=== PATIENT | male | born 1960 | race Caucasian/White ===

== ENCOUNTER 2023-05-25 14:14 | Inpatient (IN) | payer OTHER, SELFPAY ==
[2023-05-25] VITALS (50 sets, daily range): BP systolic 74–165; BP diastolic 45–105; BMI 23.0; BMI 25.6
--- NOTE | 2023-05-25 10:44 | ED.GENMED ---
History of Present Illness
General
Chief Complaint: Male Genito-Urinary Symptoms
Time Seen by Provider: 05/25/23 10:44
Travel History
Have you had any contact with someone who has COVID-19?: No
Do you have any symptoms of coronavirus? Fever > 100 degrees, chills, cough, shortness of breath, sore throat, loss of taste or smell, muscle aches, or headache?: No
History of Present Illness
History of Present Illness:
HPI: The patient presents with scrotal swelling. However the patient is found to be in rapid A-fib, and markedly hypoxic. He states that he has no chest pain or shortness of breath. He states that he had had lower extremity swelling which is
improved. The scrotal swelling has been ongoing for the past week. He does not have a history of COPD but does smoke stating that he currently smokes 1 to 2 cigarettes/day
EXAM:
GENERAL: The patient is chronically ill in appearance
HEENT: Moist oral mucosa, poor dentition
CARDIOVASCULAR: No murmurs, tachycardic heart rate, irregular rhythm, No chest wall tenderness
PULMONARY: He does not appear to be in any significant respiratory distress and has no conversational dyspnea but is hypoxic with room air sats of 75% with good waveform, he does have slightly decreased breath sounds equal
ABDOMEN: Soft with no peritoneal signs, no tenderness
: The patient has scrotal edema which is approximately softball sized
NEUROLOGIC: Excellent strength all extremities, no coordination deficits
PSYCHIATRIC: Appropriate mental status, normal insight and judgement
EXTREMITIES: Nontender, 1+ bilateral lower extremity edema, moves all extremities equally
SKIN: The patient appears cyanotic
TIME OF INITIAL ENCOUNTER: 10:50 AM
NUMBER AND COMPLEXITY OF PROBLEMS ADDRESSED AT THE ENCOUNTER
� Chronic conditions affecting care: A-fib, the patient denies history of CHF, Graves' disease/hypothyroidism, alcohol use
� Acute Exacerbation and/or Progression of Chronic Illness: This is an acute problem
� Differential Diagnosis includes: PE, pleural effusion, COPD, epididymitis, CHF, thyroid disease, alcohol disease
AMOUNT AND/OR COMPLEXITY OF DATA TO BE REVIEWED AND ANALYZED
� I performed an independent evaluation of and my interpretation is:
EKG: A-fib 128, poor R wave progression nonspecific ST abnormality
CT: I personally viewed CTA of the chest which shows no PE and does show a rather large left-sided pleural effusion
X-rays: I personally viewed chest x-ray and he appears to have a left-sided pleural effusion
Laboratory Studies: CBC unremarkable, ABG on 6 L/min of oxygen: pH 7.47, pCO2 34, PaO2 53, troponin 0.063 which is new, BNP 410
Other: Reviewed radiologist interpretation of scrotal ultrasounds in which they felt suggestive cellulitis however there is no erythema, no white count elevation, no fever and no significant pain therefore doubt
cellulitis/infectious etiology
� Review of other/old records: Records indicate the patient was admitted to the hospital in October 2021 with acute CHF with preserved EF exacerbation and records at that time also indicate 'suspected permanent A-fib'. Echo at
that time showed an EF of 50 to 55% with indeterminate diastolic function.
� Clinical information was obtained by an independent historian: None needed
� Prescriptions/Medications Considered but not given: Considered further anticoagulation however the patient should be going to interventional radiology later today for thoracentesis
� Further testing considered but not performed:
RISK OF COMPLICATIONS AND/OR MORBIDITY OR MORTALITY OF PATIENT MANAGEMENT
� Social determinants of health affecting care: Lives at home
� Discussion with other providers: Notify Dr. Thompson of the patient's presentation; hospitalist for admission at about 1 PM; discussed with Dr. See for possible IR thoracentesis
� Escalation of care including admission/observation vs risk of discharge considered: I did review the old records. Although patient denies history of CHF, he was treated for CHF last admission. He does have a history of
smoking history with significant hypoxia�a dose of IV steroids was given. I held off on albuterol as he arrived very tachycardic. He is improved with his heart rate after Cardizem drip and bolus. Patient was emergently placed on high flow oxygen
shortly after arrival.
Past History
Past History
ED Past Medical History: Arrthythmia (Atrial fibrillation), HTN, Hypothyroidism and Other ('Hole in the heart' as a child)
ED Past Surgical History: Cardiac ('Hole in the heart' repair as a child)
Social History
Tobacco: Smoker
Alcohol: Daily
Drug: None
Phy Exam
Physical Exam
Physical Exam:
See HPI
Course
Orders/Labs/Results
Orders:
Orders
05/25/23 10:32
Electrocardiogram (*1) Urgent
Reason for Study: Fatigue / Weakness
EKG- Treatment ONCE
05/25/23 10:46
CR Chest Portable - 1 View Urgent
Comment:
Reason For Exam: hypoxia
Reason Study Needs to be Portable: Patient Unstable
05/25/23 10:56
Alcohol Urgent
Complete Blood Count/With Diff Urgent
Comprehensive Metabolic Panel Urgent
Free T4 Urgent
Magnesium Urgent
NT-proBNP Urgent
TSH Reflex To Free T4 Urgent
Troponin I Urgent
Diltiazem HCl [Cardizem] 10 mg IV NOW STA
US Scrotum Urgent
Comment:
Reason For Exam: swelling
05/25/23 10:57
CT Chest Pe Study Urgent
Comment:
Reason For Exam: hypoxia
05/25/23 11:00
Diltiazem 125 mg/125 ml Nss [Cardizem] 125 mg in 125 ml IV PER PROTOCOL
Initial dose in mg/hr, then titrate:: 10
Titrate to keep:: Heart rate 80-100 bpm
Titrate by mg/hr:: 5 mg/hr
Frequency of titrations (minutes):: 15
Maximum dose in mg/hr:: 15
05/25/23 11:11
ABG [Arterial Blood Gas] Urgent
%Oxygen/Room Air: 6lpm
05/25/23 11:24
O2 Therapy [RESP] Urgent
Titrate/Wean O2 to maintain O2 sat greater than (%): 90
05/25/23 12:45
Furosemide [Lasix] 40 mg IV NOW STA
Abnormal Lab Results
05/25/23 05/25/23
10:56 11:11
MCH 31.5 H pg
(27.0-31.0)
RDW 14.9 H %
(11.5-14.5)
MPV 11.1 H fL
(7.4-10.4)
Absolute Lymphs (auto) 1.1 L 10^3/uL
(1.2-3.4)
Absolute Monos (auto) 0.8 H 10^3/uL
(0.1-0.6)
Lymphocytes % 19.2 L %
(20.5-51.1)
Monocytes % 13.2 H %
(1.7-9.3)
pH 7.47 H
(7.35-7.45)
pCO2 34 L mmHg
(35-48)
pO2 53 L* mmHg
(83-108)
ABG O2 Sat (Measured) 85.0 L %
(94-98)
Creatinine 0.6 L mg/dL
(0.7-1.3)
Glucose 100 H mg/dl
(70-99)
Total Bilirubin 2.1 H mg/dl
(0.2-1.3)
Alkaline Phosphatase 218 H U/L
(38-126)
Troponin I 0.063 H* ng/ml
Total Protein 9.1 H g/dl
(6.3-8.2)
TSH (Reflex) 4.72 H uIU/ml
(0.47-4.68)
05/25/23 10:56
05/25/23 10:56
Vital Signs
Initial and Last Documented VS:
Initial Vital Signs
Temp Pulse Resp BP Pulse Ox
98.3 F 128 16 135/95 90
05/25/23 10:26 05/25/23 10:26 05/25/23 10:26 05/25/23 10:26 05/25/23 10:26
Last Documented Vital Signs
Temp Pulse Resp BP Pulse Ox
98.3 F 92 17 134/90 89
05/25/23 10:26 05/25/23 13:00 05/25/23 13:00 05/25/23 13:00 05/25/23 12:45
*Pulse Oximetry
Patient hypoxic: yes
Comment: Patient's room air sat 75% with good waveform
*Critical Care Note
Total Time (30-74mins, 75-104mins- exclusive of procedures): Not Applicable
comment:
The patient is markedly hypoxic. Emergently tried Cardizem bolus and drip as well as emergent diuresis as I suspect a degree of volume overload despite relatively unremarkable BNP. He does have rather large pleural effusion and I coordinated care
with cardiology, internal medicine, and interventional radiology.
ED Attending Note
-
Portions of this chart may have been created with voice recognition software.� Occasional wrong word or��sound alike� substitutions may have occurred due to the inherent limitations of voice recognition software.
Discharge Plan
Departure
Patient Disposition: Admit
Date of Disposition: 05/25/23
Time of Disposition: 12:47
Presentation/result/management discussed w/ accepting MD/DO: Hospitalist
Discharge Problem:
Pleural effusion
Prescriptions:
No Action
levothyroxine 175 mcg Tablet
175 mcg PO DAILY@0700 Qty: 30 0RF
folic acid 1 mg Tablet
1 mg PO DAILY Qty: 30 0RF
thiamine mononitrate (vit B1) 100 mg tablet
100 mg PO DAILY Qty: 30 0RF
metoprolol succinate 25 mg Tablet Extended Release 24 Hr
25 mg PO BID Qty: 60 0RF
furosemide [Lasix] 40 mg tablet
40 mg PO DAILY Qty: 30 0RF
spironolactone [Aldactone] 25 mg tablet
12.5 mg PO DAILY Qty: 30 0RF
Eliquis 5 mg Tablet
5 mg PO BID Qty: 60 0RF
Referrals:
Liborio Chino MD [Family Provider] -
Interventions
Interventions:
*Risk Screen - Suicide Last Done: 05/25/23 11:09
*General Assessment Last Done: 05/25/23 11:08
*Neglect/Abuse Screening Last Done: 05/25/23 11:09
ED- Fall Risk Assessment Last Done: 05/25/23 11:09
*ED COVID-19 Vaccine History Last Done: 05/25/23 10:30
ED-Male Genitourinary Assessment Last Done: 05/25/23 12:06
[2023-05-25 11:05] LABS: % Basophils 1.9 % (0-2); % Eosinophils 1.9 % (0-6); % Immature Granulocytes 0.2 % (0-0.5); % Lymphocytes 19.2 % (20.5-51.1); % Monocytes 13.2 % (1.7-9.3); % Neutrophils 63.6 % (42.2-75.2); Absolute Basophils 0.1 10^3/uL (0-0.2); Absolute Eosinophils 0.1 10^3/uL (0-0.7); Absolute Lymphocytes 1.1 10^3/uL (1.2-3.4); Absolute Monocytes 0.8 10^3/uL (0.1-0.6); Absolute Neutrophils 3.7 10^3/uL (1.4-6.5); Hematocrit 42.3 % (39.0-52.0); Hemoglobin 14.8 g/dL (13.0-18.0); Mean Corpuscular Hgb 31.5 pg (27.0-31.0); Mean Platelet Volume 11.1 fL (7.4-10.4); Nucleated Red Blood Cells % 0 % (-); Platelet Count 209 10^3/uL (130-400); Red Cell Dist. Width 14.9 % (11.5-14.5); White Blood Cell Count 5.8 10^3/uL (4.8-10.8)
[2023-05-25] MEDS: CARDIZEM 10 MG IV (11:06)
[2023-05-25] MEDS: CARDIZEM 125 IV ×2 (11:07→20:22)
[2023-05-25 11:19] LABS: B.E. 1.5 mmol/L; HCO3 24.7 mmol/L (21-28); PCO2 34 mmHg (35-48); pH 7.47 (7.35-7.45)
[2023-05-25 11:20] LABS: PO2 53 mmHg (83-108)
[2023-05-25 11:26] LABS: ALT (SGPT) 17 U/L (0-50); AST (SGOT) 51 U/L (17-59); Albumin 4.1 g/dl (3.5-5.0); Alkaline Phosphatase 218 U/L (38-126); Blood Urea Nitrogen 14 mg/dl (9-20); Calcium 9.2 mg/dl (8.4-10.2); Carbon Dioxide 22 mmol/L (22-30); Chloride 104 mmol/L (98-107); Glucose 100 mg/dl (70-99); Magnesium 1.8 mg/dl (1.6-2.3); Potassium 4.2 mmol/L (3.5-5.1); Sodium 135 mmol/L (135-145); Total Bilirubin 2.1 mg/dl (0.2-1.3); Total Protein 9.1 g/dl (6.3-8.2); eGFR > 60.00
[2023-05-25 11:29] LABS: Alcohol None Detected
[2023-05-25 11:39] LABS: NT-proBNP 410 pg/ml; Troponin I 0.063 ng/ml
[2023-05-25 11:56] LABS: TSH Reflex To Free T4 4.72 uIU/ml (0.47-4.68)
[2023-05-25 12:32] LABS: Free T4 1.98 ng/dl (0.78-2.19)
[2023-05-25] MEDS: LASIX 40 MG IV ×3 (12:54→23:32)
--- NOTE | 2023-05-25 13:33 | HPS.HSE ---
Family Physician
-
Family Physician: Liborio Chino
Chief Complaint
-
Bilateral scrotal swelling
History of Present Illness
This is a 60-year-old male with past medical history significant for atrial fibrillation on Eliquis, hypertension and hypothyroidism presenting to the emergency department with several days of scrotal swelling. However on arriving to the emergency
department the patient was found to be in rapid atrial fibrillation, hypoxic and cyanotic.
Patient reported to me that he has been taking his medications which are listed as Eliquis and levothyroxine 200 mcg. He was previously on metoprolol twice daily but stopped taking that about 1 month ago. Even on arrival in the emergency
department the patient denied feeling short of breath despite appearing cyanotic. He denied any chest pain. He denied feeling any palpitations. He did say that he had bilateral lower extremity swelling about 2 weeks ago which appeared to improve
on its own and then developed into scrotal swelling. He denied abdominal swelling. Patient does have orthopnea stating that he prefers to sleep upright and has been doing so for an indeterminate period of time. He does not measure his weight. He
denies any nausea or vomiting. He has no recent fevers or chills. He states that he has an occasional morning cough that clears within a few minutes of waking up. He has no known sick contacts and denies any recent travels.
Patient denies history of any liver disease. He does drink 3 servings of beer daily. Denies any episodes of alcohol withdrawal.
On arrival in the emergency department the patient was hypoxic and tachycardic to the 130s. He is currently satting at 89% on 60 L high flow. Blood pressure stable ECG shows atrial fibrillation with rapid ventricular rate at 128 without any acute
ST or T wave changes. Troponin was 0.06. BNP 410. CBC is unremarkable. Chemistries stable with K of 4.2. TSH is slightly elevated at 4.7.
CT of the chest with IV contrast is negative for blood clot but did showed a large left pleural effusion and moderate left with consolidation or atelectasis.
Medical History
Past Medical History
Past Medical History: Reports HTN and Hypothyroidism
Additional Past Medical History:
Atrial Fibrillation
Past Surgical History: Reports None
Social History
Tobacco: Smoker (3 cigarrettes daily)
Alcohol: Daily
Drug: None
Personal: Single
Living: With Family
Employment: Retired
Family History
Family History: Not pertinent
Allergies / Home Medications
Allergies reflects when Allergies were last updated in [facility].
Home Medications with original date entered in [facility]
Allergy/Medication List:
Allergies
Allergy/AdvReac Type Severity Reaction Status Date / Time
No Known Allergies Allergy Verified 05/25/23 10:31
Home Medications
levothyroxine 200 mcg tablet 200 mcg PO DAILY
apixaban 5 mg tablet (Eliquis) 5 mg PO BID
Review of Systems
-
History Source: Patient
Constitutional: Reports No Symptoms
EENT: Reports No Symptoms
Respiratory: Reports Trouble Breathing
Cardiac: Reports No Symptoms
Abdomen/GI: Reports No Symptoms
: Reports Other (scrotal edema)
Musculoskeletal: Reports Edema
Skin: Reports No Symptoms
Neurological: Reports No Symptoms
Endocrine: Reports No Symptoms
Hematologic/Lymphatic: Reports No Symptoms
Psych: Reports No Symptoms
Physical Exam
Vital Signs
Vital Signs
Temp Pulse Resp BP Pulse Ox
98.3 F 98 20 120/79 89
05/25/23 10:26 05/25/23 13:15 05/25/23 13:15 05/25/23 13:15 05/25/23 13:15
Physical Exam
General: Respiratory Distress
HEENT: NormoCephalic, Anicteric, Moist mucous membranes, PERRLA, Oxygen and Other (cyanotic lips)
Respiratory: Non Labored Respirations and Decreased Breath Sounds (decreased left lung breath sounds)
Cardiac: Irregular Rhythm and Tachycardia
Breast: Deferred by me
GI: Soft, Non Tender, Non Distended and Normal Bowel Sounds
Rectal: Deferred by Provider
Genito-urinary: Deferred by me
Musculoskeletal: Clubbing, Cyanosis, Edema, Left Lower Extremity and Edema, Right Lower Extremity
Skin: Warm
Neuro: AO x 3
Hematologic/Lymphatic: No Lymphadenopathy
Psych: Calm
Laboratory Results
-
05/25/23 10:56
05/25/23 10:56
Laboratory Results
pH 7.47 (7.35-7.45) H 05/25/23 11:11
pCO2 34 mmHg (35-48) L 05/25/23 11:11
pO2 53 mmHg (83-108) L* 05/25/23 11:11
HCO3 24.7 mmol/L (21-28) 05/25/23 11:11
Total Bilirubin 2.1 mg/dl (0.2-1.3) H 05/25/23 10:56
AST 51 U/L (17-59) 05/25/23 10:56
ALT 17 U/L (0-50) 05/25/23 10:56
Alkaline Phosphatase 218 U/L (38-126) H 05/25/23 10:56
Troponin I 0.063 ng/ml H* 05/25/23 10:56
Data Reviewed
-
CT Scan: Report Reviewed by me
Medical Tests (Nuc Med, Echo, EKG etc): Image Personally Visualized and interpreted
Lab Data: Labs Reviewed by me
Old Records: Reviewed
Impression/Plan
-
IMPRESSION:
Suspect patient has CHF secondary to uncontrolled afib given history of bilateral leg edema, scrotal edema, elevated BNP. He is volume overloaded.
PLAN:
1. AFIB RVR - Patient with h/o AFIB and hypothyroidism. Presents with afib RVR although he himself denies chest pain, palpitaitons, shortrness of breath or dizziness. Came in for scrotal swelling. He stopped taking his metoprolol about 1 month
ago. Given unawareness of afib, patient likely has been tachycardic for weeks and may have developed tachycardia induced heart failure. He did have bilateral lower extremity edema on history which improved as he spent more time sitting but then
developed scrotal edema. TSH is slightly elevated so unlikely thyrotoxic.
- admit to imu
- continue cardizem gtt titrated for rate < 110. Discontinue if bradycardic.
- echo in am
- restart oral agents per cardiology
- cardiology consulted and notified.
2. Pleural Effusion - Large left pleural effusion likely contributing to his hypoxia. There is likely atelectasis superimposed on the effusion. No cough, fevers, chills or leukocytosis consistent with an acute infection. Despite h/o smoking no
wheezing. Possibly atypical CHF induced transudative effusion.
- IR diagnostic and therapeutic thoracentesis plan prior to floor transfer
- checking ldh/TP, albumin, pH, cell count
- IV diuresis w/ lasix 40mg iv bid to tid
3. Hypoxia - Currently on high flow. Out of proportion to degree of pulmonary findings. CT chest is negative for acute PE. No wheezing/ barrel chest suggestive of a COPD.
- High flow for now
- no indication for abx, steroids
- no indication for nebs
- continue diuresis and follow pleural fluid analysis
- monitor post thoracentesis
- pulmonary consultation
4. Troponin elevation - Trop 0.06. No acute ischemia on ECg. No chest pain. Came in cyanotic and hypoxic with tachycardia. Demand ischemia suspected
- cycle enzymes
- aspirin 324 x 1
- continue ac with apixaban after thoracentesis
5. Scrotal edema - No signs of acute infection
- elevate sac
- iv lasix
6. Hypothyroidism- TSH is 4.7. No evidence of thyrotoxicosis.
- continue levothyroxin 200 mcg
DVT PPX - On therapeutic apixaban
Full Code
--- NOTE | 2023-05-25 14:22 | PHANOTE ---
05/25/2023, med rec tech, spoke to pt. to obtain their med. history; pt. states to be taking Eliquis 5 mg BID and that he gets this med. sent to him for free but does not know through what service; pt. brought bottle with him with the label ripped
off of it so I could not confirm it; saw this med. on [facility] records from 12/13/2021.
[2023-05-25 14:54] LABS: LDH 259 U/L (120-246)
--- NOTE | 2023-05-25 15:03 | W.PN.UPDATE ---
Update Note
Progress Note Update
L thora: 1500 mL straw colored fluid
[2023-05-25 15:33] LABS: Body Fluid pH 7.49
[2023-05-25 15:45] LABS: Body Fluid LDH 120 U/L; Body Fluid Protein 3.5 g/dl
--- NOTE | 2023-05-25 16:25 | CON.CAR ---
Consultation
Consultation Request
Date/Time Consultation Requested: 05/25/23
Date/Time Consultation Performed: 05/25/23
Requesting Provider: Enrique
Performing Provider: Kathy
Reason for Consultation: AFib
Medical History
-
Chief Complaint: scrotal swelling
History of Present Illness:
62-year-old man past medical history of atrial fibrillation and heart failure with preserved ejection fraction as well as Graves' disease presenting with chief complaint of scrotal swelling. Initially found to be hypoxic requiring mid flow
supplemental O2. Heart rate was elevated in A-fib and he was started on diltiazem drip for rate control. Chest x-ray and subsequent chest CT concerning for pulmonary edema and pleural effusion consistent with decompensated heart failure. Of note
proBNP was not severely elevated at 410.
Patient underwent left sided thoracentesis with IR removing 1.5 L of straw-colored fluid. Still requiring mid flow oxygen support. Planned for admission to IMU.
Initial troponin was mildly elevated 0.063. Patient is not reporting any chest pain or pressure to me. ECG is nonischemic appearing.
PMHx:
HFpEF
Atrial fibrillation with RVR - permanent
Graves' disease
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
H/O Hypothyroidism following radiation treatment for Graves' disease
Daily EtOH
Current smoker
Past Medical History
Past Medical History: Other (as above)
Past Surgical History: Other (as above)
Social History
Tobacco: Smoker
Alcohol: Daily
Living: With Family (brother)
Employment: Retired
Family History
Family History: Reviewed & Not Pertinent
Allergies / Home Medications
Allergy/AdvReac Type Severity Reaction Status Date / Time
No Known Allergies Allergy Verified 05/25/23 10:31
Medication Instructions Recorded Confirmed Type
apixaban 5 mg tablet (Eliquis) 5 mg PO BID 05/25/23 History
levothyroxine 200 mcg tablet 200 mcg PO DAILY 05/25/23 05/25/23 History
tkzlvhrfxrjs-enyfvzzm-jjoyrm tablet 1 tab PO DAILY 05/25/23 05/25/23 History
thiamine HCl (vitamin B1) 100 mg 100 mg PO DAILY 05/25/23 05/25/23 History
tablet
Review of Systems
-
History Source: Patient
All other systems: Negative unless noted
Physical Exam
Vital Signs
Temp Pulse Resp BP Pulse Ox
97.7 F 73 20 113/62 90
05/25/23 14:25 05/25/23 16:15 05/25/23 16:15 05/25/23 16:15 05/25/23 16:15
Lab Results
05/25/23 10:56
05/25/23 10:56
Troponin I 0.063 ng/ml H* 05/25/23 10:56
Bly-Z-Wyxfphccdrj Pept 410 pg/ml 05/25/23 10:56
Physical Exam
General: Well Developed
HEENT: Normocephalic and Other (scleral injection)
Respiratory: Crackles (LL lung field) and Other (mid flow O2)
Cardiac: S1/S2 and Irregular Rhythm
GI: Soft
Genito-urinary: Other (scrotal swelling)
Musculoskeletal: Clubbing, Cyanosis and Edema (trace LE with overlying brawny skin changes)
Skin: Warm and Dry
Neuro: AO x 3
Psych: Calm
Impression / Plan
-
Distribution Estimator: None
Assessment:
Hypoxic respiratory failure
Scrotal edema
Acute heart failure
Atrial fibrillation with RVR
Elevated troponin
L pleural effusion s/p IR drainage 05/25/23
Ascending aortic saccular aneurysm
Graves' disease
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
H/O Hypothyroidism following radiation treatment for Graves' disease
Daily EtOH
Current smoker
10/29/2021: EF 50-55%, mild MR, mildly dilated LA, mild TR, pulmonary artery systolic pressure 51 mmHg based on elevated right atrial pressure of 20 mmHg, dilated RA, normal RV, and some views anteroseptal hypokinesis could be present, normal aortic
valve
Plan:
CHF
-Presenting with hypoxic respiratory failure secondary to presumed heart failure, currently requiring supplemental O2 via mid flow nasal cannula
-Plan for IV diuresis twice daily in an attempt to improve his respiratory status
-Follow daily weights, renal function, electrolytes
-Explained that elevation will be helpful to improve scrotal swelling
-Check transthoracic echocardiogram
AFib RVR
-History of atrial fibrillation, presenting in A-fib RVR
-Rates are currently controlled on diltiazem drip, ideally would start on oral meds and transition off IV, will add low dose BB
-On Eliquis as an outpatient for cardioembolic prophylaxis, would continue here unless further procedures are planned
-Afib was previously called permanent, may engage EP regarding the feasibility rhythm control
Troponin elevation
-Not reporting chest discomfort to me
-ECG is not obviously ischemic
-Trend troponin to peak
-Start statin and beta-vipul, on full dose AC with Eliqius
Ascending aortic aneurysm
-Incidentally found on CT scan 05/25/2023
-Recommend statin, smoking cessation and tight blood pressure control
-Explained the need for serial imaging in the future
Data Reviewed
-
EKG: Tracing Personally Visualized and interpreted
Radiology: Image Personally Visualized and interpreted
CT Scan: Image Personally Visualized and interpreted
Medical Tests (Nuc Med, Echo etc): Image Personally Visualized and interpreted
Labs: Labs Reviewed by me
Old Records: Reviewed
[2023-05-25] MEDS: ROBITUSSIN 200 MG PO (17:32)
[2023-05-25] MEDS: MORPHINE SULFATE 2 MG IV ×2 (17:37→22:17)
[2023-05-25 19:44] LABS: INR 1.35; PT 16.5 Sec (11.4-14.6)
[2023-05-25 20:00] LABS: Troponin I 0.045 ng/ml
--- NOTE | 2023-05-25 20:00 | PTCARENOTE ---
Received pt from IMU to ICU [id number]. Pt. AAOx3, RUIZ. On Hi flow 55L/100% fio2, RR 20s, spo2 87-90%. RT at bedside. L lung dim with rhonchi and scattered rales. R side dim with rhonchi. Does not appear to be in distress. Afib on tele, on cardizem gtt -
see worklist. HR 80s-90s, BP 120s/70s. Weak DP pulses. Nail beds cyanotic. Abdomen round, hypoactive bowel sounds. Tolerated sips of fluid. Bliss cath placed per orders. Yellow urine output 400ml initially. Repositioning to maximize o2 status,
especially onto R side. Monitoring closely
--- NOTE | 2023-05-25 20:09 | PTCARENOTE ---
Pt arrived to IMU from ED via stretcher. Transferred over to bed by staff. High Flow NC 55L/100% with NRB; SaO2 83%. Pt with frequent nonproductive harsh cough. Unable to catch breath. Dr. Maravilla notified. New order for PRN Morphine 2mg IV X1
acknowledged and administered. PRN Robitussin administered. SaO2 slowly improved to 88% before patient stated he had to urinate. Pt began moving legs to side of bed; SaO2 dropped to 70% and slowly improved to > 80%. Tachypneic with RR 20s. Atrial
fibrillation on monitoring coordinator. HR 80s - 100s. Cardizem gtt infusing @ 15 mg/hr. +4 scrotal edema. Generalized anasarca. +2 pitting LE edema. LE's warm and red. Wound on (R) shoulder that pt cannot identify how it happened. Abdomen is round,
distended, full. Voided yellow into urinal. SaO2 remained in 80s. Discussed with Dr. Alcantara. New orders for transfer to ICU and noninvasive ventilation. Report given to Marlene LESLIE in ICU.
[2023-05-25 20:37] LABS: APTT 32.2 Sec (23.4-35.0)
[2023-05-25] MEDS: LOPRESSOR 25 MG PO (21:11)
[2023-05-25] MEDS: TYLENOL 650 MG PO (21:11)
[2023-05-25] MEDS: ELIQUIS 5 MG PO (21:11)
[2023-05-25] MEDS: LIPITOR 40 MG PO (21:11)
[2023-05-25 21:31] LABS: COVID-19 Antigen Negative (Negative)
[2023-05-25] MEDS: ROBITUSSIN AC 10 ML PO (22:17)
--- NOTE | 2023-05-25 22:38 | PTCARENOTE ---
Pt O2 sats 76-80% on HF + NRB. RT and FITNESS AND WELLNESS MANAGER at bedside. Placed on NIV mask.
HR also 60s suddenly, previously 80s. Hypotensive 80s/50s. Cardizem gtt titrated to off. Will monitor
[2023-05-25] MEDS: LEVOPHED 250 IV (23:05)
--- NOTE | 2023-05-25 23:27 | W.PN.UPDATE ---
Update Note
Progress Note Update
0- Patient worsening hypoxemia, oxygen saturations sustaining 70s%, transitioned from non rebreather and high flow oxygen to non invasive. Patient has pale/dusky generalized color, not tachypneic, continues with hypoxemia. Dr. Dutton,
solo musician updated, recommendations received, would not intubate patient unless respiratory distress, repeat chest xray, and echo with bubble study for tomorrow. At this time patient is comfortable and speaking, although becomes hypoxic with any
exertion. It is unclear as to complete picture as to why patient is hypoxic and cause for pleural effusion on the left side, needs further investigation/work up. Chest xray repeated. Arterial line placed for ABG monitoring and hemodynamic
monitoring. Levophed gtt initiated for hypotension, Cardizem gtt now off because of rhythm change to junctional/slow rate rhythm and hypotension. Additional dose of lasix 40mg IV given for decreased urinary output, now only put out 30cc, to help
with diuresis. Temp 100.1, will obtain blood cultures and UA. COVID and influenza swabs negative. Patient and RN updated at bedside. Patient understands and if respiratory distress occurs would like to be intubated, remains FULL CODE.
--- NOTE | 2023-05-26 00:32 | W.PN.UPDATE ---
Update Note
Progress Note Update
ARTERIAL LINE (A-Line) PLACEMENT
Indication: Hemodynamic monitoring
Consent: emergent, implied, but patient verbalized consent as well
A time-out was completed verifying correct patient, procedure, site, positioning, and special equipment if applicable. Steve�s test was performed to ensure adequate perfusion. The patient�s left wrist was prepped and draped in sterile fashion.�A�20G
Arrow arterial line was introduced into the left radial artery. The catheter was threaded over the guide wire and the needle was removed with appropriate pulsatile�blood return. A sterile dressing applied. Perfusion to the extremity distal to the
point of catheter insertion was checked and found to be adequate.
Estimated Blood Loss: minimal
The patient tolerated the procedure well and there were no complications.
[2023-05-26 00:33] LABS: B.E. 0.2 mmol/L; HCO3 24.7 mmol/L (21-28); PCO2 39 mmHg (35-48); pH 7.41 (7.35-7.45)
[2023-05-26 00:36] LABS: PO2 52 mmHg (83-108)
--- NOTE | 2023-05-26 00:39 | PTCARENOTE ---
Pt continues with spo2 78-80%. DENTAL HYGIENE INSTRUCTOR and RT aware. Do not wish to proceed with intubation at this time due to pt not appearing in acute distress, RR under control, pt mentating. L radial A line was placed by FOREIGN Murillo. Blood cultures x2, lactic
and ABG ordered and drawn. PO2 = 52. On NIV 24/02, 100% fio2. HR 50s-60s, appears junctional. Levophed was started ~2300 due to MAPs of 55. See worklist for titrations. 40mg IV lasix was given with no urine response. DENTAL HYGIENE INSTRUCTOR aware of all the above. Pt.
resting at this time.
[2023-05-26 00:46] LABS: Lactic Acid 2.3 mmol/L (0.7-2.0)
[2023-05-26 01:06] LABS: Troponin I 0.082 ng/ml
[2023-05-26 02:01] LABS: Urine Albumin 1+ (Neg - Trace); Urine Bilirubin Negative (Negative); Urine Character Slightly Cloudy (Clear); Urine Color Yellow; Urine Glucose Negative (Negative); Urine Ketone Negative (Negative); Urine Leukocyte 1+ (Negative); Urine Nitrite Negative (Negative); Urine Occult Blood 4+ (Negative); Urine Urobilinogen Negative (Neg - 1+)
[2023-05-26 02:48] LABS: Urine Amorphous Seen; Urine Mucus Moderate; Urine Squamous Cell >30 /LPF (Few); Urine Urothelial Cell >30 /LPF (FEW)
[2023-05-26 02:49] LABS: Urine Bacteria Many (Negative); Urine Red Blood Cell >100 /HPF (0-2); Urine White Cell >100 /HPF (0-5)
[2023-05-26] MEDS: LEVOPHED 250 IV ×3 (02:52→14:46)
--- NOTE | 2023-05-26 04:06 | PTCARENOTE ---
Pt reassessed. O2 sats slightly improved- now 86-87%. Remains on NIV. HR 50s, occasionally dipping to high 40s momentarily. CARDIOVASCULAR OR NURSE aware. Levophed gtt continues. Urine output remains poor. AM Labs sent. Pt. without complaint
[2023-05-26 04:14] LABS: Blood Urea Nitrogen 19 mg/dl (9-20); Calcium 8.6 mg/dl (8.4-10.2); Carbon Dioxide 21 mmol/L (22-30); Chloride 101 mmol/L (98-107); Estimated Creatinine Clearance 79 ml/min; Glucose 158 mg/dl (70-99); HDL Cholesterol 39 mg/dl; LDH 243 U/L (120-246); LDL Cholesterol, Calculated 60 mg/dl; Magnesium 1.7 mg/dl (1.6-2.3); Potassium 4.9 mmol/L (3.5-5.1); Sodium 132 mmol/L (135-145); Total Cholesterol 112 mg/dl (50-199); Triglyceride 67 mg/dl (10-149); Very Low Density Lipoprotein 13 mg/dl (0-30); eGFR > 60.00
[2023-05-26 04:42] VITALS: BP 121/84
[2023-05-26 05:17] LABS: B.E. -0.2 mmol/L; O2 Saturation % 90.4 % (94-98); PCO2 37 mmHg (35-48); PO2 61 mmHg (83-108); pH 7.42 (7.35-7.45)
[2023-05-26 05:21] LABS: Hematocrit 44.5 % (39.0-52.0); Hemoglobin 15.4 g/dL (13.0-18.0); Mean Corp Hgb Conc. 34.6 g/dL (33.0-37.0); Mean Corpuscular Hgb 31.6 pg (27.0-31.0); Mean Corpuscular Volume 91.2 fL (80.0-94.0); Mean Platelet Volume 10.9 fL (7.4-10.4); Platelet Count 205 10^3/uL (130-400); Red Blood Cell Count 4.88 10^6/uL (4.70-6.10); Red Cell Dist. Width 14.9 % (11.5-14.5); White Blood Cell Count 12.6 10^3/uL (4.8-10.8)
[2023-05-26 05:32] LABS: Lactic Acid 1.9 mmol/L (0.7-2.0)
[2023-05-26 05:52] VITALS: BMI 26.0
--- NOTE | 2023-05-26 06:29 | PTCARENOTE ---
O2 sats continue to slowly improve- now 89-90%. Pt. resting calmly, no distress, no pain. Was bathed with CHG, did desat with movement to 79%. EKG obtained- revealed afib and prolonged qtc- MERGERS AND ACQUISITIONS ASSOCIATE notified. HR 60s. Levophed weaned down to 10mcg.
--- NOTE | 2023-05-26 06:38 | W.PN.HOSP.TC ---
Today's Communication/Plan
-
.
Assessment / Plan
Assessment / Plan
Physical Exam
General: in Respiratory Distress with Non invasive ventilation mask on
HEENT: Normocephalic, Anicteric, Moist mucous membranes, PERRLA, Oxygen and Other (cyanotic lips)
Respiratory: rhonchi bilaterally.
Cardiac: Irregular Rhythm and Tachycardia
GI: Soft, Non Tender, Non Distended and Normal Bowel Sounds
Rectal: no rectal breathing
Musculoskeletal: Clubbing, Cyanosis, Edema, Left Lower Extremity and Edema, Right Lower Extremity
Skin: Warm
Neuro: AO x 3
Psych: Calm
A/P
# AFIB RVR - Patient with h/o AFIB and hypothyroidism.� Presented with afib RVR although he himself denies chest pain, palpitations, shortness of breath or dizziness.�� He stopped taking his metoprolol about 1 month ago.� Given unawareness of afib,
patient likely had tachycardic for weeks and may have developed tachycardia induced heart failure.� He did have bilateral lower extremity edema on history which improved as he spent more time sitting but then developed scrotal edema.� TSH is
slightly elevated so unlikely thyrotoxic.
continue care in ICU
- continue BB
- echo
- c/w Eliquis.
- cardiology help appreciated.
# Suspect Sepsis POA/ septic shock
with tachycardia, low grade temp and leukocytosis
f/w blood cultures
On Pressure support , will d/w ICU doctor if we need to hold Lasix.
IV ABx for now
# Scrotal swelling.
'Empiric ABx for now. Treat edema with elevation and Lasix.
Monitor for retention.
# Pleural Effusion - Large left pleural effusion likely contributing to his hypoxia.� There is likely atelectasis superimposed on the effusion.� No cough, fevers, chills or leukocytosis consistent with an acute infection.� Despite h/o smoking no
wheezing.� Possibly atypical CHF induced transudative effusion.�
- IR diagnostic and therapeutic thoracentesis plan prior to floor transfer
- checking ldh/TP, albumin, pH, cell count
- IV diuresis w/ lasix 40mg iv bid to tid
#Acute hypoxic respiratory failure requiring Non-invasive ventilation machine. CT chest is negative for acute PE.� No wheezing/ barrel chest suggestive of a COPD.�
Check procalcitonin
Empiric ABx
Hx of smoking, possible underlying COPD?
c/w Neb
Negative flu and cOVID.
Appreciate pulmonary/ICU doctor help
# Acute HF pEF
f/w echo, daily weight
c/w Lasix
# Non-ischemic -Troponin elevation - Trop 0.06- 0.08
- cycle enzymes
- c/w ELiquis, f/w echo. Pt denied chest pain
- continue ac with apixaban after thoracentesis
# Hypothyroidism- TSH is 4.7.� No evidence of thyrotoxicosis.
- continue levothyroxine 200 mcg
DVT PPX - On therapeutic apixaban
Full Code
�Total time spent to see the patient, examine the patient on the floor, review data and lab results, discuss treatment plan with the patient, nursing staff around 55 minutes
Anticipated Discharge: > 48 hours
Subjective/Interval History
-
Date of Service: May 26, 2023
In respiratory distress
Low grade temp
Objective Data
-
Labs:
Laboratory Results
05/25/23 05/26/23 05/26/23
19:25 00:23 03:40
WBC
Hgb
Hct
Plt Count
PT 16.5 H
INR 1.35
APTT 32.2
HCO3 24.7
Sodium 132 L
Potassium 4.9
Chloride 101
Carbon Dioxide 21 L
BUN 19
Creatinine 1.0
Glucose 158 H
Calcium 8.6
05/26/23
05:07
WBC 12.6 H
Hgb 15.4
Hct 44.5
Plt Count 205
PT
INR
APTT
HCO3 24.0
Sodium
Potassium
Chloride
Carbon Dioxide
BUN
Creatinine
Glucose
Calcium
Vital Signs:
Vital Signs
Temp Pulse Resp BP Pulse Ox
99 F 65 10 121/84 89
05/26/23 04:00 05/26/23 06:30 05/26/23 06:30 05/26/23 04:42 05/26/23 06:30
I&O
05/24/23 05/25/23 05/26/23
06:59 06:59 06:59
Intake Total 740.5 / 740.5
Output Total 1542 / 1542
Balance -801.5 / -801.5
--- NOTE | 2023-05-26 07:41 | CON.INTV ---
Consultation
Consultation Request
Date/Time Consultation Requested: 05/26/2023-7 AM
Date/Time Consultation Performed: 05/26/2023-7 AM
Requesting Provider: Hospitalist
Performing Provider: Dr. Pena
Reason for Consultation: Critical care management
Medical History
-
Chief Complaint: Shortness of breath and hypotension
History of Present Illness:
62-year-old male with a history of hypertension, atrial fibrillation on Eliquis, hypothyroidism found to be hypoxemic tachycardic with scrotal swelling noted to have large left pleural effusion status post thoracentesis with persistent hypotension
and hypoxemia requiring pressors and noninvasive ventilation-farm specialist consulted for respiratory failure/noninvasive ventilation/hypotension/shock/critical care management 05/26/2023. Patient has a noninvasive ventilator on his face and difficult
to communicate with. He appears to be alert and oriented. He states that the mask 'sucks'. He denies any chest congestion, chest pain, productive cough, abdominal pain, nausea, weakness, or increased leg swelling. He smokes daily but down to 3
cigarettes daily. He also reportedly drinks alcohol daily but the quantity is unclear.
Past Medical History
Past Medical History: None (Hypertension. Atrial fibrillation. Hypothyroid)
Social History
Tobacco: Smoker (Down to 3 cigarettes daily)
Alcohol: Daily
Drug: None
Personal: Single
Living: With Family
Employment: Retired
Occupational Exposures: No known asbestos exposure
Environmental Exposures: no known tuberculosis exposure
Family History
Family History: Reviewed & Not Pertinent
Allergies / Home Medications
Allergies
Allergy/AdvReac Type Severity Reaction Status Date / Time
No Known Allergies Allergy Verified 05/25/23 10:31
Home Medications
Medication Instructions Recorded Confirmed Last Taken Type
apixaban 5 mg tablet (Eliquis) 5 mg PO BID 05/25/23 05/24/23 History
levothyroxine 200 mcg tablet 200 mcg PO DAILY 05/25/23 05/25/23 05/25/23 History
rdqabprowywe-nvltzdzd-todusc tablet 1 tab PO DAILY 05/25/23 05/25/23 05/24/23 History
thiamine HCl (vitamin B1) 100 mg 100 mg PO DAILY 05/25/23 05/25/23 1 Week Ago History
tablet ~05/18/23
Review of Systems
-
Unable to Obtain full review of systems at this time due to: Other (Per HPI)
Vitals / Labs / Diagnostic Testing
Vital Signs
Temp Pulse Resp BP Pulse Ox
97.8 F 65 10 121/84 89
05/26/23 07:23 05/26/23 06:30 05/26/23 06:30 05/26/23 04:42 05/26/23 06:30
Lab Data
05/26/23 05:07
05/26/23 03:40
Laboratory Results
05/25/23 05/25/23 05/26/23
11:11 19:25 00:23
PT 16.5 H
INR 1.35
APTT 32.2
pH 7.47 H 7.41
pCO2 34 L 39
pO2 53 L* 52 L*
HCO3 24.7 24.7
O2 Delivery Level
05/26/23
05:07
PT
INR
APTT
pH 7.42
pCO2 37
pO2 61 L
HCO3 24.0
O2 Delivery Level
Microbiology
05/25/23 20:45 Nasal Swab Influenza Types A & B (ERROL) - Final
Negative for Influenza A & B, NAAT
Negative results must be combined with clinical observations
and patient history.
Nucleic Acid Amplification test (NAAT)performed on the
Animated Speech platform.
Diagnostic Testing:
Physical Exam
-
Exam:
Well-nourished and well-developed in no apparent distress
HEENT-atraumatic, normocephalic, noninvasive ventilation with full facemask
Neck-supple, no JVD, no bruit
Heart-regular rate and rhythm-no murmurs, rubs or gallops
Chest with diminished breath sounds, rare crackles and no wheezes
Abdomen-soft, nontender, nondistended, no hepatosplenomegaly
Extremities-no cyanosis, clubbing, edema and good peripheral pulses
Integument-intact, no rashes, lesions or ecchymosis
Neurology-alert and oriented, nonfocal motor and sensory exam
Assessment
-
62-year-old male with a history of hypertension, atrial fibrillation on Eliquis, hypothyroidism found to be hypoxemic tachycardic with scrotal swelling noted to have large left pleural effusion status post thoracentesis with persistent hypotension
and hypoxemia requiring pressors and noninvasive ventilation-farm specialist consulted for respiratory failure/noninvasive ventilation/hypotension/shock/critical care management 05/26/2023.
Assessment
Respiratory failure-hypoxemic due to large left pleural effusion
Left pleural effusion status post thoracentesis 05/25/23--1.5 L
CHF with preserved EF
Mitral regurgitation
Biatrial enlargement on CT chest 05/25/2023
Saccular aneurysm of ascending aorta 2.6 cm extending length of 3 cm-noted on CT chest 05/25/2023
Bilateral basilar consolidation-atelectasis versus pneumonia
Leukocytosis
Mild hyponatremia
Hyperglycemia-blood sugar 158
Scrotal edema with possible cellulitis
Conditions present prior to admission:
Hypertension
Hypothyroid
Atrial fibrillation on Eliquis
Daily smoker
Daily alcohol intake
Plan
Patient admitted to medical intensive care unit on the verge of intubation-critically ill on pressors and noninvasive ventilation
Supplemental oxygen as needed
Noninvasive ventilation-ventilator adjusted
Follow ABG if needed
Follow chest x-ray-last 4 chest x-rays reviewed and summarized below
Nebulizers if needed-currently not bronchospastic
Aspiration precautions
Mucolytic's
Incentive spirometry if able
Thoracentesis 05/25/23--1.5 L-pH 7.49, borderline exudate with total protein 3.5 and LDH 120,-cultures pending, cytology not sent
Cardiology evaluation
Echocardiogram recommended
Diuresis as tolerated
Monitor renal function, electrolytes, intake/output, lower extremity edema and weight
Replace electrolytes as needed
Check cultures
Norepinephrine initiated-goal MAP greater than 65
Observe off antibiotics-suspect basilar atelectasis and not pneumonia
Consider urology evaluation with scrotal edema and possible cellulitis
Consider antibiotics for scrotal cellulitis if present
Monitor electrolytes
Replace as needed
Monitor blood sugar
Insulin supplementation as needed
DVT prophylaxis-on Eliquis
Nutrition
Early mobilization
Critical care statement: A total of 55 minutes of critical care time was provided for this patient today. This includes management of unstable vital signs, evaluation of the patient at bedside, reviewing the patient's pertinent medical records
including radiographs, noninvasive ventilation management, pressor-norepinephrine management, microbiology, laboratory evaluations, and discussion with primary team, consultants, pharmacy, nutrition, physical therapy, case management, charge nurse,
critical care nursing, and respiratory therapy.
Diagnostic data:
Chest x-ray 10/27/2021-small bilateral pleural effusions right greater than left, mild airspace disease mid and lower right lungs concerning for pneumonia, CHF cannot be excluded
Chest x-ray 05/25/2023-mild to moderate CHF with small right and small to moderate left pleural effusion with atelectasis
Chest x-ray 05/25/2023-status post thoracentesis, no pneumothorax, atelectasis right lung base
Chest x-ray 05/25/2023-small left pleural effusion progressed stable mild CHF
CT chest 05/25/2023-large left pleural effusion which is new, moderate to left lower lobe consolidation may represent atelectasis or pneumonia, no evidence for pulmonary embolism stable left lower lobe consolidation, saccular aneurysm of ascending
aorta measuring 2.6 cm extending a length of 3 cm, bilateral atrial enlargement
Thoracentesis 05/25/2023-left side--1.5 L serosanguineous fluid
Scrotal ultrasound 05/25/2023-bilateral scrotal wall edema suggesting cellulitis, no abscess
Echocardiogram 10/29/2021-EF 50-55%, mild mitral regurgitation, a systolic 51
Data Reviewed
-
EKG: Report reviewed by me
Radiology: Image personally visualized and interpreted and Report reviewed by me
CT Scan: Image personally visualized and interpreted and Report reviewed by me
Ultrasound: Report reviewed by me
Medical Tests (Nuc Med, Echo etc): Report reviewed by me
Labs: Labs reviewed by me
Old Records: Reviewed
Critical Care Time (in minutes): 55
[2023-05-26] MEDS: ELIQUIS 5 MG PO ×2 (07:51→20:08)
[2023-05-26] MEDS: SYNTHROID 200 MCG PO (07:51)
[2023-05-26] MEDS: LASIX 40 MG IV ×2 (07:52→17:01)
[2023-05-26] MEDS: LOPRESSOR PO ×2 (07:52→20:25)
[2023-05-26] MEDS: THIAMINE INJECTION 200 MG IV (07:52)
--- NOTE | 2023-05-26 08:00 | PTCARENOTE ---
PT received in bed on NIV, AAOx3, able to make needs known, AFib on monitor, weak pedal pulses +2 edema to LE, +3 edema to scrotum, B/L LE PVD discoloration noted, NIV 18/12 FiO2 100%, Left 1/2 up fine crackles, B/L diminished no cough noted,
abdomen distended and slightly firm, PT denies any complaints, hypoactive BS, Bliss care provided as per protocol, draining annie urine, there is an abscess on right shoulder, BANQUET DIRECTOR, R AC INT#20, R upper FA #20 and right hand # 20 INT, all flushed and
all patent, left radial [place], zeroed and flushed as per protocol, safe environment provided
[2023-05-26 08:06] LABS: Procalcitonin 1.74 ng/ml (0.0-0.25)
--- NOTE | 2023-05-26 11:15 | PHA.VAN.IN ---
Assessment
- Assessment
Renal Function: Appears elevated from baseline (SCR increased from admission 0.6 --> 1)
Patient currently on Norepinephrine and receiving IV furosemide
Plan
- Plan
Initial / Loading Dose: Divided load with 1250mg x2 doses - and 1999
Maintenance Regimen: dosing by level to follow trend with increased SCR
Monitorin/19 06
MRSA Screen: Ordered per protocol
Pharmacokinetics Vancomycin I
- -
Patient Age: 62
Patient Sex: Male
Vancomycin Day #: 1
Indication: Skin And Soft Tissue
Requesting Provider: Dr. Coronel
Pertinent Antimicrobial Allergies:
NKDA
Height / Weight:
Height 5 ft 10 in
Actual Weight 82.1 kg
- Vital Signs / Lab Results
Temp Pulse Resp BP Pulse Ox
97.8 F 73 19 110/60 97
05/26/23 07:23 05/26/23 11:00 05/26/23 11:00 05/26/23 07:52 05/26/23 11:00
Lab Results - Hematology
05/25/23 05/26/23
10:56 05:07
WBC 5.8 12.6 H
Lab Results - Chemistry
05/25/23 05/26/23
10:56 03:40
BUN 14 19
Creatinine 0.6 L 1.0
Estimated Creat Clear 79
Albumin 4.1
05/26/23 05/26/23
00:23 05:07
Lactic Acid 2.3 H 1.9
Lab Results - Urine
05/26/23
01:47
Urine Nitrite (Reflex) Negative
Leukocyte Esterase Rfl 1+ A
Urine WBC (Reflex) >100 A
Ur Squamous Epith Cells >30
Urine Bacteria (Reflex) Many A
Microbiology Results
05/25/23 14:48 Body Fluid Culture - Preliminary
Thoracentesis Fluid No Growth After 18-24 Hours
Gram Stain - Preliminary
05/25/23 20:45 Influenza Types A & B (ERROL) - Final
Nasal Swab Negative for Influenza A & B, NAAT
Negative results must be combined with clinical observations
and patient history.
Nucleic Acid Amplification test (NAAT)performed on the
MD2U platform.
--- NOTE | 2023-05-26 12:15 | CARDSERVDEF ---
Echocardiogram with Definity completed after protocol screening completed. Allergies verified.
Patent IV site: __Rt hand___
IV site flushed with 0.9% NaCl pre and post administration.
Diluted bolus method utilized to enhance visualization of ventricular alexandre.
Total volume given: _3.5___ mL
Patient tolerated all procedures well without complications.
--- NOTE | 2023-05-26 12:31 | W.PN.CARDCBS ---
Today's Communication / Plan
-
Remains on IV Lasix for acute diastolic CHF
Rate relatively controlled in atrial fibrillation
Continue Lopressor and Eliquis
Continue vancomycin for sepsis
Impression / Plan
-
Tissue Technician: None
Assessment:
Hypoxic respiratory failure
Scrotal edema
Acute diastolic heart failure
Atrial fibrillation with RVR
Nonischemic myocardial injury
L pleural effusion s/p IR drainage of 1.5 L on 05/25/23
Ascending aortic saccular aneurysm, 2.6 x 2.1 cm
Graves' disease
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
H/O Hypothyroidism following radiation treatment for Graves' disease
Daily EtOH
Current smoker
10/29/2021: EF 50-55%, mild MR, mildly dilated LA, mild TR, pulmonary artery systolic pressure 51 mmHg based on elevated right atrial pressure of 20 mmHg, dilated RA, normal RV, and some views anteroseptal hypokinesis could be present, normal aortic
valve
Plan:
He remains on BiPAP.
Will continue IV Lasix
Check echo
Remains in A-fib with relatively good rate control
Continue Lopressor, continue Eliquis
Continue Lopressor with aneurysm that may not be clinically significant as it is only 2.6 x 2.1 cm
Needs to stop smoking. Continue Lopressor. LDL cholesterol 60 but may consider eventual statin
Continue IV vancomycin for presumed sepsis
Progress Note - Tissue Technician
Subjective
Date of Service: May 26, 2023
No complaints.
Objective
Labs:
05/26/23 05:07
05/26/23 03:40
Labs
Hgb 15.4 g/dL (13.0-18.0) 05/26/23 05:07
Hct 44.5 % (39.0-52.0) 05/26/23 05:07
Plt Count 205 10^3/uL (130-400) 05/26/23 05:07
PT 16.5 Sec (11.4-14.6) H 05/25/23 19:25
INR 1.35 05/25/23 19:25
APTT 32.2 Sec (23.4-35.0) 05/25/23 19:25
Sodium 132 mmol/L (135-145) L 05/26/23 03:40
Potassium 4.9 mmol/L (3.5-5.1) 05/26/23 03:40
BUN 19 mg/dl (9-20) 05/26/23 03:40
Creatinine 1.0 mg/dL (0.7-1.3) 05/26/23 03:40
Glucose 158 mg/dl (70-99) H 05/26/23 03:40
Troponins
05/25/23 05/25/23 05/26/23
10:56 19:25 00:23
Troponin I 0.063 H* 0.045 H* 0.082 H* D
Vital Signs and I&O:
Vital Signs
Temp Pulse Resp BP Pulse Ox
97.5 F 79 17 110/60 93
05/26/23 11:10 05/26/23 11:30 05/26/23 11:30 05/26/23 07:52 05/26/23 11:30
Vital Signs
Temp Pulse Resp BP Pulse Ox
97.5 F 79 17 110/60 93
05/26/23 11:10 05/26/23 11:30 05/26/23 11:30 05/26/23 07:52 05/26/23 11:30
Intake & Output
05/24/23 05/25/23 05/26/23 05/27/23
06:59 06:59 06:59 06:59
Intake Total 740.5 / 778.0 180.0 / 180.0
Output Total 1542 / 1617 525 / 525
Balance -801.5 / -839.0 -345.0 / -345.0
Physical Exam
Physical Exam
General: Wearing BiPAP in mild respiratory distress
Neck: Supple, no JVD, HJR, carotids +2 B/L, no bruits bilaterally.
Heart: Non displaced PMI, irregular, no murmurs, No S3, S4, no rubs.
Lungs: Scattered rhonchi
Extremities: No clubbing, cyanosis or edema bilaterally.
Neuro: Awake
[2023-05-26] MEDS: VANCOCIN 275 MG IV ×2 (12:39→20:08)
--- NOTE | 2023-05-26 12:40 | PTCARENOTE ---
PT's assessment unchanged from previous shift, PT remains on NIV, weaning FiO2 as appropriate, FiO2 60%, O2 saturation 90-92%, possible Hiflow attempt later, urine remains annie, PT updated, answered all questions and concerns, safe environment
provided, call conklin in reach
--- NOTE | 2023-05-26 13:58 | PTCARENOTE ---
PT's Merary was ringing -7, Merary was disconnected and PT was bleeding from Merary, reconnected, flushed line and rezeroed, PT received CHG bath and linen change, PT was placed on Hiflow 110%/60L, O2 saturation 90-91%
--- NOTE | 2023-05-26 14:58 | PTCARENOTE ---
Right Dual PICC placement verified, as per protocol, removed all INT's in arm with PICC, Pressure dressing applied to all sites, Levophed titrated, see MARCOS, PT sitting up and eating, denies any complaints at this time
[2023-05-26 15:19] VITALS: BMI 26.0
--- NOTE | 2023-05-26 15:38 | CM ---
CM following re: discharge planning.
Discussed in rounds, reviewed pt's chart, met with pt.
Pt is a 62 year old male, admitted with primary dx of Respiratory failure-hypoxemic due to large left pleural effusion. Per Rounds meeting pt requires 55L HFNC with FIO2 100%.
Pt reports he lives with brother in a 2SH, 2 steps to enter, has supportive son. 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 Pt has no insurance. Pt stated he receives Eliquis medication from [facility] after he completed an
application.
PCP: Liborio Chino
Pharmacy: [facility].
D/C plan: home with anticipated no needs.monitoring O2 requirements.
CM will follow with discharge plan updates as hospitalization progresses
[2023-05-26] MEDS: LIPITOR 40 MG PO (16:58)
[2023-05-26 19:38] LABS: Hepatitis C Antibody Reactive (Negative)
--- NOTE | 2023-05-26 20:30 | PTCARENOTE ---
Pt Ox3, pleasant. Afib, HR 90s. Pulses weak but palpable. HFNC 55L/100%. Breath sounds coarse/diminished t/o, shallow respirations. + bowel sounds, no BM. Bliss in place, annie urine. R PICC in place, L radial a-line zeroed and transduced. Remains
on levophed, titrated to maintain MAP >65.
--- NOTE | 2023-05-27 04:45 | PTCARENOTE ---
Refusing repositioning overnight, pt educated on importance of repositions and risk of pressure injury.
[2023-05-27 06:00] VITALS: BMI 26.3
[2023-05-27 06:05] LABS: Blood Urea Nitrogen 21 mg/dl (9-20); Calcium 8.4 mg/dl (8.4-10.2); Carbon Dioxide 28 mmol/L (22-30); Chloride 95 mmol/L (98-107); Estimated Creatinine Clearance > 125 ml/min; Glucose 122 mg/dl (70-99); Potassium 3.5 mmol/L (3.5-5.1); Sodium 130 mmol/L (135-145); eGFR > 60.00
[2023-05-27 06:10] LABS: Hematocrit 39.9 % (39.0-52.0); Hemoglobin 14.8 g/dL (13.0-18.0); Mean Corp Hgb Conc. 37.1 g/dL (33.0-37.0); Mean Corpuscular Hgb 33.1 pg (27.0-31.0); Mean Corpuscular Volume 89.3 fL (80.0-94.0); Mean Platelet Volume 11.1 fL (7.4-10.4); Platelet Count 180 10^3/uL (130-400); Red Blood Cell Count 4.47 10^6/uL (4.70-6.10); Red Cell Dist. Width 14.3 % (11.5-14.5); White Blood Cell Count 8.7 10^3/uL (4.8-10.8)
[2023-05-27 06:21] LABS: Vancomycin Random 14.9 ug/ml
--- NOTE | 2023-05-27 06:36 | W.PN.HOSP.TC ---
Today's Communication/Plan
-
.
Assessment / Plan
Assessment / Plan
Physical Exam
General: in Respiratory Distress with Non invasive ventilation mask on
HEENT: Normocephalic, Anicteric, Moist mucous membranes, PERRLA, high flow oxygen
Respiratory: rhonchi bilaterally.
Cardiac: S1S2
GI: Soft, Non Tender, Non Distended and Normal Bowel Sounds
Rectal: no rectal breathing
Musculoskeletal: Clubbing, Cyanosis, Edema, Left Lower Extremity and Edema, Right Lower Extremity
Skin: Warm
Neuro: AO x 3
Psych: Calm
A/P
# AFIB RVR -
Rate is controlled
c/w Metoprolol BID , Eliquis
Echocardiogram showed LVEF 35-40%. Mild MR, mild TR.pulmonary artery pressure of 43mmHg
- cardiology help appreciated.
# Acute on chronic heart failure with reduced ejection fraction
Left ventricular ejection fraction went down to 35-40% from 50-55% in 2021
Continue with Lasix treatment
# Suspect Sepsis POA/ septic shock
with tachycardia, low grade temp and leukocytosis
Negative blood cultures so far
Off Pressure support .
IV ABx for now. Will stop antibiotics if culture including urine culture is negative
# Scrotal swelling.
Unlikely cellulitic. More consistent with heart failure. No erythema or tenderness on examination of the scrotum
# Pleural Effusion - Large left pleural effusion likely contributing to his hypoxia.� There is likely atelectasis superimposed on the effusion.� No cough, fevers, chills or leukocytosis consistent with an acute infection.� Despite h/o smoking no
wheezing.� Possibly atypical CHF induced transudative effusion.�
-Status post 1500 mill central colored fluid aspirated from left pleural
- IV diuresis w/ Lasix 40mg
-Appreciate IR help
#Acute hypoxic respiratory failure requiring Non-invasive ventilation machine.
Now on high flow oxygen
CT chest is negative for acute PE.� No wheezing/ barrel chest suggestive of a COPD.�
Mildly elevated procalcitonin
Empiric ABx
Hx of smoking, possible underlying COPD?
c/w Neb
Negative flu and COVID.
Appreciate pulmonary-ICU doctor help
# Non-ischemic -Troponin elevation - Trop 0.06- 0.08
- cycle enzymes
- c/w Eliquis, f/w echo. Pt denied chest pain
- continue ac with apixaban after thoracentesis
# Hypothyroidism- TSH is 4.7.� No evidence of thyrotoxicosis.
- continue levothyroxine 200 mcg
DVT PPX - On therapeutic apixaban
Full Code
�Total time spent to see the patient, examine the patient on the floor, review data and lab results, discuss treatment plan with the patient, nursing staff around 55 minutes
Anticipated Discharge: > 48 hours
Subjective/Interval History
-
Date of Service: May 27, 2023
On High flow over night
NO pain issues in chest or abdomen
Scrotal swelling is less
Objective Data
-
Labs:
Laboratory Results
05/27/23
05:30
WBC 8.7
Hgb 14.8
Hct 39.9
Plt Count 180
Sodium 130 L
Potassium 3.5 D
Chloride 95 L
Carbon Dioxide 28
BUN 21 H
Creatinine 0.6 L
Glucose 122 H
Calcium 8.4
Vital Signs:
Vital Signs
Temp Pulse Resp BP Pulse Ox
99.0 F 93 13 119/62 99
05/27/23 03:41 05/27/23 04:30 05/27/23 04:30 05/26/23 17:01 05/27/23 04:42
I&O
05/25/23 05/26/23 05/27/23
06:59 06:59 06:59
Intake Total 740.5 / 778.0 765.1 / 765.1
Output Total 1542 / 1617 2380 / 2380
Balance -801.5 / -839.0 -1614.9 / -1614.9
--- NOTE | 2023-05-27 07:00 | PTCARENOTE ---
0700 patient received at 0700 in bed. Levophed at 2mcg; Emilio Flow 100%/80L. Left A/line.
AAO x3. BP via A/line 123/65 MAP 84. Via left upper arm : 126/83 MAP 87. A/line +blood return zero per hospital's protocol. bed to A/line at proper positioning. Levophed turned off. High Flow 80/50 POX 98% . Frequent most non-productive cough.
Robitussin adm per prn order . IS encouraged. Lungs diminished. Abdomen soft non-tender. Bliss draining cloudy bloody urine. Bliss care administered. Scrotum red, swollen, pt denies pain.
AT 09:30 Emilio flow titrated by RT to 80/50 POX 95%.
--- NOTE | 2023-05-27 07:38 | W.PN.INTV ---
Today's Communication / Plan
Recommendations
Maintained on high flow oxygen-attempt to wean
Continue diuresis
Empiric antibiotics
Norepinephrine-attempt to wean
Assessment
-
62-year-old male with a history of hypertension, atrial fibrillation on Eliquis, hypothyroidism found to be hypoxemic tachycardic with scrotal swelling noted to have large left pleural effusion status post thoracentesis with persistent hypotension
and hypoxemia requiring pressors and noninvasive ventilation-chief nursing executive consulted for respiratory failure/noninvasive ventilation/hypotension/shock/critical care management 05/26/2023.
Assessment
Respiratory failure-hypoxemic due to large left pleural effusion
Left pleural effusion status post thoracentesis 05/25/23--1.5 L
CHF with preserved EF
Mitral regurgitation
Biatrial enlargement on CT chest 05/25/2023
Saccular aneurysm of ascending aorta 2.6 cm extending length of 3 cm-noted on CT chest 05/25/2023
Bilateral basilar consolidation-atelectasis versus pneumonia
Leukocytosis
Mild hyponatremia
Hyperglycemia-blood sugar 158
Scrotal edema with possible cellulitis
Conditions present prior to admission:
Hypertension
Hypothyroid
Atrial fibrillation on Eliquis
Daily smoker
Daily alcohol intake
Plan
Remains critically ill weaned from noninvasive ventilation to high flow oxygen as well as requiring pressors
Continue supplemental oxygen-make attempts to wean
Nebulizers if needed-currently not bronchospastic
Aspiration precautions
Mucolytic's
Incentive spirometry encouraged
Thoracentesis 05/25/23--1.5 L-pH 7.49, borderline exudate with total protein 3.5 and LDH 120,-cultures pending, cytology not sent
Cardiology evaluation ongoing-correspondence reviewed
Echocardiogram 05/26/2023-EF 35%, intermediate diastolic dysfunction due to atrial fibrillation PA systolic 43
Continue diuresis as tolerated--1.6 L / 24-hour
Monitor renal function, electrolytes, intake/output, lower extremity edema and weight
Replace electrolytes as needed
Check cultures-unrevealing thus far
Norepinephrine initiated-goal MAP greater than 65
Observe off antibiotics-suspect basilar atelectasis and not pneumonia
Consider urology evaluation with scrotal edema and possible cellulitis
Vancomycin initiated by primary service
Leukocytosis improved
Monitor electrolytes
Replace as needed
Monitor blood sugar
Insulin supplementation as needed
DVT prophylaxis-on Eliquis
Nutrition
Early mobilization
Critical care statement: A total of 40 minutes of critical care time was provided for this patient today. This includes management of unstable vital signs, evaluation of the patient at bedside, reviewing the patient's pertinent medical records
including radiographs, noninvasive ventilation management, pressor-norepinephrine management, microbiology, laboratory evaluations, and discussion with primary team, consultants, pharmacy, nutrition, physical therapy, case management, charge nurse,
critical care nursing, and respiratory therapy.
Diagnostic data:
Chest x-ray 10/27/2021-small bilateral pleural effusions right greater than left, mild airspace disease mid and lower right lungs concerning for pneumonia, CHF cannot be excluded
Chest x-ray 05/25/2023-mild to moderate CHF with small right and small to moderate left pleural effusion with atelectasis
Chest x-ray 05/25/2023-status post thoracentesis, no pneumothorax, atelectasis right lung base
Chest x-ray 05/25/2023-small left pleural effusion progressed stable mild CHF
CT chest 05/25/2023-large left pleural effusion which is new, moderate to left lower lobe consolidation may represent atelectasis or pneumonia, no evidence for pulmonary embolism stable left lower lobe consolidation, saccular aneurysm of ascending
aorta measuring 2.6 cm extending a length of 3 cm, bilateral atrial enlargement
Thoracentesis 05/25/2023-left side--1.5 L serosanguineous fluid
Scrotal ultrasound 05/25/2023-bilateral scrotal wall edema suggesting cellulitis, no abscess
Echocardiogram 10/29/2021-EF 50-55%, mild mitral regurgitation, a systolic 51
Subjective Dataa
Subjective Data
Date of Service:
Date of Service: May 27, 2023
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
Subjective:
Still on high flow oxygen, has some shortness of breath, no chest pain or abdominal pain
Review of Systems
General: Other (Per HPI)
Objective Data
Data Reviewed
Vital Signs / I&O / Oxygen:
Vital Signs
Temp Pulse Resp BP Pulse Ox
98.6 F 93 13 119/62 99
05/27/23 07:18 05/27/23 04:30 05/27/23 04:30 05/26/23 17:01 05/27/23 04:42
Intake and Output
05/26/23 05/27/23 05/28/23
06:59 06:59 06:59
Intake Total 740.5 / 778.0 765.1 / 765.1
Output Total 1542 / 1617 2380 / 2380
Balance -801.5 / -839.0 -1614.9 / -1614.9
SaO2 [NIV (Non Invasive 90
Ventilation)]
SaO2 99
Nasal Cannula flow liters per 55
minute
Physical Exam
General: Respiratory Distress (Mild)
HEENT: Normocephalic, Anicteric and Moist Mucous Membranes
Cardiovascular: Regular Rhythm (Tacky)
Respiratory: Wheeze (n), Crackles (Basilar), Rhonchi (n), Accessory Resp Muscle Use (Mild) and Stridor (n)
GI: Soft, Non Distended and Non Tender
Neurology: Awake, Alert and No Motor Deficits
Skin: Warm, Good Color, Cyanosis (n), Jaundice and Rash
Labs/Micro/Reports
Lab Data
05/27/23 05:30
05/27/23 05:30
Microbiology
05/26/23 00:30 Blood/Venous Blood Culture - Preliminary
No Growth in 24 hours- Final report to follow
05/26/23 00:23 Blood/Venous Blood Culture - Preliminary
No Growth in 24 hours- Final report to follow
05/25/23 14:48 Thoracentesis Fluid Body Fluid Culture - Preliminary
No Growth After 18-24 Hours
05/25/23 14:48 Thoracentesis Fluid Gram Stain - Preliminary
05/25/23 20:45 Nasal Swab Influenza Types A & B (ERROL) - Final
Negative for Influenza A & B, NAAT
Negative results must be combined with clinical observations
and patient history.
Nucleic Acid Amplification test (NAAT)performed on the
[employer] platform.
[2023-05-27 08:07] VITALS: BP 126/83
[2023-05-27 08:09] VITALS: BP 126/93
[2023-05-27] MEDS: SYNTHROID 200 MCG PO (08:12)
[2023-05-27] MEDS: ELIQUIS 5 MG PO ×2 (08:12→19:52)
[2023-05-27] MEDS: THIAMINE INJECTION 200 MG IV (08:13)
[2023-05-27] MEDS: LASIX 40 MG IV ×2 (08:13→17:09)
[2023-05-27] MEDS: ROBITUSSIN AC 10 ML PO ×2 (08:19→17:09)
[2023-05-27] MEDS: LOPRESSOR 25 MG PO (08:24)
--- NOTE | 2023-05-27 08:49 | W.PN.CARDCBS ---
Today's Communication / Plan
-
Continue IV Lasix.
Switch Lopressor to Toprol XL. Continue rate control for A-fib.
Continue Eliquis.
If blood pressure tolerates and lisinopril.
Will need eventual ischemic evaluation.
Continue antibiotics and pulmonary care
Impression / Plan
-
Grout Machine Operator: None
Assessment:
Hypoxic respiratory failure
Scrotal edema
Acute diastolic heart failure
Atrial fibrillation with RVR
Nonischemic myocardial injury
L pleural effusion s/p IR drainage of 1.5 L on 05/25/23
Ascending aortic saccular aneurysm, 2.6 x 2.1 cm
Graves' disease
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
H/O Hypothyroidism following radiation treatment for Graves' disease
Daily EtOH
Current smoker
10/29/2021: EF 50-55%, mild MR, mildly dilated LA, mild TR, pulmonary artery systolic pressure 51 mmHg based on elevated right atrial pressure of 20 mmHg, dilated RA, normal RV, and some views anteroseptal hypokinesis could be present, normal aortic
valve
05/25/22: EF 35 to 40% with global hypokinesis, mild MR, PA pressure 43
Plan:
He is now off BiPAP but remains on high flow oxygen. Would continue IV Lasix for another 24 to 48 hours. Creatinine remained stable.
Remains in A-fib with relatively good rate control. With new cardiomyopathy with EF 35 to 40% will switch Lopressor to Toprol XL. If blood pressure remains stable will consider adding lisinopril in a.m.
Continue Toprol with aneurysm that may not be clinically significant as it is only 2.6 x 2.1 cm
Needs to stop smoking.
He will need an ischemic evaluation when he recovers from sepsis. Continue Eliquis, Toprol, and atorvastatin.
Would consider eventual cardiac catheterization with history of tobacco use and abnormal troponin. I suspect though this is a nonischemic troponin elevation
Continue IV vancomycin for presumed sepsis
Progress Note - Grout Machine Operator
Subjective
Date of Service: May 27, 2023
Feeling a little better. Off bipap. Afib rates okay.
Objective
Labs:
05/27/23 05:30
05/27/23 05:30
Labs
Hgb 14.8 g/dL (13.0-18.0) 05/27/23 05:30
Hct 39.9 % (39.0-52.0) 05/27/23 05:30
Plt Count 180 10^3/uL (130-400) 05/27/23 05:30
PT 16.5 Sec (11.4-14.6) H 05/25/23 19:25
INR 1.35 05/25/23 19:25
APTT 32.2 Sec (23.4-35.0) 05/25/23 19:25
Sodium 130 mmol/L (135-145) L 05/27/23 05:30
Potassium 3.5 mmol/L (3.5-5.1) D 05/27/23 05:30
BUN 21 mg/dl (9-20) H 05/27/23 05:30
Creatinine 0.6 mg/dL (0.7-1.3) L 05/27/23 05:30
Glucose 122 mg/dl (70-99) H 05/27/23 05:30
Troponins
05/25/23 05/25/23 05/26/23
10:56 19:25 00:23
Troponin I 0.063 H* 0.045 H* 0.082 H* D
Vital Signs and I&O:
Vital Signs
Temp Pulse Resp BP Pulse Ox
98.4 F 99 15 111/66 99
05/27/23 08:09 05/27/23 08:24 05/27/23 08:09 05/27/23 08:24 05/27/23 07:30
Vital Signs
Temp Pulse Resp BP Pulse Ox
98.4 F 99 15 111/66 99
05/27/23 08:09 05/27/23 08:24 05/27/23 08:09 05/27/23 08:24 05/27/23 07:30
Intake & Output
05/25/23 05/26/23 05/27/23 05/28/23
06:59 06:59 06:59 06:59
Intake Total 740.5 / 778.0 765.1 / 772.6 15.0 / 15.0
Output Total 1542 / 1617 2380 / 2410 60 / 60
Balance -801.5 / -839.0 -1614.9 / -1637.4 -45.0 / -45.0
Physical Exam
Physical Exam
GEN: No distress, awake, Ox3
HEENT: supple, anicteric, mmm
LUNGS: scatt rhonchi
CV: Irreg, S1/S2, 1/6 syst LSB, S3+
ABD: soft, BS+, NT/ND
EXT: No edema
NEURO: Gross non-focal
SKIN: No rash
--- NOTE | 2023-05-27 11:37 | PTCARENOTE ---
K-cl 40 meq po administered for potassium level of 3.5. vancomycin D/c. pt currently on Kefflex po
[2023-05-27] MEDS: KCL 40 MEQ PO (11:43)
[2023-05-27] MEDS: KEFLEX 500 MG PO ×3 (14:20→21:52)
--- NOTE | 2023-05-27 17:03 | SUR.OPER ---
patient in bed . 99.0(core) Left A/line BP 116/66 MAP 82 Afib 91. POX 92%/ High flow 72/50. Patient AAO x3. Denies pain. RR even no SOB. IS encouraged. Frequent moist non-productive cough. Indwelling Bliss draining dark annie cloudy urine. from 7am
to 1700 pt put out 1000cc. +3 b/l LE edema PVD changed to b/L LE. pedal pulses weak. appetite good
[2023-05-27] MEDS: LIPITOR 40 MG PO (17:32)
[2023-05-27 19:46] VITALS: BP 127/69
[2023-05-27] MEDS: TOPROL XL 25 MG PO (19:52)
[2023-05-27 20:00] VITALS: BP 127/69
--- NOTE | 2023-05-27 20:00 | PTCARENOTE ---
Rec'd pt resting in bed, follows commands, cooperative, denies pain, afib,Left rad nadia w/ good wave form, flushes well, accurate to cuff, zeroed; bp stable, + edema, scrotum red, swollen, weak distal pulses, skin warm/dry, o2 via hi flow- 45
liters/ 60%, sat 93, lungs coarse, decr,enc to use IS- reaches 750ml; Nonprod moist cough, + bowel sounds, no bm, abd dist, no n/v, syed fluids, gomez draining annie urine
[2023-05-27 23:59] VITALS: BP 133/87
[2023-05-28] VITALS (15 sets, daily range): BP systolic 96–139; BP diastolic 49–88; PULSE 88; O2SAT 92; BMI 25.1; BMI 26.0
--- NOTE | 2023-05-28 | PTCARENOTE ---
sys reviewed, pt does not want complete care given, 'let me sleep and don't disturb me', explained to pt that he's in the ICU and care has to be given when needed
[2023-05-28 03:47] LABS: Blood Urea Nitrogen 21 mg/dl (9-20); Calcium 8.4 mg/dl (8.4-10.2); Carbon Dioxide 27 mmol/L (22-30); Chloride 96 mmol/L (98-107); Estimated Creatinine Clearance > 125 ml/min; Glucose 99 mg/dl (70-99); Potassium 3.6 mmol/L (3.5-5.1); Sodium 131 mmol/L (135-145); eGFR > 60.00
--- NOTE | 2023-05-28 04:04 | PTCARENOTE ---
No Changes in assessment
[2023-05-28] MEDS: SYNTHROID 200 MCG PO (06:28)
--- NOTE | 2023-05-28 06:36 | W.PN.HOSP.TC ---
Today's Communication/Plan
-
.
Assessment / Plan
Assessment / Plan
Physical Exam
General: in Respiratory Distress with Non invasive ventilation mask on
HEENT: Normocephalic, Anicteric, Moist mucous membranes, PERRLA, high flow oxygen
Respiratory: less rhonchi bilaterally.
Cardiac: S1S2
GI: Soft, Non Tender, Non Distended and Normal Bowel Sounds
Rectal: no rectal breathing
Musculoskeletal: Clubbing, Cyanosis, Edema, Left Lower Extremity and Edema, Right Lower Extremity
Skin: Warm
Neuro: AO x 3
Psych: Calm
A/P
# AFIB RVR -
Rate is controlled
c/w Metoprolol BID , Eliquis
Echocardiogram showed LVEF 35-40%. Mild MR, mild TR.pulmonary artery pressure of 43mmHg
- cardiology help appreciated.
# Acute on chronic heart failure with reduced ejection fraction
Left ventricular ejection fraction went down to 35-40% from 50-55% in 2021
Continue with Lasix treatment
# Suspect Sepsis POA/ septic shock
with tachycardia, low grade temp and leukocytosis
Negative blood & urine cultures
Off Pressure support .
s/p IV ABx. on Oral Keflex now
# Scrotal swelling.
Unlikely cellulitic. More consistent with heart failure. No erythema or tenderness on examination of the scrotum
# Pleural Effusion - Large left pleural effusion likely contributing to his hypoxia.� There is likely atelectasis superimposed on the effusion.� No cough, fevers, chills or leukocytosis consistent with an acute infection.� Despite h/o smoking no
wheezing.� Possibly atypical CHF induced transudative effusion.�
-Status post 1500 mill central colored fluid aspirated from left pleural
- IV diuresis w/ Lasix 40mg
-Appreciate IR help
#Acute hypoxic respiratory failure requiring Non-invasive ventilation machine.
Suspect acute COPD exacerbation
chronic heavy smoking in last, cut back in recent years.
Now on high flow oxygen
CT chest is negative for acute PE.� No wheezing/ barrel chest suggestive of a COPD.�
Mildly elevated procalcitonin
Empiric ABx given.
c/w Neb
Negative flu and COVID.
will d/w pulmonary if steroid can help
Appreciate pulmonary-ICU doctor help
# Non-ischemic -Troponin elevation - Trop 0.06- 0.08
- cycle enzymes
- c/w Eliquis, f/w echo. Pt denied chest pain
- continue ac with apixaban after thoracentesis
# Hypothyroidism- TSH is 4.7.� No evidence of thyrotoxicosis.
- continue levothyroxine 200 mcg
DVT PPX - On therapeutic apixaban
Full Code
�Total time spent to see the patient, examine the patient on the floor, review data and lab results, discuss treatment plan with the patient, nursing staff around 55 minutes
Anticipated Discharge: > 48 hours
Subjective/Interval History
-
Date of Service: May 28, 2023
Off Levophed
Still on 45L
He feels weak
Objective Data
-
Labs:
Laboratory Results
05/28/23
03:21
Sodium 131 L
Potassium 3.6
Chloride 96 L
Carbon Dioxide 27
BUN 21 H
Creatinine 0.5 L
Glucose 99
Calcium 8.4
Vital Signs:
Vital Signs
Temp Pulse Resp BP Pulse Ox
98.7 F 93 13 108/67 95
05/28/23 04:00 05/28/23 06:00 05/28/23 06:00 05/28/23 05:51 05/28/23 06:00
I&O
05/26/23 05/27/23 05/28/23
06:59 06:59 06:59
Intake Total 740.5 / 778.0 765.1 / 772.6 1705.0 / 1705.0
Output Total 1542 / 1617 2380 / 2410 2445 / 2445
Balance -801.5 / -839.0 -1614.9 / -1637.4 -740.0 / -740.0
--- NOTE | 2023-05-28 07:12 | W.PN.INTV ---
Today's Communication / Plan
Recommendations
Continue diuresis
Wean FiO2
Monitor cellulitis
Keflex continues
Follow-up chest x-ray
If able to be weaned off norepinephrine then transfer out of ICU-pulmonary will continue to follow
Assessment
-
62-year-old male with a history of hypertension, atrial fibrillation on Eliquis, hypothyroidism found to be hypoxemic tachycardic with scrotal swelling noted to have large left pleural effusion status post thoracentesis with persistent hypotension
and hypoxemia requiring pressors and noninvasive ventilation-practice specialist consulted for respiratory failure/noninvasive ventilation/hypotension/shock/critical care management 05/26/2023.
Assessment
Respiratory failure-hypoxemic due to large left pleural effusion
Left pleural effusion status post thoracentesis 05/25/23--1.5 L
CHF with preserved EF
Mitral regurgitation
Biatrial enlargement on CT chest 05/25/2023
Saccular aneurysm of ascending aorta 2.6 cm extending length of 3 cm-noted on CT chest 05/25/2023
Bilateral basilar consolidation-atelectasis versus pneumonia
Leukocytosis
Mild hyponatremia
Hyperglycemia-blood sugar 158
Scrotal edema with possible cellulitis
Conditions present prior to admission:
Hypertension
Hypothyroid
Atrial fibrillation on Eliquis
Daily smoker
Daily alcohol intake
Plan
Continues to be critically ill weaned from noninvasive ventilation to high flow oxygen as well as requiring pressors
Continue supplemental oxygen-make attempts to wean
Nebulizers if needed-currently not bronchospastic
Aspiration precautions
Mucolytic's
Incentive spirometry encouraged
Follow chest x-ray
Note: Thoracentesis 05/25/23--1.5 L-pH 7.49, borderline exudate with total protein 3.5 and LDH 120,-cultures pending, cytology not sent
Cardiology evaluation ongoing-correspondence reviewed
Echocardiogram 05/26/2023-EF 35%, intermediate diastolic dysfunction due to atrial fibrillation PA systolic 43
Continue diuresis as tolerated--2.3 L /48-hour
Follow renal function, electrolytes, intake/output, lower extremity edema and weight
Replace electrolytes as needed
Will need ischemia evaluation eventually
Check cultures-unrevealing thus far
MRSA screen negative
Urine and blood cultures negative
Norepinephrine initiated-goal MAP greater than 65-attempt to wean
Currently do not suspect pneumonia-however basilar atelectasis
Vancomycin changed to cephalexin-finish finite course for scrotal cellulitis
Leukocytosis improved
Monitor electrolytes
Continue to replace as needed
Follow blood sugar
Insulin supplementation as needed
DVT prophylaxis-on Eliquis
Nutrition
Early mobilization
If able to be weaned off norepinephrine then transfer out of ICU-pulmonary will continue to follow
Critical care statement: A total of 38 minutes of critical care time was provided for this patient today. This includes management of unstable vital signs, evaluation of the patient at bedside, reviewing the patient's pertinent medical records
including radiographs, noninvasive ventilation management, pressor-norepinephrine management, microbiology, laboratory evaluations, and discussion with primary team, consultants, pharmacy, nutrition, physical therapy, case management, charge nurse,
critical care nursing, and respiratory therapy.
Diagnostic data:
Chest x-ray 10/27/2021-small bilateral pleural effusions right greater than left, mild airspace disease mid and lower right lungs concerning for pneumonia, CHF cannot be excluded
Chest x-ray 05/25/2023-mild to moderate CHF with small right and small to moderate left pleural effusion with atelectasis
Chest x-ray 05/25/2023-status post thoracentesis, no pneumothorax, atelectasis right lung base
Chest x-ray 05/25/2023-small left pleural effusion progressed stable mild CHF
CT chest 05/25/2023-large left pleural effusion which is new, moderate to left lower lobe consolidation may represent atelectasis or pneumonia, no evidence for pulmonary embolism stable left lower lobe consolidation, saccular aneurysm of ascending
aorta measuring 2.6 cm extending a length of 3 cm, bilateral atrial enlargement
Thoracentesis 05/25/2023-left side--1.5 L serosanguineous fluid
Scrotal ultrasound 05/25/2023-bilateral scrotal wall edema suggesting cellulitis, no abscess
Echocardiogram 10/29/2021-EF 50-55%, mild mitral regurgitation, a systolic 51
Subjective Dataa
Subjective Data
Date of Service:
Date of Service: May 28, 2023
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
Subjective:
Still on high flow oxygen, complains of some shortness of breath but no chest congestion, productive cough, abdominal pain
Review of Systems
General: Other (Per HPI)
Objective Data
Data Reviewed
Vital Signs / I&O / Oxygen:
Vital Signs
Temp Pulse Resp BP Pulse Ox
98.7 F 93 13 108/67 95
05/28/23 04:00 05/28/23 06:00 05/28/23 06:00 05/28/23 05:51 05/28/23 06:00
Intake and Output
05/27/23 05/28/23 05/29/23
06:59 06:59 06:59
Intake Total 765.1 / 772.6 1705.0 / 1705.0
Output Total 2380 / 2410 2445 / 2445
Balance -1614.9 / -1637.4 -740.0 / -740.0
SaO2 [NIV (Non Invasive 90
Ventilation)]
SaO2 95
Nasal Cannula flow liters per 45
minute
Physical Exam
General: Respiratory Distress (Mild)
HEENT: Normocephalic, Anicteric and Moist Mucous Membranes
Cardiovascular: Regular Rhythm (Tacky)
Respiratory: Wheeze (n), Crackles (Basilar), Rhonchi (n), Accessory Resp Muscle Use (Mild) and Stridor (n)
GI: Soft, Non Distended and Non Tender
Neurology: Awake, Alert and No Motor Deficits
Skin: Warm, Good Color, Cyanosis (n), Jaundice and Rash
Labs/Micro/Reports
Lab Data
05/27/23 05:30
05/28/23 03:21
Microbiology
05/26/23 00:30 Blood/Venous Blood Culture - Preliminary
No Growth in 48 hours- Final report to follow
05/26/23 00:23 Blood/Venous Blood Culture - Preliminary
No Growth in 48 hours- Final report to follow
05/26/23 12:20 Nose MRSA Screen - Final
No Methicillin Resistant Staphylococcus aureus isolated.
05/25/23 14:48 Thoracentesis Fluid Body Fluid Culture - Preliminary
No Growth After 48 Hours
05/25/23 14:48 Thoracentesis Fluid Gram Stain - Preliminary
05/26/23 01:47 Urine Urine Culture - Final
NO GROWTH
05/25/23 20:45 Nasal Swab Influenza Types A & B (ERROL) - Final
Negative for Influenza A & B, NAAT
Negative results must be combined with clinical observations
and patient history.
Nucleic Acid Amplification test (NAAT)performed on the
[employer] platform.
[2023-05-28] MEDS: KEFLEX 500 MG PO ×4 (08:05→19:44)
[2023-05-28] MEDS: KCL 20 MEQ PO (08:05)
[2023-05-28] MEDS: TOPROL XL 25 MG PO ×2 (08:05→19:43)
[2023-05-28] MEDS: ELIQUIS 5 MG PO ×2 (08:05→19:44)
[2023-05-28] MEDS: LASIX 40 MG IV ×2 (08:06→17:09)
[2023-05-28] MEDS: THIAMINE INJECTION 200 MG IV (08:06)
--- NOTE | 2023-05-28 08:45 | PTCARENOTE ---
Removed [place] as per order, pressure maintained for 5 minutes, pressure dressing applied
--- NOTE | 2023-05-28 09:32 | PTCARENOTE ---
PT received in bed, HiFlow on 45L/60%, occasional cough, JOURNALISM PROFESSOR, AAOx3 flat affect, AFib on monitor, +2 generalized edema, PVD discoloration to B/L LE, +3 scrotal edema, Left lung 1/2 up fine crackles, diminished B/L T/O, abdomen distended round, + BS,
Bliss care provided as per protocol, abscess? to right shoulder, skin intact, right Dual PICC, both ports flushed and patent, +Blood return, call conklin in reach
[2023-05-28] MEDS: KCL 40 MEQ PO (12:14)
--- NOTE | 2023-05-28 12:21 | W.PN.CARDCBS ---
Today's Communication / Plan
-
Continue IV Lasix for presumed CHF as cause of significant hypoxemia which is slowly improving
Continue Toprol for cardiomyopathy and rate control of atrial fibrillation
Eventual ischemic evaluation when he has recovered
Patient has no insurance but has been getting Eliquis through the company
Impression / Plan
-
Archival Studies Professor: None
Assessment:
Hypoxic respiratory failure
Scrotal edema
Acute diastolic heart failure
Atrial fibrillation with RVR
Nonischemic myocardial injury
L pleural effusion s/p IR drainage of 1.5 L on 05/25/23
Ascending aortic saccular aneurysm, 2.6 x 2.1 cm
Graves' disease
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
H/O Hypothyroidism following radiation treatment for Graves' disease
Daily EtOH
Current smoker
10/29/2021: EF 50-55%, mild MR, mildly dilated LA, mild TR, pulmonary artery systolic pressure 51 mmHg based on elevated right atrial pressure of 20 mmHg, dilated RA, normal RV, and some views anteroseptal hypokinesis could be present, normal aortic
valve
05/25/22: EF 35 to 40% with global hypokinesis, mild MR, PA pressure 43
Plan:
He remains significantly hypoxemic but is improving slowly
Remains on high flow oxygen
Weight is down 8 pounds in the past 24 hours if accurate
Renal function remained stable
Continue IV Lasix
Remains in A-fib with relatively good rate control.
Toprol 25 mg was started on 05/26.
if blood pressure remains stable will consider adding lisinopril on 05/28
He will need an ischemic evaluation when he recovers from sepsis. Continue Eliquis, Toprol, and atorvastatin.
Continue IV vancomycin for presumed sepsis
Discussed with central sterile tech and nursing
Progress Note - Archival Studies Professor
Subjective
Date of Service: May 28, 2023
No complaints
Objective
Labs:
03/19/24 05:30
05/28/23 03:21
Labs
Hgb 14.8 g/dL (13.0-18.0) 05/27/23 05:30
Hct 39.9 % (39.0-52.0) 05/27/23 05:30
Plt Count 180 10^3/uL (130-400) 05/27/23 05:30
PT 16.5 Sec (11.4-14.6) H 05/25/23 19:25
INR 1.35 05/25/23 19:25
APTT 32.2 Sec (23.4-35.0) 05/25/23 19:25
Sodium 131 mmol/L (135-145) L 05/28/23 03:21
Potassium 3.6 mmol/L (3.5-5.1) 05/28/23 03:21
BUN 21 mg/dl (9-20) H 05/28/23 03:21
Creatinine 0.5 mg/dL (0.7-1.3) L 05/28/23 03:21
Glucose 99 mg/dl (70-99) 05/28/23 03:21
Troponins
05/25/23 05/26/23
19:25 00:23
Troponin I 0.045 H* 0.082 H* D
Vital Signs and I&O:
Vital Signs
Temp Pulse Resp BP Pulse Ox
99 F 79 13 100/67 93
05/28/23 11:03 05/28/23 11:00 05/28/23 11:00 05/28/23 09:46 05/28/23 11:30
Vital Signs
Temp Pulse Resp BP Pulse Ox
99 F 79 13 100/67 93
05/28/23 11:03 05/28/23 11:00 05/28/23 11:00 05/28/23 09:46 05/28/23 11:30
Intake & Output
03/1805/27/23 05/28/23 05/29/23
06:59 06:59 06:59 06:59
Intake Total 740.5 / 778.0 765.1 / 772.6 1705.0 / 2185.0 1440 / 1440
Output Total 1542 / 1617 2380 / 2410 2445 / 2475 860 / 860
Balance -801.5 / -839.0 -1614.9 / -1637.4 -740.0 / -290.0 580 / 580
Physical Exam
Physical Exam
General: Well developed, well nourished in NAD.
Neck: Supple, no JVD, HJR, carotids +2 B/L, no bruits bilaterally.
Heart: Non displaced PMI, irregular, no murmurs, No S3, S4, no rubs.
Lungs: Scattered rhonchi
Extremities: No clubbing, cyanosis or edema bilaterally.
Neuro: Grossly nonfocal, awake, alert and oriented x3.
--- NOTE | 2023-05-28 12:30 | PTCARENOTE ---
PT slept on and off this am, PT states he slept fine last night, but he is a late riser as he stays up late, PT was upset about being woken up in the middle of the night, explained that we have certain tasks that are time sensitive throughout the
day and night,and although it can be unpleasant being woken up, the nurse was simply doing her job, assessment remains unchanged
--- NOTE | 2023-05-28 13:24 | PTCARENOTE ---
Multiple times offered PT to get OOB in the chair, even for an hour, PT refusing at this time, explained the reasoning for us getting him up and OOB, PT verbalizes understanding, still refusing, encouraged IS, PT able to pull [id number] consistently,
FiO2 turned down to 50%, Saturations 90-92%
--- NOTE | 2023-05-28 13:41 | CM ---
CM following re: discharge planning.
Discussed in Rounds, reviewed pt's chart, met with pt. per Rounds meeting, pt requires 45 L HFNC with FIO2 50%, continue supportive care.
Pt has no insurance. HRSI following.
D/C plan: home with anticipated no needs. Monitoring O2 requirements.
CM will follow with discharge plan updates as hospitalization progresses
--- NOTE | 2023-05-28 15:33 | PTCARENOTE ---
PT OOB to chair, PT remains on HiFlow 45L/50%, denies SOB,dizziness, or any complaints, stand and pivot with a steady gait, PT maintains flat affect
[2023-05-28] MEDS: LIPITOR 40 MG PO (17:08)
--- NOTE | 2023-05-28 20:42 | PTCARENOTE ---
Addendum entered by Prisca Balderas RN 05/28/23 20:55:
afib* on monitor, NOT SR.
Original Note:
received patient. oriented x3. denies pain. SR on monitor. 10L midflow, denies SOB, diminished breath sounds, fine crackles noted L lung. + BS. gomez intact. PICC noted. refused hygiene at this time. IMU level of care. care ongoing.
[2023-05-29] VITALS (13 sets, daily range): BP systolic 94–120; BP diastolic 59–90; PULSE 87; O2SAT 87; BMI 25.1
--- NOTE | 2023-05-29 04:23 | PTCARENOTE ---
patient reassessed. AM labs sent. remains on 10L midflow. repositioning self in bed. care ongoing.
[2023-05-29 04:58] LABS: Blood Urea Nitrogen 23 mg/dl (9-20); Calcium 8.9 mg/dl (8.4-10.2); Carbon Dioxide 30 mmol/L (22-30); Chloride 95 mmol/L (98-107); Estimated Creatinine Clearance > 125 ml/min; Glucose 92 mg/dl (70-99); Magnesium 1.6 mg/dl (1.6-2.3); Potassium 3.6 mmol/L (3.5-5.1); Sodium 132 mmol/L (135-145); eGFR > 60.00
[2023-05-29] MEDS: SYNTHROID 200 MCG PO (06:02)
--- NOTE | 2023-05-29 06:26 | W.PN.HOSP.TC ---
Today's Communication/Plan
-
.
Assessment / Plan
Assessment / Plan
Physical Exam
General: in Respiratory Distress with Non invasive ventilation mask on
HEENT: Normocephalic, Anicteric, Moist mucous membranes, PERRLA, high flow oxygen
Respiratory: less rhonchi bilaterally.
Cardiac: S1S2
GI: Soft, Non Tender, Non Distended and Normal Bowel Sounds
Rectal: no rectal breathing
Musculoskeletal: Clubbing, Cyanosis, Edema, Left Lower Extremity and Edema, Right Lower Extremity
Skin: Warm
Neuro: AO x 3
Psych: Calm
A/P
# AFIB RVR -
Rate is controlled
c/w Metoprolol BID , Eliquis
Echocardiogram showed LVEF 35-40%. Mild MR, mild TR.pulmonary artery pressure of 43mmHg
- cardiology help appreciated.
# Acute on chronic heart failure with reduced ejection fraction
Left ventricular ejection fraction went down to 35-40% from 50-55% in 2021
Continue with Lasix treatment
# Suspect Sepsis POA/ septic shock
He had tachycardia, low grade temp and leukocytosis
Negative blood & urine cultures
Off Pressure support .
s/p IV ABx. on Oral Keflex for possible bronchitis.
# Scrotal swelling.
Unlikely cellulitic. More consistent with heart failure. No erythema or tenderness on examination of the scrotum. It was noted to be red with swelling on admission.
# Pleural Effusion - Large left pleural effusion likely contributing to his hypoxia.� There is likely atelectasis superimposed on the effusion.� No cough, fevers, chills or leukocytosis consistent with an acute infection.� Despite h/o smoking no
wheezing.� Possibly atypical CHF induced transudative effusion.�
-Status post 1500 mill central colored fluid aspirated from left pleural
- IV diuresis w/ Lasix 40mg
-Appreciate IR help
#Acute hypoxic respiratory failure requiring Non-invasive ventilation machine.
Suspect acute COPD exacerbation
chronic heavy smoking in last, cut back in recent years.
Down to [address] chest is negative for acute PE.� No wheezing/ barrel chest suggestive of a COPD.�
Mildly elevated procalcitonin
Empiric ABx given.
c/w Neb
Negative flu and COVID.
d/w pulmonary if steroid can help. Per pulmonary :Currently do not suspect pneumonia-however basilar atelectasis
Appreciate pulmonary-ICU doctor help
# Non-ischemic -Troponin elevation - Trop 0.06- 0.08
- cycle enzymes
- c/w Eliquis, f/w echo. Pt denied chest pain
- continue ac with apixaban after thoracentesis
# Hypothyroidism- TSH is 4.7.� No evidence of thyrotoxicosis.
- continue levothyroxine 200 mcg
DVT PPX - On therapeutic apixaban
Full Code
�Total time spent to see the patient, examine the patient on the floor, review data and lab results, discuss treatment plan with the patient, nursing staff around 57 minutes
Anticipated Discharge: > 48 hours
Subjective/Interval History
-
Date of Service: May 29, 2023
Denies sob or chest pain
Objective Data
-
Labs:
Laboratory Results
05/29/23
04:13
Sodium 132 L
Potassium 3.6
Chloride 95 L
Carbon Dioxide 30
BUN 23 H
Creatinine 0.6 L
Glucose 92
Calcium 8.9
Vital Signs:
Vital Signs
Temp Pulse Resp BP Pulse Ox
99.0 F 95 20 103/72 94
05/29/23 03:13 05/29/23 06:00 05/29/23 06:00 05/29/23 06:05 05/29/23 06:00
I&O
05/27/23 05/28/23 05/29/23
06:59 06:59 06:59
Intake Total 765.1 / 772.6 1705.0 / 2185.0 2880 / 2880
Output Total 2380 / 2410 2445 / 2475 2455 / 2455
Balance -1614.9 / -1637.4 -740.0 / -290.0 425 / 425
--- NOTE | 2023-05-29 07:37 | W.PN.INTV ---
Today's Communication / Plan
Recommendations
Wean FiO2
Increase diuresis
Incentive spirometry
Cephalexin for scrotal cellulitis
Stable for transfer to telemetry if able to be weaned on FiO2-pulmonary will continue to follow
Assessment
-
62-year-old male with a history of hypertension, atrial fibrillation on Eliquis, hypothyroidism found to be hypoxemic tachycardic with scrotal swelling noted to have large left pleural effusion status post thoracentesis with persistent hypotension
and hypoxemia requiring pressors and noninvasive ventilation-commercial credit specialist consulted for respiratory failure/noninvasive ventilation/hypotension/shock/critical care management 05/26/2023.
Assessment
Respiratory failure-hypoxemic due to large left pleural effusion
Left pleural effusion status post thoracentesis 05/25/23--1.5 L
CHF with preserved EF
Mitral regurgitation
Biatrial enlargement on CT chest 05/25/2023
Saccular aneurysm of ascending aorta 2.6 cm extending length of 3 cm-noted on CT chest 05/25/2023
Bilateral basilar consolidation-atelectasis versus pneumonia
Leukocytosis
Mild hyponatremia
Hyperglycemia-blood sugar 158
Scrotal edema with possible cellulitis
Conditions present prior to admission:
Hypertension
Hypothyroid
Atrial fibrillation on Eliquis
Daily smoker
Daily alcohol intake
Plan
Patient remains critically ill with marginal oxygenation on high flow oxygen
Continue supplemental oxygen-make attempts to wean-reviewed with critical care nursing and respiratory therapy
Nebulizers if needed-currently not bronchospastic
Aspiration precautions continue
Mucolytic's
Incentive spirometry encouraged
Chest x-ray 05/29/2023-pulmonary vascularity at top normal, no pneumothorax, no new infiltrates
Observe off steroids for now-no wheezing on exam
Note: Thoracentesis 05/25/23--1.5 L-pH 7.49, borderline exudate with total protein 3.5 and LDH 120,-cultures pending, cytology not sent
Cardiology evaluation ongoing-correspondence reviewed
Echocardiogram 05/26/2023-EF 35%, intermediate diastolic dysfunction due to atrial fibrillation PA systolic 43
Positive fluid balance in the last 24 hours
Continue diuresis
Monitor renal function, electrolytes, intake/output, lower extremity edema and weight
Replace electrolytes as needed
Will need ischemia evaluation eventually
Check cultures-unrevealing thus far
MRSA screen negative
Urine and blood cultures negative
Norepinephrine initiated-goal MAP greater than 65-attempt to wean
Currently do not suspect pneumonia-however basilar atelectasis
Vancomycin changed to cephalexin-finish finite course for scrotal cellulitis
Leukocytosis improved
Follow electrolytes
Continue to replace as needed
Monitor blood sugar
Insulin supplementation as needed
DVT prophylaxis-on Eliquis
Nutrition
Slowly increase activity
Able to be weaned off norepinephrine, if able to wean FiO2 and then could be transferred to telemetry-pulmonary will continue to follow
Reviewed the patient's pertinent medical records including radiographs, noninvasive ventilation management, pressor-norepinephrine management, microbiology, laboratory evaluations, and discussion with primary team, consultants, pharmacy, nutrition,
physical therapy, case management, charge nurse, critical care nursing, and respiratory therapy.
Diagnostic data:
Chest x-ray 10/27/2021-small bilateral pleural effusions right greater than left, mild airspace disease mid and lower right lungs concerning for pneumonia, CHF cannot be excluded
Chest x-ray 05/25/2023-mild to moderate CHF with small right and small to moderate left pleural effusion with atelectasis
Chest x-ray 05/25/2023-status post thoracentesis, no pneumothorax, atelectasis right lung base
Chest x-ray 05/25/2023-small left pleural effusion progressed stable mild CHF
CT chest 05/25/2023-large left pleural effusion which is new, moderate to left lower lobe consolidation may represent atelectasis or pneumonia, no evidence for pulmonary embolism stable left lower lobe consolidation, saccular aneurysm of ascending
aorta measuring 2.6 cm extending a length of 3 cm, bilateral atrial enlargement
Thoracentesis 05/25/2023-left side--1.5 L serosanguineous fluid
Scrotal ultrasound 05/25/2023-bilateral scrotal wall edema suggesting cellulitis, no abscess
Echocardiogram 10/29/2021-EF 50-55%, mild mitral regurgitation, a systolic 51
Subjective Dataa
Subjective Data
Date of Service:
Date of Service: May 29, 2023
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
Subjective:
FiO2 weaned a bit, no shortness of breath at rest, denies any chest congestion, productive cough, chest pain or abdominal pain
Review of Systems
General: Other (Per HPI)
Objective Data
Data Reviewed
Vital Signs / I&O / Oxygen:
Vital Signs
Temp Pulse Resp BP Pulse Ox
99.0 F 87 18 103/72 94
05/29/23 03:13 05/29/23 07:00 05/29/23 07:00 05/29/23 06:05 05/29/23 07:35
Intake and Output
05/28/23 05/29/23 05/30/23
06:59 06:59 06:59
Intake Total 1705.0 / 2185.0 2880 / 2880
Output Total 2445 / 2475 2455 / 2455
Balance -740.0 / -290.0 425 / 425
SaO2 [NIV (Non Invasive 90
Ventilation)]
SaO2 94
Nasal Cannula flow liters per 10
minute
Physical Exam
General: Respiratory Distress (Mild)
HEENT: Normocephalic, Anicteric and Moist Mucous Membranes
Cardiovascular: Regular Rhythm (Tacky)
Respiratory: Wheeze (n), Crackles (Basilar), Rhonchi (n), Accessory Resp Muscle Use (Mild) and Stridor (n)
GI: Soft, Non Distended and Non Tender
Neurology: Awake, Alert and No Motor Deficits
Skin: Warm, Good Color, Cyanosis (n), Jaundice and Rash
Labs/Micro/Reports
Lab Data
05/27/23 05:30
05/29/23 04:13
Microbiology
05/26/23 00:30 Blood/Venous Blood Culture - Preliminary
No Growth in 72 hours- Final report to follow
05/26/23 00:23 Blood/Venous Blood Culture - Preliminary
No Growth in 72 hours- Final report to follow
05/25/23 14:48 Thoracentesis Fluid Body Fluid Culture - Final
No Growth After 72 Hours
05/25/23 14:48 Thoracentesis Fluid Gram Stain - Final
05/26/23 12:20 Nose MRSA Screen - Final
No Methicillin Resistant Staphylococcus aureus isolated.
05/26/23 01:47 Urine Urine Culture - Final
NO GROWTH
[2023-05-29] MEDS: KCL 20 MEQ PO (07:56)
[2023-05-29] MEDS: TOPROL XL 25 MG PO ×2 (07:56→20:42)
[2023-05-29] MEDS: KEFLEX 500 MG PO ×4 (07:56→20:42)
[2023-05-29] MEDS: ELIQUIS 5 MG PO ×2 (07:56→20:42)
[2023-05-29] MEDS: LASIX 40 MG IV ×2 (07:56→16:00)
--- NOTE | 2023-05-29 08:30 | PTCARENOTE ---
Received pt @ change of shift. Oriented x3, denies pain, flat affect. Afib on monitor, rate controlled. SPO2 93% on 8LMF. +BS, abd round/distended. Cont bowel; gomez in place draining yellow urine. R DL PICC patent, dressing c/d/i. Assisted pt
into BR and OOB to chair with PT this AM. Gait steady, generalized weakness. SpO2 84% on 8LMF during ambulation; O2 titrated up to 10LMF and w titration/rest SpO2 recovered to 94%. Instructed on IS; demonstrates understanding. Call conklin in reach.
--- NOTE | 2023-05-29 10:40 | W.PN.CARDCBS ---
Today's Communication / Plan
-
Continue Lasix 40 mg IV twice daily.
Continue a rate control strategy for A-fib. Continue Toprol and Eliquis.
Add lisinopril 2.5 mg daily. Follow blood pressure.
Creatinine overall stable.
Continue antibiotics.
Would likely need eventual ischemic evaluation. This could be done as outpatient.
Impression / Plan
-
Key Person: None
Assessment:
Hypoxic respiratory failure
Scrotal edema
Acute diastolic heart failure
Atrial fibrillation with RVR
Nonischemic myocardial injury
L pleural effusion s/p IR drainage of 1.5 L on 05/25/23
Ascending aortic saccular aneurysm, 2.6 x 2.1 cm
Graves' disease
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
H/O Hypothyroidism following radiation treatment for Graves' disease
Daily EtOH
Current smoker
10/29/2021: EF 50-55%, mild MR, mildly dilated LA, mild TR, pulmonary artery systolic pressure 51 mmHg based on elevated right atrial pressure of 20 mmHg, dilated RA, normal RV, and some views anteroseptal hypokinesis could be present, normal aortic
valve
05/25/22: EF 35 to 40% with global hypokinesis, mild MR, PA pressure 43
Plan:
He has been diuresing well. Creatinine remained stable. Continue Lasix 40 mg IV twice daily.
Remains in A-fib with relatively good rate control. Continue Toprol and Eliquis.
Toprol 25 mg was started on 05/26.
Will start low-dose lisinopril in AM.
He will need an ischemic evaluation when he recovers from sepsis. Continue Eliquis, Toprol, and atorvastatin.
Continue cephalexin and wean oxygen.
Discussed with clock repair technician and nursing
Progress Note - Key Person
Subjective
Date of Service: May 29, 2023
Slowly improving. Oxygen is now down to 5 to 6 L. He is diuresing. He denies any palpitations or chest pains.
Objective
Labs:
05/27/23 05:30
05/29/23 04:13
Labs
Hgb 14.8 g/dL (13.0-18.0) 05/27/23 05:30
Hct 39.9 % (39.0-52.0) 05/27/23 05:30
Plt Count 180 10^3/uL (130-400) 05/27/23 05:30
PT 16.5 Sec (11.4-14.6) H 05/25/23 19:25
INR 1.35 05/25/23 19:25
APTT 32.2 Sec (23.4-35.0) 05/25/23 19:25
Sodium 132 mmol/L (135-145) L 05/29/23 04:13
Potassium 3.6 mmol/L (3.5-5.1) 05/29/23 04:13
BUN 23 mg/dl (9-20) H 05/29/23 04:13
Creatinine 0.6 mg/dL (0.7-1.3) L 05/29/23 04:13
Glucose 92 mg/dl (70-99) 05/29/23 04:13
Vital Signs and I&O:
Vital Signs
Temp Pulse Resp BP Pulse Ox
99.0 F 81 18 109/65 94
05/29/23 03:13 05/29/23 10:00 05/29/23 10:00 05/29/23 10:00 05/29/23 10:00
Vital Signs
Temp Pulse Resp BP Pulse Ox
99.0 F 81 18 109/65 94
05/29/23 03:13 05/29/23 10:00 05/29/23 10:00 05/29/23 10:00 05/29/23 10:00
Intake & Output
03/19/24 03/20/24 03/21/24 03/22/24
06:59 06:59 06:59 06:59
Intake Total 765.1 / 772.6 1705.0 / 2185.0 2880 / 2880 360 / 360
Output Total 2380 / 2410 2445 / 2475 2455 / 2485 60 / 60
Balance -1614.9 / -1637.4 -740.0 / -290.0 425 / 395 300 / 300
Physical Exam
Physical Exam
GEN: No distress, awake, Ox3
HEENT: supple, anicteric, mmm
LUNGS: bilat rhonchi
CV: irreg, S1/S2, 1/6 syst LSB, no gallop
ABD: soft, BS+, NT/ND
EXT: No edema
NEURO: Gross non-focal
SKIN: No rash
--- NOTE | 2023-05-29 11:22 | PTCARENOTE ---
pt. diuresed 1L s/p IV Lasix; urine clear/yellow. Bliss catheter removed per orders, awaiting void; DTV @ 1645. Remains OOB to chair. Tolerated breakfast, +appetite. O2 weaned back to 8LMF, SpO2 94%. Sister, Etelvina, updated via phone. Pt.'s call
conklin remains w in reach.
--- NOTE | 2023-05-29 13:08 | PTCARENOTE ---
R DL PICC removed by VAT; dressing c/d/i. #20 L FA placed. O2 weaned to 4LNC, SpO2 92%. Remains OOB to chair for lunch. Call conklin in reach.
--- NOTE | 2023-05-29 14:06 | CM ---
CM following re: discharge planning.
Discussed in Rounds, reviewed pt's chart, met with pt. per Rounds meeting, pt requires 8 L midflow NC of O2, continue supportive care.
Pt has no insurance. HRSI following.
PT and OT evaluations noted - home PT/OT vs no needs recommended.
D/C plan: home with anticipated no needs. Monitoring O2 requirements.
CM will follow with discharge plan updates as hospitalization progresses
[2023-05-29] MEDS: LIPITOR 40 MG PO (18:07)
[2023-05-30] VITALS (11 sets, daily range): BP systolic 81–112; BP diastolic 46–76; PULSE 82; O2SAT 93; BMI 25.5
--- NOTE | 2023-05-30 04:39 | PTCARENOTE ---
patient reassessed throughout the night. denies pain or SOB. oriented x3. afib on monitor. remains on 6L NC, diminished breath sounds noted with fine crackles to L lung. OOB with x1 assist. urinal at bedside. repositions self side to side. tele
level of care. care ongoing.
[2023-05-30] MEDS: SYNTHROID 200 MCG PO (05:13)
--- NOTE | 2023-05-30 06:38 | W.PN.HOSP.TC ---
Addendum entered and electronically signed by Mary Coronel MD 05/30/23 16:10:
Addendum
Hypotension in the afternoon
will hold PM dose of Lasix.
End
Original Note:
Today's Communication/Plan
-
plan for discharge in 1-2 days,
Assessment / Plan
Assessment / Plan
Physical Exam
General: in Respiratory Distress with Non invasive ventilation mask on
HEENT: Normocephalic, Anicteric, Moist mucous membranes, PERRLA, high flow oxygen
Respiratory: less rhonchi bilaterally.
Cardiac: S1S2
GI: Soft, Non Tender, Non Distended and Normal Bowel Sounds
Rectal: no rectal breathing
Musculoskeletal: Clubbing, Cyanosis, Edema, Left Lower Extremity and Edema, Right Lower Extremity
Skin: Warm
Neuro: AO x 3
Psych: Calm
A/P
# AFIB RVR -
Rate is controlled
c/w Metoprolol BID , Eliquis
Echocardiogram showed LVEF 35-40%. Mild MR, mild TR.pulmonary artery pressure of 43mmHg
- cardiology help appreciated.
# Acute on chronic heart failure with reduced ejection fraction
Left ventricular ejection fraction went down to 35-40% from 50-55% in 2021
Continue with Lasix treatment
# Suspect Sepsis POA/ septic shock
He had tachycardia, low grade temp and leukocytosis
Negative blood & urine cultures
Off Pressure support .
s/p IV ABx. on Oral Keflex for possible bronchitis.
# Scrotal swelling.
Unlikely cellulitic. More consistent with heart failure. No erythema or tenderness on examination of the scrotum. It was noted to be red with swelling on admission.
# Pleural Effusion - Large left pleural effusion likely contributing to his hypoxia.� There is likely atelectasis superimposed on the effusion.� No cough, fevers, chills or leukocytosis consistent with an acute infection.� Despite h/o smoking no
wheezing.� Possibly atypical CHF induced transudative effusion.�
-Status post 1500 mill central colored fluid aspirated from left pleural
- IV diuresis w/ Lasix 40mg
-Appreciate IR help
#Acute hypoxic respiratory failure requiring Non-invasive ventilation machine.
Suspect acute COPD exacerbation
chronic heavy smoking in last, cut back in recent years.
Down to [address] chest is negative for acute PE.� No wheezing/ barrel chest suggestive of a COPD.�
Mildly elevated procalcitonin
Empiric ABx given.
c/w Neb
Negative flu and COVID.
d/w pulmonary if steroid can help. Per pulmonary :Currently do not suspect pneumonia-however basilar atelectasis
Appreciate pulmonary-ICU doctor help
# Non-ischemic -Troponin elevation - Trop 0.06- 0.08
- cycle enzymes
- c/w Eliquis, f/w echo. Pt denied chest pain
- continue ac with apixaban after thoracentesis
# Hypothyroidism- TSH is 4.7.� No evidence of thyrotoxicosis.
- continue levothyroxine 200 mcg
DVT PPX - On therapeutic apixaban
Full Code
�Total time spent to see the patient, examine the patient on the floor, review data and lab results, discuss treatment plan with the patient, nursing staff around 57 minutes
Anticipated Discharge: 24 - 48 hours
Subjective/Interval History
-
Date of Service: May 30, 2023
No chest pain
No sob
Objective Data
-
Vital Signs:
Vital Signs
Temp Pulse Resp BP Pulse Ox
97.6 F 87 19 112/64 94
05/30/23 03:00 05/30/23 06:00 05/30/23 06:00 05/30/23 05:17 05/30/23 06:00
I&O
05/28/23 05/29/23 05/30/23
06:59 06:59 06:59
Intake Total 1705.0 / 2185.0 2880 / 2880 1560 / 1560
Output Total 2445 / 2475 2455 / 2485 2410 / 2410
Balance -740.0 / -290.0 425 / 395 -850 / -850
[2023-05-30] MEDS: KCL 20 MEQ PO (07:35)
[2023-05-30] MEDS: ZESTRIL 2.5 MG PO (07:36)
[2023-05-30] MEDS: KEFLEX 500 MG PO ×4 (07:36→21:06)
[2023-05-30] MEDS: TOPROL XL 25 MG PO ×2 (07:36→23:59)
[2023-05-30] MEDS: ELIQUIS 5 MG PO ×2 (07:36→21:06)
[2023-05-30] MEDS: LASIX 40 MG IV (07:37)
--- NOTE | 2023-05-30 07:42 | W.PN.INTV ---
Today's Communication / Plan
Recommendations
Wean oxygen
Increase activity
Occasional chest x-ray
Continue diuresis
Eventual ischemia evaluation
Transferred to telemetry-continue to wean oxygen-call pulmonary if additional questions-
Assessment
-
62-year-old male with a history of hypertension, atrial fibrillation on Eliquis, hypothyroidism found to be hypoxemic tachycardic with scrotal swelling noted to have large left pleural effusion status post thoracentesis with persistent hypotension
and hypoxemia requiring pressors and noninvasive ventilation-still pump operator consulted for respiratory failure/noninvasive ventilation/hypotension/shock/critical care management 05/26/2023.
Assessment
Respiratory failure-hypoxemic due to large left pleural effusion
Left pleural effusion status post thoracentesis 05/25/23--1.5 L
CHF with preserved EF
Mitral regurgitation
Biatrial enlargement on CT chest 05/25/2023
Saccular aneurysm of ascending aorta 2.6 cm extending length of 3 cm-noted on CT chest 05/25/2023
Bilateral basilar consolidation-atelectasis versus pneumonia
Leukocytosis
Mild hyponatremia
Hyperglycemia-blood sugar 158
Scrotal edema with possible cellulitis
Conditions present prior to admission:
Hypertension
Hypothyroid
Atrial fibrillation on Eliquis
Daily smoker
Daily alcohol intake
Plan
Respiratory status slowly improving
Continue attempts at decreasing FiO2
Nebulizers if needed-currently not bronchospastic
Aspiration precautions continue
Mucolytic's as needed
Incentive spirometry
Chest x-ray 05/29/2023-pulmonary vascularity at top normal, no pneumothorax, no new infiltrates
Observe off steroids for now-no wheezing on exam
Note: Thoracentesis 05/25/23--1.5 L-pH 7.49, borderline exudate with total protein 3.5 and LDH 120,-cultures pending, cytology not sent
Cardiology evaluation ongoing-correspondence reviewed
Echocardiogram 05/26/2023-EF 35%, intermediate diastolic dysfunction due to atrial fibrillation PA systolic 43
Positive fluid balance in the last 24 hours
Continue attempts at diuresis--1.1 L / 24-hour
Monitor renal function, electrolytes, intake/output, lower extremity edema and weight
Replace electrolytes as needed
Will need ischemia evaluation eventually
Check cultures-unrevealing thus far
MRSA screen negative
Urine and blood cultures negative
Norepinephrine weaned off
Currently do not suspect pneumonia-however basilar atelectasis-no evidence on latest chest x-ray 05/29/2023
Vancomycin changed to cephalexin-finish finite course for scrotal cellulitis-finish finite course
Leukocytosis improved
Follow blood sugar
Insulin supplementation as needed
DVT prophylaxis-on Eliquis
Nutrition
Slowly increase activity
Patient will likely need home oxygen and outpatient pulmonary evaluation
Patient could be transferred to telemetry-still pump operator will sign off-call pulmonary if additional respiratory related questions
Reviewed the patient's pertinent medical records including radiographs, noninvasive ventilation management, pressor-norepinephrine management, microbiology, laboratory evaluations, and discussion with primary team, consultants, pharmacy, nutrition,
physical therapy, case management, charge nurse, critical care nursing, and respiratory therapy.
Diagnostic data:
Chest x-ray 10/27/2021-small bilateral pleural effusions right greater than left, mild airspace disease mid and lower right lungs concerning for pneumonia, CHF cannot be excluded
Chest x-ray 05/25/2023-mild to moderate CHF with small right and small to moderate left pleural effusion with atelectasis
Chest x-ray 05/25/2023-status post thoracentesis, no pneumothorax, atelectasis right lung base
Chest x-ray 05/25/2023-small left pleural effusion progressed stable mild CHF
CT chest 05/25/2023-large left pleural effusion which is new, moderate to left lower lobe consolidation may represent atelectasis or pneumonia, no evidence for pulmonary embolism stable left lower lobe consolidation, saccular aneurysm of ascending
aorta measuring 2.6 cm extending a length of 3 cm, bilateral atrial enlargement
Thoracentesis 05/25/2023-left side--1.5 L serosanguineous fluid
Scrotal ultrasound 05/25/2023-bilateral scrotal wall edema suggesting cellulitis, no abscess
Echocardiogram 10/29/2021-EF 50-55%, mild mitral regurgitation, a systolic 51
Subjective Dataa
Subjective Data
Date of Service:
Date of Service: May 30, 2023
Chief Complaint: Carroter Follow Up and Pulmonary Follow Up
Subjective:
No complaints, no shortness of breath, chest congestion, chest pain, productive cough, abdominal pain
Review of Systems
General: Other (Per HPI)
Objective Data
Data Reviewed
Vital Signs / I&O / Oxygen:
Vital Signs
Temp Pulse Resp BP Pulse Ox
98.5 F 90 19 112/64 94
05/30/23 07:39 05/30/23 07:37 05/30/23 06:00 05/30/23 07:37 05/30/23 06:00
Intake and Output
05/29/23 05/30/23 05/31/23
06:59 06:59 06:59
Intake Total 2880 / 2880 1560 / 1560
Output Total 2455 / 2485 2410 / 2410
Balance 425 / 395 -850 / -850
SaO2 [NIV (Non Invasive 90
Ventilation)]
SaO2 94
Nasal Cannula flow liters per 4
minute
Physical Exam
General: Respiratory Distress (Mild)
HEENT: Normocephalic, Anicteric and Moist Mucous Membranes
Cardiovascular: Regular Rhythm (Tacky)
Respiratory: Wheeze (n), Crackles (Basilar), Rhonchi (n), Accessory Resp Muscle Use (Mild) and Stridor (n)
GI: Soft, Non Distended and Non Tender
Neurology: Awake, Alert and No Motor Deficits
Skin: Warm, Good Color, Cyanosis (n), Jaundice and Rash
Labs/Micro/Reports
Lab Data
05/27/23 05:30
05/29/23 04:13
Microbiology
05/26/23 00:30 Blood/Venous Blood Culture - Preliminary
No Growth in 4 days- Final report to follow
05/26/23 00:23 Blood/Venous Blood Culture - Preliminary
No Growth in 4 days- Final report to follow
05/25/23 14:48 Thoracentesis Fluid Body Fluid Culture - Final
No Growth After 72 Hours
05/25/23 14:48 Thoracentesis Fluid Gram Stain - Final
05/26/23 12:20 Nose MRSA Screen - Final
No Methicillin Resistant Staphylococcus aureus isolated.
05/26/23 01:47 Urine Urine Culture - Final
NO GROWTH
--- NOTE | 2023-05-30 10:36 | W.PN.CARDCBS ---
Today's Communication / Plan
-
Replete K/Mg (goal K >4, Mg >2)
Continue BB, CHILANGO, eliquis
Ischemic evaluation as outpatient
Wean O2 as tolerated
Impression / Plan
-
Internal Communications Specialist: None; first seen in-patient by Dr. Brain Chavez MD
Assessment:
Hypoxic respiratory failure
Scrotal edema
Acute diastolic heart failure
Atrial fibrillation with RVR
Nonischemic myocardial injury
L pleural effusion s/p IR drainage of 1.5 L on 05/25/23
Ascending aortic saccular aneurysm, 2.6 x 2.1 cm
Graves' disease
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
H/O Hypothyroidism following radiation treatment for Graves' disease
Daily EtOH
Current smoker
10/29/2021: EF 50-55%, mild MR, mildly dilated LA, mild TR, pulmonary artery systolic pressure 51 mmHg based on elevated right atrial pressure of 20 mmHg, dilated RA, normal RV, and some views anteroseptal hypokinesis could be present, normal aortic
valve
05/25/22: EF 35 to 40% with global hypokinesis, mild MR, PA pressure 43
Plan:
He has been diuresing well. Creatinine remained stable. Continue Lasix 40 mg IV twice daily.
Remains on O2 via Nasal cannula; denies SOB
Remains in A-fib with relatively good rate control. Continue Toprol and Eliquis.
Toprol 25 mg was started on 05/26.
Lisinopril 2.5 mg daily started 05/29 AM, tolertaing well.
He will need an ischemic evaluation when he recovers from sepsis. Continue Eliquis, Toprol, and atorvastatin.
Continue cephalexin and wean oxygen.
Discussed with convict guard and nursing
Progress Note - Internal Communications Specialist
Subjective
Date of Service: May 30, 2023
Patient seen and examined this morning. No acute events overnight. Patient resting comfortably without complaint. Denies cp, sob, palpitations, lh, dizziness, near syncope, syncope, or weakness. Remains on O2 via NC. Tele rate controlled AF
Objective
Labs:
05/27/23 05:30
05/29/23 04:13
Labs
Hgb 14.8 g/dL (13.0-18.0) 05/27/23 05:30
Hct 39.9 % (39.0-52.0) 05/27/23 05:30
Plt Count 180 10^3/uL (130-400) 05/27/23 05:30
PT 16.5 Sec (11.4-14.6) H 05/25/23 19:25
INR 1.35 05/25/23 19:25
APTT 32.2 Sec (23.4-35.0) 05/25/23 19:25
Sodium 132 mmol/L (135-145) L 05/29/23 04:13
Potassium 3.6 mmol/L (3.5-5.1) 05/29/23 04:13
BUN 23 mg/dl (9-20) H 05/29/23 04:13
Creatinine 0.6 mg/dL (0.7-1.3) L 05/29/23 04:13
Glucose 92 mg/dl (70-99) 05/29/23 04:13
Vital Signs and I&O:
Vital Signs
Temp Pulse Resp BP Pulse Ox
98.5 F 85 16 110/76 91
05/30/23 07:39 05/30/23 10:00 05/30/23 10:00 05/30/23 08:00 05/30/23 10:28
Vital Signs
Temp Pulse Resp BP Pulse Ox
98.5 F 85 16 110/76 91
05/30/23 07:39 05/30/23 10:00 05/30/23 10:00 05/30/23 08:00 05/30/23 10:28
Intake & Output
05/28/23 05/29/23 05/30/23 05/31/23
06:59 06:59 06:59 06:59
Intake Total 1705.0 / 2185.0 2880 / 2880 1560 / 1560 250 / 250
Output Total 2445 / 2475 2455 / 2485 2410 / 2410 200 / 200
Balance -740.0 / -290.0 425 / 395 -850 / -850 50 / 50
Physical Exam
Physical Exam
GEN: No distress, awake, Ox3
HEENT: supple, anicteric, mmm
LUNGS: bilat rhonchi
CV: irreg, S1/S2, 1/6 syst LSB, no gallop
ABD: soft, BS+, NT/ND
EXT: No edema
NEURO: Gross non-focal
SKIN: No rash
--- NOTE | 2023-05-30 10:52 | PTCARENOTE ---
Complete assessment done this am, Pt cleared to go to tele room when available. Pt remains afib with BBB as per monitor. O2 4l nc, fine crackles audible at Left lower lobe. O2 sat=91%. I/S done with pt with him reaching 1000 TV. Pt assisted to
bathroom, am care down and teeth brushed. Pt voiding yellow urine in urinal without difficulty.
--- NOTE | 2023-05-30 12:10 | PN.CDI ---
Addendum entered and electronically signed by Mary Coronel MD 05/30/23 12:50:
Persistent atrial fibrillation�-
Original Note:
CDI
- -
CDI:
Physician Documentation Request
Admit Date: 05/25/23 14:14
Dear Doctor Berna,
Patient admitted with sepsis.
05/28 PN, 'AFIB RVR...Rate is controlled...c/w Metoprolol BID, Eliquis.'
Please provide further specificity regarding atrial fibrillation, such as:
Paroxysmal atrial fibrillation - terminates spontaneously or with intervention within 7 days of onset
Persistent atrial fibrillation - episodes of continuous AF that last more than 7 days and do not self-terminate
Permanent atrial fibrillation - when a decision has been made to accept the presence of AF and there is no further attempt to restore or maintain sinus rhythm
Other - please specify
Unable to further specify
Use of terms such as suspected, likely, concern for, or probable (associated with a specific diagnosis that is being evaluated, monitored, or treated as if it exists) are acceptable and can be coded in the inpatient setting, when documented at the
time of discharge.
Thank you,
Ale CASTRO,RN,CCDS
CDI Specialist
Available via [place] text
Please use your independent medical judgment in providing your response.
--- NOTE | 2023-05-30 13:34 | CM ---
CM following re: discharge planning.
Discussed in Rounds, reviewed pt's chart, met with pt. Per Rounds meeting, continues to require 8 L midflow NC of O2, refused nebulizer treatment. continue supportive care.
Pt has no insurance. HRSI following.
PT and OT evaluations noted - home PT/OT vs no needs recommended. Pt reports he will not need any VN services at discharge.
D/C plan: home with anticipated no needs. Monitoring O2 requirements.
CM will follow with discharge plan updates as hospitalization progresses
--- NOTE | 2023-05-30 15:45 | PTCARENOTE ---
Report given to ANUJ Ortiz on 4E. Pt brought to new with port O2, monitor, and belongings via wheel chair. VSS
[2023-05-30] MEDS: LASIX IV (16:09)
--- NOTE | 2023-05-30 16:11 | PTCARENOTE ---
Received pt from ICU. AAOX3, VSS, on 4L O2. Patient denies any pain or discomfort. Oriented to unit.
[2023-05-30] MEDS: LIPITOR 40 MG PO (17:12)
[2023-05-31] VITALS (7 sets, daily range): BP systolic 94–109; BP diastolic 54–65; PULSE 76; BMI 24.3
--- NOTE | 2023-05-31 05:36 | PTCARENOTE ---
Addendum entered by Eileen Garcia RN 05/31/23 07:34:
WELT CUTTER made aware of no labs ordered for this morning.Pt resting comfortably.Call conklin in reach.
Original Note:
Pt aaox3 able to make his needs known.Denies pain or any discomfort,dizziness. Pt voided in the urinal, urine noted to be blood tinged with clotts. Pt on eliquis. FEDERAL MEDIATOR master sonar technician made aware of it,am labs in place. Pt asymptomatic otherwise. Pt
encouraged to use urinal for strict I/O'S & monitoring. Plan of care continued.
[2023-05-31] MEDS: SYNTHROID 200 MCG PO (06:00)
[2023-05-31] MEDS: ELIQUIS 5 MG PO ×2 (08:00→19:44)
[2023-05-31] MEDS: KEFLEX 500 MG PO ×4 (08:00→21:02)
[2023-05-31] MEDS: KCL 20 MEQ PO (08:01)
[2023-05-31] MEDS: LASIX 40 MG PO (08:01)
[2023-05-31] MEDS: TOPROL XL 25 MG PO ×2 (08:01→19:44)
--- NOTE | 2023-05-31 11:24 | W.PN.HOSP.TC ---
Today's Communication/Plan
-
Possible dc in am
Assessment / Plan
Assessment / Plan
Physical Exam
General: no Respiratory Distress
HEENT: Normocephalic, Anicteric, Moist mucous membranes, PERRLA,on nasal O2.
Respiratory: No wheezes heard, no rhonchi bilaterally.
Cardiac: S1S2
GI: Soft, Non Tender, Non Distended and Normal Bowel Sounds
Rectal: no rectal breathing
Musculoskeletal: Clubbing, Cyanosis, Edema, Left Lower Extremity and Edema, Right Lower Extremity
Skin: Warm
Neuro: AO x 3
Psych: Calm
A/P
# Hypotension
likely medications/ diuretics induced.
Will hold CHILANGO for now, change to Lasix 40 mg QD, c/w same dose BB
# Hematuria
Brown urine per nurse,? bilirubin
Will send for urinalysis
will monitor today, ok to give Eliquis for now
If hematuria , then stop Eliquis, will do CT A/P . I d/w urology but will hold off consult until further episodes. Pt denied urinary symptoms in past.
# AFIB RVR -
Rate is controlled
c/w Metoprolol BID , Eliquis
Echocardiogram showed LVEF 35-40%. Mild MR, mild TR.pulmonary artery pressure of 43mmHg
- cardiology help appreciated.
# Acute on chronic heart failure with reduced ejection fraction
Left ventricular ejection fraction went down to 35-40% from 50-55% in 2021
Continue with Lasix treatment, decrease Lasix to 40 mg orally daily. Continue beta-vipul. Patient was given lisinopril but blood pressure dropped. Will hold off on introducing further GDMT due to hypotension.
Ischemic workup as an outpatient.
Patient denies shortness of breath or chest pain.
# Suspect Sepsis POA/ septic shock
He had tachycardia, low grade temp and leukocytosis
Negative blood & urine cultures
Off Pressure support .
s/p IV ABx. on Oral Keflex for possible bronchitis.
# Scrotal swelling.
Unlikely cellulitic. More consistent with heart failure. No erythema or tenderness on examination of the scrotum. It was noted to be red with swelling on admission.
# Pleural Effusion - Large left pleural effusion likely contributing to his hypoxia.� There is likely atelectasis superimposed on the effusion.� No cough, fevers, chills or leukocytosis consistent with an acute infection.� Despite h/o smoking no
wheezing.� Possibly atypical CHF induced transudative effusion.�
-Status post 1500 mill central colored fluid aspirated from left pleural
- IV diuresis w/ Lasix 40mg
-Appreciate IR help
#Acute hypoxic respiratory failure requiring Non-invasive ventilation machine.
Suspect acute COPD exacerbation
chronic heavy smoking in last, cut back in recent years.
Down to 2, SaO2 seems to tolerate.
CT chest is negative for acute PE.� No wheezing/ barrel chest suggestive of a COPD.�
Mildly elevated procalcitonin
Empiric ABx given.
c/w Neb
Negative flu and COVID.
d/w pulmonary if steroid can help. Per pulmonary :Currently do not suspect pneumonia-however basilar atelectasis
Appreciate pulmonary-ICU doctor help
# Non-ischemic -Troponin elevation - Trop 0.06- 0.08
- cycle enzymes
- c/w Eliquis, f/w echo. Pt denied chest pain
- continue ac with apixaban after thoracentesis
# Hypothyroidism- TSH is 4.7.� No evidence of thyrotoxicosis.
- continue levothyroxine 200 mcg
DVT PPX - On therapeutic apixaban
Full Code
�Total time spent to see the patient, examine the patient on the floor, review data and lab results, discuss treatment plan with the patient, nursing staff around 57 minutes
Anticipated Discharge: 24 - 48 hours
Subjective/Interval History
-
Date of Service: May 31, 2023
No chest pain
No sob
Hematuria yesterday
Objective Data
-
Vital Signs:
Vital Signs
Temp Pulse Resp BP Pulse Ox
97.7 F 82 18 118/52 96
05/31/23 07:00 05/31/23 08:01 05/31/23 07:00 05/31/23 08:01 05/31/23 10:15
I&O
05/30/23 05/31/23 06/01/23
06:59 06:59 06:59
Intake Total 1560 / 1560 735 / 735
Output Total 2410 / 2410 1400 / 1400
Balance -850 / -850 -665 / -665
[2023-05-31 12:21] LABS: Hemoglobin 14.3 g/dL (13.0-18.0); Mean Corp Hgb Conc. 34.9 g/dL (33.0-37.0); Mean Corpuscular Hgb 31.4 pg (27.0-31.0); Mean Corpuscular Volume 89.9 fL (80.0-94.0); Mean Platelet Volume 10.8 fL (7.4-10.4); Platelet Count 202 10^3/uL (130-400); Red Blood Cell Count 4.56 10^6/uL (4.70-6.10); Red Cell Dist. Width 14.5 % (11.5-14.5); White Blood Cell Count 5.5 10^3/uL (4.8-10.8)
--- NOTE | 2023-05-31 12:24 | W.PN.CARDCBS ---
Today's Communication / Plan
-
GDMT with CHILANGO, BB, statin
Eliquis 5 mg twice daily for AF
Oral diuretic
Replete electrolytes
Wean O2
Impression / Plan
-
Inspector Returned Materials: None; first seen in-patient by Dr. Brain Chavez MD
Assessment:
Hypoxic respiratory failure
Scrotal edema
Acute diastolic heart failure
Atrial fibrillation with RVR
Nonischemic myocardial injury
L pleural effusion s/p IR drainage of 1.5 L on 05/25/23
Ascending aortic saccular aneurysm, 2.6 x 2.1 cm
Graves' disease
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
H/O Hypothyroidism following radiation treatment for Graves' disease
Daily EtOH
Current smoker
10/29/2021: EF 50-55%, mild MR, mildly dilated LA, mild TR, pulmonary artery systolic pressure 51 mmHg based on elevated right atrial pressure of 20 mmHg, dilated RA, normal RV, and some views anteroseptal hypokinesis could be present, normal aortic
valve
05/25/22: EF 35 to 40% with global hypokinesis, mild MR, PA pressure 43
Plan:
He has been diuresing well. Creatinine remained stable. change to oral DC on 40 daily; recommend BMP in 1 week
Remains on O2 via Nasal cannula; denies SOB
Remains in A-fib with relatively good rate control. Continue Toprol and Eliquis.
Toprol 25 mg was started on 05/26.
Lisinopril 2.5 mg daily started 05/29 AM, tolerating well.
He will need an ischemic evaluation when he recovers from sepsis. Continue Eliquis, Toprol, and atorvastatin.
Continue cephalexin and wean oxygen
Progress Note - Inspector Returned Materials
Subjective
Date of Service: May 31, 2023
Patient seen and examined. No acute events overnight. Patient resting comfortably in bed. Denies cp, sob, palpitations, pnd, orthopnea, edema, syncope, or weakness. Remains on NC supplemental O2, not prescribed OP.
Objective
Labs:
05/31/23 12:02
Labs
Hgb 14.3 g/dL (13.0-18.0) 05/31/23 12:02
Hct 41.0 % (39.0-52.0) 05/31/23 12:02
Plt Count 202 10^3/uL (130-400) 05/31/23 12:02
PT 16.5 Sec (11.4-14.6) H 05/25/23 19:25
INR 1.35 05/25/23 19:25
APTT 32.2 Sec (23.4-35.0) 05/25/23 19:25
Sodium 132 mmol/L (135-145) L 05/29/23 04:13
Potassium 3.6 mmol/L (3.5-5.1) 05/29/23 04:13
BUN 23 mg/dl (9-20) H 05/29/23 04:13
Creatinine 0.6 mg/dL (0.7-1.3) L 05/29/23 04:13
Glucose 92 mg/dl (70-99) 05/29/23 04:13
Vital Signs and I&O:
Vital Signs
Temp Pulse Resp BP Pulse Ox
97.7 F 72 20 98/57 94
05/31/23 11:05 05/31/23 11:05 05/31/23 11:05 05/31/23 11:05 05/31/23 11:05
Vital Signs
Temp Pulse Resp BP Pulse Ox
97.7 F 72 20 98/57 94
05/31/23 11:05 05/31/23 11:05 05/31/23 11:05 05/31/23 11:05 05/31/23 11:05
Intake & Output
05/29/23 05/30/23 05/31/23 06/01/23
06:59 06:59 06:59 06:59
Intake Total 2880 / 2880 1560 / 1560 735 / 735
Output Total 2455 / 2485 2410 / 2410 1400 / 1400
Balance 425 / 395 -850 / -850 -665 / -665
Physical Exam
Physical Exam
GEN: No distress, awake, Ox3
HEENT: supple, anicteric, mmm
LUNGS: CTA BL, no w/r/r; on NC O2
CV: irreg, S1/S2, 1/6 syst LSB, no gallop
ABD: soft, BS+, NT/ND
EXT: No edema
NEURO: Gross non-focal
SKIN: No rash
Tele: AF
[2023-05-31 12:39] LABS: ALT (SGPT) 19 U/L (0-50); AST (SGOT) 59 U/L (17-59); Albumin 3.5 g/dl (3.5-5.0); Alkaline Phosphatase 209 U/L (38-126); Blood Urea Nitrogen 30 mg/dl (9-20); Calcium 9.6 mg/dl (8.4-10.2); Carbon Dioxide 32 mmol/L (22-30); Chloride 93 mmol/L (98-107); Estimated Creatinine Clearance 113 ml/min; Glucose 100 mg/dl (70-99); Potassium 4.1 mmol/L (3.5-5.1); Sodium 134 mmol/L (135-145); Total Bilirubin 1.4 mg/dl (0.2-1.3); Total Protein 7.8 g/dl (6.3-8.2); eGFR > 60.00
[2023-05-31 14:21] LABS: Urine Albumin Negative (Neg - Trace); Urine Bilirubin Negative (Negative); Urine Character Clear (Clear); Urine Color Yellow; Urine Glucose Negative (Negative); Urine Ketone Negative (Negative); Urine Leukocyte Negative (Negative); Urine Nitrite Negative (Negative); Urine Occult Blood 4+ (Negative); Urine Urobilinogen Negative (Neg - 1+); Urine pH 6.5 (5.0-9.0)
[2023-05-31 14:37] LABS: Urine Mucus Few
[2023-05-31 14:38] LABS: Urine Squamous Cell 16-20 /LPF (Few)
[2023-05-31 14:39] LABS: Urine Red Blood Cell 30-40 /HPF (0-2)
[2023-05-31 14:40] LABS: Urine Bacteria Few (Negative)
[2023-05-31] MEDS: LIPITOR 40 MG PO (17:46)
[2023-06-01 03:18] VITALS: BP 91/61
[2023-06-01 06:00] VITALS: BMI 24.4
[2023-06-01] MEDS: SYNTHROID 200 MCG PO (06:06)
[2023-06-01 07:05] VITALS: BP 97/65
[2023-06-01] MEDS: TOPROL XL 25 MG PO (07:59)
[2023-06-01] MEDS: LASIX 40 MG PO (07:59)
[2023-06-01] MEDS: KCL 20 MEQ PO (08:00)
[2023-06-01] MEDS: KEFLEX 500 MG PO ×2 (08:00→11:52)
[2023-06-01] MEDS: ELIQUIS 5 MG PO (08:00)
--- NOTE | 2023-06-01 11:00 | W.PN.HOSP.TC ---
Today's Communication/Plan
-
dc
Assessment / Plan
Assessment / Plan
Physical Exam
General: no Respiratory Distress
HEENT: Normocephalic, Anicteric, Moist mucous membranes, PERRLA,on nasal O2.
Respiratory: No wheezes heard, no rhonchi bilaterally.
Cardiac: S1S2
GI: Soft, Non Tender, Non Distended and Normal Bowel Sounds
Rectal: no rectal breathing
Musculoskeletal: Clubbing, Cyanosis, Edema, Left Lower Extremity and Edema, Right Lower Extremity
Skin: Warm
Neuro: AO x 3
Psych: Calm
A/P
# Hypotension
likely medications/ diuretics induced.
Hold CHILANGO for now, change to Lasix 40 mg QD, c/w same dose BB
# Hematuria
Brown urine per nurse,? bilirubin , urine was clear
No hematuria over night
Pt is aware of RBCs in urine, risk of cancer with chronic smoking, and need for urology follow.
# AFIB RVR -
Rate is controlled
c/w Metoprolol BID , Eliquis
Echocardiogram showed LVEF 35-40%. Mild MR, mild TR.pulmonary artery pressure of 43mmHg
- cardiology help appreciated.
# Acute on chronic heart failure with reduced ejection fraction
Left ventricular ejection fraction went down to 35-40% from 50-55% in 2021
Continue with Lasix treatment, decrease Lasix to 40 mg orally daily. Continue beta-vipul. Patient was given lisinopril but blood pressure dropped. Will hold off on introducing further GDMT due to hypotension.
Ischemic workup as an outpatient.
Patient denies shortness of breath or chest pain.
# Suspect Sepsis POA/ septic shock
He had tachycardia, low grade temp and leukocytosis
Negative blood & urine cultures
Off Pressure support .
s/p IV ABx. on Oral Keflex for possible bronchitis.
# Scrotal swelling.
Unlikely cellulitic. More consistent with heart failure. No erythema or tenderness on examination of the scrotum. It was noted to be red with swelling on admission.
# Pleural Effusion - Large left pleural effusion likely contributing to his hypoxia.� There is likely atelectasis superimposed on the effusion.� No cough, fevers, chills or leukocytosis consistent with an acute infection.� Despite h/o smoking no
wheezing.� Possibly atypical CHF induced transudative effusion.�
-Status post 1500 mill central colored fluid aspirated from left pleural
- IV diuresis w/ Lasix 40mg
-Appreciate IR help
#Acute hypoxic respiratory failure requiring Non-invasive ventilation machine.
Suspect acute COPD exacerbation
chronic heavy smoking in last, cut back in recent years.
Down to 2 on the rest and 4 to 6 L upon ambulation. We did home O2 evaluation. He is going to need oxygen. He was counseled regarding fire hazard with oxygen verbalized understanding intention to not smoke anymore. His sister was also informed
about fire hazard with smoking and oxygen use.
CT chest is negative for acute PE.� No wheezing/ barrel chest suggestive of a COPD.�
Mildly elevated procalcitonin
Empiric ABx given.
c/w Neb
Negative flu and COVID.
d/w pulmonary if steroid can help. Per pulmonary :Currently do not suspect pneumonia-however basilar atelectasis
Appreciate pulmonary-ICU doctor help
Patient is in need of oxygen at 2 liters/minute via nasal cannula continuously due to pulse oximetry of 87% on room air at rest, 86% on ambulation, recovered to 90% on 6 liters upon ambulation. Oxygen will help to improve hypoxemia. Patient is
mobile within the home. DuoNeb therapy has been tried and is ineffective in treating hypoxemia related symptoms. Oxygen is needed to improve symptoms.
# Non-ischemic -Troponin elevation - Trop 0.06- 0.08
- cycle enzymes
- c/w Eliquis, f/w echo. Pt denied chest pain
- continue ac with apixaban after thoracentesis
# Hypothyroidism- TSH is 4.7.� No evidence of thyrotoxicosis.
- continue levothyroxine 200 mcg
DVT PPX - On therapeutic apixaban
Full Code
�Total discharge time spent to see the patient, examine the patient on the floor, review data and lab results, discuss discharge plan with the patient, sister, cardiology, watch caser, nursing staff around 69 minutes
Anticipated Discharge: Today
Subjective/Interval History
-
Date of Service: June 01, 2023
No chest pain
No sob
He wants to go home
Objective Data
-
Vital Signs:
Vital Signs
Temp Pulse Resp BP Pulse Ox
98 F 77 20 97/65 97
06/01/23 07:05 06/01/23 07:05 06/01/23 07:05 06/01/23 07:05 06/01/23 07:05
I&O
05/31/23 06/01/23 06/02/23
06:59 06:59 06:59
Intake Total 735 / 735 780 / 780
Output Total 1400 / 1400 500 / 500
Balance -665 / -665 280 / 280
[2023-06-01 11:12] VITALS: BP 108/67
--- NOTE | 2023-06-01 11:34 | CM ---
Addendum entered by Rochelle Grant 06/01/23 12:27:
Per Sheryl at [facility], O2 will be delivered within two hours. Patient reports his sister will be his transportation home. CM will continue to follow for discharge planning needs.
Plan; home with O2 from [facility].
Original Note:
CM spoke with patient regarding home oxygen, per Sheryl at [facility], self pay for home O2 is $180 a month. Patient reports he will be able to self pay. Clinical information faxed to Sheryl at [facility] [phone], awaiting confirmation and delivery
time. CM will continue to follow for discharge planning needs.
Plan; home with home O2, awaiting confirmation and delivery time.
--- NOTE | 2023-06-01 12:51 | W.PN.CARDCBS ---
Today's Communication / Plan
-
Stable from CV standpoint
On Eliquis, BB; CHILANGO on hold due to hypotension; reassess as OP
Ischemic eval as OP; follow up with Dr. Chavez
Impression / Plan
-
Parts Room Associate: None; first seen in-patient by Dr. Brain Chavez MD
Assessment:
Hypoxic respiratory failure, improved
Scrotal edema
Acute diastolic heart failure
Atrial fibrillation with RVR
Nonischemic myocardial injury
L pleural effusion s/p IR drainage of 1.5 L on 05/25/23
Ascending aortic saccular aneurysm, 2.6 x 2.1 cm
Graves' disease
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
H/O Hypothyroidism following radiation treatment for Graves' disease
Daily EtOH
Current smoker
10/29/2021: EF 50-55%, mild MR, mildly dilated LA, mild TR, pulmonary artery systolic pressure 51 mmHg based on elevated right atrial pressure of 20 mmHg, dilated RA, normal RV, and some views anteroseptal hypokinesis could be present, normal aortic
valve
05/25/22: EF 35 to 40% with global hypokinesis, mild MR, PA pressure 43
Plan:
He has been diuresing well. Creatinine remained stable. change to oral DC on 40 daily; recommend BMP in 1 week
Remains on O2 via Nasal cannula; denies SOB
Remains in A-fib with relatively good rate control. Continue Toprol and Eliquis
Toprol 25 mg was started on 05/26.
Lisinopril 2.5 mg daily started 05/29 AM, tolerating well; now currently on hold due to BP
He will need an ischemic evaluation when he recovers from sepsis. Continue Eliquis, Toprol, and atorvastatin.
Continue cephalexin per primary and wean oxygen
Progress Note - Parts Room Associate
Subjective
Date of Service: June 01, 2023
Patient seen and examined this morning. No acute events overnight. Patient noted desat with ambulation requiring increaesed O2. No cp, sob, palpitations, lh, dizziness, near syncope syncope, or weakness. Tele AF rare PVC.
Objective
Labs:
05/31/23 12:02
05/31/23 12:02
Labs
Hgb 14.3 g/dL (13.0-18.0) 05/31/23 12:02
Hct 41.0 % (39.0-52.0) 05/31/23 12:02
Plt Count 202 10^3/uL (130-400) 05/31/23 12:02
PT 16.5 Sec (11.4-14.6) H 05/25/23 19:25
INR 1.35 05/25/23 19:25
APTT 32.2 Sec (23.4-35.0) 05/25/23 19:25
Sodium 134 mmol/L (135-145) L 05/31/23 12:02
Potassium 4.1 mmol/L (3.5-5.1) 05/31/23 12:02
BUN 30 mg/dl (9-20) H 05/31/23 12:02
Creatinine 0.7 mg/dL (0.7-1.3) 05/31/23 12:02
Glucose 100 mg/dl (70-99) H 05/31/23 12:02
Vital Signs and I&O:
Vital Signs
Temp Pulse Resp BP Pulse Ox
97.9 F 83 18 108/67 97
06/01/23 11:12 06/01/23 11:12 06/01/23 11:12 06/01/23 11:12 06/01/23 11:12
Vital Signs
Temp Pulse Resp BP Pulse Ox
97.9 F 83 18 108/67 97
06/01/23 11:12 06/01/23 11:12 06/01/23 11:12 06/01/23 11:12 06/01/23 11:12
Intake & Output
05/30/23 05/31/23 06/01/23 06/02/23
06:59 06:59 06:59 06:59
Intake Total 1560 / 1560 735 / 735 780 / 780
Output Total 2410 / 2410 1400 / 1400 500 / 500
Balance -850 / -850 -665 / -665 280 / 280
Physical Exam
Physical Exam
GEN: No distress, awake, Ox3
HEENT: supple, anicteric, mmm
LUNGS: CTA BL, no w/r/r; on NC O2
CV: irreg, S1/S2, 1/6 syst LSB, no gallop
ABD: soft, BS+, NT/ND
EXT: No edema
NEURO: Gross non-focal
SKIN: No rash
--- NOTE | 2023-06-01 14:16 | W.DCSUMMARY ---
Discharge Summary
Discharge Data
Date of Admission: 05/25/23
Date of Discharge: 06/01/23
-
Pending Results: No
Hospital Course
60 years old male presented to the emergency room with scrotal swelling and weakness. He was found to be in rapid atrial fibrillation with hypoxia and cyanosis. He was started on high flow oxygen with improvement of oxygen saturation to 89% then
1 placed on noninvasive ventilation mode. Patient was admitted to the intensive care unit. Scan of the chest with contrast did not show pulmonary embolism but showed large left pleural effusion with pulmonary atelectasis. Patient was diagnosed
with acute hypoxic respiratory failure due to combination of pleural effusion, pulmonary atelectasis, possible underlying chronic obstructive pulmonary disease and congestive heart failure. He was diagnosed with acute on chronic heart failure with
reduced ejection fraction to 35 to 40%. Patient was followed by intensive care doctor/support specialist. He was seen by latrine cleaner. He was started on intravenous diuretic therapy. He had thoracentesis of left pleural effusion that drained
1.5 later with pH of 7.49 and borderline exudate with total protein 3.5, LDH 120, negative culture. He was started on intravenous Cardizem drip to regulate his heart rate. He subsequently was started on oral extended release metoprolol, metoprolol
succinate. His kidney function was monitored. He was given potassium for hypokalemia. Scrotal swelling was consistent with congestive heart failure/edema but could not rule out cellulitis. Patient was given empiric antibiotic. He met the
criteria of sepsis on admission with tachycardia, leukocytosis, respiratory distress, elevated troponin. Troponin level was 0.06- 0.08. Blood culture did not show any growth. He had negative COVID and influenza screening test. Mildly elevated
procalcitonin. He did not need further intravenous antibiotics. Hypoxia was treated with oxygen supplementation. He subsequently was weaned down to nasal oxygen. He remained hypoxic on room air and he was noted to need 2 to 3 L on rest and 4 to
6 L upon ambulation. He was counseled strongly to avoid to smoking tobacco. He was counseled regarding the safe use of home oxygen. Patient and his sister verbalized understanding to discharge instructions. Cardiology wanted to optimize
treatment for heart failure but hypotension was a limiting factor. Cardiology recommended outpatient follow-up. Patient verbalized understanding to our instruction including ischemic cardiac workup as an outpatient. Patient remained
hemodynamically stable and was discharged in a stable condition.
Discharge Plan
-
Patient Disposition: Home with Home Care
Discharge Diagnosis/Procedures: Acute on chronic heart failure with reduced ejection fraction. Left ventricular ejection fraction 35-40%. You were started on metoprolol, statin (atorvastatin-cholesterol medication). Potential side effects of
metoprolol include fatigue, low blood pressure, low heart rate. Potential side effect of statin include muscle weakness/fatigue.
Persistent atrial fibrillation on blood thinner called Eliquis
Acute hypoxic respiratory failure. He will need home oxygen. Oxygen is flammable gas, avoid smoking or fire/flame.
Tobacco use, suspect underlying chronic obstructive pulmonary disease
Left pleural effusion
Scrotal swelling
Non-ischemic troponin elevation
Hypothyroidism
Red blood cells in the urine, recommend urology evaluation
Condition: Good
Diet: As tolerated, Low Cholesterol and Low Sodium
Instructions: *[facility] Heart Failure Instructions
Referrals:
Brain Chavez MD [Active] - in two to four weeks
Michael Bailey MD [Active] - in one month
Liborio Chino MD [Family Provider] - in one to two weeks
Jaxon Pena MD [Active] - in two to three weeks
Prescriptions:
New
furosemide 40 mg Tablet
40 mg PO DAILY Qty: 30 0RF
atorvastatin 40 mg Tablet
40 mg PO QPM Qty: 30 0RF
potassium chloride 20 mEq Tablet,Er Particles/Crystals
20 meq PO DAILY Qty: 30 0RF
cephalexin 500 mg Capsule
500 mg PO QID Qty: 6 0RF
metoprolol succinate 25 mg Tablet Extended Release 24 Hr
25 mg PO BID Qty: 60 0RF
albuterol sulfate 90 mcg/actuation Hfa Aerosol Inhaler
1 puff inhalation R Q4HPRN PRN (Reason: wheezing) Qty: 1 0RF
Continued
thiamine HCl (vitamin B1) 100 mg Tablet
100 mg PO DAILY
Patient Comments:
05/25/2023, pt. ran out roughly a week ago.
levothyroxine 200 mcg Tablet
200 mcg PO DAILY
qikqhrdzbexv-[id number]-eczebo Tablet
1 tab PO DAILY
Eliquis 5 mg Tablet
5 mg PO BID
Patient Comments:
05/25/2023, used [facility] records from 12/13/2021; pt. has bottle with him but he has the label ripped off of it.
Discharge Orders:
Discharge Patient (As Directed); Ordered 06/01/23
Ordered By: Mary Coronel
== END 2023-06-01 14:21 | disposition home health service (06) | DRG 871 ==
LOC: 4 EAST ACU 14:14
PROVIDERS: Nurse Practitioner Family; Radiology Diagnostic Radiology; ADMITTING PHYSICIAN Internal Medicine; ATTENDING PHYSICIAN Internal Medicine; CONSULT PHYSICIAN Internal Medicine Cardiovascular Disease; EMERGENCY PHYSICIAN Emergency Medicine; FAMILY PHYSICIAN Internal Medicine; OTHER PHYSICIAN Internal Medicine Critical Care Medicine
PROC: 0W9B3ZX Drainage of Left Pleural Cavity, Percutaneous Approach, Diagnostic (ICD-10-PCS; 2023-05-25)
DX: A41.9 Sepsis, unspecified organism (principal); I50.43 Acute on chronic combined systolic (congestive) and diastolic (congestive) heart failure; J96.01 Acute respiratory failure with hypoxia; R65.21 Severe sepsis with septic shock; I48.19 Other persistent atrial fibrillation; J98.11 Atelectasis; I24.89 Other forms of acute ischemic heart disease; E87.1 Hypo-osmolality and hyponatremia; I5A Non-ischemic myocardial injury (non-traumatic); J44.1 Chronic obstructive pulmonary disease with (acute) exacerbation; F17.210 Nicotine dependence, cigarettes, uncomplicated; R23.0 Cyanosis; N50.89 Other specified disorders of the male genital organs; E03.9 Hypothyroidism, unspecified; Z79.01 Long term (current) use of anticoagulants; I71.21 Aneurysm of the ascending aorta, without rupture; E05.00 Thyrotoxicosis with diffuse goiter without thyrotoxic crisis or storm; I95.9 Hypotension, unspecified; E87.6 Hypokalemia; I11.0 Hypertensive heart disease with heart failure; Z11.52 Encounter for screening for COVID-19
CPT/HCPCS: 32555; 71045; 71275; 76870; 80048; 80053; 80061; 80202; 81003; 81015; 82077; 82805; 83605; 83615; 83735; 83880; 83986; 84145; 84157; 84439; 84443; 84484; 85025; 85027; 85610; 85730; 86803; 87015; 87040; 87070; 87086; 87205; 87502; 87811; 93005; 93306; 93976; 94002; 96374; 96375; 97116; 97162; 97166; 97535; 99285; Q9967

== ENCOUNTER 2023-06-21 17:10 | Inpatient (IN) | payer MEDICAID, SELFPAY ==
[2023-06-21] VITALS (11 sets, daily range): BP systolic 123–149; BP diastolic 77–96; BMI 25.6; BMI 24.7
--- NOTE | 2023-06-21 12:27 | ED.GENMED ---
History of Present Illness
General
Chief Complaint: Breathing Problem
Source: patient and family
Exam Limitations: none
Time Seen by Provider: 06/21/23 12:03
Nursing documentation reviewed up to this point in time: agreed with
Travel History
Have you had any contact with someone who has COVID-19?: No
Do you have any symptoms of coronavirus? Fever > 100 degrees, chills, cough, shortness of breath, sore throat, loss of taste or smell, muscle aches, or headache?: No
History of Present Illness
History of Present Illness:
Patient discharged in the hospital 2 weeks ago after being admitted and treated for acute hypoxia secondary to pleural effusion as well as new onset atrial fibrillation, presents to ED secondary to worsening shortness of breath, especially with
exertion. Patient was discharged home with home oxygen, but patient only uses it while he is at rest, but takes it off when he is engaging in activities or with ambulation. In addition, patient states that some of his medications, he has decided
not to take, because he does not 'like to take too many pills'. However, patient does state that he has been taking Eliquis as prescribed. Denies fever or chills. Denies chest pain. Denies nausea or vomiting. Denies headache. Denies dizziness.
Per family at bedside, patient has sounded and appeared to be more weak recently.
Past History
Past History
ED Past Medical History: Arrthythmia (Atrial fibrillation), HTN, Hypothyroidism and Other ('Hole in the heart' as a child)
ED Past Surgical History: Cardiac ('Hole in the heart' repair as a child)
Social History
Tobacco: Smoker
Alcohol: Daily
Drug: None
Review of Systems
Review of Systems
Allergies reviewed?: Yes
All Other Systems: ROS reviewed and negative except as documented in HPI and ROS
Constitutional: Reports no symptoms
Respiratory: Reports cough and trouble breathing
Cardiac: Reports no symptoms; Denies chest pain
ABD/GI: Reports no symptoms; Denies nausea or vomiting
: Reports no symptoms
Musculoskeletal: Reports edema
Skin: Reports no symptoms
Neurological: Reports no symptoms; Denies headache, weakness or numbness
Phy Exam
Physical Exam
Physical Exam:
Physical Exam
General: no apparent distress, chronically ill appearing. afebrile.
Head: nc/at. eomi
Neck: supple. normal range of motion.
Heart: irregularly irregular, tachycardic, no murmur. equal radial pulses.
Lungs: no acute respiratory distress. clear bilaterally
Abdomen: normal bowel sounds. not tender.
Neuro: alert and oriented. no focal neurological deficits
Skin: no rash
Psychiatric: well kept. interactive and cooperative
Extremities: LE b/l edema, pitting. no calf tenderness.
Scores
Heart Failure Risk
Heart Failure Risk Score: Yes
History of Stroke or TIA: No
History of intubation for respiratory distress: No
Heart rate on ED arrival >/= 110: No
SaO2 <90% on arrival on room air: Yes
HR >/=110 during 3min walk test (or too ill to perform test): No
ECG has acute ischemic changes: No
Urea >/=12mmol/L (BUN 33.6mg/dL): No
Serum CO2>/=35mmol/L: No
Troponin I or T elevated to OK Level (0.4mg/dL): No
NT-proBNP >/=5,000ng/L (5,000pg/ml): No
HF Risk Score: 1
Admission Status: MEDIUM RISK 5.1% Consider observation or discharge to home with homecare & f/u visit to PCP/[facility], or SNF for treatment
Course
Orders/Labs/Results
Orders:
Orders
06/21/23 12:26
Electrocardiogram (*1) Urgent
Reason for Study: Atrial Fibrillation
EKG- Treatment ONCE
CR Chest - 2 Views Urgent
Comment:
Reason For Exam: sob/hypoxia
06/21/23 12:33
Metoprolol [Lopressor] 5 mg IV NOW STA
06/21/23 12:36
Complete Blood Count/With Diff Urgent
Comprehensive Metabolic Panel Urgent
Magnesium Urgent
NT-proBNP Urgent
06/21/23 13:06
Arterial Blood Gas Urgent
%Oxygen/Room Air: 82
06/21/23 14:44
Furosemide [Lasix] 40 mg IV NOW STA
06/21/23 Dinner
Cholesterol Lowering
At Your Request: Full Participation
Fluid Restriction: 1800 mL/day (60 oz)
Cholesterol Lowering: Sodium, 2 Gram
06/21/23 16:44
Admit/Transfer Patient As Directed
Co-Sign Provider:
Level of Care: Inpatient admission
Assign to:: Telemetry
Physician / Group: Hospitalist
Diagnosis: CHF exacerbation
Reason for Telemetry: Subacute Heart Failure
Date to Stop Telemetry: 06/23/23
Time to Stop Telemetry: 11:00
Reason for Hospitalization: Hypoxic respiratory failure
Expected length of stay greater than two midnights?: Yes
ELOS- Estimated Length of Stay in days: 2
I certify the patient meets the requirements for IP care: Yes
06/21/23 16:45
Code Status As Directed
Resuscitation Status: Full Code
06/21/23 18:20
Metoprolol [Lopressor] 5 mg IV Q6HPRN PRN
06/21/23 18:20
HF DIETARY CONSULT Routine
HF EDUCATOR CONSULT Routine
Comment:
VTE Contraindication Routine
VTE Mechanical Device Contraindication: Medical Contraindication
Pharmocologic Contraindication: Medical Contraindication
Comment: On full dose apixaban
Activity As Directed
Activity Level: With Assistance
Intake/ Output As Directed
Frequency: Per unit guidelines
Patient Education As Directed
Type: CHF folder
Comment: give on admission. Document in Interdisciplinary Education record
Sleep Apnea Assessment by RN As Directed
Comment:
Physician Instructions:
Vital Signs As Directed
Frequency: Other
Additional Instructions:: Q12 or per unit guidelines if more frequent.
Weight As Directed
Frequency: Daily
Type of Scale: Standing Scale
Comment: Daily morning weight. If unable to stand, use balanced bed scale.
Weight As Directed
Frequency: Daily
Type of Scale: Standing Scale
Comment: Upon Admission. If unable to stand, use balanced bed scale.
Oxygen Therapy [O2 Therapy] [RESP] Routine
Nasal Cannula Liter Flow: 5 LPM
Titrate/Wean O2 to maintain O2 sat greater than (%): 90
Pulse Ox/cont/shift [RESP] Routine
Quantity: 1
Special Instructions: Daily pulse oximetry at rest. If greater than 92% at rest also obtain pulse oximetry
while ambulating as tolerated.
06/21/23 20:00
Apixaban [Eliquis] 5 mg PO BID
Metoprolol Xl [Toprol Xl] 25 mg PO BID
06/21/23 22:00
Furosemide [Lasix] 40 mg IV ONCE ONE
06/22/23 06:00
Basic Metabolic Panel IN AM
Magnesium IN AM
Levothyroxine [Synthroid] 200 mcg PO DAILY@0600
06/22/23 08:00
Furosemide [Lasix] 40 mg IV BID AT 0800,1600
Multivitamin [Theragran] 1 tablet PO DAILY
06/23/23 06:00
Basic Metabolic Panel IN AM
06/23/23 11:00
DC Protocol for Telemetry ONCE
06/24/23 06:00
Basic Metabolic Panel IN AM
Abnormal Lab Results
04/13/24 04/13/24
12:36 13:06
RBC 4.43 L 10^6/uL
(4.70-6.10)
MCH 33.0 H pg
(27.0-31.0)
RDW 17.8 H %
(11.5-14.5)
MPV 10.9 H fL
(7.4-10.4)
Absolute Lymphs (auto) 1.1 L 10^3/uL
(1.2-3.4)
Absolute Monos (auto) 0.8 H 10^3/uL
(0.1-0.6)
Lymphocytes % 19.2 L %
(20.5-51.1)
Monocytes % 14.7 H %
(1.7-9.3)
pH 7.48 H
(7.35-7.45)
pO2 42 L* mmHg
(83-108)
ABG O2 Sat (Measured) 76.0 L %
(94-98)
Sodium 132 L mmol/L
(135-145)
Creatinine 0.5 L mg/dL
(0.7-1.3)
Total Bilirubin 2.6 H mg/dl
(0.2-1.3)
Alkaline Phosphatase 205 H U/L
(38-126)
Total Protein 8.5 H g/dl
(6.3-8.2)
06/21/23 12:36
06/21/23 12:36
Vital Signs
Initial and Last Documented VS:
Initial Vital Signs
Temp Pulse Resp BP Pulse Ox
97.9 F 126 20 140/88 82
06/21/23 12:00 06/21/23 12:00 06/21/23 12:00 06/21/23 12:00 06/21/23 12:00
Last Documented Vital Signs
Temp Pulse Resp BP Pulse Ox
97.6 F 128 20 142/93 96
06/21/23 19:44 06/21/23 19:44 06/21/23 19:44 06/21/23 19:44 06/21/23 19:44
MDM/Problems Addressed
MDM/Problems Addressed:
History and exam consistent with hypoxia, likely multifactorial, including medication noncompliance along with recurrent pleural effusion. Patient will be admitted for further evaluation and treatment, including potential therapeutic thoracentesis.
*Critical Care Note
Total Time (30-74mins, 75-104mins- exclusive of procedures): Not Applicable
ED Attending Note
-
Portions of this chart may have been created with voice recognition software.� Occasional wrong word or��sound alike� substitutions may have occurred due to the inherent limitations of voice recognition software.
Discharge Plan
Departure
Patient Disposition: Admit
Date of Disposition: 06/21/23
Time of Disposition: 14:45
Admit to: Telemetry
Presentation/result/management discussed w/ accepting MD/DO: Hospitalist
Discharge Problem:
Atrial fibrillation, rapid, Pleural effusion, Fluid overload
Interventions
Interventions:
*Risk Screen - Suicide Last Done: 06/21/23 12:15
*General Assessment Last Done: 06/21/23 12:15
*Neglect/Abuse Screening Last Done: 06/21/23 12:15
ED- Fall Risk Assessment Last Done: 06/21/23 12:15
*ED COVID-19 Vaccine History Last Done: 06/21/23 12:00
*Nursing Disposition Last Done: 06/21/23 18:16
ED- Cardiac Assessment Last Done: 06/21/23 12:15
ED- Pulmonary Assessment Last Done: 06/21/23 12:15
Discharge Date and Time
Discharge Date/Time: 06/21/23 18:16
[2023-06-21] MEDS: LOPRESSOR 5 MG IV (12:40)
[2023-06-21 12:46] LABS: % Basophils 1.1 % (0-2); % Immature Granulocytes 0.2 % (0-0.5); % Lymphocytes 19.2 % (20.5-51.1); % Monocytes 14.7 % (1.7-9.3); % Neutrophils 62.8 % (42.2-75.2); Absolute Basophils 0.1 10^3/uL (0-0.2); Absolute Eosinophils 0.1 10^3/uL (0-0.7); Absolute Lymphocytes 1.1 10^3/uL (1.2-3.4); Absolute Monocytes 0.8 10^3/uL (0.1-0.6); Absolute Neutrophils 3.5 10^3/uL (1.4-6.5); Hematocrit 39.7 % (39.0-52.0); Hemoglobin 14.6 g/dL (13.0-18.0); Mean Corp Hgb Conc. 36.8 g/dL (33.0-37.0); Mean Corpuscular Volume 89.6 fL (80.0-94.0); Mean Platelet Volume 10.9 fL (7.4-10.4); Nucleated Red Blood Cells % 1.1 % (-); Platelet Count 147 10^3/uL (130-400); Red Blood Cell Count 4.43 10^6/uL (4.70-6.10); Red Cell Dist. Width 17.8 % (11.5-14.5); White Blood Cell Count 5.5 10^3/uL (4.8-10.8)
[2023-06-21 13:03] LABS: ALT (SGPT) 15 U/L (0-50); AST (SGOT) 40 U/L (17-59); Albumin 3.8 g/dl (3.5-5.0); Alkaline Phosphatase 205 U/L (38-126); Blood Urea Nitrogen 10 mg/dl (9-20); Calcium 9.1 mg/dl (8.4-10.2); Carbon Dioxide 25 mmol/L (22-30); Chloride 102 mmol/L (98-107); Estimated Creatinine Clearance > 125 ml/min; Glucose 98 mg/dl (70-99); Magnesium 1.6 mg/dl (1.6-2.3); Potassium 3.9 mmol/L (3.5-5.1); Sodium 132 mmol/L (135-145); Total Bilirubin 2.6 mg/dl (0.2-1.3); Total Protein 8.5 g/dl (6.3-8.2); eGFR > 60.00
--- NOTE | 2023-06-21 13:03 | PHANOTE ---
06/21/2023, med rec tech, spoke to pt. to obtain their med. history; pt. states to be on Eliquis 5 mg BID; used [facility] records from 12/13/2021; pt. states to get this med. through a program that ships his Eliquis to him for free; could not confirm with
current sources.
[2023-06-21 13:04] LABS: NT-proBNP 799 pg/ml
[2023-06-21 13:34] LABS: B.E. 2.9 mmol/L; HCO3 26.1 mmol/L (21-28); PCO2 35 mmHg (35-48); pH 7.48 (7.35-7.45)
[2023-06-21 13:39] LABS: PO2 42 mmHg (83-108)
[2023-06-21] MEDS: LASIX 40 MG IV ×2 (15:00→20:29)
--- NOTE | 2023-06-21 16:31 | HPS.HSE ---
Family Physician
-
Family Physician: Liborio Chino
Chief Complaint
-
Dyspnea on exertion and hypoxia
History of Present Illness
This is a 62 y.o male with atrial fibrillation on Eliquis, hypertension, tobacco dependence and hypothyroidism who was recently admitted for hypoxic respiratory failure with large left-sided pleural effusion status post thoracentesis with removal of
1.5 L of fluid who now presents to the emergency department again with dyspnea on exertion and shortness of breath over the last 1 week.
Of note the patient's last admission was notable for severe hypoxic respiratory failure and thought to be secondary to congestive heart failure. He had total body volume overload with scrotal edema at that time. He had 1.5 L thoracentesis and
underwent aggressive diuresis though limited by BP. Pleural effusion was found to be borderline exudative but ultimately thought secondary to his congestive heart failure. At the time patient was noncompliant with rate control for atrial
fibrillation and came in with uncontrolled atrial fibrillation that was going on for several weeks. He was found to have acute EF of 35 to 40% compared to prior EF 2 years ago that was around 55% He was discharged on metoprolol, apixaban, lasix
and home O2 (2 to 3 L on rest and 4 to 6 L upon ambulation).
Patient and son he has again been noncompliant with his medications. He stopped taking Eliquis, lasix as well as the metoprolol without any reason. Patient reports that despite the nasal cannula oxygen he has had hypoxia to the mid 80s breath with
exertion. Denies have any cough. Denies any fevers or chills. Patient denies having any chest pain or palpitations. He does report persistent lower extremity swelling up to the thighs. He denies any scrotal edema.
On arrival in the emergency department he was +93% on 5 L. He was afebrile. Blood pressure was 126/88. Pulse rate was initially in the 110s. ECG with atrial fibrillation rate in the 110s. His chest x-ray shows pleural effusion but appears to
have returned compared to prior. Chemistries notable for sodium of 132 but otherwise unremarkable. CBC was unremarkable. BNP was elevated at 799.
Medical History
Past Medical History
Past Medical History: Reports Arrhythmia (atrial fibrillation), COPD and Hypothyroidism
Additional Past Medical History:
tobacco dependence
Past Surgical History: Reports None
Social History
Tobacco: Smoker
Alcohol: None
Drug: None
Personal: Single
Living: Alone
Employment: Employed
Family History
Family History: Not pertinent
Allergies / Home Medications
Allergies reflects when Allergies were last updated in [facility].
Home Medications with original date entered in [facility]
Allergy/Medication List:
Allergies
Allergy/AdvReac Type Severity Reaction Status Date / Time
No Known Allergies Allergy Verified 06/21/23 12:02
Home Medications
apixaban 5 mg tablet (Eliquis) 5 mg PO BID Blood Clot Prevention/Tx 05/25/23
levothyroxine 200 mcg tablet 200 mcg PO DAILY Thyroid 05/25/23
metoprolol succinate 25 mg tablet,extended release 24 hr 25 mg PO BID #60 tabs 06/01/23
qmkqvjiutjnl-kmqpiihb-[id number] tablet 1 tab PO DAILY PRN supplement 06/21/23
Review of Systems
-
History Source: Patient
Constitutional: Reports Weight Gain
EENT: Reports No Symptoms
Respiratory: Reports Trouble Breathing
Cardiac: Reports No Symptoms
Abdomen/GI: Reports No Symptoms
: Reports No Symptoms
Musculoskeletal: Reports No Symptoms
Skin: Reports No Symptoms
Neurological: Reports No Symptoms
Endocrine: Reports No Symptoms
Hematologic/Lymphatic: Reports No Symptoms
Psych: Reports No Symptoms
Physical Exam
Vital Signs
Vital Signs
Temp Pulse Resp BP Pulse Ox
97.9 F 98 20 126/88 93
06/21/23 12:00 06/21/23 15:00 06/21/23 14:30 06/21/23 15:00 06/21/23 14:30
Physical Exam
General: No Apparent Distress and Appears Chronically Ill
HEENT: NormoCephalic, Anicteric, Moist mucous membranes, PERRLA and Oxygen
Respiratory: Crackles
Cardiac: S1/S2, Irregular Rhythm, Tachycardia and Peripheral Edema
Breast: Deferred by me
GI: Soft, Non Tender, Non Distended and Normal Bowel Sounds
Rectal: Deferred by Provider
Genito-urinary: Deferred by me
Musculoskeletal: Clubbing, No Cyanosis, Edema, Left Lower Extremity and Edema, Right Lower Extremity
Skin: Warm and Dry
Neuro: AO x 3
Hematologic/Lymphatic: No Lymphadenopathy
Psych: Calm
Laboratory Results
-
06/21/23 12:36
06/21/23 12:36
Laboratory Results
pH 7.48 (7.35-7.45) H 06/21/23 13:06
pCO2 35 mmHg (35-48) 06/21/23 13:06
pO2 42 mmHg (83-108) L* 06/21/23 13:06
HCO3 26.1 mmol/L (21-28) 06/21/23 13:06
Total Bilirubin 2.6 mg/dl (0.2-1.3) H 06/21/23 12:36
AST 40 U/L (17-59) 06/21/23 12:36
ALT 15 U/L (0-50) 06/21/23 12:36
Alkaline Phosphatase 205 U/L (38-126) H 06/21/23 12:36
Data Reviewed
-
Diagnostic Radiology: Image Personally Visualized and interpreted and Report Reviewed by me
Medical Tests (Nuc Med, Echo, EKG etc): Image Personally Visualized and interpreted and Report Reviewed by me
Lab Data: Labs Reviewed by me
Old Records: Reviewed
Impression/Plan
-
IMPRESSION:
This 62-year-old male with history of, atrial fibrillation, hypothyroidism, tobacco dependence, coming in with dyspnea on exertion and hypoxia on his home oxygen. Patient was recently admitted for CHF exacerbation with a decreased EF of around 35
to 40%, large left pleural effusion status post thoracenteses, possibly followed, uncontrolled atrial fibrillation all in the setting of noncompliance. A continues to report noncompliance since his discharge. There is still probably volume
overload with 2+ edema to the thighs bilaterally and reaccumulation of the left pleural effusion to a moderate level.
PLAN:
1. CHF Exacerbation - Fluid overload, uncontrolled atrial fibrillation in setting of continued non-compliance.
- admit to telemetry
- restart metoprolol succinate 25mg bid
- iv metoprolol prn rate > 120 if SBP > 120
- lasix 40mg iv bid, monitoring bp with goal of about 2kg fluid removal. Monitoring with daily weights and i/o
- holding additional cardiac remodelling agents such as ACEI/ARB in setting of BP limitation to diuresis and need for rate control at this time.
- no echo given recent studies and known mechanism of heart failure.
2. Afib - permanent afib and uncontrolled rate
- rate control as above
- continue apixaban
3. Hypoxia - In addition to CHF, patient likely has underlying pulmonary disease (emphysema). No evidence of COPD exacerbation at this time. No wheezing.
- Continue supplemental oxygen to keep O2 > 92%
- discharge on O2
- outpatient pulmonary evaluation
4. Hypothyroid - Patient compliant with levothyroxine. Appropriate dosing given TSH on last admission
- continue levothyroxine 200mcg
DVT PPX - on apixaban
Code status - Full Code
--- NOTE | 2023-06-21 19:22 | PTCARENOTE ---
Pt admitted into room 405-1, ambulated with standby assistance and steady gait. VSS. Tele showing Afib. Pt oriented to room and has call conklin within reach.
[2023-06-21] MEDS: TOPROL XL 25 MG PO (20:28)
[2023-06-21] MEDS: ELIQUIS 5 MG PO (20:28)
[2023-06-22 03:51] VITALS: BP 108/71
[2023-06-22] MEDS: SYNTHROID 200 MCG PO (05:43)
[2023-06-22 06:00] VITALS: BMI 23.7
[2023-06-22 06:04] LABS: Blood Urea Nitrogen 13 mg/dl (9-20); Calcium 9.1 mg/dl (8.4-10.2); Carbon Dioxide 30 mmol/L (22-30); Chloride 95 mmol/L (98-107); Estimated Creatinine Clearance > 125 ml/min; Glucose 99 mg/dl (70-99); Magnesium 1.5 mg/dl (1.6-2.3); Potassium 3.7 mmol/L (3.5-5.1); Sodium 134 mmol/L (135-145); eGFR > 60.00
[2023-06-22 07:15] VITALS: BP 132/73
[2023-06-22] MEDS: ELIQUIS 5 MG PO ×2 (08:44→21:29)
[2023-06-22] MEDS: LASIX 40 MG IV ×2 (08:44→16:26)
[2023-06-22] MEDS: THERAGRAN 1 TABLET PO (08:44)
[2023-06-22] MEDS: TOPROL XL 25 MG PO ×2 (08:44→21:30)
[2023-06-22] MEDS: MAGNESIUM SULFATE 100 IV (08:45)
[2023-06-22 09:28] LABS: LDH 241 U/L (120-246); Total Protein 8.1 g/dl (6.3-8.2)
--- NOTE | 2023-06-22 10:41 | W.PN.HOSP.TC ---
Today's Communication/Plan
-
IRAD for thora
IV lasix
wean o2 to baseline
trend cr
monitor BP
replete lytes
Assessment / Plan
Assessment / Plan
IMPRESSION:
This 62-year-old male with history of, atrial fibrillation, hypothyroidism, tobacco dependence, coming in with dyspnea on exertion and hypoxia on his home oxygen. Patient was recently admitted for CHF exacerbation with a decreased EF of around 35
to 40%, large left pleural effusion status post thoracenteses, possibly followed, uncontrolled atrial fibrillation all in the setting of noncompliance. A continues to report noncompliance since his discharge. There is still probably volume
overload with 2+ edema to the thighs bilaterally and reaccumulation of the left pleural effusion to a moderate level.
PLAN:
#Acute on chronic CHF Exacerbation - Fluid overload, uncontrolled atrial fibrillation in setting of continued non-compliance.
- restart metoprolol succinate 25mg bid
- iv metoprolol prn rate > 120 if SBP > 120
- lasix 40mg iv bid, monitoring bp with goal of about 2kg fluid removal. Monitoring with daily weights and i/o
- holding additional cardiac remodelling agents such as ACEI/ARB in setting of BP limitation to diuresis and need for rate control at this time.
- no echo given recent studies and known mechanism of heart failure.
# Afib - permanent afib and uncontrolled rate
- rate control as above
- continue apixaban
#Acute on chronic Hypoxic resp failure -
- Continue supplemental oxygen to keep O2 > 92%
- discharge on O2
- outpatient pulmonary evaluation
#Hypothyroid - Patient compliant with levothyroxine. Appropriate dosing given TSH on last admission
- continue levothyroxine 200mcg
#Pleural effusion
-IRAD c/s for thoracentesis
#Hypomag
-replete/monitor
DVT PPX - on apixaban
Code status - Full Code
Anticipated Discharge: > 48 hours
Subjective/Interval History
-
Date of Service: June 22, 2023
remains on 6L oxygen
CROUCH persist
Objective Data
-
Labs:
Laboratory Results
06/22/23
05:05
Sodium 134 L
Potassium 3.7
Chloride 95 L
Carbon Dioxide 30
BUN 13
Creatinine 0.6 L
Glucose 99
Calcium 9.1
Vital Signs:
Vital Signs
Temp Pulse Resp BP Pulse Ox
97.8 F 95 18 115/72 96
06/22/23 07:15 06/22/23 08:44 06/22/23 07:15 06/22/23 08:44 06/22/23 07:15
I&O
06/21/23 06/22/23 06/23/23
06:59 06:59 06:59
Intake Total 1000 / 1000
Output Total 3650 / 3650
Balance -2650 / -2650
Physical Exam
-
General: Well Developed and Appears Chronically Ill
HEENT: Normocephalic, Atraumatic, Moist Mucous Membranes and Oxygen (midflow )
Respiratory: Decreased Breath Sounds (R>L)
Cardiac: S1/S2 and Irregular Rhythm; Negative Murmur, Rub or Gallop
GI: Soft, Nontender, Nondistended and Normal Bowel Sounds; Negative Organomegaly
Rectal: Deferred by Provider
Musculoskeletal: No Clubbing, No Cyanosis, Edema, Right Lower Extrem and Edema, Left Lower Extrem
Skin: Negative Rash
Neuro: Awake and Nonfocal/Grossly Intact
Psych: Calm
Data Reviewed
-
Total Time Spent with Patient (in minutes): 58
[2023-06-22 11:15] VITALS: BP 116/69
--- NOTE | 2023-06-22 12:39 | PTCARENOTE ---
Assumed care of pt from previous nurse. Pt to IR for paracentesis. will await return.
--- NOTE | 2023-06-22 12:55 | CM ---
Patient seen at bedside with patient son. Patient states that he lives alone in a 2 story home. Patient stated that he has home O2 from [facility] and that he does not have any insurance. CM left for [facility] liaison requesting that she follow up with
patient as he had been at recently as well. CM provided information to patient re Dorothy and low cost insurance information. Patient stated that his PCP is Dr. Chino and he uses the [employer] aide in [place]. Patient states that he does drive and is
independent. Patient has not had any VN services in the past. CM will continue to follow for discharge planning needs.
Plan; home with home O2. watch for VN needs and review options for insurances
[2023-06-22 14:57] LABS: Body Fluid Mononuclear 85.6 %; Body Fluid Polymorphonuclear 14.4 %; Body Fluid WBC 305 /CUMM
[2023-06-22 15:06] LABS: Body Fluid Glucose 100 mg/dl; Body Fluid LDH 126 U/L; Body Fluid Protein 3.9 g/dl
[2023-06-22 15:29] VITALS: BP 113/62
[2023-06-22 15:35] LABS: Body Fluid Second Tech DW
[2023-06-22] MEDS: KCL 20 MEQ PO (16:16)
[2023-06-22 19:00] VITALS: BP 98/58
[2023-06-23] VITALS (8 sets, daily range): BP systolic 91–101; BP diastolic 51–58; BMI 23.0
[2023-06-23 05:41] LABS: Blood Urea Nitrogen 17 mg/dl (9-20); Calcium 8.5 mg/dl (8.4-10.2); Carbon Dioxide 29 mmol/L (22-30); Chloride 94 mmol/L (98-107); Estimated Creatinine Clearance 113 ml/min; Glucose 144 mg/dl (70-99); Magnesium 1.8 mg/dl (1.6-2.3); Potassium 3.3 mmol/L (3.5-5.1); Sodium 131 mmol/L (135-145); eGFR > 60.00
[2023-06-23] MEDS: SYNTHROID 200 MCG PO (05:50)
[2023-06-23] MEDS: THERAGRAN 1 TABLET PO (08:57)
[2023-06-23] MEDS: KCL 20 MEQ PO ×3 (08:57→15:50)
[2023-06-23] MEDS: ELIQUIS 5 MG PO ×2 (08:57→20:23)
[2023-06-23] MEDS: LASIX 40 MG IV ×2 (08:59→16:04)
[2023-06-23] MEDS: TOPROL XL 25 MG PO (09:02)
--- NOTE | 2023-06-23 09:50 | W.PN.HOSP.TC ---
Today's Communication/Plan
-
continue diuresis
replete K
wean O2 as able (home 2-3L at rest)
Assessment / Plan
Assessment / Plan
IMPRESSION:
This 62-year-old male with history of, atrial fibrillation, hypothyroidism, tobacco dependence, coming in with dyspnea on exertion and hypoxia on his home oxygen. Patient was recently admitted for CHF exacerbation with a decreased EF of around 35
to 40%, large left pleural effusion status post thoracenteses, possibly followed, uncontrolled atrial fibrillation all in the setting of noncompliance. A continues to report noncompliance since his discharge. There is still probably volume
overload with 2+ edema to the thighs bilaterally and reaccumulation of the left pleural effusion to a moderate level.
CXR 06/20
impression:
Moderate left pleural effusion with associated consolidation, significantly progressed. Stable patchy right basilar airspace disease.
Stable mild CHF.
PLAN:
#Acute on chronic CHF Exacerbation - Fluid overload, uncontrolled atrial fibrillation in setting of continued non-compliance.
- restart metoprolol succinate 25mg bid
- iv metoprolol prn rate > 120 if SBP > 120
- lasix 40mg iv bid
- Monitoring with daily weights and i/o
- holding additional cardiac remodelling agents such as ACEI/ARB in setting of BP limitation to diuresis and need for rate control at this time.
- no echo given recent studies and known mechanism of heart failure.
# Afib - permanent afib and uncontrolled rate
- rate control as above
- continue apixaban
#Hypokalemia
-replete
#Acute on chronic Hypoxic resp failure -
- Continue supplemental oxygen to keep O2 > 92%
- patient was discharged on 2 to 3 L on rest and 4 to 6 L upon ambulation
- outpatient pulmonary evaluation
#Hypothyroid - Patient compliant with levothyroxine. Appropriate dosing given TSH on last admission
- continue levothyroxine 200mcg
#Pleural effusion
-s/p IR guided thoracentesis 06/21
#Hypomag
-replete/monitor
DVT PPX - on apixaban
Code status - Full Code
Anticipated Discharge: 24 - 48 hours
Subjective/Interval History
-
Date of Service: June 23, 2023
states his breathing feels okay
Objective Data
-
Labs:
Laboratory Results
06/23/23
04:31
Sodium 131 L
Potassium 3.3 L
Chloride 94 L
Carbon Dioxide 29
BUN 17
Creatinine 0.7
Glucose 144 H
Calcium 8.5
Vital Signs:
Vital Signs
Temp Pulse Resp BP Pulse Ox
98.1 F 80 18 101/57 93
06/23/23 07:00 06/23/23 08:59 06/23/23 07:00 06/23/23 08:59 06/23/23 07:00
I&O
06/22/23 06/23/23 06/24/23
06:59 06:59 06:59
Intake Total 1000 / 1000 1440 / 1440
Output Total 3650 / 3650 1700 / 1700
Balance -2650 / -2650 -260 / -260
Review of Systems
-
History Source: Patient
All other systems: Reviewed and negative
Physical Exam
-
General: Well Developed and Appears Chronically Ill
HEENT: Normocephalic, Atraumatic, Moist Mucous Membranes and Oxygen (midflow )
Respiratory: Decreased Breath Sounds (R>L)
Cardiac: S1/S2, Irregular Rhythm and JVD; Negative Murmur, Rub or Gallop
GI: Soft, Nontender, Nondistended and Normal Bowel Sounds; Negative Organomegaly
Rectal: Deferred by Provider
Musculoskeletal: No Clubbing, No Cyanosis, Edema, Right Lower Extrem and Edema, Left Lower Extrem
Skin: Negative Rash
Neuro: Awake and Nonfocal/Grossly Intact
Psych: Calm
Data Reviewed
-
Diagnostic Radiology: Report Reviewed by me
--- NOTE | 2023-06-23 14:41 | PN.CDI ---
CDI
- -
CDI:
Physician Documentation Request
Admit Date: 06/21/23 17:10
Dear Doctor Jluis,
Please review the following and provide your response in the progress notes.
Clinical Indicators:
- 06/22 PN 'Acute on chronic CHF Exacerbation'
- 05/26/23 Echo EF 35-40%
Please provide further specificity regarding the most likely type of CHF you are evaluating, treating or monitoring.
Type
Systolic
Diastolic
Combined Systolic/Diastolic
Other
Use of terms such as suspected, likely, concern for, or probable (associated with a specific diagnosis that is being evaluated, monitored, or treated as if it exists) are acceptable and can be coded in the inpatient setting, when documented at the
time of discharge.
Thank you,
Karen Nelson RN
CDI Specialist
Please use your independent medical judgment in providing your response.
[2023-06-23] MEDS: TOPROL XL PO (21:24)
[2023-06-24 03:35] VITALS: BP 105/54
[2023-06-24] MEDS: SYNTHROID 200 MCG PO (05:09)
[2023-06-24 06:00] VITALS: BMI 23.0
[2023-06-24 07:57] LABS: Blood Urea Nitrogen 25 mg/dl (9-20); Calcium 8.8 mg/dl (8.4-10.2); Carbon Dioxide 31 mmol/L (22-30); Chloride 96 mmol/L (98-107); Estimated Creatinine Clearance 112 ml/min; Glucose 88 mg/dl (70-99); Magnesium 1.8 mg/dl (1.6-2.3); Potassium 4.1 mmol/L (3.5-5.1); Sodium 133 mmol/L (135-145); eGFR > 60.00
[2023-06-24 08:07] VITALS: BP 92/62
[2023-06-24] MEDS: TOPROL XL PO (08:10)
[2023-06-24] MEDS: KCL 20 MEQ PO ×2 (08:12→18:09)
[2023-06-24] MEDS: LASIX 40 MG IV (08:12)
[2023-06-24] MEDS: ELIQUIS 5 MG PO ×2 (08:12→20:22)
[2023-06-24] MEDS: THERAGRAN 1 TABLET PO (08:15)
--- NOTE | 2023-06-24 10:11 | W.PN.HOSP.TC ---
Addendum entered and electronically signed by Blanche Bazzi MD 06/24/23 14:35:
acute on chronic systolic HF exacerbation
-diuresis as below
Original Note:
Today's Communication/Plan
-
home O2 testing
hold further lasix today
pulm consult
Assessment / Plan
Assessment / Plan
IMPRESSION:
This 62-year-old male with history of, atrial fibrillation, hypothyroidism, tobacco dependence, coming in with dyspnea on exertion and hypoxia on his home oxygen. Patient was recently admitted for CHF exacerbation with a decreased EF of around 35
to 40%, large left pleural effusion status post thoracenteses, possibly followed, uncontrolled atrial fibrillation all in the setting of noncompliance. A continues to report noncompliance since his discharge. There is still probably volume
overload with 2+ edema to the thighs bilaterally and reaccumulation of the left pleural effusion to a moderate level.
CXR 06/20
impression:
Moderate left pleural effusion with associated consolidation, significantly progressed. Stable patchy right basilar airspace disease.
Stable mild CHF.
PLAN:
#Pleural effusion
-s/p IR guided thoracentesis 06/21
#Acute on chronic CHF Exacerbation - Fluid overload, uncontrolled atrial fibrillation in setting of continued non-compliance.
- restart metoprolol succinate 25mg bid
- iv metoprolol prn rate > 120 if SBP > 120
- lasix 40mg iv bid -- hold for now as patient looks more euvolemic today
- Monitoring with daily weights and i/o
- holding additional cardiac remodelling agents such as ACEI/ARB in setting of BP limitation to diuresis and need for rate control at this time.
- no echo given recent studies and known mechanism of heart failure.
# Afib - permanent afib and uncontrolled rate
- rate control as above
- continue apixaban
#Hypokalemia
-replete
#Acute on chronic Hypoxic resp failure -
- Continue supplemental oxygen to keep O2 > 92%
- patient was discharged on 2 to 3 L on rest and 4 to 6 L upon ambulation
- given oxygen needs remain on 5L despite diuresis - will consult pulmonary inpatient
#Hypothyroid - Patient compliant with levothyroxine. Appropriate dosing given TSH on last admission
- continue levothyroxine 200mcg
#Hypomag
-replete/monitor
DVT PPX - on apixaban
Code status - Full Code
Anticipated Discharge: 24 - 48 hours
Subjective/Interval History
-
Date of Service: June 24, 2023
he remains on 5L O2
states breathing never felt bad
no swelling
urinating frequently
Objective Data
-
Labs:
Laboratory Results
06/24/23
06:49
Sodium 133 L
Potassium 4.1
Chloride 96 L
Carbon Dioxide 31 H
BUN 25 H
Creatinine 0.7
Glucose 88
Calcium 8.8
Vital Signs:
Vital Signs
Temp Pulse Resp BP Pulse Ox
98 F 78 20 92/62 93
06/24/23 08:07 06/24/23 08:12 06/24/23 08:07 06/24/23 08:12 06/24/23 10:01
I&O
06/23/23 06/24/23 06/25/23
06:59 06:59 06:59
Intake Total 1440 / 1440 1500 / 1500
Output Total 1700 / 1700 825 / 825
Balance -260 / -260 675 / 675
Review of Systems
-
History Source: Patient
All other systems: Reviewed and negative
Physical Exam
-
General: Well Developed and No Apparent Distress
HEENT: Normocephalic, Atraumatic, Moist Mucous Membranes and Oxygen (midflow )
Respiratory: Decreased Breath Sounds (R>L)
Cardiac: S1/S2 and Irregular Rhythm; Negative Murmur, Rub or Gallop
GI: Soft, Nontender, Nondistended and Normal Bowel Sounds; Negative Organomegaly
Rectal: Deferred by Provider
Musculoskeletal: No Clubbing, No Cyanosis and Other (edema improving)
Skin: Negative Rash
Neuro: Awake and Nonfocal/Grossly Intact
Psych: Other (flat affect)
Data Reviewed
-
Diagnostic Radiology: Report Reviewed by me
Labs: Labs Reviewed by me
--- NOTE | 2023-06-24 11:48 | CON.PUL ---
Consultation
Consultation Request
Date/Time Consultation Requested: 06/24/2023 - 1009
Date/Time Consultation Performed: 06/24/2023 - 1140
Requesting Provider: Blanche Bazzi MD
Performing Provider: Dre Jordan MD
Reason for Consultation: Hypoxia/Tobacco Use
Medical History
-
Chief Complaint: SOB
History of Present Illness:
62-year-old male with past medical history of hypothyroidism, A-fib, tobacco use disorder, CHF,? COPD and prior history of alcohol abuse who presents with shortness of breath. Patient recently hospitalized (05/24ere at due to ADHF
with acute HFrEF and acute hypoxic RF) and discharged home with home care and oxygen. He is not sure how much he is post be using. He arrived on room air to ER and was saturating 81%. He was afebrile to 97.9 �F, tachycardic to 126 bpm, breathing
at 20 breaths/min, and BP 140/88. Initial WBC normal at 5.5, Hb 14.6, initial gas showed respiratory alkalosis with pH 7.48, pCO2 35. Initial serum bicarbonate 25, creatinine 0.5, sodium 132, T. bili 2.6, ALP 205, and proBNP 799. Of note, proBNP
was 410 last month (05/25/2023). Initial CXR showed a moderate left-sided pleural effusion with stable patchy right basilar airspace disease. He was given IV Lasix 40mg in the ER. Thoracentesis obtained on 06/21 with 1.65 L of transudative fluid
removed. He continues to be managed on the floor and now pulmonary consulted for additional management/recommendations.
When I saw the patient he was sitting in bed in no acute distress. He admits to smoking 1-2 cigarettes a day for the last few years, but at most he was smoking 0.5 PPD X 15-20 years. He does have a daily cough in the morning with green phlegm. He
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 He is currently on 5 L/min nasal cannula breathing comfortably. Denies shortness of breath at rest or with activity but he is not walking around the
[place] as his nasal cannula 'tubing is not that far', as per patient. He says that he came back to the hospital now as he was not taking his medications after his last discharge in May 2023. He says that he did not want to take it but he realizes
that he needs to take his medications now, and is going to take whenever he needs to to get better. He currently denies headache, chest pain, abdominal pain, diarrhea, fevers or chills.
PMHx: Tobacco use disorder, A-fib, ?COPD, hypothyroidism, CHF, prior history of alcohol abuse
PSHx: Splenectomy (2002), hole in heart repair as child
Past Medical History
Past Medical History: Other (Above as per HPI)
Past Surgical History: Other (Above as per HPI)
Social History
Tobacco: Smoker (1-2 cigarettes/day for last few years, prior was 0.5PPD x 15-20 years)
Alcohol: Former
Drug: None
Personal: Single
Living: Alone
Family History
Family History: Reviewed & Not Pertinent
Allergies / Home Medications
Allergies
Allergy/AdvReac Type Severity Reaction Status Date / Time
No Known Allergies Allergy Verified 06/21/23 12:02
Home Medications
�Medication �Instructions �Recorded �Confirmed �Last Taken �Type
apixaban 5 mg tablet (Eliquis) 5 mg PO BID Blood Clot 05/25/23 06/21/23 History
Prevention/Tx
levothyroxine 200 mcg tablet 200 mcg PO DAILY Thyroid 05/25/23 06/21/23 06/21/23 History
metoprolol succinate 25 mg 25 mg PO BID #60 tabs 06/01/23 06/21/23 06/21/23 Rx
tablet,extended release 24 hr
zmyupxbkhdvz-zsivyiky-jhzjgy tablet 1 tab PO DAILY PRN supplement 06/21/23 06/21/23 2 Days Ago History
~06/19/23
Review of Systems
-
History Source: Patient
All other systems: Negative unless noted (12 point ROS performed and is negative unless mentioned above.)
Vitals / Labs / Diagnostic Testing
Vital Signs
Temp Pulse Resp BP Pulse Ox
98 F 78 20 92/62 93
06/24/23 08:07 06/24/23 08:12 06/24/23 08:07 06/24/23 08:12 06/24/23 08:07
Lab Data
06/21/23 12:36
06/24/23 06:49
Microbiology
06/22/23 12:34 Pleural Fluid Body Fluid Culture - Preliminary
No Growth After 48 Hours
06/22/23 12:34 Pleural Fluid Gram Stain - Preliminary
Diagnostic Testing:
Physical Exam
-
HEENT: Normocephalic, Anicteric and Moist Mucous Membranes
Cardiovascular: Irregular Rhythm, Peripheral Edema (negative) and Other (normal rate)
Respiratory: Wheeze (n), Rales (Bilaterally (upper lobe predominant)), Rhonchi (negative), Accessory Resp Muscle Use (negative) and Other (reduced BS at bases)
GI: Soft, Non Distended, Non Tender and Normal Bowel Sounds
Neurology: AO x 3
Skin: Warm and Dry
General: Comfortable, Chills (negative) and Sweats (negative)
Assessment
-
Assessment: 62-year-old male with past medical history of hypothyroidism, A-fib, tobacco use disorder, CHF,? COPD and prior history of alcohol abuse who presents with shortness of breath. Patient recently hospitalized (05/24ere at
due to ADHF with acute HFrEF and acute hypoxic RF) and discharged home with home care and oxygen. He is not sure how much he is post be using. He arrived on room air to ER and was saturating 81%. He was afebrile to 97.9 �F, tachycardic to 126
bpm, breathing at 20 breaths/min, and BP 140/88. Initial WBC normal at 5.5, Hb 14.6, initial gas showed respiratory alkalosis with pH 7.48, pCO2 35. Initial serum bicarbonate 25, creatinine 0.5, sodium 132, T. bili 2.6, ALP 205, and proBNP 799.
Of note, proBNP was 410 last month (05/25/2023). Initial CXR showed a moderate left-sided pleural effusion with stable patchy right basilar airspace disease. He was given IV Lasix 40mg in the ER. Thoracentesis obtained on 06/21 with 1.65 L of
transudative fluid removed. He continues to be managed on the floor and now pulmonary consulted for additional management/recommendations.
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
Impression:
#Acute HFrEF exacerbation
#Acute on chronic hypoxic respiratory failure (DC'd on 6L/min from last admission in May 2023) - acutely due to above likely in the setting of undiagnosed COPD
#Metabolic alkalosis - likely due to contraction from diuresis
#?COPD - suspected to be from chronic bronchiolitis in setting of prolonged tobacco use as there is no emphysema seen on his CTA chest from 05/25/2023
#Hypothyroidism
#Tobacco use disorder
#Atrial fibrillation on Eliquis
Plan:
- Continue diuresis as per primary team; trend UOP, daily weight, sCr, sHCO3, replete K>4, Mg>2
- Check 2v-CXR in AM to assess size of effusion and interstitial edema
- Recommend cardiology consult given his low LVEF with global hypokinesis; he does have hx of EtOH use, hence it could be explained by that, however last TTE in Oct 2021 showed LVEF 50-55%; defer ischemic eval to cards
- Maintain SpO2 >88-94% with supplemental O2 as needed
- Considering his tobacco history and continued high O2 needs despite thoracentesis yesterday, I will check spirometry to assess for COPD. If COPD present then will start LAMA vs LAMA/LABA
- Start prn albuterol in interim
- Incentive spirometer encouraged
- Nicotine patch (7mg)
- Replete electrolytes with K>4, Mg>2
- Maintain euglycemia with goal BG >100 and <180
- DVT ppx
Pulmonary service will continue to follow along.
Total time spent today was 55 minutes for this encounter. Time includes reviewing laboratory test/imaging results, reviewing pertinent medical records, obtaining and reviewing medical history, performing an appropriate exam, ordering medications,
tests and procedures. Time also includes documentation of this encounter, coordinating patient care and communicating with other healthcare professionals. Total time does not include separately billed tests performed on this date of service.
Data:
CXR 06-21-2023: Moderate left pleural effusion with associated consolidation, significantly progressed. Stable patchy right basilar airspace disease.
Stable mild CHF.
TTE 05-26-2023:
Left ventricle is small in size. Normal left ventricular wall thickness. Global
hypokinesis. Moderately reduced left ventricular systolic function. Left
ventricular ejection fraction is 35-40%. Diastolic function indeterminate due
to atrial fibrillation.
Mitral valve opens normally. Mitral annular calcification. Mild mitral
regurgitation.
Mildly dilated left atrium. Indexed LA volume is mildly abnormal (35-41 mL/m2).
Structurally normal tricuspid valve. Tricuspid valve opens normally. Mild
tricuspid regurgitation. Estimated pulmonary artery pressure of 43 mmHg,
assuming a right atrial pressure of 20 mmHg.
Mildly dilated right atrium.
Normal right ventricular size and function.
Since echocardiogram 10/29/2021 which was reviewed, ejection fraction is
decreased from 50-55% to 35-40%.
[2023-06-24 12:08] VITALS: BP 109/63
[2023-06-24 15:47] VITALS: BP 109/65
[2023-06-24 19:30] VITALS: BP 111/63
[2023-06-24] MEDS: TOPROL XL 25 MG PO (20:22)
[2023-06-24 23:35] VITALS: BP 100/58
[2023-06-25 03:30] VITALS: BP 99/58
--- NOTE | 2023-06-25 04:47 | DOWNTIME ---
There was a [employer] Client Compugraph Operator Downtime on 06/25/2023 from 0100 to 06/25/2023 at 0439. Downtime documentation of patient's care, including medication administrations, has been reconciled in the electronic record per guidelines. Refer to the
patient's paper chart under the miscellaneous tab to see printed paper medication records and downtime forms.
[2023-06-25] MEDS: SYNTHROID 200 MCG PO (05:07)
[2023-06-25 06:00] VITALS: BMI 23.0
[2023-06-25 07:35] VITALS: BP 97/58
--- NOTE | 2023-06-25 07:49 | W.PN.PUL3 ---
Today's Communication / Plan
-
Start spiriva due to COPD seen on spirometry today
Diuresis
Check CT Chest
prn albuterol
Nicotine patch
Assessment
-
Assessment: 62-year-old male with past medical history of hypothyroidism, A-fib, tobacco use disorder, CHF, COPD and prior history of alcohol abuse who presents with shortness of breath. Patient recently hospitalized (05/24ere at
due to ADHF with acute HFrEF and acute hypoxic RF) and discharged home with home care and oxygen. He is not sure how much he is post be using. He arrived on room air to ER and was saturating 81%. He was afebrile to 97.9 �F, tachycardic to 126
bpm, breathing at 20 breaths/min, and BP 140/88. Initial WBC normal at 5.5, Hb 14.6, initial gas showed respiratory alkalosis with pH 7.48, pCO2 35. Initial serum bicarbonate 25, creatinine 0.5, sodium 132, T. bili 2.6, ALP 205, and proBNP 799.
Of note, proBNP was 410 last month (05/25/2023). Initial CXR showed a moderate left-sided pleural effusion with stable patchy right basilar airspace disease. He was given IV Lasix 40mg in the ER. Thoracentesis obtained on 06/21 with 1.65 L of
transudative fluid removed. He continues to be managed on the floor and now pulmonary consulted for additional management/recommendations.
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
Impression:
#Acute HFrEF exacerbation - improving BNP levels
#Acute on chronic hypoxic respiratory failure (DC'd on 6L/min from last admission in May 2023) - acutely due to above likely in the setting of COPD
#Metabolic alkalosis - likely due to contraction from diuresis
#Severe COPD (post-BD FEV1: 41%/1.46L) - suspected to be from chronic bronchiolitis in setting of chronic tobacco use as there is no emphysema seen on his CTA chest from 05/25/2023
#Hypothyroidism
#Tobacco use disorder
#Atrial fibrillation on Eliquis
Plan:
- Continue diuresis as per primary team; trend UOP, daily weight, sCr, sHCO3, replete K>4, Mg>2
- Spirometry today shows obstructive lung defect consistent with COPD, and it is 'severe' severity. I will start a LAMA with Spiriva.
- Recommend cardiology consult given his low LVEF with global hypokinesis; he does have hx of EtOH use, hence it could be explained by that, however last TTE in Oct 2021 showed LVEF 50-55%; defer ischemic eval to cards
- Considering patient has improving BMP but continues to require 4-5 L/min nasal cannula, I will check CT chest. If patient remains hypoxic while heading towards euvolemia then I will start course of steroids
- Maintain SpO2 >88-94% with supplemental O2 as needed
- Continue prn albuterol
- Incentive spirometer encouraged
- Nicotine patch (7mg)
- Replete electrolytes with K>4, Mg>2
- Maintain euglycemia with goal BG >100 and <180
- DVT ppx
Pulmonary service will continue to follow along.
Total time spent today was 35 minutes for this encounter. Time includes reviewing laboratory test/imaging results, reviewing pertinent medical records, obtaining and reviewing medical history, performing an appropriate exam, ordering medications,
tests and procedures. Time also includes documentation of this encounter, coordinating patient care and communicating with other healthcare professionals. Total time does not include separately billed tests performed on this date of service.
Data:
CXR 06-25-2023:
There is mild-moderate diffuse coarsening of the bronchovascular markings throughout both lungs, stable dating back to 10/27/2021 suggesting that this is interstitial fibrosis.
There is blunting of the posterior sulci and costophrenic angles stable lead back to 10/27/2021 suggesting that this is pleural scarring rather than pleural effusions
CXR 06-21-2023: Moderate left pleural effusion with associated consolidation, significantly progressed. Stable patchy right basilar airspace disease.
Stable mild CHF.
TTE 05-26-2023:
Left ventricle is small in size. Normal left ventricular wall thickness. Global
hypokinesis. Moderately reduced left ventricular systolic function. Left
ventricular ejection fraction is 35-40%. Diastolic function indeterminate due
to atrial fibrillation.
Mitral valve opens normally. Mitral annular calcification. Mild mitral
regurgitation.
Mildly dilated left atrium. Indexed LA volume is mildly abnormal (35-41 mL/m2).
Structurally normal tricuspid valve. Tricuspid valve opens normally. Mild
tricuspid regurgitation. Estimated pulmonary artery pressure of 43 mmHg,
assuming a right atrial pressure of 20 mmHg.
Mildly dilated right atrium.
Normal right ventricular size and function.
Since echocardiogram 10/29/2021 which was reviewed, ejection fraction is
decreased from 50-55% to 35-40%.
Subjective Data
-
Date of Service:
Date of Service: June 25, 2023
Chief Complaint: Pulmonary Follow Up
Subjective:
Patient seen today at bedside. Spirometry today shows patient has COPD. No acute events reported from overnight. Remains on 5 L/min nasal cannula. Patient denies headache, abdominal pain, fevers or chills.
Review of Systems
General: Other (Negative unless mentioned above)
Objective Data
Data Reviewed
Vital Signs / I&O / Oxygen:
Vital Signs
Temp Pulse Resp BP Pulse Ox
97.7 F 99 16 99/58 92
06/25/23 03:30 06/25/23 03:30 06/25/23 03:30 06/25/23 03:30 06/25/23 03:30
Intake and Output
06/24/23 06/25/23 06/26/23
06:59 06:59 06:59
Intake Total 1500 / 1500 480 / 480
Output Total 825 / 825 1220 / 1220
Balance 675 / 675 -740 / -740
SaO2 92
Nasal Cannula flow liters per 5
minute
Physical Exam
General: Respiratory Distress (negative) and Comfortable
HEENT: Normocephalic and Anicteric
Cardiovascular: Irregular Rhythm, Peripheral Edema (negative) and Other
Respiratory: Wheeze (negative), Crackles (Bilaterally in the mid-upper lobes), Rhonchi (negative), Non-Labored Respirations and Other (Reduced breath sounds at bases)
GI: Soft, Non Distended, Non Tender and Normal Bowel Sounds
Neurology: AO x 3 and Tremors (negative)
Skin: Warm and Dry
Labs/Micro/Reports
Lab Data
06/21/23 12:36
Microbiology
06/22/23 12:34 Pleural Fluid Body Fluid Culture - Preliminary
No Growth After 48 Hours
06/22/23 12:34 Pleural Fluid Gram Stain - Preliminary
[2023-06-25] MEDS: TOPROL XL 25 MG PO ×2 (09:03→20:58)
[2023-06-25] MEDS: KCL 20 MEQ PO ×2 (09:03→16:07)
[2023-06-25] MEDS: ELIQUIS 5 MG PO ×2 (09:03→20:58)
[2023-06-25] MEDS: THERAGRAN 1 TABLET PO (09:03)
[2023-06-25 09:21] LABS: NT-proBNP 359 pg/ml
[2023-06-25 09:23] LABS: Blood Urea Nitrogen 28 mg/dl (9-20); Calcium 9.5 mg/dl (8.4-10.2); Carbon Dioxide 25 mmol/L (22-30); Chloride 95 mmol/L (98-107); Estimated Creatinine Clearance > 125 ml/min; Glucose 88 mg/dl (70-99); Potassium 4.3 mmol/L (3.5-5.1); Sodium 133 mmol/L (135-145); eGFR > 60.00
[2023-06-25] MEDS: VENTOLIN NEBULES 1.25 MG INH (09:36)
[2023-06-25 11:13] VITALS: BP 113/69
--- NOTE | 2023-06-25 12:09 | W.PN.HOSP.TC ---
Today's Communication/Plan
-
appreciate consultants
resume diuresis
Assessment / Plan
Assessment / Plan
IMPRESSION:
This 62-year-old male with history of, atrial fibrillation, hypothyroidism, tobacco dependence, coming in with dyspnea on exertion and hypoxia on his home oxygen. Patient was recently admitted for CHF exacerbation with a decreased EF of around 35
to 40%, large left pleural effusion status post thoracenteses, possibly followed, uncontrolled atrial fibrillation all in the setting of noncompliance. A continues to report noncompliance since his discharge. There is still probably volume
overload with 2+ edema to the thighs bilaterally and reaccumulation of the left pleural effusion to a moderate level.
CXR 06/20
impression:
Moderate left pleural effusion with associated consolidation, significantly progressed. Stable patchy right basilar airspace disease.
Stable mild CHF.
PLAN:
#Pleural effusion
-s/p IR guided thoracentesis 06/21
#Acute on chronic CHF Exacerbation - Fluid overload, uncontrolled atrial fibrillation in setting of continued non-compliance.
- restart metoprolol succinate 25mg bid
- lasix 40mg iv bid -- resumed today as JVP more obvious on exam, remains on high O2 needs
- Monitoring with daily weights and i/o
- holding additional cardiac remodelling agents such as ACEI/ARB in setting of BP limitation to diuresis and need for rate control at this time.
- no echo given recent studies and known mechanism of heart failure.
- will consult cardiology today to help with volume status. plan was for eventual ischemic eval although unclear if patient is a candidate
# Afib - permanent afib and uncontrolled rate
- rate control as above
- continue apixaban
#Hypokalemia
-replete
#Acute on chronic Hypoxic resp failure -
- Continue supplemental oxygen to keep O2 > 92%
- patient was discharged on 2 to 3 L on rest and 4 to 6 L upon ambulation
- appreciate pulmonary consult, s/p PFT's this AM
#Hypothyroid - Patient compliant with levothyroxine. Appropriate dosing given TSH on last admission
- continue levothyroxine 200mcg
#Hypomag
-replete/monitor
DVT PPX - on apixaban
Code status - Full Code
Anticipated Discharge: 24 - 48 hours
Subjective/Interval History
-
Date of Service: June 25, 2023
no new complaints
Objective Data
-
Labs:
Laboratory Results
06/25/23
07:14
Sodium 133 L
Potassium 4.3
Chloride 95 L
Carbon Dioxide 25
BUN 28 H
Creatinine 0.6 L
Glucose 88
Calcium 9.5
Vital Signs:
Vital Signs
Temp Pulse Resp BP Pulse Ox
97.6 F 96 18 113/69 92
06/25/23 11:13 06/25/23 11:13 06/25/23 11:13 06/25/23 11:13 06/25/23 11:13
I&O
06/24/23 06/25/23 06/26/23
06:59 06:59 06:59
Intake Total 1500 / 1500 480 / 480
Output Total 825 / 825 1220 / 1220
Balance 675 / 675 -740 / -740
Review of Systems
-
History Source: Patient
All other systems: Reviewed and negative
Physical Exam
-
General: Well Developed and No Apparent Distress
HEENT: Normocephalic, Atraumatic, Moist Mucous Membranes and Oxygen (midflow )
Respiratory: Decreased Breath Sounds (R>L)
Cardiac: S1/S2, Irregular Rhythm and JVD; Negative Murmur, Rub or Gallop
GI: Soft, Nontender, Nondistended and Normal Bowel Sounds; Negative Organomegaly
Rectal: Deferred by Provider
Musculoskeletal: No Clubbing, No Cyanosis and Other (edema improving)
Skin: Negative Rash
Neuro: Awake and Nonfocal/Grossly Intact
Psych: Calm and Other (flat affect)
Data Reviewed
-
Diagnostic Radiology: Report Reviewed by me
Labs: Labs Reviewed by me
[2023-06-25] MEDS: LASIX 40 MG IV ×2 (12:22→17:20)
--- NOTE | 2023-06-25 13:48 | CON.CAR ---
Addendum entered and electronically signed by Priscila Mares MD 06/25/23 16:37:
I saw and examined the patient.
The Wood Model Builder's note was reviewed and I agree with the note.
Comment: Tomás is a 62-year-old man with past medical history of Graves' disease, hypothyroidism after radiation treatment for Graves' disease, current tobacco and alcohol abuse, medication nonadherence, persistent atrial fibrillation on chronic
Eliquis therapy, recent admission for heart failure exacerbation with chronic systolic and diastolic heart failure due to cardiomyopathy from unclear etiology, LVEF of 35 to 40% who presents with acute decompensated systolic and diastolic heart
failure in the setting of medication nonadherence and atrial fibrillation with RVR.
Vital signs and lab work reviewed. On exam patient is a gentleman in no acute distress, bibasilar Rales are present, elevated JVD, irregularly irregular rhythm, normal S1 and S2, abdomen is soft, nondistended, nontender with active bowel sounds, 1+
bilateral lower extremity edema is present but otherwise extremities are warm and dry.
Recommendations:
1. Plan for aggressive IV diuretics with close monitoring of renal function, strict ins and outs, daily upright weights and repletion of electrolytes as needed.
2. Optimization of goal-directed medical therapy with underlying cardiomyopathy. Previously he did not tolerate lisinopril even at low-dose given hypotension. For now we will continue twice daily beta-vipul especially for heart rate control in
the setting of atrial fibrillation and can trial low-dose Aldactone to see if he will tolerate this based on hemodynamics.
3. Given strong history of medication nonadherence, for now holding off on any invasive procedures like left and right heart catheterization or cardioversion until there is proven compliance to minimize overall risk.
4. Patient was discharged from last admission on 6 L of oxygen which I believe is out of proportion to be explained by the degree of decompensated heart failure. We will continue to diurese and optimize from a cardiac standpoint however a
pulmonary evaluation should be considered. Would also strongly consider checking an arterial blood gas to assess what his A-a gradient may be and defer any further imaging to pulmonary evaluation.
Priscila Mares MD, FAC, [facility]
Original Note:
Consultation
Consultation Request
Date/Time Consultation Performed: 06/25/23
Requesting Provider: Dr. Bazzi
Performing Provider: Francisca Lynch PA-C for Dr. Mares
Reason for Consultation: CHF
Medical History
-
Chief Complaint: CROUCH
History of Present Illness:
Patient is a 62 yo M with PMH of recent admission to [facility] 05/2023 for acute heart failure exacerbation, persistent atrial fibrillation. During that admission he required thoracentesis for 1.5 L on 05/25/2023. He was also found to have
new cardiomyopathy with EF 35 to 40% by echo. He was discharged on Eliquis, Toprol 25 mg twice daily, Lasix 40 mg daily. He reports he was compliant with his Eliquis and thyroid medicine, however did not take Toprol or Lasix. He now presents back
with worsening shortness of breath.
PMH:
Chronic mixed systolic/diastolic heart failure
Cardiomyopathy, EF 35-40% by echo 05/2023
Persistent atrial fibrillation
Chronic eliquis therapy
L pleural effusion s/p IR drainage of 1.5 L on 05/25/23
Ascending aortic saccular aneurysm, 2.6 x 2.1 cm
Graves' disease
H/O Hypothyroidism following radiation treatment for Graves' disease
Daily EtOH
Current smoker
Medication noncompliance
Past Medical History
Past Medical History: Other (in HPI)
Social History
Tobacco: Smoker
Alcohol: Daily
Allergies / Home Medications
Allergy/AdvReac Type Severity Reaction Status Date / Time
No Known Allergies Allergy Verified 06/21/23 12:02
�Medication �Instructions �Recorded �Confirmed �Type
apixaban 5 mg tablet (Eliquis) 5 mg PO BID Blood Clot 05/25/23 History
Prevention/Tx
levothyroxine 200 mcg tablet 200 mcg PO DAILY Thyroid 05/25/23 06/21/23 History
metoprolol succinate 25 mg 25 mg PO BID #60 tabs 06/01/23 06/21/23 Rx
tablet,extended release 24 hr
iohvcbvssrlm-bhdmouye-xmomcu tablet 1 tab PO DAILY PRN supplement 06/21/23 06/21/23 History
Review of Systems
-
History Source: Patient
All other systems: Negative unless noted
Physical Exam
Vital Signs
Temp Pulse Resp BP Pulse Ox
97.6 F 84 18 104/68 92
06/25/23 11:13 06/25/23 12:22 06/25/23 11:13 06/25/23 12:22 06/25/23 11:13
Lab Results
06/21/23 12:36
06/25/23 07:14
Hmj-S-Mnulvputbvz Pept 359 pg/ml 06/25/23 07:14
Physical Exam
General: No Apparent Distress and Other (on supp O2)
HEENT: Normocephalic, Anicteric and Moist Mucous Membranes
Respiratory: Crackles (B/L bases) and Non Labored Respirations
Cardiac: S1/S2 and Irregular Rhythm
GI: Soft, Non Tender, Non Distended and Normal Bowel Sounds
Musculoskeletal: No Clubbing, No Cyanosis and Edema (1+ edema of B/L LE)
Skin: Warm and Dry
Neuro: AO x 3
Impression / Plan
-
Primary Materials Engineer: initially seen by Dr. Chavez
Assessment:
Presentation with SOB
Recent admission 05/2023 for CHF, afib
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
L pleural effusion s/p IR drainage of 1.5 L on 05/25/23
Cardiomyopathy, EF 35-40% by echo 05/2023
Persistent atrial fibrillation
Chronic eliquis therapy
Ascending aortic saccular aneurysm, 2.6 x 2.1 cm
Graves' disease
H/O Hypothyroidism following radiation treatment for Graves' disease
Daily EtOH
Current smoker
Medication noncompliance
ECHO 10/29/2021: EF 50-55%, mild MR, mildly dilated LA, mild TR, pulmonary artery systolic pressure 51 mmHg based on elevated right atrial pressure of 20 mmHg, dilated RA, normal RV, and some views anteroseptal hypokinesis could be present, normal
aortic valve
ECHO 05/26/23: EF 35 to 40% with global hypokinesis, mild MR, PA pressure 43
Plan:
-Patient with recent admission to [facility] 05/24 - 06/01/2023 for acute CHF, left pleural effusion status post thoracentesis, atrial fibrillation who presents back to [facility] with recurrent CHF and A-fib with RVR due to
noncompliance with medications as an outpatient. He reports he has been compliant with Eliquis and his thyroid medicine, however has not been taking his Toprol or Lasix at home because he 'does not like taking too many pills'.
-He reports he has diuresed well and his lower extremity edema is improved, however still remains on supplemental oxygen. proBNP is trending down. He was discharged on supplemental O2 after last admission. He is unsure of how much oxygen he has
been on at home. Pulmonary following for evaluation. CXR today with possible interstitial fibrosis
-Continue IV Lasix diuresis with 40mg BID. Creatinine stable at 0.6. He had been prescribed 40mg po lasix daily upon DC last admission.
-CHF education
-last echo from 05/2023 with new EF reduction. this is being managed conservatively given noncompliance with medications. no complaints of CP. would consider for OP ischemic eval if proves compliance
-resume toprol 25mg BID. follow HR trends. he is being rate controlled at present due to compliance concerns. if can prove compliance, would consider for CV/ablation/etc
-GDMT of CM has been limited by hypotension and known noncompliance. patient states he will be compliant moving forward
-will have CM look into cost of SGLT2 inhibitor
-also discussed importance of compliance with follow up
Data Reviewed
-
EKG: Tracing Personally Visualized and interpreted
Radiology: Report Reviewed by me
Medical Tests (Nuc Med, Echo etc): Report Reviewed by me
Labs: Labs Reviewed by me
Old Records: Reviewed
[2023-06-25] MEDS: SPIRIVA RESPIMAT 2.5 MCG 2 PUFF INH (15:33)
[2023-06-25 15:45] VITALS: BP 108/59
--- NOTE | 2023-06-25 15:45 | PTCARENOTE ---
Received patient this am AAOX3. Pt with flat affect. Pt off unit for chest xray. 1220 Pt medicated with Lasix 40 mg IV as ordered. Tolerated diet well. Pt offered no complaints. Made patient comfortable. Cont to assess patient status.
--- NOTE | 2023-06-25 16:43 | CM ---
Spoke with patient in room.His son said pt has received letter from medicaid.He does not have an access card nor picked a product.
He said his sister and brother will drive him at home.
PCP Dr Chino as per pt.
He has home oxygen with [employer].
PLAN Home no needs
[2023-06-25 17:48] LABS: B.E. 11.4 mmol/L; HCO3 35.1 mmol/L (21-28); O2 Saturation % 96.9 % (94-98); PCO2 41 mmHg (35-48); PO2 71 mmHg (83-108); pH 7.54 (7.35-7.45)
[2023-06-25 19:30] VITALS: BP 112/59
[2023-06-25 23:59] VITALS: BP 104/61
[2023-06-26 03:30] VITALS: BP 106/59
[2023-06-26] MEDS: SYNTHROID 200 MCG PO (05:49)
[2023-06-26 06:00] VITALS: BMI 22.4
[2023-06-26] MEDS: SPIRIVA RESPIMAT 2.5 MCG 2 PUFF INH (07:39)
[2023-06-26] MEDS: ELIQUIS 5 MG PO ×2 (08:08→19:43)
[2023-06-26] MEDS: THERAGRAN 1 TABLET PO (08:08)
[2023-06-26] MEDS: LASIX 40 MG IV ×2 (08:08→15:48)
[2023-06-26] MEDS: KCL 20 MEQ PO ×2 (08:13→10:59)
[2023-06-26] MEDS: TOPROL XL 25 MG PO ×2 (08:15→19:45)
[2023-06-26 09:18] LABS: Blood Urea Nitrogen 29 mg/dl (9-20); Calcium 9.6 mg/dl (8.4-10.2); Carbon Dioxide 31 mmol/L (22-30); Chloride 93 mmol/L (98-107); Estimated Creatinine Clearance 96 ml/min; Glucose 89 mg/dl (70-99); Potassium 3.7 mmol/L (3.5-5.1); Sodium 134 mmol/L (135-145); eGFR > 60.00
--- NOTE | 2023-06-26 09:37 | W.PN.PUL3 ---
Today's Communication / Plan
-
Continue spiriva
Diuresis
prn albuterol
Nicotine patch - pt refused
Up OOB as tolerated
Encourage IS
Eventual outpatient appointment needed with PFTs/6MWT with repeat CT chest in 6 weeks
Assessment
-
Assessment: 62-year-old male with past medical history of hypothyroidism, A-fib, tobacco use disorder, CHF, COPD and prior history of alcohol abuse who presents with shortness of breath. Patient recently hospitalized (05/24ere at
due to ADHF with acute HFrEF and acute hypoxic RF) and discharged home with home care and oxygen. He is not sure how much he is post be using. He arrived on room air to ER and was saturating 81%. He was afebrile to 97.9 �F, tachycardic to 126
bpm, breathing at 20 breaths/min, and BP 140/88. Initial WBC normal at 5.5, Hb 14.6, initial gas showed respiratory alkalosis with pH 7.48, pCO2 35. Initial serum bicarbonate 25, creatinine 0.5, sodium 132, T. bili 2.6, ALP 205, and proBNP 799.
Of note, proBNP was 410 last month (05/25/2023). Initial CXR showed a moderate left-sided pleural effusion with stable patchy right basilar airspace disease. He was given IV Lasix 40mg in the ER. Thoracentesis obtained on 06/21 with 1.65 L of
transudative fluid removed. He continues to be managed on the floor and now pulmonary consulted for additional management/recommendations.
Chronic conditions YOUTH CORRECTIONS OFFICER: Tobacco use disorder, A-fib, COPD, hypothyroidism, CHF, prior history of alcohol abuse
Impression:
#Acute HFrEF exacerbation - improving BNP levels
#Acute on chronic hypoxic respiratory failure (DC'd on 6L/min from last admission in May 2023) - acutely due to above likely in the setting of COPD
#Metabolic alkalosis - likely due to contraction from diuresis
#Severe COPD (post-BD FEV1: 41%/1.46L) - suspected to be from chronic bronchiolitis in setting of chronic tobacco use as there is no emphysema seen on his CTA chest from 05/25/2023
#Paraseptal emphysema with reticular opacities in CHUY and lower lobes - opacities likely small airway disease with pulmonary edema, but cannot rule out an early fibrotic syndrome (i.e. ILD)
#Hypothyroidism
#Tobacco use disorder
#Atrial fibrillation on Eliquis
Plan:
- Continue diuresis as per primary team; trend UOP, daily weight, sCr, sHCO3, replete K>4, Mg>2
- Spirometry on 06/24 showed obstructive lung defect consistent with COPD, and it is 'severe' severity. I started Spiriva --> he should be discharged home on this.
- Cardiology on board, and recs appreciated - defer ischemic eval to cards
- Considering patient has improving BMP but continues to require 4-5 L/min nasal cannula, I will check CT chest --> CT chest was personally reviewed. Still has evidence of pulmonary edema with fluid seen in right horizontal fissure, intralobular
septal thickening in lower lobes and he has a left sided pleural effusion (small-moderate); continue diuresis. If patient remains hypoxic while heading towards euvolemia then I will start course of steroids
- Maintain SpO2 >88-94% with supplemental O2 as needed
- Continue prn albuterol
- Incentive spirometer encouraged
- Nicotine patch (7mg) - pt refused
- Replete electrolytes with K>4, Mg>2
- Maintain euglycemia with goal BG >100 and <180
- DVT ppx
Pulmonary service will continue to follow along. He ultimately will need to see me in the office for full PFTs and will need repeat CT chest in about 6 weeks.
Total time spent today was 35 minutes for this encounter. Time includes reviewing laboratory test/imaging results, reviewing pertinent medical records, obtaining and reviewing medical history, performing an appropriate exam, ordering medications,
tests and procedures. Time also includes documentation of this encounter, coordinating patient care and communicating with other healthcare professionals. Total time does not include separately billed tests performed on this date of service.
Data:
CXR 06-25-2023:
There is mild-moderate diffuse coarsening of the bronchovascular markings throughout both lungs, stable dating back to 10/27/2021 suggesting that this is interstitial fibrosis.
There is blunting of the posterior sulci and costophrenic angles stable lead back to 10/27/2021 suggesting that this is pleural scarring rather than pleural effusions
CXR 06-21-2023: Moderate left pleural effusion with associated consolidation, significantly progressed. Stable patchy right basilar airspace disease.
Stable mild CHF.
CT Chest 06-26-2023:
No acute disease of the chest.
Improved but persistent small left pleural effusion.
Mild left lower lobe consolidation/airspace disease. Improved.
Stable mild interlobular septal thickening of the lateral right lower lobe possibly early pulmonary fibrosis.
Mild cardiomegaly. Stable
TTE 05-26-2023:
Left ventricle is small in size. Normal left ventricular wall thickness. Global
hypokinesis. Moderately reduced left ventricular systolic function. Left
ventricular ejection fraction is 35-40%. Diastolic function indeterminate due
to atrial fibrillation.
Mitral valve opens normally. Mitral annular calcification. Mild mitral
regurgitation.
Mildly dilated left atrium. Indexed LA volume is mildly abnormal (35-41 mL/m2).
Structurally normal tricuspid valve. Tricuspid valve opens normally. Mild
tricuspid regurgitation. Estimated pulmonary artery pressure of 43 mmHg,
assuming a right atrial pressure of 20 mmHg.
Mildly dilated right atrium.
Normal right ventricular size and function.
Since echocardiogram 10/29/2021 which was reviewed, ejection fraction is
decreased from 50-55% to 35-40%.
Subjective Data
-
Date of Service:
Date of Service: June 26, 2023
Chief Complaint: Pulmonary Follow Up
Subjective:
Seen and evaluated this morning. Improving oxygen requirements, currently down to 4 L/min with SpO2 97%. He feels well. Eager to go home. He is net -1.4 L over the last 24 hours. Denies headache, chest pain, abdominal pain, diarrhea, fevers or
chills.
Review of Systems
General: Other (Negative unless mentioned above)
Objective Data
Data Reviewed
Vital Signs / I&O / Oxygen:
Vital Signs
Temp Pulse Resp BP Pulse Ox
98.7 F 85 16 103/58 97
06/26/23 03:30 06/26/23 08:15 06/26/23 07:43 06/26/23 08:15 06/26/23 09:59
Intake and Output
06/25/23 06/26/23 06/27/23
06:59 06:59 06:59
Intake Total 480 / 480 720 / 720
Output Total 1220 / 1220 2175 / 2175 400 / 400
Balance -740 / -740 -1455 / -1455 -400 / -400
SaO2 97
Nasal Cannula flow liters per 4
minute
Physical Exam
General: Respiratory Distress (negative) and Comfortable
HEENT: Normocephalic and Anicteric
Cardiovascular: Irregular Rhythm, Peripheral Edema (negative) and Other (Normal rate)
Respiratory: Wheeze (negative), Crackles (Bibasilar), Rhonchi (negative) and Non-Labored Respirations
GI: Soft, Non Distended, Non Tender and Normal Bowel Sounds
Neurology: AO x 3 and Tremors (negative)
Skin: Warm and Dry
Labs/Micro/Reports
Lab Data
06/21/23 12:36
06/26/23 07:18
Laboratory Results
06/25/23
17:39
pH 7.54 H
pCO2 41
pO2 71 L
HCO3 35.1 H
O2 Delivery Level
Microbiology
06/22/23 12:34 Pleural Fluid Body Fluid Culture - Final
No Growth After 72 Hours
06/22/23 12:34 Pleural Fluid Gram Stain - Final
--- NOTE | 2023-06-26 10:42 | W.PN.HOSP.TC ---
Today's Communication/Plan
-
diuresis
initiation of spiriva per pulm
appreciate consultants
Assessment / Plan
Assessment / Plan
IMPRESSION:
This 62-year-old male with history of, atrial fibrillation, hypothyroidism, tobacco dependence, coming in with dyspnea on exertion and hypoxia on his home oxygen. Patient was recently admitted for CHF exacerbation with a decreased EF of around 35
to 40%, large left pleural effusion status post thoracenteses, possibly followed, uncontrolled atrial fibrillation all in the setting of noncompliance. A continues to report noncompliance since his discharge. There is still probably volume
overload with 2+ edema to the thighs bilaterally and reaccumulation of the left pleural effusion to a moderate level.
CXR 06/20
impression:
Moderate left pleural effusion with associated consolidation, significantly progressed. Stable patchy right basilar airspace disease.
Stable mild CHF.
PLAN:
#Pleural effusion
-s/p IR guided thoracentesis 06/21
#Acute on chronic CHF Exacerbation
-exacerbation 2/2 med non-compliance; afib with RVR
- restart metoprolol succinate 25mg bid
- lasix 40mg iv bid
- Monitoring with daily weights and i/o
- appreciate cardiology consult
# Afib - permanent afib and uncontrolled rate
- rate control as above with reinitiation of metoprolol
- continue apixaban
#Hypokalemia
-replete
#Acute on chronic Hypoxic resp failure -
COPD
- Continue supplemental oxygen to keep O2 > 92%
- patient was discharged on 2 to 3 L on rest and 4 to 6 L upon ambulation last hospitalization
- appreciate pulmonary consult, s/p PFT's AM 06/24 showing severe COPD; spiriva initiated per pulm
#Hypothyroid - Patient compliant with levothyroxine. Appropriate dosing given TSH on last admission
- continue levothyroxine 200mcg
#Hypomag
-replete/monitor
DVT PPX - on apixaban
Code status - Full Code
Anticipated Discharge: 24 - 48 hours
Subjective/Interval History
-
Date of Service: June 26, 2023
feeling well
no new complaints
wants to leave tomorrow
Objective Data
-
Labs:
Laboratory Results
06/26/23
07:18
Sodium 134 L
Potassium 3.7
Chloride 93 L
Carbon Dioxide 31 H
BUN 29 H
Creatinine 0.8
Glucose 89
Calcium 9.6
Vital Signs:
Vital Signs
Temp Pulse Resp BP Pulse Ox
98.7 F 85 16 103/58 97
06/26/23 03:30 06/26/23 08:15 06/26/23 07:43 06/26/23 08:15 06/26/23 09:59
I&O
06/25/23 06/26/23 06/27/23
06:59 06:59 06:59
Intake Total 480 / 480 720 / 720
Output Total 1220 / 1220 2175 / 2175 400 / 400
Balance -740 / -740 -1455 / -1455 -400 / -400
Review of Systems
-
History Source: Patient
All other systems: Reviewed and negative
Physical Exam
-
General: Well Developed and No Apparent Distress
HEENT: Normocephalic, Atraumatic, Moist Mucous Membranes and Oxygen (midflow )
Respiratory: Decreased Breath Sounds (R>L)
Cardiac: S1/S2, Irregular Rhythm and JVD; Negative Murmur, Rub or Gallop
GI: Soft, Nontender, Nondistended and Normal Bowel Sounds; Negative Organomegaly
Rectal: Deferred by Provider
Musculoskeletal: No Clubbing, No Cyanosis and Other (edema improving)
Skin: Negative Rash
Neuro: Awake and Nonfocal/Grossly Intact
Psych: Calm and Other (flat affect)
Data Reviewed
-
Diagnostic Radiology: Report Reviewed by me
Labs: Labs Reviewed by me
--- NOTE | 2023-06-26 11:54 | W.PN.CARDCBS ---
Addendum entered and electronically signed by Barbara Cain DO 06/26/23 12:51:
I saw and examined the patient.
The Electric Meter Repairer Apprentice's note was reviewed and I agree with the note.
Comment: Seen and examined. Offers no new complaints
GEN: No distress, awake, alert, oriented x3. on supp O2
HEENT:mmm
LUNGS: Crackles B/L bases, no wheezes
CV: Irreg, S1/S2, no murmur
ABD: soft, BS+, NT/ND
EXT: 1+ edema of B/L LE
NEURO: Gross non-focal
Plan:
Presented back to [facility] after recent admission with recurrent CHF and A-fib with RVR due to noncompliance with medications
-We discussed the importance of compliance with medical therapy and follow-up moving forward
-Will continue on IV Lasix until creatinine begins to trend up. Weight continues to trend down. Creatinine remains stable.
-last echo from 05/2023 with new EF reduction, 35-40%. this is being managed conservatively given noncompliance with medications/follow up. no complaints of CP. would consider for OP ischemic eval if proves compliance
-toprol 25mg BID resumed this admission. HRs controlled in afib upon review of tele overnight. he is being rate controlled at present due to compliance concerns. if can prove compliance, would consider for CV/ablation/etc
-GDMT of CM has been limited by hypotension and known noncompliance. patient states he will be compliant moving forward
-he is currently MA pending so cannot afford jardiance at present
-pulm also following given underlying pulmonary issues
-d/w hospitalist
Original Note:
Today's Communication / Plan
-
continue IV lasix diuresis
in rate controlled afib on toprol, eliquis
Impression / Plan
-
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 Chavez
Assessment:
Presentation with SOB
Recent admission 05/2023 for CHF, afib
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
L pleural effusion s/p IR drainage of 1.5 L on 05/25/23
Cardiomyopathy, EF 35-40% by echo 05/2023
Persistent atrial fibrillation
Chronic eliquis therapy
Ascending aortic saccular aneurysm, 2.6 x 2.1 cm
Graves' disease
H/O Hypothyroidism following radiation treatment for Graves' disease
Daily EtOH
Current smoker
Medication noncompliance
ECHO 10/29/2021: EF 50-55%, mild MR, mildly dilated LA, mild TR, pulmonary artery systolic pressure 51 mmHg based on elevated right atrial pressure of 20 mmHg, dilated RA, normal RV, and some views anteroseptal hypokinesis could be present, normal
aortic valve
ECHO 05/26/23: EF 35 to 40% with global hypokinesis, mild MR, PA pressure 43
Plan:
-Presented back to [facility] after recent admission with recurrent CHF and A-fib with RVR due to noncompliance with medications
-We discussed the importance of compliance with medical therapy and follow-up moving forward
-Will continue on IV Lasix until creatinine begins to trend up. Weight continues to trend down. Creatinine remains stable. He had been prescribed 40mg po lasix daily upon DC last admission.
-last echo from 05/2023 with new EF reduction, 35-40%. this is being managed conservatively given noncompliance with medications/follow up. no complaints of CP. would consider for OP ischemic eval if proves compliance
-toprol 25mg BID resumed this admission. HRs controlled in afib upon review of tele overnight. he is being rate controlled at present due to compliance concerns. if can prove compliance, would consider for CV/ablation/etc
-GDMT of CM has been limited by hypotension and known noncompliance. patient states he will be compliant moving forward
-he is currently MA pending so cannot afford jardiance at present
-pulm also following given underlying pulmonary issues
-d/w hospitalist
Progress Note - Inspecting Machine Adjuster
Subjective
Date of Service: June 26, 2023
reports breathing improving. eager for DC
Objective
Labs:
06/21/23 12:36
06/26/23 07:18
Labs
Hgb 14.6 g/dL (13.0-18.0) 06/21/23 12:36
Hct 39.7 % (39.0-52.0) 06/21/23 12:36
Plt Count 147 10^3/uL (130-400) 06/21/23 12:36
Sodium 134 mmol/L (135-145) L 06/26/23 07:18
Potassium 3.7 mmol/L (3.5-5.1) 06/26/23 07:18
BUN 29 mg/dl (9-20) H 06/26/23 07:18
Creatinine 0.8 mg/dL (0.7-1.3) 06/26/23 07:18
Glucose 89 mg/dl (70-99) 06/26/23 07:18
Vital Signs and I&O:
Vital Signs
Temp Pulse Resp BP Pulse Ox
98.7 F 85 16 103/58 97
06/26/23 03:30 06/26/23 08:15 06/26/23 07:43 06/26/23 08:15 06/26/23 09:59
Vital Signs
Temp Pulse Resp BP Pulse Ox
98.7 F 85 16 103/58 97
06/26/23 03:30 06/26/23 08:15 06/26/23 07:43 06/26/23 08:15 06/26/23 09:59
Intake & Output
06/24/23 06/25/23 06/26/23 06/27/23
07:59 07:59 07:59 07:59
Intake Total 1500 / 1500 480 / 480 720 / 720
Output Total 825 / 825 1220 / 1220 2175 / 2175 400 / 400
Balance 675 / 675 -740 / -740 -1455 / -1455 -400 / -400
Physical Exam
Physical Exam
GEN: No distress, awake, alert, oriented x3. on supp O2
HEENT: supple, anicteric, mmm, eomi
LUNGS: Crackles B/L bases, no wheezes
CV: Irreg, S1/S2, no murmur
ABD: soft, BS+, NT/ND
EXT: No cyanosis, clubbing. 1+ edema of B/L LE
NEURO: Gross non-focal
SKIN: Warm, pink, dry. No rash
[2023-06-26 11:59] VITALS: BP 103/51
--- NOTE | 2023-06-26 15:29 | VNURNOTE ---
Home Health Liaison met with patient at 1430 to discuss [facility] nurse/therapy, visits, schedule and homebound status. Patient is agreeable and understands that visits at home will be 2-3 x per week to assess and teach medical management. Patient has a
scale and is able to log a daily weight although has not consistently done this.
[facility] brochure provided with contact information. Patient is aware that [facility] will contact him for start of care in 1-2 days after discharge from .
[facility] referral completed in [facility].
[2023-06-26 16:20] VITALS: BP 96/68
[2023-06-26 19:00] VITALS: BP 96/62
[2023-06-26 23:55] VITALS: BP 101/63
[2023-06-27 03:41] VITALS: BP 93/58
[2023-06-27 06:00] VITALS: BMI 22.3
[2023-06-27] MEDS: SYNTHROID 200 MCG PO (06:14)
[2023-06-27 07:20] VITALS: BP 100/61
[2023-06-27 07:50] LABS: Blood Urea Nitrogen 32 mg/dl (9-20); Calcium 9.4 mg/dl (8.4-10.2); Carbon Dioxide 28 mmol/L (22-30); Chloride 96 mmol/L (98-107); Estimated Creatinine Clearance 109 ml/min; Glucose 93 mg/dl (70-99); Potassium 3.9 mmol/L (3.5-5.1); Sodium 134 mmol/L (135-145); eGFR > 60.00
[2023-06-27] MEDS: SPIRIVA RESPIMAT 2.5 MCG 2 PUFF INH (08:02)
[2023-06-27] MEDS: THERAGRAN 1 TABLET PO (08:41)
[2023-06-27] MEDS: TOPROL XL 25 MG PO ×2 (08:41→19:46)
[2023-06-27] MEDS: ELIQUIS 5 MG PO ×2 (08:41→19:46)
[2023-06-27] MEDS: LASIX 40 MG IV ×2 (08:42→16:14)
--- NOTE | 2023-06-27 09:17 | W.PN.PUL3 ---
Today's Communication / Plan
-
Continue spiriva
Start tapered course of steroids given he is approaching euvolemic but still on 3-4L/min continuously at rest
Diuresis --> ok to change IV to PO lasix on 06/28/2023
prn albuterol
Up OOB as tolerated
Encourage IS
Eventual outpatient appointment needed with PFTs/6MWT with repeat CT chest in 6 weeks
Assessment
-
Assessment: 62-year-old male with past medical history of hypothyroidism, A-fib, tobacco use disorder, CHF, COPD and prior history of alcohol abuse who presents with shortness of breath. Patient recently hospitalized (05/24ere at
due to ADHF with acute HFrEF and acute hypoxic RF) and discharged home with home care and oxygen. He is not sure how much he is post be using. He arrived on room air to ER and was saturating 81%. He was afebrile to 97.9 �F, tachycardic to 126
bpm, breathing at 20 breaths/min, and BP 140/88. Initial WBC normal at 5.5, Hb 14.6, initial gas showed respiratory alkalosis with pH 7.48, pCO2 35. Initial serum bicarbonate 25, creatinine 0.5, sodium 132, T. bili 2.6, ALP 205, and proBNP 799.
Of note, proBNP was 410 last month (05/25/2023). Initial CXR showed a moderate left-sided pleural effusion with stable patchy right basilar airspace disease. He was given IV Lasix 40mg in the ER. Thoracentesis obtained on 06/21 with 1.65 L of
transudative fluid removed. He continues to be managed on the floor and now pulmonary consulted for additional management/recommendations.
Chronic conditions WORKDAY DIRECTOR: Tobacco use disorder, A-fib, COPD, hypothyroidism, CHF, prior history of alcohol abuse
Impression:
#Acute HFrEF exacerbation - improving BNP levels
#Acute on chronic hypoxic respiratory failure (DC'd on 6L/min from last admission in May 2023) - acutely due to above likely in the setting of COPD
#Metabolic alkalosis - likely due to contraction from diuresis
#Severe COPD (post-BD FEV1: 41%/1.46L) - suspected to be from chronic bronchiolitis in setting of chronic tobacco use as there is no emphysema seen on his CTA chest from 05/25/2023
#Paraseptal emphysema with reticular opacities in CUHY and lower lobes - opacities likely small airway disease with pulmonary edema, but cannot rule out an early fibrotic syndrome (i.e. ILD)
#Hypothyroidism
#Tobacco use disorder
#Atrial fibrillation on Eliquis
Plan:
- Continue diuresis as per primary team; trend UOP, daily weight, sCr, sHCO3, replete K>4, Mg>2
- Spirometry on 06/24 showed obstructive lung defect consistent with COPD, and it is 'severe' severity. I started Spiriva --> he should be discharged home on this.
- Cardiology on board, and recs appreciated - defer ischemic eval to cards
- Patient has been diuresed well and is now having improved O2 requirements --> Okay to change IV lasix to PO on 06/28/2023.
- Of note: CT chest was done on 06/25 and I personally reviewed it - still had evidence of pulmonary edema with fluid seen in right horizontal fissure, intralobular septal thickening in lower lobes and he has a left sided pleural effusion
(small-moderate).
- Considering pt has remained hypoxic despite diuresis, I will start tapered course of steroids
- Maintain SpO2 >88-94% with supplemental O2 as needed
- Continue prn albuterol
- Incentive spirometer encouraged
- Nicotine patch (7mg) - pt refused
- Replete electrolytes with K>4, Mg>2
- Maintain euglycemia with goal BG >100 and <180
- DVT ppx
Pulmonary service will continue to follow along. He ultimately will need to see me in the office for full PFTs and will need repeat CT chest in about 6 weeks.
Total time spent today was 35 minutes for this encounter. Time includes reviewing laboratory test/imaging results, reviewing pertinent medical records, obtaining and reviewing medical history, performing an appropriate exam, ordering medications,
tests and procedures. Time also includes documentation of this encounter, coordinating patient care and communicating with other healthcare professionals. Total time does not include separately billed tests performed on this date of service.
Data:
CXR 06-25-2023:
There is mild-moderate diffuse coarsening of the bronchovascular markings throughout both lungs, stable dating back to 10/27/2021 suggesting that this is interstitial fibrosis.
There is blunting of the posterior sulci and costophrenic angles stable lead back to 10/27/2021 suggesting that this is pleural scarring rather than pleural effusions
CXR 06-21-2023: Moderate left pleural effusion with associated consolidation, significantly progressed. Stable patchy right basilar airspace disease.
Stable mild CHF.
CT Chest 06-26-2023:
No acute disease of the chest.
Improved but persistent small left pleural effusion.
Mild left lower lobe consolidation/airspace disease. Improved.
Stable mild interlobular septal thickening of the lateral right lower lobe possibly early pulmonary fibrosis.
Mild cardiomegaly. Stable
TTE 05-26-2023:
Left ventricle is small in size. Normal left ventricular wall thickness. Global
hypokinesis. Moderately reduced left ventricular systolic function. Left
ventricular ejection fraction is 35-40%. Diastolic function indeterminate due
to atrial fibrillation.
Mitral valve opens normally. Mitral annular calcification. Mild mitral
regurgitation.
Mildly dilated left atrium. Indexed LA volume is mildly abnormal (35-41 mL/m2).
Structurally normal tricuspid valve. Tricuspid valve opens normally. Mild
tricuspid regurgitation. Estimated pulmonary artery pressure of 43 mmHg,
assuming a right atrial pressure of 20 mmHg.
Mildly dilated right atrium.
Normal right ventricular size and function.
Since echocardiogram 10/29/2021 which was reviewed, ejection fraction is
decreased from 50-55% to 35-40%.
Subjective Data
-
Date of Service:
Date of Service: June 27, 2023
Chief Complaint: Pulmonary Follow Up
Subjective:
Pt seen today. In NAD. No complaints. He is on 3L/min NC breathing comfortably. Denies AUGUSTE, chest pain, abd pain, N/V/f/c.
Review of Systems
General: Other (negative unless mentioned above)
Objective Data
Data Reviewed
Vital Signs / I&O / Oxygen:
Vital Signs
Temp Pulse Resp BP Pulse Ox
98.0 F 84 18 105/62 94
06/27/23 11:15 06/27/23 11:15 06/27/23 11:15 06/27/23 11:15 06/27/23 11:15
Intake and Output
06/26/23 06/27/23 06/28/23
06:59 06:59 06:59
Intake Total 720 / 720 1880 / 1880
Output Total 2175 / 2175 1100 / 1100
Balance -1455 / -1455 780 / 780
SaO2 94
Nasal Cannula flow liters per 3
minute
Physical Exam
General: Respiratory Distress (negative) and Comfortable
HEENT: Normocephalic and Anicteric
Cardiovascular: Irregular Rhythm, Peripheral Edema (negative) and Other (Normal rate)
Respiratory: Wheeze (negative), Crackles (Bibasilar), Rhonchi (negative) and Non-Labored Respirations
GI: Soft, Non Distended, Non Tender and Normal Bowel Sounds
Neurology: AO x 3 and Tremors (negative)
Skin: Warm and Dry
Labs/Micro/Reports
Lab Data
06/21/23 12:36
06/27/23 06:58
Microbiology
06/22/23 12:34 Pleural Fluid Body Fluid Culture - Final
No Growth After 72 Hours
06/22/23 12:34 Pleural Fluid Gram Stain - Final
[2023-06-27 11:15] VITALS: BP 105/62
--- NOTE | 2023-06-27 11:46 | W.PN.CARDCBS ---
Today's Communication / Plan
-
Diuresis
Impression / Plan
-
Primary Manager Environmental Health And Safety: initially seen by Dr. Chavez
Assessment:
Presentation with SOB
Recent admission 05/2023 for CHF, afib
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
L pleural effusion s/p IR drainage of 1.5 L on 05/25/23
Cardiomyopathy, EF 35-40% by echo 05/2023
Persistent atrial fibrillation
Chronic eliquis therapy
Ascending aortic saccular aneurysm, 2.6 x 2.1 cm
Graves' disease
H/O Hypothyroidism following radiation treatment for Graves' disease
Daily EtOH
Current smoker
Medication noncompliance
ECHO 10/29/2021: EF 50-55%, mild MR, mildly dilated LA, mild TR, pulmonary artery systolic pressure 51 mmHg based on elevated right atrial pressure of 20 mmHg, dilated RA, normal RV, and some views anteroseptal hypokinesis could be present, normal
aortic valve
ECHO 05/26/23: EF 35 to 40% with global hypokinesis, mild MR, PA pressure 43
Plan:
-Presented back to [facility] after recent admission with recurrent CHF and A-fib with RVR due to noncompliance with medications
Dilated cardiomyopathy with ejection fraction currently estimated 35-40%; acute on chronic heart failure decompensation
-We discussed the importance of compliance with medical therapy and follow-up moving forward
-proBNP is improved however he is still on high overall volume status looks like it is improving however CT scan yesterday with persistent left pleural effusion and still requiring 3 to 4 L nasal cannula O2
-s/p IR guided thoracentesis 06/21
-Will continue IV Lasix until creatinine begins to trend up
-Replete K greater than 4, mag greater than 2
-Add Aldactone
-Case management consult to assess cost of Farxiga
-Ongoing efforts for heart failure education
-Once he can prove compliance would pursue ischemic evaluation with ideally a left and right heart catheterization
Atrial fibrillation, rate controlled and asymptomatic
-Continue toprol 25mg BID .
-Continue ELiquis 5mg BID
-Once he can prove compliance, would pursue rhythm control with cardioversion and or future ablation
Severe emphysema with ongoing tobacco dependence
-Pulmonary input appreciated
-O2 supplementation, wean as able. Likely will need oxygen at time of discharge.
-Outpatient pulmonary follow-up strongly advised
-Tobacco cessation strongly advised
Hypothyroid/Graves' disease - Patient compliant with levothyroxine. Appropriate dosing given TSH on last admission
- continue levothyroxine 200mcg
Progress Note - Manager Environmental Health And Safety
Subjective
Date of Service: June 27, 2023
Seen and examined. Patient offers no new complaints and is anxious to return home
Objective
Labs:
06/21/23 12:36
06/27/23 06:58
Labs
Hgb 14.6 g/dL (13.0-18.0) 06/21/23 12:36
Hct 39.7 % (39.0-52.0) 06/21/23 12:36
Plt Count 147 10^3/uL (130-400) 06/21/23 12:36
Sodium 134 mmol/L (135-145) L 06/27/23 06:58
Potassium 3.9 mmol/L (3.5-5.1) 06/27/23 06:58
BUN 32 mg/dl (9-20) H 06/27/23 06:58
Creatinine 0.7 mg/dL (0.7-1.3) 06/27/23 06:58
Glucose 93 mg/dl (70-99) 06/27/23 06:58
Vital Signs and I&O:
Vital Signs
Temp Pulse Resp BP Pulse Ox
98.0 F 84 18 105/62 94
06/27/23 11:15 06/27/23 11:15 06/27/23 11:15 06/27/23 11:15 06/27/23 11:15
Vital Signs
Temp Pulse Resp BP Pulse Ox
98.0 F 84 18 105/62 94
06/27/23 11:15 06/27/23 11:15 06/27/23 11:15 06/27/23 11:15 06/27/23 11:15
Intake & Output
06/25/23 06/26/23 06/27/23 06/28/23
06:59 06:59 06:59 06:59
Intake Total 480 / 480 720 / 720 1880 / 1880
Output Total 1220 / 1220 2175 / 2175 1100 / 1100
Balance -740 / -740 -1455 / -1455 780 / 780
Physical Exam
Physical Exam
GEN: No distress, awake, alert, oriented x3. on supp O2
HEENT: mmm
LUNGS: Bronchovesicular breath sounds decreased throughout. Scattered rhonchi
CV: Irreg, S1/S2, no murmur
ABD: soft, BS+, NT/ND
EXT: trace edema of B/L LE
--- NOTE | 2023-06-27 12:04 | W.PN.HOSP.TC ---
Today's Communication/Plan
-
diuresis
appreciate consultants
Assessment / Plan
Assessment / Plan
IMPRESSION:
This 62-year-old male with history of, atrial fibrillation, hypothyroidism, tobacco dependence, coming in with dyspnea on exertion and hypoxia on his home oxygen. Patient was recently admitted for CHF exacerbation with a decreased EF of around 35
to 40%, large left pleural effusion status post thoracenteses, possibly followed, uncontrolled atrial fibrillation all in the setting of noncompliance. A continues to report noncompliance since his discharge. There is still probably volume
overload with 2+ edema to the thighs bilaterally and reaccumulation of the left pleural effusion to a moderate level.
CXR 06/20
impression:
Moderate left pleural effusion with associated consolidation, significantly progressed. Stable patchy right basilar airspace disease.
Stable mild CHF.
PLAN:
#Pleural effusion
-s/p IR guided thoracentesis 06/21
#Acute on chronic CHF Exacerbation
-exacerbation 2/ med non-compliance; afib with RVR
- restart metoprolol succinate 25mg bid
- lasix 40mg iv bid
- Monitoring with daily weights and i/o
- appreciate cardiology consult
# Afib - permanent afib and uncontrolled rate
- rate control as above with reinitiation of metoprolol
- continue apixaban
#Hypokalemia
-replete
#Acute on chronic Hypoxic resp failure -
COPD
- Continue supplemental oxygen to keep O2 > 92%
- patient was discharged on 2 to 3 L on rest and 4 to 6 L upon ambulation last hospitalization
- appreciate pulmonary consult, s/p PFT's AM 06/24 showing severe COPD; spiriva initiated per pulm
#Hypothyroid - Patient compliant with levothyroxine. Appropriate dosing given TSH on last admission
- continue levothyroxine 200mcg
#Hypomag
-replete/monitor
DVT PPX - on apixaban
Code status - Full Code
Anticipated Discharge: 24 - 48 hours
Subjective/Interval History
-
Date of Service: June 27, 2023
wants to go home
no new complaints
Objective Data
-
Labs:
Laboratory Results
06/27/23
06:58
Sodium 134 L
Potassium 3.9
Chloride 96 L
Carbon Dioxide 28
BUN 32 H
Creatinine 0.7
Glucose 93
Calcium 9.4
Vital Signs:
Vital Signs
Temp Pulse Resp BP Pulse Ox
98.0 F 84 18 105/62 94
06/27/23 11:15 06/27/23 11:15 06/27/23 11:15 06/27/23 11:15 06/27/23 11:15
I&O
06/26/23 06/27/23 06/28/23
06:59 06:59 06:59
Intake Total 720 / 720 1880 / 1880
Output Total 2175 / 2175 1100 / 1100
Balance -1455 / -1455 780 / 780
Review of Systems
-
History Source: Patient
All other systems: Reviewed and negative
Physical Exam
-
General: Well Developed and No Apparent Distress
HEENT: Normocephalic, Atraumatic, Moist Mucous Membranes and Oxygen (midflow )
Respiratory: Decreased Breath Sounds (R>L)
Cardiac: S1/S2, Irregular Rhythm and JVD; Negative Murmur, Rub or Gallop
GI: Soft, Nontender, Nondistended and Normal Bowel Sounds; Negative Organomegaly
Rectal: Deferred by Provider
Musculoskeletal: No Clubbing, No Cyanosis and Other (edema improving)
Skin: Negative Rash
Neuro: Awake and Nonfocal/Grossly Intact
Psych: Calm and Other (flat affect)
Data Reviewed
-
Diagnostic Radiology: Report Reviewed by me
Labs: Labs Reviewed by me
[2023-06-27] MEDS: KCL 20 MEQ PO (12:44)
[2023-06-27 15:30] VITALS: BP 100/80
[2023-06-27 19:55] VITALS: BP 95/69
[2023-06-27 23:56] VITALS: BP 107/63
[2023-06-28 03:38] VITALS: BP 96/51
[2023-06-28] MEDS: SYNTHROID 200 MCG PO (05:21)
[2023-06-28 05:57] VITALS: BMI 22.1
[2023-06-28 06:39] LABS: Blood Urea Nitrogen 39 mg/dl (9-20); Calcium 9.4 mg/dl (8.4-10.2); Carbon Dioxide 29 mmol/L (22-30); Chloride 97 mmol/L (98-107); Estimated Creatinine Clearance 108 ml/min; Glucose 89 mg/dl (70-99); NT-proBNP 373 pg/ml; Potassium 3.8 mmol/L (3.5-5.1); Sodium 136 mmol/L (135-145); eGFR > 60.00
[2023-06-28] MEDS: DELTASONE 50 MG PO (08:02)
[2023-06-28] MEDS: TOPROL XL 25 MG PO (08:06)
[2023-06-28] MEDS: ELIQUIS 5 MG PO (08:06)
[2023-06-28] MEDS: THERAGRAN 1 TABLET PO (08:07)
[2023-06-28] MEDS: ALDACTONE 25 MG PO (08:07)
[2023-06-28] MEDS: LASIX 40 MG IV (08:08)
[2023-06-28 08:17] VITALS: BP 108/63
[2023-06-28] MEDS: SPIRIVA RESPIMAT 2.5 MCG 2 PUFF INH (08:47)
--- NOTE | 2023-06-28 10:59 | W.PN.HOSP.TC ---
Today's Communication/Plan
-
F/U specialist recs
repeat home O2 testing
diuresis
Assessment / Plan
Assessment / Plan
IMPRESSION:
This 62-year-old male with history of, atrial fibrillation, hypothyroidism, tobacco dependence, coming in with dyspnea on exertion and hypoxia on his home oxygen. Patient was recently admitted for CHF exacerbation with a decreased EF of around 35
to 40%, large left pleural effusion status post thoracenteses, possibly followed, uncontrolled atrial fibrillation all in the setting of noncompliance. A continues to report noncompliance since his discharge. There is still probably volume
overload with 2+ edema to the thighs bilaterally and reaccumulation of the left pleural effusion to a moderate level.
CXR 06/20
impression:
Moderate left pleural effusion with associated consolidation, significantly progressed. Stable patchy right basilar airspace disease.
Stable mild CHF.
PLAN:
#Pleural effusion
-s/p IR guided thoracentesis 06/21
#Acute on chronic CHF Exacerbation
-exacerbation 2/2 med non-compliance; afib with RVR
- restart metoprolol succinate 25mg bid
- lasix 40mg iv bid
- Monitoring with daily weights and i/o
- appreciate cardiology consult
# Afib - permanent afib and uncontrolled rate
- rate control as above with reinitiation of metoprolol
- continue apixaban
#Hypokalemia
-replete
#Acute on chronic Hypoxic resp failure -
COPD
- Continue supplemental oxygen to keep O2 > 92%
- patient was discharged on 2 to 3 L on rest and 4 to 6 L upon ambulation last hospitalization
- appreciate pulmonary consult, s/p PFT's AM 06/24 showing severe COPD; spiriva initiated per pulm
-repeat home O2 testing today
#Hypothyroid - Patient compliant with levothyroxine. Appropriate dosing given TSH on last admission
- continue levothyroxine 200mcg
#Hypomag
-replete/monitor
DVT PPX - on apixaban
Code status - Full Code
Anticipated Discharge: 24 - 48 hours
Subjective/Interval History
-
Date of Service: June 28, 2023
awoken from sleep
no new complaints
Objective Data
-
Labs:
Laboratory Results
06/28/23
04:41
Sodium 136
Potassium 3.8
Chloride 97 L
Carbon Dioxide 29
BUN 39 H
Creatinine 0.7
Glucose 89
Calcium 9.4
Vital Signs:
Vital Signs
Temp Pulse Resp BP Pulse Ox
98.3 F 83 16 108/63 94
06/28/23 08:17 06/28/23 08:51 06/28/23 08:51 06/28/23 08:17 06/28/23 08:51
I&O
06/27/23 06/28/23 06/29/23
06:59 06:59 06:59
Intake Total 1880 / 1880 1080 / 1080
Output Total 1100 / 1100 2650 / 2650
Balance 780 / 780 -1570 / -1570
Review of Systems
-
History Source: Patient
All other systems: Reviewed and negative
Physical Exam
-
General: Well Developed and No Apparent Distress
HEENT: Normocephalic, Atraumatic, Moist Mucous Membranes and Oxygen (midflow )
Respiratory: Decreased Breath Sounds (R>L)
Cardiac: S1/S2, Irregular Rhythm and JVD; Negative Murmur, Rub or Gallop
GI: Soft, Nontender, Nondistended and Normal Bowel Sounds; Negative Organomegaly
Rectal: Deferred by Provider
Musculoskeletal: No Clubbing, No Cyanosis and Other (edema improving)
Skin: Negative Rash
Neuro: Awake and Nonfocal/Grossly Intact
Psych: Calm and Other (flat affect)
Data Reviewed
-
Diagnostic Radiology: Report Reviewed by me
Labs: Labs Reviewed by me
[2023-06-28 12:01] VITALS: BP 110/65
--- NOTE | 2023-06-28 13:08 | W.DS.TRANS ---
DC Summary - Edi Programmer Analyst
-
Discharge Instructions:
Sleep Apnea Risk Low
Discharge Diagnosis/Procedures heart failure exacerbation, chronic obstructive
pulmonary disease
Diet Restrict fluids to 48 oz,2 Gram Sodium
Activity As tolerated
Driving Restrictions As prior to admission
Bathing Restrictions None
Blood Work BMP in 1-2 weeks
Specialty Instructions Weigh Daily
Instructions: *PCP/Other Grader Operator Heart Failure Instructions
Stand-Alone Forms:
Changes to Home Medications: Yes
Discharge Medications:
DC Medications w/original date entered in [email or web address]
apixaban 5 mg tablet (Eliquis) 5 mg PO BID Blood Clot Prevention/Tx 05/25/23
levothyroxine 200 mcg tablet 200 mcg PO DAILY Thyroid 05/25/23
metoprolol succinate 25 mg tablet,extended release 24 hr 25 mg PO BID #60 tabs 06/01/23
cwwikwyhxzsy-vcksjhgf-ohbpwj tablet 1 tab PO DAILY PRN supplement 06/21/23
albuterol sulfate 90 mcg/actuation aerosol inhaler 2 puff inhalation Q6H PRN shortness of breath or wheezing #6.7 grams 06/28/23
furosemide 80 mg tablet 80 mg PO DAILY #30 tabs 06/28/23
prednisone 10 mg tablet 10 mg PO DIRECTED #40 tabs 06/28/23
spironolactone 25 mg tablet 25 mg PO DAILY #30 tabs 06/28/23
tiotropium bromide 2.5 mcg/actuation mist for inhalation (Spiriva Respimat) 2 puff inhalation R DAILY #4 grams 06/28/23
Home Medication Changes
Your lasix is increased from 40mg daily to 80mg daily. You are also started on spironolactone 25mg daily.
You are discharged on a prednisone taper:
Take 50mg (5 tabs) x 2 days; 40mg (4 tabs) x 3 days; 30mg (3 tabs) x 3 days; 20mg (2 tabs) x 3 days then 10mg tab) x 3 days then stop
You are started on an inhaler, Spiriva, to be taken daily. You are also prescribed albuterol as needed for shortness of breath/wheezing
It is important that you stop smoking cigarettes completely given your lungs are extremely sensitive and you can end up back in the hospital.
Continue Eliquis for stroke prevention.
Resume metoprolol to control heart rates.
Pending Results: No
--- NOTE | 2023-06-28 14:23 | W.DCSUMMARY ---
Discharge Summary
Discharge Data
Date of Admission: 06/21/23
Date of Discharge: 06/28/23
-
Pending Results: No
Hospital Course
Discharging Physician : Dr. Blanche Bazzi
Disposition : Home
Primary care physician : Dr. Liborio Chino
Principal Discharge diagnosis : Heart failure reduced ejection fraction, acute exacerbation, chronic obstructive pulmonary disease
Chronic Discharge diagnosis :
Hospital Course :
Mr. Tomás Miranda is a 62 yo man with hx atrial fibrillation on Eliquis, hypertension, tobacco dependence and hypothyroidism who was recently admitted for hypoxic respiratory failure with large left-sided pleural effusion status post thoracentesis
with removal of 1.5 L of fluid who now presents to the emergency department again with dyspnea on exertion and shortness of breath over the last 1 week.
On arrival in the emergency department he was +93% on 5 L. He was afebrile. Blood pressure was 126/88. Pulse rate was initially in the 110s. ECG with atrial fibrillation rate in the 110s. His chest x-ray shows pleural effusion but appears to
have returned compared to prior. Chemistries notable for sodium of 132 but otherwise unremarkable. CBC was unremarkable. BNP was elevated at 799.
Patient was admitted to medicine and started on diuresis for treatment of heart failure exacerbation, etiology med non-compliance. IR consulted and he underwent repeat thoracentesis on 06/21. Despite diuresis he remained with high O2 needs.
Cardiology and Pulmonary were consulted. Spirometry on 06/24 showed obstructive lung defect consistent with severe COPD. He is started on Spiriva. A prednisone taper was started. Patient was weaned off of oxygen at rest but continues to need 6L
with exertion. He is discharged on higher dose lasix 80mg. Patient educated on importance of compliance and aims to be better at taking his medications. Smoking cessation stressed to him.
He is discharged with close follow up and following med adjustments:
Your lasix is increased from 40mg daily to 80mg daily. You are also started on spironolactone 25mg daily.
You are discharged on a prednisone taper:
Take 50mg (5 tabs) x 2 days; 40mg (4 tabs) x 3 days; 30mg (3 tabs) x 3 days; 20mg (2 tabs) x 3 days then 10mg tab) x 3 days then stop
You are started on an inhaler, Spiriva, to be taken daily. You are also prescribed albuterol as needed for shortness of breath/wheezing
It is important that you stop smoking cigarettes completely given your lungs are extremely sensitive and you can end up back in the hospital.
Continue Eliquis for stroke prevention.
Resume metoprolol to control heart rates.
Time spent on discharge was 32 minutes.
Important imaging findings :
CXR 06/20
impression:
Moderate left pleural effusion with associated consolidation, significantly progressed. Stable patchy right basilar airspace disease.
Procedure findings :
Discharge Plan
-
Patient Disposition: Home (Routine Discharge)
Discharge Diagnosis/Procedures: heart failure exacerbation, chronic obstructive pulmonary disease
Diet: 2 Gram Sodium and Restrict fluids to 48 oz
Activity: As tolerated
Driving Restrictions: As prior to admission
Bathing Restrictions: None
Blood Work: BMP in 1-2 weeks
Other Services: VN
Specialty Instructions: Weigh Daily- Call MD for wt gain/loss 3 lbs overnight/5 lbs in 1 week
Activity Restrictions/Additional Instructions:
You did not need oxygen at rest in the hospital. You continue to required 6L with ambulation.
Instructions: *PCP/Other Recruitment Manager Heart Failure Instructions
Referrals:
Dre Jordan MD [Active] - in three to four weeks
Oma Miller PA-C [Specified Professional Personl] - 07/02/23 1:40 pm (You have a hospital follow-up with cardiology, Oma Miller PA-C on July 01 at 1:40 PM in [address] in [address] [facility] which is located behind the hospital. If you are
unable to make this appointment please call [phone] to reschedule)
Liborio Chino MD [Family Provider] - in less than 1 week
Additional Discharge Medication Instructions: Your lasix is increased from 40mg daily to 80mg daily. You are also started on spironolactone 25mg daily.
You are discharged on a prednisone taper:
Take 50mg (5 tabs) x 2 days; 40mg (4 tabs) x 3 days; 30mg (3 tabs) x 3 days; 20mg (2 tabs) x 3 days then 10mg tab) x 3 days then stop
You are started on an inhaler, Spiriva, to be taken daily. You are also prescribed albuterol as needed for shortness of breath/wheezing
It is important that you stop smoking cigarettes completely given your lungs are extremely sensitive and you can end up back in the hospital.
Continue Eliquis for stroke prevention.
Resume metoprolol to control heart rates.
Prescriptions:
New
spironolactone 25 mg Tablet
25 mg PO DAILY Qty: 30 0RF
furosemide 80 mg Tablet
80 mg PO DAILY Qty: 30 0RF
Spiriva Respimat 2.5 mcg/actuation Mist
2 puff inhalation R DAILY Qty: 4 0RF
albuterol sulfate 90 mcg/actuation HFA aerosol inhaler
2 puff inhalation Q6H PRN (Reason: shortness of breath or wheezing) Qty: 6.7 0RF
prednisone 10 mg tablet
10 mg PO DIRECTED Qty: 40 0RF
Rx Instructions:
50mg(5 tabs)x 2 days; 40mg(4 tabs)x 3 days; 30mg(3 tabs)x 3 days; 20mg(2 tabs)x 3 days then 10mg(1 tab)x 3 days
Continued
levothyroxine 200 mcg Tablet
200 mcg PO DAILY
Eliquis 5 mg Tablet
5 mg PO BID
Patient Comments:
06/21/2023, used [facility] records from 12/13/2021; pt. states to get this med. through a program that mails this med. to his home at no cost.
metoprolol succinate 25 mg Tablet Extended Release 24 Hr
25 mg PO BID Qty: 60 0RF
igmcrvzwovvn-advmlxes-seahvn Tablet
1 tab PO DAILY PRN (Reason: supplement)
Discharge Orders:
Discharge Patient (As Directed); Ordered 06/28/23
Ordered By: Blanche Bazzi
Discharge Date and Time
Print Language: KOREAN
--- NOTE | 2023-06-28 16:31 | CM ---
MD entered order for discharge.
Spoke with patient in room.His brother will drive him home.
[facility] set up by [facility] .
PCP Dr Chino as per pt.
He has home oxygen with [employer].
PLAN Home with [facility]
--- NOTE | 2023-06-28 18:31 | W.PN.CARDCBS ---
Today's Communication / Plan
-
Okay for discharge home today from a cardiac standpoint
Plan discussed with hospitalist and son over the phone
Outpatient cardiac follow-up arranged
Impression / Plan
-
Primary Audiovisual Production Specialist: initially seen by Dr. Chavez
Assessment:
Presentation with SOB
Recent admission 05/2023 for CHF, afib
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
L pleural effusion s/p IR drainage of 1.5 L on 05/25/23
Cardiomyopathy, EF 35-40% by echo 05/2023
Persistent atrial fibrillation
Chronic eliquis therapy
Ascending aortic saccular aneurysm, 2.6 x 2.1 cm
Graves' disease
H/O Hypothyroidism following radiation treatment for Graves' disease
Daily EtOH
Current smoker
Medication noncompliance
ECHO 10/29/2021: EF 50-55%, mild MR, mildly dilated LA, mild TR, pulmonary artery systolic pressure 51 mmHg based on elevated right atrial pressure of 20 mmHg, dilated RA, normal RV, and some views anteroseptal hypokinesis could be present, normal
aortic valve
ECHO 05/26/23: EF 35 to 40% with global hypokinesis, mild MR, PA pressure 43
Plan:
-Presented back to [facility] after recent admission with recurrent CHF and A-fib with RVR due to noncompliance with medications
Dilated cardiomyopathy with ejection fraction currently estimated 35-40%; acute on chronic heart failure decompensation
-Discussed cardiac conditions, noncompliance issues and concerns moving forward with both patient and his son who lives in [place] over the phone. Patient overall states he is more motivated to take medications and follow-up with with
recommendations. Although his son lives out of state, he is trying to help his father meet these goals
-Volume status is overall improved
-proBNP is improved however he is still on high overall volume status looks like it is improving however CT scan yesterday with persistent left pleural effusion and still requiring 2�3 L nasal cannula O2
-s/p IR guided thoracentesis 06/21
-Will transition to Lasix 80 mg once daily and continue Aldactone 25 mg daily
-Case management consult to assess cost of Farxiga-this can be initiated at time of follow-up along with optimization of goal-directed medical therapy
-Continue metoprolol succinate 25 mg twice daily
-Ongoing efforts for heart failure education
-Once he can prove compliance would pursue ischemic evaluation with ideally a left and right heart catheterization
Atrial fibrillation, rate controlled and asymptomatic
-Continue toprol 25mg BID .
-Continue ELiquis 5mg BID
-Once he can prove compliance, would pursue rhythm control with cardioversion and or future ablation
Severe emphysema with ongoing tobacco dependence
-Pulmonary input appreciated
-O2 supplementation, wean as able. Likely will need oxygen at time of discharge; ambulatory oxygen needs will be assessed prior to discharge.
-Outpatient pulmonary follow-up strongly advised
-Tobacco cessation strongly advised
Hypothyroid/Graves' disease - Patient compliant with levothyroxine. Appropriate dosing given TSH on last admission
- continue levothyroxine 200mcg
Okay from a cardiac standpoint for discharge home with outpatient cardiac and pulmonary follow-up. Patient also needs a primary care physician.
Progress Note - Audiovisual Production Specialist
Subjective
Date of Service: June 28, 2023
Seen and examined. Overall feels better without specific complaints.
Objective
Labs:
06/21/23 12:36
06/28/23 04:41
Labs
Hgb 14.6 g/dL (13.0-18.0) 06/21/23 12:36
Hct 39.7 % (39.0-52.0) 06/21/23 12:36
Plt Count 147 10^3/uL (130-400) 06/21/23 12:36
Sodium 136 mmol/L (135-145) 06/28/23 04:41
Potassium 3.8 mmol/L (3.5-5.1) 06/28/23 04:41
BUN 39 mg/dl (9-20) H 06/28/23 04:41
Creatinine 0.7 mg/dL (0.7-1.3) 06/28/23 04:41
Glucose 89 mg/dl (70-99) 06/28/23 04:41
Vital Signs and I&O:
Vital Signs
Temp Pulse Resp BP Pulse Ox
98.2 F 83 20 110/65 93
06/28/23 12:01 06/28/23 12:01 06/28/23 12:01 06/28/23 12:01 06/28/23 12:01
Vital Signs
Temp Pulse Resp BP Pulse Ox
98.2 F 83 20 110/65 93
06/28/23 12:01 06/28/23 12:01 06/28/23 12:01 06/28/23 12:01 06/28/23 12:01
Intake & Output
06/26/23 06/27/23 06/28/23 06/29/23
06:59 06:59 06:59 06:59
Intake Total 720 / 720 1880 / 1880 1080 / 1080
Output Total 2175 / 2175 1100 / 1100 2650 / 2650
Balance -1455 / -1455 780 / 780 -1570 / -1570
Physical Exam
Physical Exam
GEN: No distress, awake, alert, oriented x3. on supp O2
HEENT: mmm
LUNGS: Bronchovesicular breath sounds decreased throughout. Scattered rhonchi
CV: Irreg, S1/S2, no murmur
ABD: soft, BS+, NT/ND
EXT: No lower extremity edema. Hyperpigmentation of the lower extremities suggestive of PAD
--- NOTE | 2023-06-30 10:42 | W.HF.CON ---
Heart Failure
- LV Function
Left ventricular function study result: LV Ejection fraction >35% - 40%
Ejection Fraction Percentage: 35-40
- ARNI
Patient already on ARNI: No
Heart Failure ARNI Contraindication: Hypotension
- ACEI/ARB
Patient already on ACEI/ARB: No
Heart Failure ACEI/ARB Contraindication: Hypotension
- Beta Danni
Patient already on Evidence Based Beta Danni: Yes
- Mineralocorticord Receptor Antagonist
Patient already on MRA: Yes
- SGLT-2 Inhibitor
Patient already on SGLT-2 Inhibitor: No
Heart Failure SGLT-2 Inhibitor Contraindication: Patient Refusal
- Afib Anticoagulation
Patient already on Anticoagulation for Afib: Yes
- NYHA CHF Classification
NYHA CHF Classification Level: Class III - Symptoms w/ min exertion, interferes w/ nml daily activity (severe emphysema)
- ACC/AHA Stage
ACC/AHA Stage: Stage C: Symptomatic Heart Failure
== END 2023-06-28 15:00 | disposition home health service (06) | DRG 291 ==
LOC: 4 EAST ACU 17:10
PROVIDERS: Hospitalist; Radiology Vascular & Interventional Radiology; ADMITTING PHYSICIAN Internal Medicine; ATTENDING PHYSICIAN Student in an Organized Health Care Education/Training Program; CONSULT PHYSICIAN Internal Medicine Critical Care Medicine; EMERGENCY PHYSICIAN Emergency Medicine; FAMILY PHYSICIAN Internal Medicine; OTHER PHYSICIAN Internal Medicine Interventional Cardiology
PROC: 0W9B3ZZ Drainage of Left Pleural Cavity, Percutaneous Approach (ICD-10-PCS; 2023-06-22)
DX: I11.0 Hypertensive heart disease with heart failure (principal); I50.43 Acute on chronic combined systolic (congestive) and diastolic (congestive) heart failure; J96.21 Acute and chronic respiratory failure with hypoxia; I48.21 Permanent atrial fibrillation; E87.3 Alkalosis; I42.9 Cardiomyopathy, unspecified; Z91.148 Patient's other noncompliance with medication regimen for other reason; F17.210 Nicotine dependence, cigarettes, uncomplicated; J43.9 Emphysema, unspecified; E03.9 Hypothyroidism, unspecified; E87.6 Hypokalemia; E83.42 Hypomagnesemia; Z79.01 Long term (current) use of anticoagulants; E05.00 Thyrotoxicosis with diffuse goiter without thyrotoxic crisis or storm
CPT/HCPCS: 32555; 36600; 71045; 71046; 71250; 80048; 80053; 82805; 82945; 83615; 83735; 83880; 83986; 84155; 84157; 85025; 87015; 87070; 87205; 89051; 93005; 94060; 94640; 96374; 96375; 99285

== ENCOUNTER → 2023-07-21 11:16 | Outpatient (REF) | payer MEDICAID, SELFPAY ==
[2023-07-21 16:03] LABS: Blood Urea Nitrogen 29 mg/dl (9-20); Calcium 10.1 mg/dl (8.4-10.2); Carbon Dioxide 30 mmol/L (22-30); Chloride 97 mmol/L (98-107); Glucose 101 mg/dl (70-99); Potassium 4.2 mmol/L (3.5-5.1); Sodium 138 mmol/L (135-145); eGFR > 60.00
== END ==
LOC: HWLAB 11:16
PROVIDERS: ATTENDING PHYSICIAN Physician Assistant Medical; FAMILY PHYSICIAN Internal Medicine
DX: I50.22 Chronic systolic (congestive) heart failure (principal)
CPT/HCPCS: 36415; 80048

== ENCOUNTER 2023-08-10 20:20 | Inpatient (IN) | payer OTHER, SELFPAY ==
[2023-08-10] VITALS (27 sets, daily range): BP systolic 75–99; BP diastolic 52–70; BMI 22.9
[2023-08-10] MEDS: TYLENOL 650 MG PO (16:29)
[2023-08-10 16:45] LABS: % Basophils 0.3 % (0-2); % Eosinophils 0.4 % (0-6); % Immature Granulocytes 0.6 % (0-0.5); % Lymphocytes 2.7 % (20.5-51.1); Absolute Basophils 0.1 10^3/uL (0-0.2); Absolute Eosinophils 0.1 10^3/uL (0-0.7); Absolute Immature Granulocytes 0.1 10^3/uL (0-0.05); Absolute Lymphocytes 0.5 10^3/uL (1.2-3.4); Absolute Monocytes 0.7 10^3/uL (0.1-0.6); Absolute Neutrophils 15.9 10^3/uL (1.4-6.5); Hematocrit 37.2 % (39.0-52.0); Hemoglobin 13.9 g/dL (13.0-18.0); Mean Corp Hgb Conc. 37.4 g/dL (33.0-37.0); Mean Corpuscular Volume 85.5 fL (80.0-94.0); Mean Platelet Volume 12.1 fL (7.4-10.4); Nucleated Red Blood Cells % 0 % (-); Platelet Count 128 10^3/uL (130-400); Red Blood Cell Count 4.35 10^6/uL (4.70-6.10); Red Cell Dist. Width 18.4 % (11.5-14.5); White Blood Cell Count 17.3 10^3/uL (4.8-10.8)
[2023-08-10 16:54] LABS: Lactic Acid 1.6 mmol/L (0.7-2.0)
[2023-08-10 16:57] LABS: COVID-19 Antigen Negative (Negative)
[2023-08-10 16:59] LABS: ALT (SGPT) 17 U/L (0-50); AST (SGOT) 45 U/L (17-59); Albumin 4.1 g/dl (3.5-5.0); Alkaline Phosphatase 134 U/L (38-126); Blood Urea Nitrogen 48 mg/dl (9-20); Calcium 9.2 mg/dl (8.4-10.2); Carbon Dioxide 19 mmol/L (22-30); Chloride 95 mmol/L (98-107); Glucose 118 mg/dl (70-99); Potassium 4.1 mmol/L (3.5-5.1); Sodium 127 mmol/L (135-145); Total Bilirubin 1.7 mg/dl (0.2-1.3); Total Protein 8.1 g/dl (6.3-8.2); eGFR 34.72
[2023-08-10 17:16] LABS: NT-proBNP 9180 pg/ml
[2023-08-10] MEDS: ROCEPHIN 2000 MG IV (17:20)
[2023-08-10] MEDS: NSS 1000 IV ×2 (17:20→20:08)
[2023-08-10 17:24] LABS: Urine Albumin 2+ (Neg - Trace); Urine Bilirubin Negative (Negative); Urine Character Slightly Cloudy (Clear); Urine Color Yellow; Urine Glucose Negative (Negative); Urine Ketone Trace (Negative); Urine Leukocyte 2+ (Negative); Urine Nitrite Negative (Negative); Urine Occult Blood 4+ (Negative); Urine Urobilinogen Negative (Neg - 1+)
--- NOTE | 2023-08-10 17:24 | ED.GENMED ---
History of Present Illness
General
Chief Complaint: Fever
Source: patient and family
Exam Limitations: clinical condition
Time Seen by Provider: 08/10/23 16:43
Travel History
Have you had any contact with someone who has COVID-19?: No
Do you have any symptoms of coronavirus? Fever > 100 degrees, chills, cough, shortness of breath, sore throat, loss of taste or smell, muscle aches, or headache?: No
History of Present Illness
History of Present Illness:
63-year-old male change in mental status weakness mostly today. Seems mildly confused per the sister. Patient denies specific complaints.
Past History
Past History
ED Past Medical History: Arrthythmia (Atrial fibrillation), HTN, Hypothyroidism and Other ('Hole in the heart' as a child)
ED Past Surgical History: Cardiac ('Hole in the heart' repair as a child)
Social History
Tobacco: Smoker
Alcohol: Daily
Drug: None
Review of Systems
Review of Systems
All Other Systems: Not applicable
Constitutional: Denies fever
Respiratory: Reports cough
Cardiac: Denies chest pain or syncope
ABD/GI: Reports no symptoms
: Reports frequency
Phy Exam
Physical Exam
Physical Exam:
GENERAL: Alert. Somewhat cachectic. Old for stated age. Normocephalic atraumatic
EYE: Orbits normal.
NECK: Supple, nontender
ENT: Pharynx without erythema. Poor dentition
CARDIAC: Irregular irregular. Tachycardic.
LUNGS: Minimal tachypnea. Hypoxia. Rales and rhonchi in the bases
ABDOMEN: Soft, without focal tenderness or distention
NEUROLOGICAL: Alert and oriented x 2., grossly non-focal patient ambulating well. Supple neck. Cognitively slightly slow.
SKIN: Warm and dry, abrasions to the knees. Chronic hyperpigmentation changes of the lower extremities
MUSCULOSKELETAL: No edema,no deformity.Good color
PSYCH: flat affect
Course
Orders/Labs/Results
Orders:
Orders
08/10/23 16:25
Electrocardiogram (*1) Urgent
Reason for Study: Other
Other Reason for Exam: Possible Sepsis
EKG- Treatment ONCE
08/10/23 16:27
Acetaminophen [Tylenol] 650 mg .ROUTE .STK-MED ONE
08/10/23 16:29
Acetaminophen [Tylenol] 650 mg PO NOW STA
08/10/23 16:33
Alcohol Urgent
COVID-19 Antigen Urgent
Source: Nasal Swab
Complete Blood Count/With Diff Urgent
Comprehensive Metabolic Panel Urgent
Lactic Acid Q4H
Comment: ON ICE, CANCEL 2ND ORDER IF FIRST LACTIC ACID LEVEL <2
NT-proBNP Urgent
Comment: add-on
Blood Culture Q30M
CHALO Source: Blood/Venous
Specimen Description:
Comment: FROM 2 SEPARATE SITES
Influenza A+B Rapid Molecular Urgent
CHALO Source: Nasal Swab
Specimen Description:
Date Specimen was Collected: 08/10/23
Time Specimen was Collected: 16:25
08/10/23 16:47
Add On- LAB Urgent
Tests Added?: BNP
08/10/23 16:56
IV Insert/Care/Rem.- Treatment PRN
0.9% Sodium Chloride 1000 ml [Nss] 1,000 ml IV BOLUS
08/10/23 16:58
CefTRIAXone [Rocephin] 2,000 mg IV NOW STA
08/10/23 17:01
Cardiac Monitoring- Treatment ONCE
08/10/23 17:08
Urinalysis Reflex To Culture Urgent
Date Specimen was Collected: 08/10/23
Time Specimen was Collected: 16:25
Urine Microscopic Reflex Cult Urgent
Blood Culture Q30M
CHALO Source: Blood/Venous
Specimen Description:
Comment: FROM 2 SEPARATE SITES
Urine Culture Urgent
CHALO Source: U
Specimen Description:
Date Specimen was Collected: 08/10/23
Time Specimen was Collected: 16:25
08/10/23 17:23
CXR Port [CR Chest Portable - 1 View] Urgent
Comment:
Reason For Exam: sob fever
Reason Study Needs to be Portable: Unable to Transport
08/10/23 17:31
Add On- LAB Urgent
Tests Added?: alcohol level
08/10/23 17:39
Vancomycin [Vancocin] 2,000 mg 0.9% Sodium Chloride 500 ml [Nss] 500 ml IV NOW
08/10/23 19:27
Admit/Transfer Patient As Directed
Co-Sign Provider:
Level of Care: Inpatient admission
Assign to:: IMU- Intermediate Care
Physician / Group: Hospitalist
Diagnosis: Infection, likely urinary, multi-organ dysfunction
Reason for Hospitalization: Infection, likely urinary, multi-organ dysfunction
Expected length of stay greater than two midnights?: Yes
ELOS- Estimated Length of Stay in days: 5
I certify the patient meets the requirements for IP care: Yes
08/10/23 19:30
Code Status As Directed
Resuscitation Status: Full Code
08/10/23 20:04
0.9% Sodium Chloride 1000 ml [Nss] 1,000 ml IV 100 mls/hr
Abnormal Lab Results
08/10/23 08/10/23
16:33 17:08
WBC 17.3 H 10^3/uL
(4.8-10.8)
RBC 4.35 L 10^6/uL
(4.70-6.10)
Hct 37.2 L %
(39.0-52.0)
MCH 32.0 H pg
(27.0-31.0)
MCHC 37.4 H g/dL
(33.0-37.0)
RDW 18.4 H %
(11.5-14.5)
Plt Count 128 L 10^3/uL
(130-400)
MPV 12.1 H fL
(7.4-10.4)
Abs Immat Gran (auto) 0.1 H 10^3/uL
(0-0.05)
Absolute Neuts (auto) 15.9 H 10^3/uL
(1.4-6.5)
Absolute Lymphs (auto) 0.5 L 10^3/uL
(1.2-3.4)
Absolute Monos (auto) 0.7 H 10^3/uL
(0.1-0.6)
Immature Gran % 0.6 H %
(0-0.5)
Neutrophils % 92.0 H %
(42.2-75.2)
Lymphocytes % 2.7 L %
(20.5-51.1)
Sodium 127 L mmol/L
(135-145)
Chloride 95 L mmol/L
(98-107)
Carbon Dioxide 19 L mmol/L
(22-30)
BUN 48 H mg/dl
(9-20)
Creatinine 2.1 H mg/dL
(0.7-1.3)
Glucose 118 H mg/dl
(70-99)
Total Bilirubin 1.7 H mg/dl
(0.2-1.3)
Alkaline Phosphatase 134 H U/L
(38-126)
Urine Ketones Trace A
(Negative)
Ur Occult Blood Reflex 4+ A
(Negative)
Leukocyte Esterase Rfl 2+ A
(Negative)
Urine WBC (Reflex) 11-15 A /HPF
(0-5)
Urine Bacteria (Reflex) Many A
(Negative)
Urine Albumin (Reflex) 2+ A
(Neg - Trace)
08/10/23 16:33
08/10/23 16:33
Vital Signs
Initial and Last Documented VS:
Initial Vital Signs
Temp Pulse Resp BP Pulse Ox
102.4 F H 141 20 98/57 91
08/10/23 16:21 08/10/23 16:21 08/10/23 16:21 08/10/23 16:21 08/10/23 16:21
Last Documented Vital Signs
Temp Pulse Resp BP Pulse Ox
97.5 F 106 18 93/56 95
08/10/23 18:53 08/10/23 20:30 08/10/23 20:30 08/10/23 20:30 08/10/23 20:30
*Radiology
Radiology exam reviewed: preliminary read by ED provider (Increased vascular congestion)
*EKG
Interpreted by ED Provider?: Yes
Interpretation: abnormal
Comparison EKG: changes noted
Heart Rate: 144
Rate: tachycardiac
Rhythm: a-fib
[place]: normal axis
Interval: normal interval
QRS Pattern: right bundle branch block (inc)
Ischemia: non-specific ST changes
*[employer] Records Clerk Interpretation
Rate: tachycardiac
Interpretation: abnormal
Heart Rate: 125
Rhythm: a-fib
*Critical Care Note
Total Time (30-74mins, 75-104mins- exclusive of procedures): 50
Update Note
Update Note:
1725.... Complicated patient and complicated results. Renal insufficiency, leukocytosis, hyponatremia, elevated proBNP. Mildly hypotensive although reviewing previous blood pressures they tend to run low. Give careful fluid boluses. Feel CT of
the head is not necessary. Patient did not hit his head during this mild fall earlier today.
1730... We will carefully give fluid boluses. Vancomycin ordered after weight. Referred to hospitalist
ED Attending Note
-
Portions of this chart may have been created with voice recognition software.� Occasional wrong word or��sound alike� substitutions may have occurred due to the inherent limitations of voice recognition software.
Discharge Plan
Departure
Patient Disposition: Admit
Date of Disposition: 08/10/23
Time of Disposition: 17:29
Presentation/result/management discussed w/ accepting MD/DO: Hospitalist
Discharge Problem:
Fever/UTI, Asplenic, Urosepsis, Acute renal insufficiency, Possible CHF, Chronic atrial fibrillation, Hyponatremia, History of alcohol use, Thrombocytopenia
Interventions
Interventions:
*Risk Screen - Suicide Last Done: 08/10/23 17:07
*General Assessment Last Done: 08/10/23 17:07
*Neglect/Abuse Screening Last Done: 08/10/23 17:07
ED- Fall Risk Assessment Last Done: 08/10/23 17:07
*ED COVID-19 Vaccine History Last Done: 08/10/23 17:07
ED- Neurological Assessment Last Done: 08/10/23 17:07
ED-Skin Assessment Last Done: 08/10/23 17:07
[2023-08-10 17:31] LABS: Urine Red Blood Cell 0-2 /HPF (0-2)
[2023-08-10 17:32] LABS: Urine Bacteria Many (Negative)
[2023-08-10] MEDS: VANCOCIN 540 MG IV (17:45)
[2023-08-10 18:09] LABS: Alcohol None Detected
--- NOTE | 2023-08-10 18:11 | EDRN ---
Dr. Meek currently at the pts bedside, the pt is resting in stretcher in the lowest position, side rails up x2, call conklin within reach, HOB elevated, Afib in the 100-130's, palpable pulses, no edema noted, mottled skin with 'bluish tint' to the pts
lips, the pt states that his b/l lower legs are always dusky, the pt is currently still on 6L NC with Sp02 currently at 92%, Dr. Meek is aware of this and wants the pt to remain on 6L NC for now, IVF hung and running, ABX hung and running, the pt
is AAO, able to answer questions appropriately and able to move all extremities, the pt stated to this RN that he has a few beers a day, this RN notified the provider and placed the pt on MSAS protocol, the pts sister is currently at the pts
bedside, will continue to monitor the pt closely
--- NOTE | 2023-08-10 18:58 | HPS.HSE ---
Family Physician
-
Family Physician: Liborio Chino
Chief Complaint
-
Change of mental status
History of Present Illness
63-year-old man recently discharged from (about 1 month ago) comes in with change in mental status and weakness. His discharge summary on 06/28/23 states the following:
Mr. Tomás Miranda is a 62 yo man with hx atrial fibrillation on Eliquis, hypertension, tobacco dependence and hypothyroidism who was recently admitted for hypoxic respiratory failure with large left-sided pleural effusion status post thoracentesis
with removal of 1.5 L of fluid who now presents to the emergency department again with dyspnea on exertion and shortness of breath over the last 1 week. On arrival in the emergency department he was +93% on 5 L. He was afebrile. Blood pressure
was 126/88. Pulse rate was initially in the 110s. ECG with atrial fibrillation rate in the 110s. His chest x-ray shows pleural effusion but appears to have returned compared to prior. Chemistries notable for sodium of 132 but otherwise
unremarkable. CBC was unremarkable. BNP was elevated at 799. Patient was admitted to medicine and started on diuresis for treatment of heart failure exacerbation, etiology med non-compliance. IR consulted and he underwent repeat thoracentesis on
06/21. Despite diuresis he remained with high O2 needs. Cardiology and Pulmonary were consulted. Spirometry on 06/24 showed obstructive lung defect consistent with severe COPD. He is started on Spiriva. A prednisone taper was started. Patient
was weaned off of oxygen at rest but continues to need 6L with exertion. He is discharged on higher dose lasix 80mg. Patient educated on importance of compliance and aims to be better at taking his medications. Smoking cessation stressed to him.
IN the ED he Seemed mildly confused, per the sister. Patient denies specific complaints. 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 ROS not
reliable. No further history was obtained.
Medical History
Past Medical History
Past Medical History: Reports Other
Additional Past Medical History:
essential HTN,
Hypothyroidism
'Hole in the heart' as a child (repaired)
Metabolic alkalosis
Congestive heart failure, unspecified HF chronicity, unspecified heart failure
COPD
Atrial fibrillation, unspecified type
Snoring
Paraseptal emphysema
Hypoxia
Pleural effusion
Nicotine dependence, cigarettes
Past Surgical History: Reports Other
Additional Past Surgical History:
See above
Social History
Unable to obtain full social history at this time due to: Acuity
Tobacco: Smoker
Alcohol: Daily
Living: With Family
Employment: Retired
Family History
Family History: Not pertinent
Allergies / Home Medications
Allergies reflects when Allergies were last updated in [facility] in [place].
Home Medications with original date entered in [facility] in [place]
Allergy/Medication List:
Allergies
Allergy/AdvReac Type Severity Reaction Status Date / Time
No Known Allergies Allergy Verified 08/10/23 16:20
Home Medications
apixaban 5 mg tablet (Eliquis) 5 mg PO BID Blood Clot Prevention/Tx 05/25/23
levothyroxine 200 mcg tablet 200 mcg PO DAILY Thyroid 05/25/23
metoprolol succinate 25 mg tablet,extended release 24 hr 25 mg PO BID #60 tabs 06/01/23
glostgufitse-zsdsuipt-jfpaum tablet 1 tab PO DAILY PRN supplement 06/21/23
albuterol sulfate 90 mcg/actuation aerosol inhaler 2 puff inhalation Q6H PRN shortness of breath or wheezing #6.7 grams 06/28/23
furosemide 80 mg tablet 80 mg PO DAILY #30 tabs 06/28/23
spironolactone 25 mg tablet 25 mg PO DAILY #30 tabs 06/28/23
fluticasone fur. 200 mcg-umeclid 62.5 mcg-vilant 25 mcg inhalat.powder (Trelegy Ellipta) 1 inh inhalation R DAILY 08/10/23
furosemide 80 mg tablet 40 mg PO QPM 08/10/23
Review of Systems
-
Unable to obtain full review of systems at this time due to: Acuity
History Source: Patient
Physical Exam
Vital Signs
Vital Signs
Temp Pulse Resp BP Pulse Ox
97.5 F 114 21 90/55 92
08/10/23 18:53 08/10/23 18:53 08/10/23 18:53 08/10/23 18:53 08/10/23 18:53
Physical Exam
General: Appears Chronically Ill
HEENT: Moist mucous membranes, Nose Appears Normal and Ears Appear Normal; No Good Dentition
Respiratory: Decreased Breath Sounds
Cardiac: S1/S2, Irregular Rhythm and Murmur
GI: Soft, Non Tender and Non Distended
Musculoskeletal: No Clubbing, No Cyanosis, Edema, Left Lower Extremity and Edema, Right Lower Extremity
Skin: Warm and Dry
Neuro: Awake and Alert
Psych: Calm
Laboratory Results
-
08/10/23 16:33
08/10/23 16:33
Laboratory Results
Lactic Acid Cancelled 08/10/23 20:30
Total Bilirubin 1.7 mg/dl (0.2-1.3) H 08/10/23 16:33
AST 45 U/L (17-59) 08/10/23 16:33
ALT 17 U/L (0-50) 08/10/23 16:33
Alkaline Phosphatase 134 U/L (38-126) H 08/10/23 16:33
Data Reviewed
-
Lab Data: Labs Reviewed by me
Impression/Plan
-
IMPRESSION:
63 man, medically complex, with presentation c/w an infection. Significant findings:
BP 89/58
Pulse 113
Temp 102.4
WBC 17.3
Platelets 128
Na 127
Cl 95
CO2 19
BUN/Creat 48/2.1
TB 1.7
Aphos 134
UA - OB, LE, WBC, many pato
CXR - Severe pulm edema
ECG - Afib, RVR, changes from before
PLAN:
1. Infection, with WBC of 17.3, fever, abnormal UA, most likely source is urogenic
Broad spectrum abx for now
Follow UA/UC results closely
2. Platelet of 128, new issue, likely from acute illness
Follow daily
Avoid heparin for now
Continue eliquis for now
3. Na of 127 - chronicaly low, but this is lowest it has been. Likely hypovolemic.
IV saline
Check again in am
4. BUN/Creat 48/2.1 - worsening from baseline, likely ZAHRA from low volume.
IV saline
Check again in am
5. TB of 1.7, A-phos 134; unclear clinical significance
Recheck in am after improving fluid status
6. CXR showing severe pulm edema - concerning given that he needs fluids. Covid neg.
Give fluids for reasons described above
Follow fluid status closely
He may need diuresis later in his stay
7. ECG abnormal with new changes, and risk factors for CAD/AZ
Cycle troponins
Monitor telemetry
8. 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
Full code
VCD for DVT (avoid heparin given low platelets)
--- NOTE | 2023-08-10 19:26 | EDRN ---
Report received, introduced myself to patient who is resting comfortably and waiting on admission orders.
--- NOTE | 2023-08-10 20:14 | EDRN ---
Patient is sleeping, BP trending down slightly, started fluids that were ordered on the admission side, will repeat BP more frequently to assess BP trend.
[2023-08-10 21:52] LABS: Lactic Acid 0.8 mmol/L (0.7-2.0)
[2023-08-10 22:04] LABS: Troponin I 0.023 ng/ml
--- NOTE | 2023-08-10 22:19 | EDRN ---
Patients BP continued to trend down even with normal saline at 100mL/hr, informed Katarzyna orellana NP who is covering the IMU, will start levophed and continue to monitor.
[2023-08-10] MEDS: ELIQUIS 5 MG PO (22:25)
[2023-08-10] MEDS: ZITHROMAX INFUSION 250 IV (22:26)
[2023-08-10 22:29] LABS: TSH Reflex To Free T4 0.05 uIU/ml (0.47-4.68)
--- NOTE | 2023-08-10 22:35 | EDRN ---
In room to start Levophed and give night time medication, re-checked patients BP twice and is at parameters to not require the Levophed at this time, will continue to monitor for the need to start, patient reporting needing to use restroom, patient
was able to stand to attempt to use urinal, finding not needing to go at this time, patient back in bed and resting comfortably.
[2023-08-10] MEDS: LEVOPHED 250 IV (23:22)
[2023-08-10] MEDS: THERAGRAN 1 TABLET PO (23:24)
--- NOTE | 2023-08-10 23:25 | EDRN ---
Patients BP started to trend down again, started Levophed as ordered.
[2023-08-11] VITALS (53 sets, daily range): BP systolic 82–130; BP diastolic 40–109; BMI 23.2
--- NOTE | 2023-08-11 00:20 | EDRN ---
Patients BP still low, will titrate Levophed up to meet parameters per order, patient is resting comfortably at this time, call conklin in reach.
--- NOTE | 2023-08-11 01:45 | EDRN ---
Patient continues to sleep, Patients blood pressure is responding to the medications, will continue to monitor
--- NOTE | 2023-08-11 03:01 | PTCARENOTE ---
ax3 forgetful- 6 liers gale- afib levo at 4
--- NOTE | 2023-08-11 04:49 | PTCARENOTE ---
msas 1- afib 100's- ax3- pt says hes been in hospital before and has gone without etoh for several days without withdrawing- levo gtt tapered to 1mcg/min
[2023-08-11 05:03] LABS: Hematocrit 38.5 % (39.0-52.0); Hemoglobin 13.5 g/dL (13.0-18.0); Mean Corp Hgb Conc. 35.1 g/dL (33.0-37.0); Mean Corpuscular Hgb 31.7 pg (27.0-31.0); Mean Corpuscular Volume 90.4 fL (80.0-94.0); Mean Platelet Volume 11.4 fL (7.4-10.4); Platelet Count 107 10^3/uL (130-400); Red Blood Cell Count 4.26 10^6/uL (4.70-6.10); Red Cell Dist. Width 19.2 % (11.5-14.5); White Blood Cell Count 12.7 10^3/uL (4.8-10.8)
[2023-08-11 05:29] LABS: ALT (SGPT) 16 U/L (0-50); AST (SGOT) 42 U/L (17-59); Albumin 3.5 g/dl (3.5-5.0); Alkaline Phosphatase 124 U/L (38-126); Blood Urea Nitrogen 47 mg/dl (9-20); Calcium 8.3 mg/dl (8.4-10.2); Carbon Dioxide 21 mmol/L (22-30); Chloride 98 mmol/L (98-107); Estimated Creatinine Clearance 46 ml/min; Glucose 111 mg/dl (70-99); Potassium 3.8 mmol/L (3.5-5.1); Sodium 132 mmol/L (135-145); Total Bilirubin 0.9 mg/dl (0.2-1.3); Total Protein 7.3 g/dl (6.3-8.2); eGFR 44.74
[2023-08-11 05:35] LABS: Troponin I < 0.012 ng/ml
[2023-08-11] MEDS: NSS 1000 IV (05:38)
[2023-08-11] MEDS: SYNTHROID 200 MCG PO (06:04)
--- NOTE | 2023-08-11 06:10 | PTCARENOTE ---
Levophed off- pt on 6 liters oxygen. desats on minimal exertion to the low 80's
[2023-08-11] MEDS: SPIRIVA RESPIMAT 2.5 MCG 2 PUFF INH (08:56)
[2023-08-11] MEDS: SYMBICORT 160/4.5 MCG INHALER 2 PUFF INH ×2 (08:56→21:00)
[2023-08-11] MEDS: ELIQUIS 5 MG PO ×2 (08:59→20:40)
[2023-08-11] MEDS: THERAGRAN 1 TABLET PO (08:59)
[2023-08-11] MEDS: LASIX PO (08:59)
[2023-08-11 10:16] LABS: Troponin I < 0.012 ng/ml
--- NOTE | 2023-08-11 10:27 | CM ---
CM following re: discharge planning.
Reviewed pt's chart, met with pt.
Pt is a 63 year old male, admitted with primary dx of Change of mental status.
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
services and cannot recall the name.
Pt admitted to drinking 2-4 beers per days, does not see it as a problem, declined D&A treatment resources, declined meeting with [facility] team. Pt expressed his desire to return back to his living arrangement at rented room in brother's house with
resumptions of VN services.
PCP: Liborio Chino
Pharmacy: [facility]
D/C plan: home with resumptions of VN services and family support. Brother to transport at discharge.
CM will follow with discharge plan updates as hospitalization progresses
[2023-08-11] MEDS: LASIX 80 MG PO (11:28)
--- NOTE | 2023-08-11 12:45 | PTCARENOTE ---
Spoke with Dr. Pitts about patient receiving IV Fluids at 100mL/hour considering his CHF history and increasing O2 requirement (now up to 9L Midflow).
--- NOTE | 2023-08-11 14:16 | W.PN.HOSP.TC ---
Addendum entered and electronically signed by Teodoro Pitts MD 08/11/23 21:56:
I saw and evaluated the patient. I reviewed the resident�s note and agree with findings and plan as documented in the resident�s note. had episode of hematuria, feels mildly SOB poor historian Full 12 point ROS reviewed and negative except as
documented Exam: Vitals reviewed in chart GEN-NAD heart irreg irreg lungs crackles at abses abd soft LE +1 pitting edema
# Acute Hypoxemic Respiratory Failure
- likely from CHF
- cont lasix when able
- wean o2 for sats 88-92%
# Septic Shock with gram neg bacteremia
- titrated off levophed
- repeat blood cx in am
- cont phenylephrine per cards
- blood cx x 2 pos- ecoli- await sens likely urinary source
- cont Rocephin and azithromycin to cover possible CAP
# Thrombocytopenia
- Follow daily
- Continue eliquis for now
- avoid hep
# AE HFrEF-
- restart lasix
- consult cards
- daily weights and fluid restrict
- cont metoprolol spironolactone
- no CHILANGO due to ZAHRA
- may benefit from SGLT2
# Acute on Chronic Hyponatremia-
- chronically low
- likely hypovolemic.
- improved with IV saline
- repeat BMP in am
# ZAHRA
- improving
- check fe urea
- prerenal vs ATN
- now volume overloaded
- restarted lasix
- DC IV saline
- repeat BMP in am
# Leukocytosis
- from sepsis
- resolving on abx
# Severe COPD-
- cont tiotropium and Symbicort
- add prn xopenex if needed
- monitor for AE
# HTN-
- cont Metoprolol to control rates - if able
- consult cards for eval
# Persistent A fib with RVR-
- restart metoprolol
- may need to add dig or amiodarone is remains hypotensive
- cont eliquis
# Tobacco Abuse-
counselled re quitting
- offer patch- refused
Full code
DVT- proph- eliquis
Time spent coordinating care, review of plan of care with resident, review of records, med rec, consults, notes, labs, rads, d/w nursing � 60 mins
Original Note:
Today's Communication/Plan
-
Monitor I and Os
Daily weights
Abx coverage
Monitor kidney function and hematuria
Assessment / Plan
Assessment / Plan
Assessment: 63-year-old man with history of A-fib on Eliquis, HFrEF, hypertension, COPD on Spiriva, who presented to the ED with sepsis.
Acute Problems
Sepsis
Hyponatremia
Thrombocytopenia
ZAHRA
Hypotension
Hyperbilirubinemia
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
COPD
Nicotine dependence
#Sepsis
Pulmonary versus urinary source
Leukocytosis improving
Blood cultures 08/09 positive for E. coli
Continue ceftriaxone and azithromycin
Check Procalc
Trend CBC
Follow temperature curve
#Acute heart failure exacerbation
CXR 08/10/2023: SEVERE ACUTE INTERSTITIAL CARDIOGENIC PULMONARY EDEMA. Small right and minimal left pleural effusions. Mild cardiomegaly.
echo 05/26/2023: Global hypokinesis, mild to moderately reduced left ventricular systolic function, LVEF: 35-40%
Continue home dose of Lasix
Monitor I&Os
daily weights
Monitor kidney function
Gross hematuria
On Eliquis
Urinary tract infection, no CVA tenderness
Continue broad-spectrum antibiotics
Urine culture pending
#Hyponatremia
Acute on chronic
improving with fluids 127-->132
#Thrombocytopenia
Repeat CBC in a.m.
#Acute kidney injury
Creatinine 2.1 on presentation, baseline 0.7 in July
Improving
Continue diuresis with Lasix, hold spironolactone
Monitor kidney function
Hypotension:
-Resolved
-Weaned off Levophed
#Hyperbilirubinemia:
Unclear cause
Normal AST and ALT, mildly elevated alk phos
Repeat in a.m.
#COPD
Continue Spiriva, and Symbicort
Albuterol as needed
DVT prophylaxis: Eliquis
CODE STATUS: Full code
Anticipated Discharge: > 48 hours
Subjective/Interval History
-
Date of Service: August 11, 2023
Episode of gross hematuria in the afternoon. Patient has no other complaints. He feels relatively the same (fine) as on presentation to ED
Objective Data
-
Labs:
Laboratory Results
08/11/23
04:17
WBC 12.7 H
Hgb 13.5
Hct 38.5 L
Plt Count 107 L
Sodium 132 L
Potassium 3.8
Chloride 98
Carbon Dioxide 21 L
BUN 47 H
Creatinine 1.7 H
Glucose 111 H
Calcium 8.3 L
Total Bilirubin 0.9
AST 42
ALT 16
Alkaline Phosphatase 124
Vital Signs:
Vital Signs
Temp Pulse Resp BP Pulse Ox
99.0 F 114 19 103/68 93
08/11/23 11:10 08/11/23 12:00 08/11/23 12:00 08/11/23 12:00 08/11/23 12:00
I&O
08/10/23 08/11/23 08/12/23
06:59 06:59 06:59
Intake Total 940 / 940 1440 / 1440
Output Total 500 / 500 925 / 925
Balance 440 / 440 515 / 515
Review of Systems
-
History Source: Patient
Constitutional: Denies Fever
Respiratory: Denies Cough or Trouble Breathing
Cardiac: Reports No Symptoms; Denies Chest Pain, Diaphoresis, Palpitations or Syncope
Abdomen/GI: Reports No Symptoms; Denies Abdominal Pain, Nausea, Vomiting, Diarrhea or Constipated
Genitourinary: Reports Bleeding
Musculoskeletal: Denies No Symptoms
Neuro: Denies Dizzy or Headache
Hematologic / Lymphatic: Reports Bleeding
Physical Exam
-
General: Appears Chronically Ill
HEENT: Normocephalic, Atraumatic, Moist Mucous Membranes, Anicteric and Oxygen (8L O2 nasal cannula)
Respiratory: Clear to Auscultation, Crackles (LLL) and Decreased Breath Sounds (on left); Negative Non Labored Respirations
Cardiac: Regular Rhythm and S1/S2
GI: Nontender
Genito-urinary: No Costovertebral Tender, Bloody Urine and Other (no suprapubic tenderness)
Musculoskeletal: No Edema and Cyanosis (mild); Negative No Clubbing
Skin: Warm and Dry
Neuro: Awake, Alert, Oriented and AO x 3
Psych: Calm
--- NOTE | 2023-08-11 15:27 | VNURNOTE ---
Spoke with patient over the phone. He is current with [facility]. He is agreeable to resume services once discharged. Will follow hospital course. [facility] referral placed in [facility].
[2023-08-11] MEDS: ROCEPHIN 1000 MG IV ×2 (16:38→16:39)
[2023-08-11] MEDS: STERILE WATER FOR INJECTION 10 ML IV (16:39)
[2023-08-11] MEDS: NSS IV (16:39)
--- NOTE | 2023-08-11 18:11 | CON.CAR ---
Consultation
Consultation Request
Date/Time Consultation Requested: 08/11/2023 at 5:10 PM
Date/Time Consultation Performed: 08/11/2023 at 6:11 PM
Requesting Provider: Kathya Magana
Performing Provider: Willian Baker
Reason for Consultation: Possible CHF in the setting of gram-negative bacteremia hypotension, ZAHRA,
Medical History
-
Chief Complaint: Shortness of breath
History of Present Illness:
63-year-old man with persistent atrial fibrillation and cardiomyopathy, daily EtOH, ongoing smoker admitted May 2023 and again in June 2023 with atrial fibrillation and rapid ventricular response with acute on chronic HFrEF related to
noncompliance. He required left thoracentesis in May and June 2023, for 1.5 and 1.65 L, Fluid compatible with transudate, Never sent for cytology. Now with weakness, fell off a step and was weak, brought into emergency department by sister who
feels that he may be confused. He lives with a brother. When asked, he says he feels very well and offers no complaints, denies weakness, lightheadedness, confusion, shortness of breath, chest discomfort etc.
Past Medical History
Past Medical History: Arrhythmias (Persistent atrial fibrillation), CHF (HFrEF, EF 35-40% by echo 2023, required thoracentesis on left May and June 2023), COPD (FEV1 1.46, 41%) and Other (Graves' disease, now hypothyroid after radioactive iodine,
saccular aneurysm of ascending aorta)
Social History
Tobacco: Smoker (Says '2 or 3))
Alcohol: Daily (Says '2 or 3))
Personal: Single
Living: With Family
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
Family History
Family History: Reviewed & Not Pertinent
Allergies / Home Medications
Allergy/AdvReac Type Severity Reaction Status Date / Time
No Known Allergies Allergy Verified 08/10/23 16:20
�Medication �Instructions �Recorded �Confirmed �Type
apixaban 5 mg tablet (Eliquis) 5 mg PO BID Blood Clot 05/25/23 08/10/23 History
Prevention/Tx
levothyroxine 200 mcg tablet 200 mcg PO DAILY Thyroid 05/25/23 08/10/23 History
nieqcporrbpa-vczjhaum-uqlpvh tablet 1 tab PO DAILY PRN supplement 06/21/23 08/10/23 History
albuterol sulfate 90 mcg/actuation 2 puff inhalation Q6H PRN 06/28/23 08/10/23 Rx
aerosol inhaler shortness of breath or wheezing
#6.7 grams
furosemide 80 mg tablet 80 mg PO DAILY #30 tabs 06/28/23 08/10/23 Rx
spironolactone 25 mg tablet 25 mg PO DAILY #30 tabs 06/28/23 08/10/23 Rx
fluticasone fur. 200 mcg-umeclid 1 inh inhalation R DAILY 08/10/23 08/10/23 History
62.5 mcg-vilant 25 mcg Lung/Breathing Issues
inhalat.powder (Trelegy Ellipta)
furosemide 80 mg tablet 40 mg PO QPM Fluid 08/10/23 08/10/23 History
Retention/Swelling
metoprolol succinate 25 mg 25 mg PO BID Heart 08/10/23 08/10/23 History
tablet,extended release 24 hr Disease/Condition
Review of Systems
-
All other systems: Negative unless noted (Says he feels good)
Physical Exam
Vital Signs
Temp Pulse Resp BP Pulse Ox
36.8 C 109 15 107/61 96
08/11/23 15:27 08/11/23 15:30 08/11/23 15:30 08/11/23 15:30 08/11/23 15:30
Lab Results
08/11/23 04:17
08/11/23 04:17
Troponin I Cancelled 08/11/23 15:13
Zcp-D-Cvlfvmgsoxk Pept 9180 pg/ml 08/10/23 16:33
Physical Exam
General: Other (Chronically ill-appearing, cachectic)
HEENT: Other (Some temporal wasting)
Respiratory: Other (Diminished, coarse breath sounds relatively clear however)
Cardiac: Regular Rhythm and Irregular Rhythm (No obvious murmur, JVD elevated rapid rate)
GI: Soft and Non Tender
Musculoskeletal: No Edema
Skin: Warm and Dry
Neuro: AO x 3
Psych: Calm
Impression / Plan
-
Primary Physician Industrial: initially seen by Dr. Chavez
Assessment:
Pneumonia
Gram-negative bacteremia, presumed urinary source
Severe COPD, on home oxygen
History of HFrEF, current volume status difficult to determine
Presentation with SOB
Recent admission 05/2023 for CHF, afib
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
L pleural effusion s/p IR drainage of 1.5 L on 05/25/23 and 1.65 L June 2023
Cardiomyopathy, EF 35-40% by echo 05/2023 with mild mitral regurgitation
Persistent atrial fibrillation
Chronic eliquis therapy
Ascending aortic saccular aneurysm, 2.6 x 2.1 cm
Graves' disease
H/O Hypothyroidism following radiation treatment for Graves' disease
Daily EtOH
Current smoker
Medication noncompliance
ECHO 10/29/2021: EF 50-55%, mild MR, mildly dilated LA, mild TR, pulmonary artery systolic pressure 51 mmHg based on elevated right atrial pressure of 20 mmHg, dilated RA, normal RV, and some views anteroseptal hypokinesis could be present, normal
aortic valve
ECHO 05/26/23: EF 35 to 40% with global hypokinesis, mild MR, PA pressure 43
Plan:
He presents with a complicated hemodynamic picture. He is in atrial fibrillation with a rapid ventricular response. Chest x-ray is consistent with volume overload but interstitial pneumonia or ARDS related to bacteremia possible, and in fact his
pleural effusion is improved compared to June. Current weight is up about 7 pounds compared to his weight at discharge June 27. Troponin is undetectable. After receiving IV fluid and oral furosemide, his blood pressure is better he has no
complaints, saturations are 97% on 8 L mid flow and his creatinine has improved to 1.7. He is not currently on norepinephrine
proBNP is pending and this may be of some help.
For now, I would be cautious in administering additional IV fluid and will also hold furosemide and spironolactone for now.
His rate is rapid. Will try to give him metoprolol ER 25 mg twice daily as he takes as an outpatient and will give 2 doses of digoxin for the short-term to assist in rate control. I am reluctant to use diltiazem given his history of HFrEF, though
continue beta-blockade will be problematic regarding COPD.
We will reassess creatinine in the morning, along with blood pressure and his ventricular response to atrial fibrillation.
We may check a follow-up echo study.
Ultimately we will likely need to restart his diuretic, resume spironolactone, consider SGLT2 antagonist, etc.
Antibiotics for gram-negative bacteremia per hospitalist.
Data Reviewed
-
EKG: Tracing Personally Visualized and interpreted (Atrial fibrillation with rapid ventricular response, diffuse nonspecific ST and T changes, right axis deviation)
Radiology: Image Personally Visualized and interpreted (Chest x-ray vascular congestion/CHF versus interstitial infiltrate)
Labs: Labs Reviewed by me (Blood cultures positive for gram-negative rods, white count is 12.7, hemoglobin is 13.5, platelets are 107, sodium 132, potassium is 3.8, BUN and creatinine are 47 and 1.7, creatinine had been 2.1, procalcitonin is 5.55,
free T4 is 1.5, proBNP is pending, troponin is negative, lactic acid level nl)
Old Records: Reviewed
Total Time Spent with Patient (in minutes): 60 minutes
[2023-08-11 19:16] LABS: Procalcitonin 5.55 ng/ml (0.0-0.25)
[2023-08-11] MEDS: TOPROL XL 25 MG PO (20:40)
[2023-08-11] MEDS: LANOXIN 250 MCG IV (21:00)
[2023-08-11 21:16] LABS: NT-proBNP 5110 pg/ml
[2023-08-11] MEDS: ZITHROMAX INFUSION 250 IV (21:40)
[2023-08-12] VITALS (37 sets, daily range): BP systolic 89–112; BP diastolic 52–81; BMI 23.2
[2023-08-12] MEDS: LANOXIN 250 MCG IV (02:42)
[2023-08-12] MEDS: SYNTHROID 200 MCG PO (05:28)
[2023-08-12 05:49] LABS: % Basophils 0.6 % (0-2); % Eosinophils 0.5 % (0-6); % Immature Granulocytes 0.8 % (0-0.5); % Lymphocytes 7.2 % (20.5-51.1); % Monocytes 9.6 % (1.7-9.3); % Neutrophils 81.3 % (42.2-75.2); Absolute Basophils 0.1 10^3/uL (0-0.2); Absolute Eosinophils 0.1 10^3/uL (0-0.7); Absolute Immature Granulocytes 0.1 10^3/uL (0-0.05); Absolute Lymphocytes 0.7 10^3/uL (1.2-3.4); Hematocrit 33.7 % (39.0-52.0); Hemoglobin 12.2 g/dL (13.0-18.0); Mean Corp Hgb Conc. 36.2 g/dL (33.0-37.0); Mean Corpuscular Hgb 31.4 pg (27.0-31.0); Mean Corpuscular Volume 86.9 fL (80.0-94.0); Nucleated Red Blood Cells % 0 % (-); Platelet Count 100 10^3/uL (130-400); Red Blood Cell Count 3.88 10^6/uL (4.70-6.10); Red Cell Dist. Width 18.4 % (11.5-14.5); White Blood Cell Count 9.9 10^3/uL (4.8-10.8)
[2023-08-12 06:01] LABS: ALT (SGPT) 20 U/L (0-50); AST (SGOT) 52 U/L (17-59); Alkaline Phosphatase 138 U/L (38-126); Blood Urea Nitrogen 38 mg/dl (9-20); Calcium 8.3 mg/dl (8.4-10.2); Carbon Dioxide 19 mmol/L (22-30); Chloride 99 mmol/L (98-107); Estimated Creatinine Clearance 71 ml/min; Glucose 87 mg/dl (70-99); Potassium 3.6 mmol/L (3.5-5.1); Sodium 129 mmol/L (135-145); Total Bilirubin 1.1 mg/dl (0.2-1.3); Total Protein 6.5 g/dl (6.3-8.2); eGFR > 60.00
[2023-08-12] MEDS: SPIRIVA RESPIMAT 2.5 MCG 2 PUFF INH (07:13)
[2023-08-12] MEDS: SYMBICORT 160/4.5 MCG INHALER 2 PUFF INH ×2 (07:13→21:23)
--- NOTE | 2023-08-12 07:40 | W.PN.HOSP.TC ---
Addendum entered and electronically signed by Teodoro Pitts MD 08/12/23 21:52:
I saw and evaluated the patient. I reviewed the resident�s note and agree with findings and plan as documented in the resident�s note. denies SOB CP or urinary sxs. 'I feel pretty good.' Full 12 point ROS reviewed and negative except as documented
Exam: Vitals reviewed in chart GEN-NAD heart irreg irreg lungs crackles at bases abd soft LE +1 pitting edema
# Acute Hypoxemic Respiratory Failure
- likely from CHF doubt PNA
- down to 6L midlflow
- cont lasix when able
- wean o2 for sats 88-92%
# Septic Shock secondary to UTI with ecoli bacteremia
- titrated off levophed
- + blood cx 6/2- ecoli x 2 sets- await sens- urinary source
- repeat blood cx-pend
- cont Rocephin and DC azithromycin
# Thrombocytopenia
- trending down
- Follow daily
- Continue eliquis for now
- avoid hep
# AE HFrEF-
- restarted lasix
- cards input appreciated
- daily weights and fluid restrict
- cont metoprolol spironolactone
- no CHILANGO due to ZAHRA
- may benefit from SGLT2 as OP
- repeat echo
# Acute on Chronic Hyponatremia-
- chronically low
- likely hypovolemic.
- trend now 129
- repeat BMP in am
# ZAHRA
- resolved
- prerenal vs ATN
- restarted lasix
- DC IV saline
- repeat BMP in am
# Leukocytosis
- from sepsis
- resolving on abx
# Severe COPD-
- cont tiotropium and Symbicort
- add prn xopenex if needed
- monitor for AE
# HTN-
- cont Metoprolol to control rates
- appreciate cards input
# Persistent A fib with RVR-
- cont metoprolol
- may need to add dig or amiodarone is remains hypotensive
- cont eliquis
# Tobacco Abuse-
counselled re quitting
- offer patch- refused
Full code
DVT- proph- eliquis
Time spent coordinating care, review of plan of care with resident, review of records, med rec, consults, notes, labs, rads, d/w nursing � 55 mins
Original Note:
Today's Communication/Plan
-
IV diuresis
Antibiotics
Assessment / Plan
Assessment / Plan
Assessment: 63-year-old man with history of A-fib on Eliquis, HFrEF, hypertension, COPD on Spiriva, who presented to the ED with sepsis.
Acute Problems
Sepsis
Hyponatremia
Thrombocytopenia
ZAHRA
Hypotension
Hyperbilirubinemia
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
COPD
Nicotine dependence
#Septic shock with gram negative bacteremia
Likely urinary vs pulmonary source
Leukocytosis resolved
Off Levophed
Blood cultures 08/09 positive for E. coli
Follow up blood Cx pending
Continue ceftriaxone and azithromycin
Pro-Calc 5.55
Trend CBC
Follow temperature curve
Acute hypoxemic respiratory failure
Likely 2/2 CHF
CXR 08/10/2023: SEVERE ACUTE INTERSTITIAL CARDIOGENIC PULMONARY EDEMA. Small right and minimal left pleural effusions. Mild cardiomegaly.
echo 05/26/2023: Global hypokinesis, mild to moderately reduced left ventricular systolic function, LVEF: 35-40%
Continuous high O2 requirement. Convert to IV lasix 40mg BID
#Acute heart failure exacerbation
weight gain of 0.9 in 2 days
convert to IV Lasix 40mg BID. Cr: 1.1
Hold oral diuretics
Continue Metoprolol Succinate
Monitor I&Os
daily weights
Fluid restriction
Monitor kidney function
May benefit from SGLT2 agonist
Gross hematuria
Now resolved
On Eliquis
Urinary tract infection, no CVA tenderness
Continue broad-spectrum antibiotics
Urine culture 08/09 grew Ecoli
#Epistaxis
On Eliquis
Resolved
#Hyponatremia
Acute on chronic
improving with fluids 129
Follow BMP
#Thrombocytopenia
-Follow CBC
#Acute kidney injury
Creatinine 2.1 on presentation, 1.1 today. baseline 0.7 in July
Improving
Continue diuresis with IV Lasix
Monitor kidney function
Hypotension:
-Resolved
-Weaned off Levophed
#Hyperbilirubinemia:
Unclear cause
Normal AST and ALT, mildly elevated alk phos
Repeat in a.m.
#COPD
Continue Spiriva, and Symbicort
Albuterol as needed
DVT prophylaxis: Eliquis
CODE STATUS: Full code
Anticipated Discharge: > 48 hours
Subjective/Interval History
-
Date of Service: August 12, 2023
Poor sleep overnight
Episode of epistaxis this morning
Objective Data
-
Labs:
Laboratory Results
08/12/23
05:33
WBC 9.9
Hgb 12.2 L
Hct 33.7 L
Plt Count 100 L
Sodium 129 L
Potassium 3.6
Chloride 99
Carbon Dioxide 19 L
BUN 38 H
Creatinine 1.1
Glucose 87
Calcium 8.3 L
Total Bilirubin 1.1
AST 52
ALT 20
Alkaline Phosphatase 138 H
Vital Signs:
Vital Signs
Temp Pulse Resp BP Pulse Ox
97.6 F 79 14 101/61 95
08/12/23 03:46 08/12/23 07:17 06/04/24 07:17 08/12/23 05:30 08/12/23 07:17
I&O
08/11/23 08/12/23 08/13/23
06:59 06:59 06:59
Intake Total 940 / 940 1440 / 1440
Output Total 500 / 500 2250 / 2250
Balance 440 / 440 -810 / -810
Review of Systems
-
History Source: Patient
Constitutional: Denies Fever
Respiratory: Reports No Symptoms
Cardiac: Denies Chest Pain, Palpitations or Syncope
Abdomen/GI: Reports No Symptoms; Denies Abdominal Pain, Nausea, Vomiting, Diarrhea or Constipated
Genitourinary: Reports No Symptoms; Denies Dysuria or Difficulty Voiding
Neuro: Denies Dizzy or Headache
Physical Exam
-
General: Appears Chronically Ill
HEENT: Normocephalic, Anicteric and Oxygen (8L O2 cannula); Negative Good Dentition
Respiratory: Rales (RLL)
Cardiac: Regular Rhythm, S1/S2 and Other (diminished heart sounds); Negative Murmur
GI: Soft, Nontender, Nondistended and Other (hyperactive bowel sounds)
Musculoskeletal: No Clubbing, No Cyanosis and No Edema
Skin: Warm and Dry; Negative Rash, Lesions or Jaundice
Neuro: Awake, Alert and Oriented
Psych: Calm
[2023-08-12] MEDS: ELIQUIS 5 MG PO ×2 (08:28→20:04)
[2023-08-12] MEDS: THERAGRAN 1 TABLET PO (08:28)
[2023-08-12] MEDS: KCL 40 MEQ PO (08:28)
[2023-08-12] MEDS: TOPROL XL 25 MG PO ×2 (08:29→20:03)
--- NOTE | 2023-08-12 10:40 | W.PN.CARDCBS ---
Today's Communication / Plan
-
Resume Lasix in the form of IV as he remains on 8 L and proBNP is still elevated at 5110
Recheck echocardiogram
Continue antibiotics
Impression / Plan
-
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
Assessment:
Pneumonia
Gram-negative bacteremia, presumed urinary source
Severe COPD, on home oxygen
History of HFrEF, current volume status difficult to determine
Presentation with SOB
Recent admission 05/2023 for CHF, afib
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
L pleural effusion s/p IR drainage of 1.5 L on 05/25/23 and 1.65 L June 2023
Cardiomyopathy, EF 35-40% by echo 05/2023 with mild mitral regurgitation
Persistent atrial fibrillation
Chronic eliquis therapy
Ascending aortic saccular aneurysm, 2.6 x 2.1 cm
Graves' disease
H/O Hypothyroidism following radiation treatment for Graves' disease
Daily EtOH
Current smoker
Medication noncompliance
ECHO 10/29/2021: EF 50-55%, mild MR, mildly dilated LA, mild TR, pulmonary artery systolic pressure 51 mmHg based on elevated right atrial pressure of 20 mmHg, dilated RA, normal RV, and some views anteroseptal hypokinesis could be present, normal
aortic valve
ECHO 05/26/23: EF 35 to 40% with global hypokinesis, mild MR, PA pressure 43
Plan:
He is a very difficult volume status
Chest x-ray and proBNP were consistent with CHF
However he has had hypotension and proBNP has improved from 9180 to 5110.
Blood pressure is improved
He is on oral Lasix but will resume IV Lasix as he remains on 8 L
There is also an infectious component with elevated procalcitonin and E. coli sepsis and will continue antibiotic
Will recheck echocardiogram
Heart rate control in A-fib is reasonable on Toprol XL 25 mg p.o. twice daily
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
Subjective
Date of Service: August 12, 2023
No complaints. Wants to go home
Objective
Labs:
08/12/23 05:33
08/12/23 05:33
Labs
Hgb 12.2 g/dL (13.0-18.0) L 08/12/23 05:33
Hct 33.7 % (39.0-52.0) L 08/12/23 05:33
Plt Count 100 10^3/uL (130-400) L 08/12/23 05:33
Sodium 129 mmol/L (135-145) L 08/12/23 05:33
Potassium 3.6 mmol/L (3.5-5.1) 08/12/23 05:33
BUN 38 mg/dl (9-20) H 08/12/23 05:33
Creatinine 1.1 mg/dL (0.7-1.3) 08/12/23 05:33
Glucose 87 mg/dl (70-99) 08/12/23 05:33
Troponins
08/10/23 08/11/23 08/11/23
21:28 04:17 09:24
Troponin I 0.023 < 0.012 D < 0.012
08/11/23
15:13
Troponin I Cancelled
Vital Signs and I&O:
Vital Signs
Temp Pulse Resp BP Pulse Ox
97.5 F 74 17 99/63 95
08/12/23 07:44 08/12/23 10:30 08/12/23 10:30 08/12/23 10:30 08/12/23 10:30
Vital Signs
Temp Pulse Resp BP Pulse Ox
97.5 F 74 17 99/63 95
08/12/23 07:44 08/12/23 10:30 08/12/23 10:30 08/12/23 10:30 08/12/23 10:30
Intake & Output
08/10/23 08/11/23 08/12/23 08/13/23
06:59 06:59 06:59 06:59
Intake Total 940 / 940 1440 / 1440
Output Total 500 / 500 2250 / 2250 300 / 300
Balance 440 / 440 -810 / -810 -300 / -300
Physical Exam
Physical Exam
General: Well developed, well nourished in NAD.
Neck: Supple, no JVD, HJR, carotids +2 B/L, no bruits bilaterally.
Heart: Non displaced PMI, irregular, no murmurs, No S3, S4, no rubs.
Lungs: Scattered rhonchi
Extremities: No clubbing, cyanosis or edema bilaterally.
Neuro: Grossly nonfocal, awake, alert and oriented x3.
[2023-08-12] MEDS: LASIX 40 MG IV ×2 (12:07→17:01)
--- NOTE | 2023-08-12 12:17 | CM ---
Spoke with patient bedside.
Patient is current with [facility].
Has oxygen at home for HS.
Plan: home with [facility] when stable, sister will transport. Has oxygen for HS.
[2023-08-12] MEDS: ZITHROMAX 500 MG PO (14:22)
[2023-08-12] MEDS: STERILE WATER FOR INJECTION IV (17:01)
[2023-08-12] MEDS: STERILE WATER FOR INJECTION 10 ML IV (18:59)
[2023-08-13] VITALS (27 sets, daily range): BP systolic 69–110; BP diastolic 43–87; BMI 22.9
--- NOTE | 2023-08-13 00:40 | PTCARENOTE ---
Caring for patient overnight. On6LMF now, denies SOB. Coarse lungs. OOB to BR w/ assistance. continues to be in controlled afib, HR now 70-80's, BP's running soft but always sbp>90 and map >65. Denies pain. Refused SCD's. Will continue to monitor.
[2023-08-13] MEDS: SYNTHROID 200 MCG PO (05:40)
[2023-08-13 05:53] LABS: Hematocrit 36.9 % (39.0-52.0); Hemoglobin 13.3 g/dL (13.0-18.0); Mean Corpuscular Hgb 31.3 pg (27.0-31.0); Mean Corpuscular Volume 86.8 fL (80.0-94.0); Mean Platelet Volume 11.6 fL (7.4-10.4); Platelet Count 119 10^3/uL (130-400); Red Blood Cell Count 4.25 10^6/uL (4.70-6.10); Red Cell Dist. Width 18.3 % (11.5-14.5); White Blood Cell Count 10.2 10^3/uL (4.8-10.8)
[2023-08-13 06:20] LABS: Blood Urea Nitrogen 34 mg/dl (9-20); Carbon Dioxide 22 mmol/L (22-30); Chloride 100 mmol/L (98-107); Estimated Creatinine Clearance 78 ml/min; Glucose 96 mg/dl (70-99); Potassium 3.9 mmol/L (3.5-5.1); Sodium 131 mmol/L (135-145); eGFR > 60.00
[2023-08-13] MEDS: ELIQUIS 5 MG PO ×2 (07:53→19:44)
[2023-08-13] MEDS: TOPROL XL 25 MG PO (07:53)
[2023-08-13] MEDS: THERAGRAN 1 TABLET PO (07:53)
[2023-08-13] MEDS: KCL 40 MEQ PO (07:53)
[2023-08-13] MEDS: LASIX 40 MG IV ×2 (07:54→17:03)
--- NOTE | 2023-08-13 08:36 | W.PN.HOSP.TC ---
Addendum entered and electronically signed by Teodoro Pitts MD 08/13/23 21:17:
I saw and evaluated the patient. I reviewed the resident�s note and agree with findings and plan as documented in the resident�s note. denies SOB CP or urinary sxs. 'I feel pretty good.' Full 12 point ROS reviewed and negative except as documented
Exam: Vitals reviewed in chart GEN-NAD heart irreg irreg lungs crackles at bases abd soft LE +1 pitting edema
# Acute on chronic Hypoxemic Respiratory Failure
- uses home o2 (patient unclear of amount)
- likely from CHF doubt PNA
- down to 5L midflow
- start IV lasix hold PO
- wean o2 for sats 88-92%
# Septic Shock secondary to UTI with ecoli bacteremia
- titrated off levophed
- + blood cx 6/2- ecoli x 2 sets- pansuseptable
- repeat blood cx x 2 sets 6/4
- cont Rocephin and DC azithromycin
# Thrombocytopenia
- improved
- Follow daily
- Continue eliquis for now
- avoid hep
# AE HFrEF-
- restarted IV lasix
- cards input appreciated
- daily weights and fluid restrict
- cont metoprolol spironolactone
- no CHILANGO due to ZAHRA for now
- may benefit from SGLT2 as OP
# Acute on Chronic Hyponatremia-
- chronically low
- hypervolemic
- improving
- trend now 131
- repeat BMP in am
# ZAHRA
- resolved
- prerenal vs ATN
- restarted IV lasix
- DC IV saline
- repeat BMP in am
# Leukocytosis
- from sepsis
- resolved on abx
# Severe COPD-
- on home 02
- cont tiotropium and Symbicort
- add prn xopenex if needed
- monitor for AE
# HTN-
- cont Metoprolol to control rates
- appreciate cards input
# Persistent A fib with RVR-
- cont metoprolol
- cont eliquis
# Tobacco Abuse-
- counselled re quitting
- offered patch- refused
Full code
DVT- proph- eliquis
Time spent coordinating care, review of plan of care with resident, review of records, med rec, consults, notes, labs, rads, d/w nursing � 58 mins
Original Note:
Today's Communication/Plan
-
IV diuretics
Continue abx
Monitor daily weights, I&Os, kidney function
Assessment / Plan
Assessment / Plan
Assessment: 63-year-old man with history of A-fib on Eliquis, HFrEF, hypertension, COPD on Spiriva, who presented to the ED with sepsis.
Acute Problems
Sepsis
Hyponatremia
Thrombocytopenia
ZAHRA
Hypotension
Hyperbilirubinemia
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
COPD
Nicotine dependence
#Septic shock
2/2 UTI with ecoli bacteremia
Leukocytosis resolved
Off Levophed
Blood cultures 08/09 positive for E. coli
Follow up blood Cx 08/11 negative
Continue ceftriaxone, discontinue azithromycin
Pro-Calc 5.55
Trend CBC
Follow temperature curve
#Urinary tract infection, no CVA tenderness
Urine culture 08/09 grew Ecoli
Continue ceftriaxone
Acute hypoxemic respiratory failure
Likely 2/2 CHF
CXR 08/10/2023: SEVERE ACUTE INTERSTITIAL CARDIOGENIC PULMONARY EDEMA. Small right and minimal left pleural effusions. Mild cardiomegaly.
echo 05/26/2023: Global hypokinesis, mild to moderately reduced left ventricular systolic function, LVEF: 35-40%
continue IV lasix 40mg BID
wean off O2 as tolerated
#Acute HFrEF exacerbation
Diuresing on IV Lasix 40mg BID. Cr: 1.0
Hold oral diuretics
Continue Metoprolol Succinate
Monitor I&Os
daily weights
Fluid restriction
Monitor kidney function
May benefit from SGLT2 agonist
#Gross hematuria
likely secondary to anticoagulation therapy, pt on Eliquis
Now resolved
#Epistaxis
Likely secondary to anticoagulation therapy
Resolved
#Hyponatremia
Acute on chronic
improving, 131
Follow BMP
#Thrombocytopenia
-Follow CBC
#Acute kidney injury
Creatinine 2.1 on presentation, 1.0 today. baseline 0.7 in July
Improving with diuresis. Likely secondary to HF exacerbation
Continue diuresis with IV Lasix
Monitor kidney function
#Hypotension:
-Weaned off Levophed
-Maintain MAP >60
#Hyperbilirubinemia:
Unclear cause
Normal AST and ALT, mildly elevated alk phos
#COPD
Continue Spiriva, and Symbicort
Albuterol as needed
DVT prophylaxis: Eliquis
CODE STATUS: Full code
Anticipated Discharge: 24 - 48 hours
Subjective/Interval History
-
Date of Service: August 13, 2023
Hypotension overnight, One instance of MAP 52
Objective Data
-
Labs:
Laboratory Results
08/13/23
05:41
WBC 10.2
Hgb 13.3
Hct 36.9 L
Plt Count 119 L
Sodium 131 L
Potassium 3.9
Chloride 100
Carbon Dioxide 22
BUN 34 H
Creatinine 1.0
Glucose 96
Calcium 9.0
Vital Signs:
Vital Signs
Temp Pulse Resp BP Pulse Ox
98.6 F 78 14 89/57 96
08/13/23 04:29 08/13/23 07:00 08/13/23 07:00 08/13/23 07:00 08/13/23 07:00
I&O
08/12/23 08/13/23 08/14/23
06:59 06:59 06:59
Intake Total 1440 / 1440 360 / 360
Output Total 2250 / 2250 1350 / 1350
Balance -810 / -810 -990 / -990
Review of Systems
-
History Source: Patient
Constitutional: Denies Fever
Respiratory: Denies Cough, Trouble Breathing or Wheezing
Cardiac: Denies Chest Pain, Palpitations or Syncope
Abdomen/GI: Denies Abdominal Pain, Nausea, Diarrhea, Constipated, Bloody Stools or Black Stools
Genitourinary: Denies Dysuria, Difficulty Voiding or Bleeding
Musculoskeletal: Denies Muscle Pain or Edema
Neuro: Denies Dizzy or Headache
Physical Exam
-
General: No Apparent Distress and Comfortable; Negative Respiratory Distress
HEENT: Normocephalic, Atraumatic, Moist Mucous Membranes, Anicteric and Oxygen (5L O2 midflow nasal cannula)
Respiratory: Crackles (minor, RLL) and Non Labored Respirations; Negative Accessory Resp Muscle Use
Cardiac: Regular Rhythm and S1/S2; Negative Murmur or Rub
GI: Soft, Nontender, Nondistended and Normal Bowel Sounds
Musculoskeletal: No Clubbing, No Cyanosis and No Edema
Skin: Warm, Dry and Rash
Neuro: Awake, Alert and Oriented
Psych: Calm
[2023-08-13] MEDS: SPIRIVA RESPIMAT 2.5 MCG 2 PUFF INH (08:49)
[2023-08-13] MEDS: SYMBICORT 160/4.5 MCG INHALER 2 PUFF INH ×2 (08:49→19:55)
--- NOTE | 2023-08-13 09:31 | W.PN.CARDCBS ---
Today's Communication / Plan
-
Suspect hypoxia is multifactorial
Continue IV Lasix in an attempt to improve his volume status
Impression / Plan
-
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
Assessment:
Presentation with AMS and weakness
Gram-negative bacteremia, presumed urinary source
Severe COPD, on home oxygen
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
Cardiomyopathy, EF 35-40% by echo 05/2023
Recent admission 05/2023 for CHF, afib
L pleural effusion s/p IR drainage of 1.5 L on 05/25/23 and 1.65 L June 2023
Persistent atrial fibrillation
Chronic eliquis therapy
Ascending aortic saccular aneurysm, 2.6 x 2.1 cm
Graves' disease
H/O Hypothyroidism following radiation treatment for Graves' disease
Daily EtOH
Current smoker
Medication noncompliance
ECHO 10/29/2021: EF 50-55%, mild MR, mildly dilated LA, mild TR, pulmonary artery systolic pressure 51 mmHg based on elevated right atrial pressure of 20 mmHg, dilated RA, normal RV, and some views anteroseptal hypokinesis could be present, normal
aortic valve
ECHO 05/26/23: EF 35 to 40% with global hypokinesis, mild MR, PA pressure 43
Plan:
Increased O2 requirement from home baseline, currently on 6L, suspect multifactorial related to both COPD and CHF
Chest x-ray read as pulmonary edema and proBNP was elevated in keeping with decompensated HF
Cont IV lasix in an attempt to improve his respiratory status
Monitor daily weights and renal function
Heart rate control in A-fib is reasonable on Toprol XL 25 mg p.o. twice daily
Cont Eliquis for cardioembolix ppx
There is likely an infectious component with elevated procalcitonin and E. coli bacteremia - abx per hospitalists
Progress Note - Gender Studies Professor
Subjective
Date of Service: August 13, 2023
NAOE. Resting comfortably OOB to chair. Remains in IMU on 6L NC. No chest discomfort or SOB at present.
Objective
Labs:
08/13/23 05:41
08/13/23 05:41
Labs
Hgb 13.3 g/dL (13.0-18.0) 08/13/23 05:41
Hct 36.9 % (39.0-52.0) L 08/13/23 05:41
Plt Count 119 10^3/uL (130-400) L 08/13/23 05:41
Sodium 131 mmol/L (135-145) L 08/13/23 05:41
Potassium 3.9 mmol/L (3.5-5.1) 08/13/23 05:41
BUN 34 mg/dl (9-20) H 08/13/23 05:41
Creatinine 1.0 mg/dL (0.7-1.3) 08/13/23 05:41
Glucose 96 mg/dl (70-99) 08/13/23 05:41
Troponins
08/10/23 08/11/23 08/11/23
21:28 04:17 09:24
Troponin I 0.023 < 0.012 D < 0.012
08/11/23
15:13
Troponin I Cancelled
Vital Signs and I&O:
Vital Signs
Temp Pulse Resp BP Pulse Ox
98.6 F 78 14 89/57 96
08/13/23 04:29 08/13/23 07:00 08/13/23 07:00 08/13/23 07:00 08/13/23 07:00
Vital Signs
Temp Pulse Resp BP Pulse Ox
98.6 F 78 14 89/57 96
08/13/23 04:29 08/13/23 07:00 08/13/23 07:00 08/13/23 07:00 08/13/23 07:00
Intake & Output
08/11/23 08/12/23 08/13/23 08/14/23
06:59 06:59 06:59 06:59
Intake Total 940 / 940 1440 / 1440 360 / 360
Output Total 500 / 500 2250 / 2250 1350 / 1350
Balance 440 / 440 -810 / -810 -990 / -990
Physical Exam
Physical Exam
Gen: NAD, AA, OOB to chair
HEENT: NC/AT, sclera anicteric
Neck: No JVD
CV: irregularly irregular, NL s1/s2
Lungs: CTAB on 6L NC
Abd: S/ND
Ext: No LE edema
Skin: Warm, dry
Neuro: Non-focal
--- NOTE | 2023-08-13 10:00 | PN.CDI ---
CDI
- -
CDI:
Physician Documentation Request
Admit Date: 08/10/23 20:20
Dear Doctor Izzy,
Patient admitted with CHF.
08/11 Hospitalist PN: 'Gross hematuria, Now resolved, On Eliquis...Epistaxis, On Eliquis, Resolved'
Please clarify the relationship between these conditions:
Yes, hematuria and epistaxis is related to/exacerbated by Eliquis
No, hematuria and epistaxis is not related to/exacerbated by Eliquis
Unable to determine
Use of terms such as suspected, likely, concern for, or probable (associated with a specific diagnosis that is being evaluated, monitored, or treated as if it exists) are acceptable and can be coded in the inpatient setting, when documented at the
time of discharge.
Thank you,
Gladys Karimi RN, BSN
CDI Specialist
Available via [facility] text
Please use your independent medical judgment in providing your response.
--- NOTE | 2023-08-13 10:16 | PTCARENOTE ---
Assumed care of patient at beginning of this shift from previous RN; cannot verify accuracy of vital signs prior to 0700. Initial BP at 0700 was 89/57, map 68; recycled for reading of 91/57, map 67. Patient assisted OOB to chair; BP 93/53, map 67.
Patient denies dizziness when getting OOB. Chair alarm initiated for patient safety.
[2023-08-13] MEDS: ROCEPHIN 1000 MG IV (17:03)
[2023-08-13] MEDS: STERILE WATER FOR INJECTION 10 ML IV (17:03)
[2023-08-13] MEDS: TOPROL XL PO (19:44)
[2023-08-14] VITALS (16 sets, daily range): BP systolic 85–111; BP diastolic 45–66; PULSE 74; O2SAT 94; BMI 23.5
[2023-08-14 04:44] LABS: Hematocrit 37.2 % (39.0-52.0); Hemoglobin 13.5 g/dL (13.0-18.0); Mean Corp Hgb Conc. 36.3 g/dL (33.0-37.0); Mean Corpuscular Hgb 31.5 pg (27.0-31.0); Mean Corpuscular Volume 86.9 fL (80.0-94.0); Mean Platelet Volume 11.9 fL (7.4-10.4); Platelet Count 157 10^3/uL (130-400); Red Blood Cell Count 4.28 10^6/uL (4.70-6.10); Red Cell Dist. Width 18.3 % (11.5-14.5); White Blood Cell Count 9.5 10^3/uL (4.8-10.8)
[2023-08-14 05:14] LABS: Blood Urea Nitrogen 34 mg/dl (9-20); Calcium 9.3 mg/dl (8.4-10.2); Carbon Dioxide 20 mmol/L (22-30); Chloride 99 mmol/L (98-107); Estimated Creatinine Clearance 78 ml/min; Glucose 85 mg/dl (70-99); Potassium 3.9 mmol/L (3.5-5.1); Sodium 133 mmol/L (135-145); eGFR > 60.00
[2023-08-14] MEDS: SYNTHROID 200 MCG PO (05:31)
--- NOTE | 2023-08-14 05:59 | PTCARENOTE ---
Patient with soft BPs overnight. Afebrile. Offered no complaints.
--- NOTE | 2023-08-14 07:52 | W.PN.HOSP.TC ---
Addendum entered and electronically signed by Teodoro Pitts MD 08/14/23 23:01:
I saw and evaluated the patient. I reviewed the resident�s note and agree with findings and plan as documented in the resident�s note. neal AMOR. poor historian Full 12 point ROS reviewed and negative except as documented Exam: Vitals
reviewed in chart GEN-NAD heart irreg irreg lungs crackles at bases abd soft LE trace pitting edema
# Acute on chronic Hypoxemic Respiratory Failure
- uses home o2 (patient unclear of amount)
- likely from CHF doubt PNA
- down to 1-2L NC
- transition to PO lasix
- wean o2 for sats 88-92%
# Septic Shock secondary to UTI with ecoli bacteremia
- titrated off levophed
- + blood cx 6/2- ecoli x 2 sets- pansuseptable
- repeat blood cx x 2 sets 6/4
- cont Rocephin day #5
# Thrombocytopenia
- much improved
- Follow daily
- Continue eliquis for now
# AE HFrEF-
- restarted PO lasix
- cards input appreciated
- daily weights and fluid restrict
- cont metoprolol spironolactone
- no CHILANGO due to ZAHRA for now
- may benefit from SGLT2 as OP
# Acute on Chronic Hyponatremia-
- chronically low
- hypervolemic
- improving
- trend now 133
- repeat BMP in am
# ZAHRA
- resolved
- prerenal vs ATN
- restarted IV lasix
- DC IV saline
- repeat BMP in am
# Leukocytosis
- from sepsis
- resolved on abx
# Severe COPD-
- on home 02 q hs
- cont tiotropium and Symbicort
- add prn xopenex if needed
- monitor for AE
# HTN-
- cont Metoprolol to control rates
- appreciate cards input
# Persistent A fib with RVR-
- cont metoprolol
- cont eliquis
# Tobacco Abuse-
- counselled re quitting
- offered patch- refused
Full code
DVT- proph- eliquis
Dispo DC home in am
Time spent coordinating care, review of plan of care with resident, review of records, med rec, consults, notes, labs, rads, d/w nursing CM� 55 mins
Original Note:
Today's Communication/Plan
-
IV lasix,
Continue abx
PT, encourage activity
Assessment / Plan
Assessment / Plan
Assessment: 63-year-old man with history of A-fib on Eliquis, HFrEF, hypertension, COPD on Spiriva, who presented to the ED with sepsis.
Acute Problems
Sepsis
Hyponatremia
Thrombocytopenia
ZAHRA
Hypotension
Hyperbilirubinemia
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
COPD
Nicotine dependence
#Septic shock
2/2 UTI with ecoli bacteremia
Leukocytosis resolved
Off Levophed
Blood cultures 08/09 positive for E. coli
Follow up blood Cx 08/11 negative
Continue ceftriaxone (day 5), Azithromycin discontinued
Pro-Calc 5.55
Trend CBC
Follow temperature curve
#Urinary tract infection, no CVA tenderness
Urine culture 08/09 grew Ecoli
Continue ceftriaxone
Acute on chronic hypoxemic respiratory failure
On home O2 HS (pt unsure of amount)
Likely 2/2 HFrEF exacerbation
CXR 08/10/2023: SEVERE ACUTE INTERSTITIAL CARDIOGENIC PULMONARY EDEMA. Small right and minimal left pleural effusions. Mild cardiomegaly.
echo 05/26/2023: Global hypokinesis, mild to moderately reduced left ventricular systolic function, LVEF: 35-40%
Lungs clear today. Continue IV lasix 40mg BID, transition to PO tomorrow
On 1L NC O2 this morning, wean off O2 as tolerated, goal O2 sat with history of COPD is 88%
#Acute HFrEF exacerbation
Diuresing on IV Lasix 40mg BID. Cr: 1.0
continue spironolactone
Continue Metoprolol Succinate
Monitor I&Os
daily weights. Pt is around normal weight
Fluid restriction
Monitor kidney function
May benefit from SGLT2 agonist
#Gross hematuria
likely secondary to anticoagulation therapy, pt on Eliquis
Now resolved
#Epistaxis
Likely secondary to anticoagulation therapy
Resolved
#Hyponatremia
Acute on chronic
improving, 133
Follow BMP
#Thrombocytopenia
-resolved
#Acute kidney injury
Creatinine 2.1 on presentation, 1.0 today. baseline 0.7 in July
Improving with diuresis. Likely secondary to HF exacerbation
Continue diuresis with IV Lasix
Monitor kidney function
#Hypotension:
-Weaned off Levophed
-Maintain MAP >60
#Hyperbilirubinemia:
Unclear cause
Normal AST and ALT, mildly elevated alk phos
#COPD
Continue Spiriva, and Symbicort
Albuterol as needed
DVT prophylaxis: Eliquis
CODE STATUS: Full code
Dispo: Can transfer to floor
Anticipated Discharge: 24 - 48 hours
Subjective/Interval History
-
Date of Service: August 14, 2023
PT notes that patient had SOB on hallway ambulation with PT this morning, resolved with rest and O2.
Pt endorses dizziness during PT eval. Feels generally weaker than his baseline, but otherwise feels well, with no complaints
Objective Data
-
Labs:
Laboratory Results
08/14/23
03:52
WBC 9.5
Hgb 13.5
Hct 37.2 L
Plt Count 157 D
Sodium 133 L
Potassium 3.9
Chloride 99
Carbon Dioxide 20 L
BUN 34 H
Creatinine 1.0
Glucose 85
Calcium 9.3
Vital Signs:
Vital Signs
Temp Pulse Resp BP Pulse Ox
97.7 F 73 16 104/50 95
08/14/23 03:09 08/14/23 06:00 08/14/23 06:00 08/14/23 06:00 08/14/23 06:00
I&O
08/13/23 08/14/23 08/15/23
06:59 06:59 06:59
Intake Total 360 / 360
Output Total 1350 / 1350 1250 / 1250
Balance -990 / -990 -1250 / -1250
Review of Systems
-
History Source: Patient
Constitutional: Reports Fatigue
Respiratory: Denies Cough, Trouble Breathing or Wheezing
Cardiac: Reports Other (dizziness with ); Denies Chest Pain, Diaphoresis or Palpitations
Abdomen/GI: Denies Abdominal Pain, Diarrhea, Constipated or Bloody Stools
Genitourinary: Denies Dysuria, Difficulty Voiding or Bleeding
Neuro: Denies Dizzy or Headache
Physical Exam
-
General: No Apparent Distress and Comfortable
Respiratory: Clear to Auscultation
Cardiac: S1/S2 and Irregular Rhythm; Negative Murmur or Calf Tenderness
GI: Soft, Nontender and Nondistended
Musculoskeletal: No Clubbing, No Cyanosis and No Edema
Skin: Warm and Dry
Neuro: Awake, Alert and Oriented
Psych: Calm
[2023-08-14] MEDS: KCL 40 MEQ PO (08:21)
[2023-08-14] MEDS: THERAGRAN 1 TABLET PO (08:21)
[2023-08-14] MEDS: ELIQUIS 5 MG PO ×2 (08:22→20:19)
[2023-08-14] MEDS: LASIX 40 MG IV ×2 (08:29→17:07)
[2023-08-14] MEDS: TOPROL XL PO (08:35)
[2023-08-14] MEDS: SPIRIVA RESPIMAT 2.5 MCG 2 PUFF INH (09:33)
[2023-08-14] MEDS: SYMBICORT 160/4.5 MCG INHALER 2 PUFF INH ×2 (09:33→19:30)
[2023-08-14] MEDS: TOPROL XL 25 MG PO ×2 (11:13→20:19)
--- NOTE | 2023-08-14 11:54 | W.PN.CARDCBS ---
Today's Communication / Plan
-
Continue IV Lasix today, plan to transition to p.o. tomorrow
We will sign off, please recall as needed
Impression / Plan
-
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 Chavez
Assessment:
Presentation with AMS and weakness
Gram-negative bacteremia, presumed urinary source
Severe COPD, on home oxygen
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
Cardiomyopathy, EF 35-40% by echo 05/2023
Recent admission 05/2023 for CHF, afib
L pleural effusion s/p IR drainage of 1.5 L on 05/25/23 and 1.65 L June 2023
Persistent atrial fibrillation
Chronic eliquis therapy
Ascending aortic saccular aneurysm, 2.6 x 2.1 cm
Graves' disease
H/O Hypothyroidism following radiation treatment for Graves' disease
Daily EtOH
Current smoker
Medication noncompliance
ECHO 10/29/2021: EF 50-55%, mild MR, mildly dilated LA, mild TR, pulmonary artery systolic pressure 51 mmHg based on elevated right atrial pressure of 20 mmHg, dilated RA, normal RV, and some views anteroseptal hypokinesis could be present, normal
aortic valve
ECHO 05/26/23: EF 35 to 40% with global hypokinesis, mild MR, PA pressure 43
Plan:
O2 being weaned down, now 3L NC from 8L previously - suspect multifactorial related to both COPD and CHF
No overtly volume overloaded on exam
Renal function is stable
Cont IV lasix today - plan to switch to PO lasix 80mg BID tomorrow
BP is marginal, would not resume spironolactone
Heart rate control in A-fib is reasonable on Toprol XL 25 mg p.o. twice daily
Cont Eliquis for cardioembolix ppx
We will sign off, please recall as needed
Cardiac discharge meds:
Lasix 80 mg twice daily
Toprol-XL 25 mg twice daily
Eliquis 5 mg twice daily
Progress Note - Foam Caster
Subjective
Date of Service: August 14, 2023
No acute overnight events. Resting comfortably out of bed to chair. Tells me his breathing is comfortable, wean down to 3 L nasal cannula.
Objective
Labs:
08/14/23 03:52
08/14/23 03:52
Labs
Hgb 13.5 g/dL (13.0-18.0) 08/14/23 03:52
Hct 37.2 % (39.0-52.0) L 08/14/23 03:52
Plt Count 157 10^3/uL (130-400) D 08/14/23 03:52
Sodium 133 mmol/L (135-145) L 08/14/23 03:52
Potassium 3.9 mmol/L (3.5-5.1) 08/14/23 03:52
BUN 34 mg/dl (9-20) H 08/14/23 03:52
Creatinine 1.0 mg/dL (0.7-1.3) 08/14/23 03:52
Glucose 85 mg/dl (70-99) 08/14/23 03:52
Troponins
08/11/23
15:13
Troponin I Cancelled
Vital Signs and I&O:
Vital Signs
Temp Pulse Resp BP Pulse Ox
97.8 F 82 16 109/61 95
08/14/23 11:23 08/14/23 11:13 08/14/23 06:00 08/14/23 11:13 08/14/23 06:00
Vital Signs
Temp Pulse Resp BP Pulse Ox
97.8 F 82 16 109/61 95
08/14/23 11:23 08/14/23 11:13 08/14/23 06:00 08/14/23 11:13 08/14/23 06:00
Intake & Output
08/12/23 08/13/23 08/14/23 08/15/23
06:59 06:59 06:59 06:59
Intake Total 1440 / 1440 360 / 360
Output Total 2250 / 2250 1350 / 1350 1250 / 1250 350 / 350
Balance -810 / -810 -990 / -990 -1250 / -1250 -350 / -350
Physical Exam
Physical Exam
Gen: NAD, AAOx3
HEENT: NC/AT, sclera anicteric
Neck: No JVD
CV: Irregularly irregular, NL s1/s2, no M/R/G
Lungs: CTAB on 3 L nasal cannula
Abd: S/ND
Ext: No LE edema
Skin: Warm, dry
Neuro: Non-focal
[2023-08-14] MEDS: STERILE WATER FOR INJECTION 10 ML IV (17:04)
[2023-08-14] MEDS: ROCEPHIN 1000 MG IV (17:05)
[2023-08-15] MEDS: SYNTHROID 200 MCG PO (05:53)
[2023-08-15 06:00] VITALS: BMI 22.2
[2023-08-15 07:06] LABS: Hematocrit 37.7 % (39.0-52.0); Hemoglobin 13.5 g/dL (13.0-18.0); Mean Corp Hgb Conc. 35.8 g/dL (33.0-37.0); Mean Corpuscular Hgb 31.5 pg (27.0-31.0); Mean Corpuscular Volume 87.9 fL (80.0-94.0); Mean Platelet Volume 12.2 fL (7.4-10.4); Platelet Count 208 10^3/uL (130-400); Red Blood Cell Count 4.29 10^6/uL (4.70-6.10); Red Cell Dist. Width 18.5 % (11.5-14.5); White Blood Cell Count 9.4 10^3/uL (4.8-10.8)
[2023-08-15] MEDS: KCL 40 MEQ PO (07:19)
[2023-08-15] MEDS: LASIX 80 MG PO (07:19)
[2023-08-15] MEDS: ELIQUIS 5 MG PO (07:20)
[2023-08-15] MEDS: TOPROL XL 25 MG PO (07:20)
[2023-08-15] MEDS: THERAGRAN 1 TABLET PO (07:20)
[2023-08-15 07:30] LABS: Blood Urea Nitrogen 40 mg/dl (9-20); Calcium 9.1 mg/dl (8.4-10.2); Carbon Dioxide 24 mmol/L (22-30); Chloride 98 mmol/L (98-107); Estimated Creatinine Clearance 68 ml/min; Glucose 81 mg/dl (70-99); Potassium 4.2 mmol/L (3.5-5.1); Sodium 133 mmol/L (135-145); eGFR > 60.00
[2023-08-15 07:31] VITALS: BP 101/53
[2023-08-15] MEDS: SPIRIVA RESPIMAT 2.5 MCG 2 PUFF INH (07:32)
[2023-08-15] MEDS: SYMBICORT 160/4.5 MCG INHALER 2 PUFF INH (07:32)
--- NOTE | 2023-08-15 10:35 | W.PN.HOSP.TC ---
Addendum entered and electronically signed by Teodoro Pitts MD 08/15/23 14:25:
I saw and evaluated the patient. I reviewed the resident�s note and agree with findings and plan as documented in the resident�s note. denies SOB CP. AMOR. poor historian wants to go home. Full 12 point ROS reviewed and negative except as
documented Exam: Vitals reviewed in chart GEN-NAD heart irreg irreg lungs crackles at bases abd soft LE trace pitting edema
# Acute on chronic Hypoxemic Respiratory Failure
- uses home o2 (patient unclear of amount)
- likely from CHF doubt PNA
- titrated to RA
- cont PO lasix
- DC home
# Septic Shock secondary to UTI with ecoli bacteremia
- titrated off levophed
- + blood cx 6/2- ecoli x 2 sets- pansuseptable
- repeat blood cx x 2 sets /
- cont Rocephin day #6
transition to 14 days of PO abx on DC
# Thrombocytopenia
- much improved
- Follow daily
- Continue eliquis for now
- resolved
# AE HFrEF-
- restarted PO lasix
- cards input appreciated
- daily weights and fluid restrict
- cont metoprolol spironolactone
- may benefit from SGLT2 as OP
# Acute on Chronic Hyponatremia-
- chronically low
- hypervolemic
- improving
- trend now 133
- repeat BMP in am
# ZAHRA
- resolved
# Leukocytosis
- from sepsis
- resolved on abx
# Severe COPD-
- on home 02 q hs
- cont tiotropium and Symbicort
- monitor for AE
# HTN-
- cont Metoprolol to control rates
- appreciate cards input
# Persistent A fib with RVR-
- cont metoprolol
- cont eliquis
# Tobacco Abuse-
- counselled re quitting
- offered patch- refused
Full code
DVT- proph- eliquis
Dispo DC home with HC/brother al
Time spent coordinating care, review of plan of care with resident, review of records, med rec, consults, notes, labs, rads, d/w nursing CM and sister� 35 mins
Original Note:
Today's Communication/Plan
-
Discharge to home with visiting nurse
Assessment / Plan
Assessment / Plan
Assessment: 63-year-old man with history of A-fib on Eliquis, HFrEF, hypertension, COPD on Spiriva, who presented to the ED with sepsis.
Acute Problems
Sepsis
Hyponatremia
Thrombocytopenia
ZAHRA
Hypotension
Hyperbilirubinemia
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
COPD
Nicotine dependence
#Septic shock
2/2 UTI with ecoli bacteremia
Leukocytosis resolved
Off Levophed
Blood cultures 08/09 positive for E. coli
Follow up blood Cx 08/11 negative
Continue ceftriaxone (day 6), Azithromycin discontinued
Pro-Calc 5.55
Trend CBC
Follow temperature curve
Acute on chronic hypoxemic respiratory failure
On home O2 HS (pt unsure of amount)
Likely 2/2 HFrEF exacerbation
CXR 08/10/2023: SEVERE ACUTE INTERSTITIAL CARDIOGENIC PULMONARY EDEMA. Small right and minimal left pleural effusions. Mild cardiomegaly.
echo 05/26/2023: Global hypokinesis, mild to moderately reduced left ventricular systolic function, LVEF: 35-40%
Begin PO Lasix 80mg BID today
93% on room air
#Acute HFrEF exacerbation
Convert to PO Lasix
Hold spironolactone
Continue Metoprolol Succinate
Monitor I&Os
daily weights. Pt is around normal weight
Fluid restriction
Monitor kidney function
May benefit from SGLT2 agonist
#Gross hematuria
likely secondary to anticoagulation therapy, pt on Eliquis
Now resolved
#Epistaxis
Likely secondary to anticoagulation therapy
Resolved
#Hyponatremia
Acute on chronic
back to baseline, 133
#Thrombocytopenia
-resolved
#Acute kidney injury
Creatinine 2.1 on presentation, 1.1 today. baseline 0.7 in July
Improving with diuresis. Likely secondary to HF exacerbation
PO Lasix today
#Hypotension:
-Weaned off Levophed
-Maintain MAP >60
#Hyperbilirubinemia:
Unclear cause
Normal AST and ALT, mildly elevated alk phos
#COPD
Continue Spiriva, and Symbicort
Albuterol as needed
DVT prophylaxis: Eliquis
CODE STATUS: Full code
Dispo: Can transfer to floor
Anticipated Discharge: Today
Subjective/Interval History
-
Date of Service: August 15, 2023
Spoke to sister last night. She expressed concerns about his mental and functional status. Marked change in mental status within past 6 months. His bedroom is on the 2nd floor of an apartment he shares with his brother, with a first floor bathroom.
She is concerned about his ability to navigate easily. she suggests he would need rehab on discharge.
Objective Data
-
Labs:
Laboratory Results
08/15/23
05:09
WBC 9.4
Hgb 13.5
Hct 37.7 L
Plt Count 208 D
Sodium 133 L
Potassium 4.2
Chloride 98
Carbon Dioxide 24
BUN 40 H
Creatinine 1.1
Glucose 81
Calcium 9.1
Vital Signs:
Vital Signs
Temp Pulse Resp BP Pulse Ox
97.7 F 76 18 101/53 93
08/15/23 07:31 08/15/23 07:34 08/15/23 07:34 08/15/23 07:31 08/15/23 07:34
I&O
08/14/23 08/15/23 08/16/23
06:59 06:59 06:59
Intake Total 960 / 960
Output Total 1250 / 1250 350 / 350
Balance -1250 / -1250 610 / 610
Review of Systems
-
History Source: Patient
Constitutional: Reports No Symptoms
EENT: Reports Other (no epistaxis)
Respiratory: Reports No Symptoms
Cardiac: Reports No Symptoms; Denies Chest Pain, Palpitations or Syncope
Abdomen/GI: Reports No Symptoms and Nausea; Denies Bloody Stools or Black Stools
Genitourinary: Reports No Symptoms; Denies Dysuria, Difficulty Voiding or Bleeding
Musculoskeletal: Reports No Symptoms; Denies Joint Pain or Joint Swelling
Neuro: Reports No Symptoms; Denies Dizzy or Headache
Physical Exam
-
General: No Apparent Distress and Comfortable; Negative Respiratory Distress
HEENT: Normocephalic, Atraumatic and Anicteric
Respiratory: Clear to Auscultation and Non Labored Respirations; Negative Wheezes, Rales, Rhonchi, Crackles or Accessory Resp Muscle Use
Cardiac: Regular Rhythm and S1/S2; Negative Murmur or JVD
GI: Soft, Nontender, Nondistended and Normal Bowel Sounds
Musculoskeletal: No Clubbing, No Cyanosis and No Edema
Skin: Warm and Dry
Neuro: Awake, Alert and Oriented
Psych: Calm
--- NOTE | 2023-08-15 11:13 | PN.CDI ---
CDI
- -
CDI:
Physician Documentation Request
Admit Date: 08/10/23 20:20
Dear Doctor Izzy,
Patient admitted for sepsis.
08/12 Cardiology PN: 'Acute on chronic mixed systolic/diastolic heart failure, Cardiomyopathy, EF 35-40% by echo 05/2023'
08/13 Hospitalist PN: 'AE HFrEF- - restarted PO lasix'
Please provide further specificity regarding the most likely type and acuity of CHF you are evaluating, treating or monitoring.
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
Acute on chronic HFrEF
Other
Use of terms such as suspected, likely, concern for, or probable (associated with a specific diagnosis that is being evaluated, monitored, or treated as if it exists) are acceptable and can be coded in the inpatient setting, when documented at the
time of discharge.
Thank you,
Gladys Karimi RN, BSN
CDI Specialist
Available via [place] text
Please use your independent medical judgment in providing your response.
--- NOTE | 2023-08-15 13:34 | CM ---
MD entered order for discharge.
As per care port accepted with VN.
Has oxygen at home for HS.
Sister to transport home today.
Plan: Home with [facility] . Has home oxygen for HS.
--- NOTE | 2023-08-15 13:40 | W.DCSUMMARY ---
Addendum entered and electronically signed by Teodoro Pitts MD 08/15/23 22:29:
Attending Addendum:
Read reviewed and agree. See same day progress note for additional details.
Barry Pitts MD
Original Note:
Documented by User: Kathya Magana MD, Resident 08/15/23 17:11
Discharge Summary
Discharge Data
Date of Admission: 08/10/23
Date of Discharge: 08/15/23
-
Pending Results: No
Hospital Course
Primary discharge diagnosis:
Sepsis
Hyponatremia
Thrombocytopenia
ZAHRA
Hypotension
Hyperbilirubinemia
Conditions prior to arrival:
COPD
Nicotine dependence
Hospital Course:
63-year-old male with history of A-fib on Eliquis, severe COPD on nightly home O2, hypertension, nicotine dependence, hypothyroidism, who came in with change in mental status and weakness. On arrival he was tachycardic hypotensive and febrile.
Pressors were given and titrated off on day 2. Ceftriaxone and vancomycin started upon arrival to ED. Blood cultures 08/09 grew pansusceptible ecoli and vancomycin was discontinued. Repeat blood cultures on 08/11 showed no growth. Initial high
oxygen demand up to 8 L mid flow nasal cannula, eventually weaned off oxygen. IV diuresis was given throughout stay with significant improvement in symptoms, and converted to p.o. Lasix upon discharge. Ceftriaxone transitioned to p.o. cefdinir upon
discharge.
Discharge Plan
-
Patient Disposition: Home (Routine Discharge)
Discharge Diagnosis/Procedures: Sepsis secondary to UTI with ecoli bacteremia, heart failure exacerbation
Condition: Fair
Diet: Low Sodium
Activity: As tolerated
Driving Restrictions: As prior to admission
Bathing Restrictions: None
Other Services: VN
Referrals:
Liborio Chino MD [Family Provider] -
Additional Discharge Medication Instructions: Please follow up with PCP within 2 weeks from discharge
Prescriptions:
New
furosemide 80 mg Tablet
80 mg PO BID@0800,1600 Qty: 60 0RF
cefdinir 300 mg capsule
600 mg PO DAILY 8 Days Qty: 16 0RF
Rx Instructions:
LAST DOSE ON 08/23/2023
cefdinir 300 mg capsule
600 mg PO DAILY 8 Days Qty: 16 0RF
Rx Instructions:
Last dose on 08/23/2023
furosemide 80 mg tablet
80 mg PO BID 30 Days Qty: 60 0RF
Continued
levothyroxine 200 mcg Tablet
200 mcg PO DAILY
Eliquis 5 mg Tablet
5 mg PO BID
Patient Comments:
06/21/2023, used [facility] records from 12/13/2021; pt. states to get this med. through a program that mails this med. to his home at no cost.
[id number] Tablet
1 tab PO DAILY PRN (Reason: supplement)
albuterol sulfate 90 mcg/actuation HFA aerosol inhaler
2 puff inhalation Q6H PRN (Reason: shortness of breath or wheezing) Qty: 6.7 0RF
Trelegy Ellipta 200-62.5-25 mcg Blister With Device
1 inh INHALATION R DAILY
metoprolol succinate 25 mg tablet extended release 24 hr
25 mg PO BID
Discontinued
spironolactone 25 mg Tablet
25 mg PO DAILY Qty: 30 0RF
furosemide 80 mg Tablet
80 mg PO DAILY Qty: 30 0RF
furosemide 80 mg tablet
40 mg PO QPM
Discharge Orders:
Discharge Patient (As Directed); Ordered 08/15/23
Ordered By: Kathya Magana
Discharge Date and Time
Discharge Date/Time: 08/15/23 15:46
Print Language: BELIZEAN

Documented by User: Teodoro Pitts MD 08/15/23 22:29
Discharge Summary
Discharge Data
Date of Admission: 08/10/23
Date of Discharge: 08/15/23
Discharge Plan
-
Patient Disposition: Home (Routine Discharge)
Discharge Diagnosis/Procedures: Sepsis secondary to UTI with ecoli bacteremia, heart failure exacerbation
Condition: Fair
Diet: Low Sodium
Activity: As tolerated
Driving Restrictions: As prior to admission
Bathing Restrictions: None
Other Services: VN
Referrals:
Liborio Chino MD [Family Provider] -
Additional Discharge Medication Instructions: Please follow up with PCP within 2 weeks from discharge
Prescriptions:
New
furosemide 80 mg Tablet
80 mg PO BID@0800,1600 Qty: 60 0RF
cefdinir 300 mg capsule
600 mg PO DAILY 8 Days Qty: 16 0RF
Rx Instructions:
LAST DOSE ON 08/23/2023
cefdinir 300 mg capsule
600 mg PO DAILY 8 Days Qty: 16 0RF
Rx Instructions:
Last dose on 08/23/2023
furosemide 80 mg tablet
80 mg PO BID 30 Days Qty: 60 0RF
Continued
levothyroxine 200 mcg Tablet
200 mcg PO DAILY
Eliquis 5 mg Tablet
5 mg PO BID
Patient Comments:
06/21/2023, used [facility] records from 12/13/2021; pt. states to get this med. through a program that mails this med. to his home at no cost.
[id number] Tablet
1 tab PO DAILY PRN (Reason: supplement)
albuterol sulfate 90 mcg/actuation HFA aerosol inhaler
2 puff inhalation Q6H PRN (Reason: shortness of breath or wheezing) Qty: 6.7 0RF
Trelegy Ellipta 200-62.5-25 mcg Blister With Device
1 inh INHALATION R DAILY
metoprolol succinate 25 mg tablet extended release 24 hr
25 mg PO BID
Discontinued
spironolactone 25 mg Tablet
25 mg PO DAILY Qty: 30 0RF
furosemide 80 mg Tablet
80 mg PO DAILY Qty: 30 0RF
furosemide 80 mg tablet
40 mg PO QPM
Discharge Orders:
Discharge Patient (As Directed); Ordered 08/15/23
Ordered By: Kathya Magana
Discharge Date and Time
Discharge Date/Time: 08/15/23 15:46
Print Language: BELIZEAN
[2023-08-15 15:45] VITALS: BP 105/67
== END 2023-08-15 15:46 | disposition home health service (06) | DRG 871 ==
LOC: 3 WEST ACU 20:20
PROVIDERS: Student in an Organized Health Care Education/Training Program; ADMITTING PHYSICIAN Internal Medicine; ATTENDING PHYSICIAN Family Medicine; CONSULT PHYSICIAN Internal Medicine Cardiovascular Disease; EMERGENCY PHYSICIAN Emergency Medicine; FAMILY PHYSICIAN Internal Medicine
DX: A41.51 Sepsis due to Escherichia coli [E. coli] (principal); I50.23 Acute on chronic systolic (congestive) heart failure; R65.21 Severe sepsis with septic shock; J96.21 Acute and chronic respiratory failure with hypoxia; E87.1 Hypo-osmolality and hyponatremia; N17.9 Acute kidney failure, unspecified; I48.19 Other persistent atrial fibrillation; N39.0 Urinary tract infection, site not specified; I42.9 Cardiomyopathy, unspecified; J91.8 Pleural effusion in other conditions classified elsewhere; R64 Cachexia; D68.32 Hemorrhagic disorder due to extrinsic circulating anticoagulants; D69.6 Thrombocytopenia, unspecified; I11.0 Hypertensive heart disease with heart failure; I71.21 Aneurysm of the ascending aorta, without rupture; J44.9 Chronic obstructive pulmonary disease, unspecified; E89.0 Postprocedural hypothyroidism; Z99.81 Dependence on supplemental oxygen; Z68.22 Body mass index [BMI] 22.0-22.9, adult; R04.0 Epistaxis; F17.210 Nicotine dependence, cigarettes, uncomplicated; I45.10 Unspecified right bundle-branch block; E80.7 Disorder of bilirubin metabolism, unspecified; Z91.148 Patient's other noncompliance with medication regimen for other reason; W19.XXXA Unspecified fall, initial encounter; Z79.01 Long term (current) use of anticoagulants; Z79.890 Hormone replacement therapy; Z79.899 Other long term (current) drug therapy
CPT/HCPCS: 71045; 80048; 80053; 81003; 81015; 82077; 83605; 83880; 84145; 84439; 84443; 84484; 85025; 85027; 87040; 87086; 87088; 87149; 87186; 87205; 87502; 87811; 93005; 94640; 96365; 96366; 96375; 97162; 99291; 99406; J1160

== ENCOUNTER → 2023-09-05 09:29 | Outpatient (REF) | payer OTHER, SELFPAY ==
[2023-09-05 12:36] LABS: Blood Urea Nitrogen 75 mg/dl (9-20); Calcium 9.6 mg/dl (8.4-10.2); Carbon Dioxide 23 mmol/L (22-30); Chloride 97 mmol/L (98-107); Glucose 105 mg/dl (70-99); Potassium 5.2 mmol/L (3.5-5.1); Sodium 134 mmol/L (135-145); eGFR 31.13
== END ==
LOC: HWLAB 09:29
PROVIDERS: ATTENDING PHYSICIAN Internal Medicine Cardiovascular Disease; FAMILY PHYSICIAN Internal Medicine
DX: I50.31 Acute diastolic (congestive) heart failure (principal)
CPT/HCPCS: 36415; 80048

== ENCOUNTER → 2023-09-25 09:20 | Outpatient (REF) | payer OTHER, SELFPAY ==
[2023-09-25 11:55] LABS: Blood Urea Nitrogen 19 mg/dl (9-20); Calcium 9.7 mg/dl (8.4-10.2); Carbon Dioxide 25 mmol/L (22-30); Chloride 99 mmol/L (98-107); Glucose 99 mg/dl (70-99); Potassium 3.4 mmol/L (3.5-5.1); Sodium 139 mmol/L (135-145); eGFR > 60.00
== END ==
LOC: HWLAB 09:20
PROVIDERS: ATTENDING PHYSICIAN Internal Medicine Cardiovascular Disease; FAMILY PHYSICIAN Internal Medicine
DX: I48.19 Other persistent atrial fibrillation (principal)
CPT/HCPCS: 36415; 80048

== ENCOUNTER 2023-11-07 11:49 | Emergency (ER) | payer OTHER, SELFPAY ==
[2023-11-07 11:54] VITALS: BP 132/93
[2023-11-07 11:56] VITALS: BP 132/93
[2023-11-07 12:12] LABS: % Basophils 1.4 % (0-2); % Eosinophils 1.2 % (0-6); % Immature Granulocytes 0.2 % (0-0.5); % Lymphocytes 17.6 % (20.5-51.1); % Monocytes 15.3 % (1.7-9.3); % Neutrophils 64.3 % (42.2-75.2); Absolute Basophils 0.1 10^3/uL (0-0.2); Absolute Eosinophils 0.1 10^3/uL (0-0.7); Absolute Monocytes 0.9 10^3/uL (0.1-0.6); Absolute Neutrophils 3.6 10^3/uL (1.4-6.5); Hematocrit 39.3 % (39.0-52.0); Hemoglobin 13.9 g/dL (13.0-18.0); Mean Corp Hgb Conc. 35.4 g/dL (33.0-37.0); Mean Corpuscular Hgb 33.7 pg (27.0-31.0); Mean Corpuscular Volume 95.4 fL (80.0-94.0); Mean Platelet Volume 10.8 fL (7.4-10.4); Nucleated Red Blood Cells % 0 % (-); Platelet Count 153 10^3/uL (130-400); Red Blood Cell Count 4.12 10^6/uL (4.70-6.10); Red Cell Dist. Width 15.4 % (11.5-14.5); White Blood Cell Count 5.6 10^3/uL (4.8-10.8)
[2023-11-07 12:23] LABS: INR 1.25; PT 15.5 Sec (11.4-14.6)
[2023-11-07 12:30] LABS: ALT (SGPT) 17 U/L (0-50); AST (SGOT) 65 U/L (17-59); Albumin 4.2 g/dl (3.5-5.0); Alkaline Phosphatase 230 U/L (38-126); Blood Urea Nitrogen 19 mg/dl (9-20); Calcium 9.2 mg/dl (8.4-10.2); Carbon Dioxide 26 mmol/L (22-30); Chloride 95 mmol/L (98-107); Estimated Creatinine Clearance 67 ml/min; Glucose 124 mg/dl (70-99); Potassium 3.7 mmol/L (3.5-5.1); Sodium 135 mmol/L (135-145); Total Bilirubin 1.6 mg/dl (0.2-1.3); Total Protein 8.8 g/dl (6.3-8.2); eGFR > 60.00
[2023-11-07 13:00] VITALS: BP 135/73
[2023-11-07 13:19] VITALS: BP 121/78
[2023-11-07 14:00] VITALS: BP 124/71
--- NOTE | 2023-11-07 14:10 | ED.GENMED ---
History of Present Illness
<Nando Torre DO - Last Filed: 11/07/23 14:10>
General
Chief Complaint: Breathing Problem
Time Seen by Provider: 11/07/23 12:17
<Rigoberto Madden Jr., PA-C - Last Filed: 11/07/23 15:20>
General
Source: patient
Exam Limitations: none
Nursing documentation reviewed up to this point in time: agreed with
History of Present Illness
History of Present Illness:
63-year-old male with past medical history of A-fib currently on Eliquis rate controlled with metoprolol, CHF, hypothyroidism alcohol abuse on home oxygen chronically presenting to the emergency department today with concerns of low pulse ox reading
at his pulmonary office. He denies this was a routine follow-up he otherwise was asymptomatic claims that he mowed his lawn yesterday and felt fine. Denies any current symptoms.
Past History
<Nando Torre DO - Last Filed: 11/07/23 14:10>
Past History
ED Past Medical History: Arrthythmia (Atrial fibrillation), HTN, Hypothyroidism and Other ('Hole in the heart' as a child)
ED Past Surgical History: Cardiac ('Hole in the heart' repair as a child)
Social History
Tobacco: Smoker
Alcohol: Daily
Drug: None
Review of Systems
<Rigoberto Madden Jr., PA-C - Last Filed: 11/07/23 15:20>
Review of Systems
Allergies reviewed?: Yes
All Other Systems: ROS reviewed and negative except as documented in HPI and ROS
Phy Exam
<Rigoberto Madden Jr., PA-C - Last Filed: 11/07/23 15:20>
Physical Exam
Physical Exam:
GENERAL: Alert , in no apparent distress
EYE: pupils equal and reactive
NECK: Supple, no significant adenopathy.
ENT: o/p clr, mmm.
CARDIAC: Regular rate and rhythm .
LUNGS: Clear breath sounds bilaterally, no acute respiratory distress, no wheezes/rales/rhonchi
ABDOMEN: Soft, without focal tenderness, no r/g, no cvat
NEUROLOGICAL: Alert and oriented, no focal neuro deficits
SKIN: Warm and dry, skin intact.
MUSCULOSKELETAL: No edema, well perfused.
PSYCH: Normal and appropriate interaction.
Scores
<Rigoberto Madden Jr., PA-C - Last Filed: 11/07/23 15:20>
Heart Failure Risk
Heart Failure Risk Score: Not Applicable
Course
<Nando Torre DO - Last Filed: 11/07/23 14:10>
Orders/Labs/Results
Orders:
Orders
11/07/23 12:01
Complete Blood Count/With Diff Urgent
Comprehensive Metabolic Panel Urgent
PT/INR [Prothrombin Time] Urgent
11/07/23 12:51
EKG [Electrocardiogram (*1)] Urgent
Reason for Study: Shortness of Breath
EKG- Treatment ONCE
Chest [CR Chest - 2 Views ] Urgent
Comment:
Reason For Exam: sob
Abnormal Lab Results
11/07/23
12:01
RBC 4.12 L 10^6/uL
(4.70-6.10)
MCV 95.4 H fL
(80.0-94.0)
MCH 33.7 H pg
(27.0-31.0)
RDW 15.4 H %
(11.5-14.5)
MPV 10.8 H fL
(7.4-10.4)
Absolute Lymphs (auto) 1.0 L 10^3/uL
(1.2-3.4)
Absolute Monos (auto) 0.9 H 10^3/uL
(0.1-0.6)
Lymphocytes % 17.6 L %
(20.5-51.1)
Monocytes % 15.3 H %
(1.7-9.3)
PT 15.5 H Sec
(11.4-14.6)
Chloride 95 L mmol/L
(98-107)
Glucose 124 H mg/dl
(70-99)
Total Bilirubin 1.6 H mg/dl
(0.2-1.3)
AST 65 H U/L
(17-59)
Alkaline Phosphatase 230 H U/L
(38-126)
Total Protein 8.8 H g/dl
(6.3-8.2)
11/07/23 12:01
11/07/23 12:01
Vital Signs
Initial and Last Documented VS:
Initial Vital Signs
BP
132/93
11/07/23 11:54
Last Documented Vital Signs
Temp Pulse Resp BP Pulse Ox
97.8 F 110 23 123/96 92
11/07/23 11:56 11/07/23 15:00 11/07/23 15:00 11/07/23 15:00 11/07/23 15:00
<Rigoberto Madden Jr., PADebbie - Last Filed: 11/07/23 15:20>
Orders/Labs/Results
Orders:
Orders
11/07/23 12:01
Complete Blood Count/With Diff Urgent
Comprehensive Metabolic Panel Urgent
PT/INR [Prothrombin Time] Urgent
11/07/23 12:51
EKG [Electrocardiogram (*1)] Urgent
Reason for Study: Shortness of Breath
EKG- Treatment ONCE
Chest [CR Chest - 2 Views ] Urgent
Comment:
Reason For Exam: sob
Abnormal Lab Results
11/07/23
12:01
RBC 4.12 L 10^6/uL
(4.70-6.10)
MCV 95.4 H fL
(80.0-94.0)
MCH 33.7 H pg
(27.0-31.0)
RDW 15.4 H %
(11.5-14.5)
MPV 10.8 H fL
(7.4-10.4)
Absolute Lymphs (auto) 1.0 L 10^3/uL
(1.2-3.4)
Absolute Monos (auto) 0.9 H 10^3/uL
(0.1-0.6)
Lymphocytes % 17.6 L %
(20.5-51.1)
Monocytes % 15.3 H %
(1.7-9.3)
PT 15.5 H Sec
(11.4-14.6)
Chloride 95 L mmol/L
(98-107)
Glucose 124 H mg/dl
(70-99)
Total Bilirubin 1.6 H mg/dl
(0.2-1.3)
AST 65 H U/L
(17-59)
Alkaline Phosphatase 230 H U/L
(38-126)
Total Protein 8.8 H g/dl
(6.3-8.2)
11/07/23 12:01
11/07/23 12:01
Vital Signs
Initial and Last Documented VS:
Initial Vital Signs
BP
132/93
11/07/23 11:54
Last Documented Vital Signs
Temp Pulse Resp BP Pulse Ox
97.8 F 110 23 123/96 92
11/07/23 11:56 11/07/23 15:00 11/07/23 15:00 11/07/23 15:00 11/07/23 15:00
<Rigoberto Madden Jr., PA-C - Last Filed: 11/07/23 15:20>
MDM/Problems Addressed
MDM/Problems Addressed:
63-year-old male presenting to the emergency department with concerns of a low pulse ox while at the pulmonary office. He denies any symptoms at the time or recently. Denies any symptoms currently. Pulse ox currently in the 90s on 5 L nasal
cannula. He claims that this is how much oxygen he is recommended to take he claims he has plenty of oxygen at home. He denies any current concerns. Workup here revealed heart rate around 100 currently in A-fib he does take rate control
medication and is anticoagulated. His labs do not show anything specifically emergent at this time chest x-ray show likely chronic finding patient is requesting to leave. It was explained to him very the importance of using the prescribed oxygen
and proper treatment of his chronic medical illnesses. He demonstrated understanding. Return precautions were given.
<Rigoberto Madden Jr., PA-C - Last Filed: 11/07/23 15:20>
*Critical Care Note
Total Time (30-74mins, 75-104mins- exclusive of procedures): Not Applicable
ED Attending Note
<Nando Torre DO - Last Filed: 11/07/23 14:10>
ED Attending Note
Patient seen and examined by attending physician: Yes
I performed the substantive portion of visit, reviewed & personally made and approve the management plan that is documented in note by myself or JERRI.: Yes
ED Attending Note:
Seen with PA examined independently chronically ill male apparently was at his PCP office not on oxygen was hypoxic sent here here on oxygen looks chronically ill but nontoxic, states he feels fine would like to go home, encouraged him to use his
oxygen and inhalers as prescribed
-
Portions of this chart may have been created with voice recognition software.� Occasional wrong word or��sound alike� substitutions may have occurred due to the inherent limitations of voice recognition software.
Discharge Plan
Departure
Patient Disposition: Home (Routine Discharge)
Date of Disposition: 11/07/23
Time of Disposition: 14:50
Patient with high blood pressure during this ER visit?: No
Condition: Good
Discharge Problem:
Acute on chronic hypoxic respiratory failure
Instructions: Shortness of Breath (Dyspnea) (DC)
Prescriptions:
No Action
levothyroxine 200 mcg Tablet
200 mcg PO DAILY
Eliquis 5 mg Tablet
5 mg PO BID
Patient Comments:
06/21/2023, used [facility] records from 12/13/2021; pt. states to get this med. through a program that mails this med. to his home at no cost.
[id number] Tablet
1 tab PO DAILY PRN (Reason: supplement)
albuterol sulfate 90 mcg/actuation HFA aerosol inhaler
2 puff inhalation Q6H PRN (Reason: shortness of breath or wheezing) Qty: 6.7 0RF
Trelegy Ellipta 200-62.5-25 mcg Blister With Device
1 inh INHALATION R DAILY
metoprolol succinate 25 mg tablet extended release 24 hr
25 mg PO BID
furosemide 80 mg Tablet
80 mg PO BID@0800,1600 Qty: 60 0RF
cefdinir 300 mg capsule
600 mg PO DAILY 8 Days Qty: 16 0RF
Rx Instructions:
LAST DOSE ON 08/23/2023
cefdinir 300 mg capsule
600 mg PO DAILY 8 Days Qty: 16 0RF
Rx Instructions:
Last dose on 08/23/2023
furosemide 80 mg tablet
80 mg PO BID 30 Days Qty: 60 0RF
Referrals:
Liborio Chino MD [Family Provider] -
Interventions
Interventions:
*Risk Screen - Suicide Last Done: 11/07/23 11:57
*General Assessment Last Done: 11/07/23 11:57
*Neglect/Abuse Screening Last Done: 11/07/23 11:57
*ED COVID-19 Vaccine History Last Done: 11/07/23 11:58
ED- Cardiac Assessment Last Done: 11/07/23 11:58
ED- Pulmonary Assessment Last Done: 11/07/23 11:58
Discharge Date and Time
Print Language: STATELESS
[2023-11-07 15:00] VITALS: BP 123/96
== END 2023-11-07 16:38 | disposition home or self-care (01) ==
LOC: EMR 11:49
PROVIDERS: EMERGENCY PHYSICIAN Emergency Medicine; FAMILY PHYSICIAN Internal Medicine
DX: J96.21 Acute and chronic respiratory failure with hypoxia (principal); I48.91 Unspecified atrial fibrillation; Z79.01 Long term (current) use of anticoagulants; I50.9 Heart failure, unspecified; E03.9 Hypothyroidism, unspecified; F17.200 Nicotine dependence, unspecified, uncomplicated
CPT/HCPCS: 99285; 71046; 80053; 85025; 85610; 93005

== ENCOUNTER 2024-05-03 15:11 | Inpatient (IN) | payer OTHER, SELFPAY ==
[2024-05-03] VITALS (34 sets, daily range): BP systolic 98–152; BP diastolic 61–95; PULSE 2–155; BMI 24.8; BMI 24.0
[2024-05-03] MEDS: DUONEB 3 ML INH (11:34)
--- NOTE | 2024-05-03 11:37 | ED.GENMED ---
History of Present Illness
General
Chief Complaint: Breathing Problem
Source: patient and ambulance crew
Time Seen by Provider: 05/03/24 11:27
History of Present Illness
History of Present Illness:
63-year-old male brought to the emergency room by ambulance due to respiratory distress. Patient evidently uses oxygen at home for significant COPD. Family states he is not compliant with his oxygen. They noted that he was quite short of breath
and having difficulty ascending a flight of steps which is atypical for him. Family also informed medics that patient is smoking significantly as well as a daily alcohol consumer. Patient indicates that he had a fairly sudden change between
yesterday and today. Patient indicates he is able to go up a flight of steps without difficulty yesterday but today he is quite short of breath. He attributed his shortness of breath to his oxygen coming off while he was sleeping. When paramedics
arrived they describe the patient as being profoundly cyanotic. They placed him on CPAP. Their initial pulse ox was in the 50s. Patient denies any recent fever. He does not seem to be a great historian.
Past History
Past History
ED Past Medical History: Arrthythmia (Atrial fibrillation), HTN, Hypothyroidism and Other ('Hole in the heart' as a child)
ED Past Surgical History: Cardiac ('Hole in the heart' repair as a child)
Social History
Tobacco: Smoker
Alcohol: Daily
Drug: None
Phy Exam
Physical Exam
Physical Exam:
General: Awake, Alert, Oriented X3. Patient appears cachectic, chronically ill and poorly kept. He is profoundly cyanotic
Vitals: Tachycardic, hypoxic
Head: Atraumatic
Eyes: Pupils equal, EOMI
Throat: Airway intact, no exudates, dry mucosa
Neck: Trachea midline
Lungs: Markedly decreased breath sounds bilaterally with some expiratory wheezing.
Heart: Regular rate, no murmurs
Abd: Soft, Nontender, No pulsatile mass
Neuro: Grossly nonfocal
Skin: Warm, dry, no rash
Extremities: pulses equal b/l, trace edema. Positive clubbing
Scores
Heart Failure Risk
Heart Failure Risk Score: Yes
History of Stroke or TIA: No
History of intubation for respiratory distress: No
Heart rate on ED arrival >/= 110: Yes
SaO2 <90% on arrival on room air: Yes
HR >/=110 during 3min walk test (or too ill to perform test): Yes
ECG has acute ischemic changes: No
Urea >/=12mmol/L (BUN 33.6mg/dL): No
Serum CO2>/=35mmol/L: No
Troponin I or T elevated to VT Level (0.4mg/dL): No
NT-proBNP >/=5,000ng/L (5,000pg/ml): Yes
HF Risk Score: 4
Admission Status: HIGH RISK 26.1% Consider SNF treatment or admission to hospital
Course
Orders/Labs/Results
Orders:
Orders
05/03/24 11:22
EKG [Electrocardiogram (*1)] Urgent
Reason for Study: Shortness of Breath
05/03/24 11:23
EKG- Treatment ONCE
05/03/24 11:29
Cardiac Monitoring- Treatment ONCE
Ipratropium/Albuterol Sulfate [Duoneb] 3 ml INH R NOW STA
05/03/24 11:30
CR Chest Portable - 1 View Urgent
Comment:
Reason For Exam: hypoxia
Reason Study Needs to be Portable: Patient Unstable
05/03/24 11:32
Basic Metabolic Panel Urgent
COVID-19 Antigen Urgent
Source: Nasal Swab
Complete Blood Count/With Diff Urgent
NT-proBNP Urgent
Comment: ADD
Procalcitonin Urgent
PCT Algorithmm Indication: Respiratory
Troponin I Urgent
Venous Blood Gas Stat
%Oxygen/Room Air: 10L
Influenza A+B Rapid Molecular Urgent
CHALO Source: Nasal Swab
Specimen Description:
05/03/24 11:34
TSH Reflex To Free T4 Urgent
05/03/24 11:48
Add On- LAB Urgent
Tests Added?: ProBNP
05/03/24 11:49
Dexamethasone Sod Phosphate [Decadron] 10 mg IV NOW STA
05/03/24 12:40
Diltiazem 125 mg/125 ml Nss [Cardizem] 125 mg in 125 ml IV NOW
Initial dose in mg/hr, then titrate:: 5
Titrate to keep:: Heart rate 80-100 bpm
Titrate by mg/hr:: 5 mg/hr
Frequency of titrations (minutes):: 15
Maximum dose in mg/hr:: 15
Diltiazem HCl [Cardizem] 20 mg IV NOW STA
05/03/24 12:57
Furosemide [Lasix] 40 mg IV NOW STA
Abnormal Lab Results
05/03/24
11:32
RBC 4.05 L 10^6/uL
(4.70-6.10)
MCV 100.0 H fL
(80.0-94.0)
MCH 34.1 H pg
(27.0-31.0)
RDW 17.2 H %
(11.5-14.5)
MPV 11.2 H fL
(7.4-10.4)
Absolute Neuts (auto) 7.0 H 10^3/uL
(1.4-6.5)
Absolute Lymphs (auto) 0.8 L 10^3/uL
(1.2-3.4)
Absolute Monos (auto) 1.3 H 10^3/uL
(0.1-0.6)
Neutrophils % 76.1 H %
(42.2-75.2)
Lymphocytes % 8.8 L %
(20.5-51.1)
Monocytes % 13.8 H %
(1.7-9.3)
VBG pCO2 34 L mmHg
(35-48)
VBG HCO3 18.3 L mmol/L
(22-27)
Carbon Dioxide 16 L mmol/L
(22-30)
Glucose 120 H mg/dl
(70-99)
Troponin I 3.580 H* ng/ml
05/03/24 11:32
05/03/24 11:32
Vital Signs
Initial and Last Documented VS:
Initial Vital Signs
Pulse Resp BP Pulse Ox
126 26 152/95 84
05/03/24 11:17 05/03/24 11:17 05/03/24 11:17 05/03/24 11:17
Last Documented Vital Signs
Temp Pulse Resp BP Pulse Ox
97.8 F 152 18 141/93 93
05/03/24 12:04 05/03/24 13:02 05/03/24 13:00 05/03/24 13:02 05/03/24 13:00
MDM/Problems Addressed
Differential Diagnosis Includes:
COPD exacerbation, heart failure, pneumonia
MDM/Problems Addressed:
Patient presents with profound hypoxia. On exam he has very little air movement. His chest x-ray does not appear significantly changed from previous. Patient initially placed on BiPAP. His work of breathing seemed okay on BiPAP. Venous blood
gas showed normal pH essentially normal pCO2. Therefore patient converted to high flow oxygen. On high flow was pulse oxing in the mid to high 80s. EKG and panel monitor show A-fib with rapid ventricular response. Initially suspected the heart
rate might be elevated due to his significant respiratory issues anoxia. However his heart rate did not improve with treatment. Therefore I decided to initiate rate control with a bolus of diltiazem and a diltiazem infusion. Labs showed an
elevated troponin at 3. EKG does not show any ischemic changes and the patient does not have any chest pain so I suspect this elevated troponin is more related to the rapid heart rate and profound hypoxia. Patient is prescribed Eliquis and he
states he does take his medication. He may miss occasionally but on the whole he takes his medication. Patient's proBNP is fairly elevated. Dose of Lasix administered for the potential of a component of heart failure involved in today's
presentation. Pro-Patrick was normal and I do not believe antibiotics are indicated. I have asked pulmonary to come evaluate the patient given his significant pulmonary issues and difficulty in oxygenation. I also asked Dr. Baker cardiology to
evaluate the patient given his elevated troponin.
*Radiology
Radiology exam reviewed: preliminary read by ED provider (Chronic interstitial changes bilaterally, no significant effusion)
*Pulse Oximetry
Patient hypoxic: yes
*EKG
Interpreted by ED Provider?: Yes
Interpretation: abnormal
Heart Rate: 161
Rate: tachycardiac
Rhythm: a-fib
[place]: right axis deviation
QRS Pattern: normal QRS
Ischemia: non-specific ST changes
*Webfed Offset Press Operator Interpretation
Rate: tachycardiac
Interpretation: abnormal
Rhythm: a-fib
*Critical Care Note
Total Time (30-74mins, 75-104mins- exclusive of procedures): 40 min
comment:
Critical care statement: A total of 40 minutes of critical care time was provided for this patient. This includes management of unstable vital signs, evaluation of the patient at bedside, reviewing the patient�s pertinent medical records, discussion
with consultants, review of old EKGs and review of pertinent medical records. This time with separate from time utilized to perform the aforementioned documented procedures
Data Reviewed
Review of Other/Old Records Reveals: Progress Notes and Discharge Summary (From the last 3 admissions)
Patient Management
Social determinants of health affecting care: Living situation, Substance abuse and Poor outpatient follow-up
Discussion with other providers: Hospitalist
ED Attending Note
-
Portions of this chart may have been created with voice recognition software.� Occasional wrong word or��sound alike� substitutions may have occurred due to the inherent limitations of voice recognition software.
Discharge Plan
Departure
Patient Disposition: Admit
Date of Disposition: 05/03/24
Time of Disposition: 13:25
Admit to: IMU
Presentation/result/management discussed w/ accepting MD/DO: Hospitalist
Condition: Serious
Discharge Problem:
CHF (congestive heart failure), Elevated troponin, Hypoxia, COPD exacerbation, Atrial fibrillation with rapid ventricular response
Prescriptions:
No Action
levothyroxine 200 mcg Tablet
200 mcg PO DAILY
Eliquis 5 mg Tablet
5 mg PO BID
Patient Comments:
06/21/2023, used [facility] records from 12/13/2021; pt. states to get this med. through a program that mails this med. to his home at no cost.
[id number] Tablet
1 tab PO DAILY PRN (Reason: supplement)
albuterol sulfate 90 mcg/actuation HFA aerosol inhaler
2 puff inhalation Q6H PRN (Reason: shortness of breath or wheezing) Qty: 6.7 0RF
Trelegy Ellipta 200-62.5-25 mcg Blister With Device
1 inh INHALATION R DAILY
metoprolol succinate 25 mg tablet extended release 24 hr
25 mg PO BID
furosemide 80 mg Tablet
80 mg PO BID@0800,1600 Qty: 60 0RF
cefdinir 300 mg capsule
600 mg PO DAILY 8 Days Qty: 16 0RF
Rx Instructions:
LAST DOSE ON 08/23/2023
cefdinir 300 mg capsule
600 mg PO DAILY 8 Days Qty: 16 0RF
Rx Instructions:
Last dose on 08/23/2023
furosemide 80 mg tablet
80 mg PO BID 30 Days Qty: 60 0RF
Referrals:
Liborio Chino MD [Family Provider] -
Interventions
Interventions:
*Risk Screen - Suicide Last Done: 05/03/24 11:17
*Neglect/Abuse Screening Last Done: 05/03/24 11:17
ED- Fall Risk Assessment Last Done: 05/03/24 11:57
*ED COVID-19 Vaccine History Last Done: 05/03/24 11:57
ED- Cardiac Assessment Last Done: 05/03/24 11:57
ED- Pulmonary Assessment Last Done: 05/03/24 11:57
Discharge Date and Time
Print Language: NEPALI
[2024-05-03] MEDS: DECADRON 10 MG IV (11:51)
[2024-05-03 11:56] LABS: Venous Blood Gas B.E. -6.5 mmol/L (-4 to +4); Venous Blood Gas HCO3 18.3 mmol/L (22-27); Venous Blood Gas O2 Sat % 66.1 %; Venous Blood Gas pCO2 34 mmHg (35-48); Venous Blood Gas pH 7.34 (7.32-7.43); Venous Blood Gas pO2 42 mmHg (30-50)
[2024-05-03 11:59] LABS: Venous Blood Gas O2 Therapy 10L
[2024-05-03 12:12] LABS: % Basophils 0.9 % (0-2); % Immature Granulocytes 0.4 % (0-0.5); % Lymphocytes 8.8 % (20.5-51.1); % Monocytes 13.8 % (1.7-9.3); % Neutrophils 76.1 % (42.2-75.2); Absolute Basophils 0.1 10^3/uL (0-0.2); Absolute Lymphocytes 0.8 10^3/uL (1.2-3.4); Absolute Monocytes 1.3 10^3/uL (0.1-0.6); Hematocrit 40.5 % (39.0-52.0); Hemoglobin 13.8 g/dL (13.0-18.0); Mean Corp Hgb Conc. 34.1 g/dL (33.0-37.0); Mean Corpuscular Hgb 34.1 pg (27.0-31.0); Mean Platelet Volume 11.2 fL (7.4-10.4); Nucleated Red Blood Cells % 7.6 % (-); Platelet Count 144 10^3/uL (130-400); Red Blood Cell Count 4.05 10^6/uL (4.70-6.10); Red Cell Dist. Width 17.2 % (11.5-14.5); White Blood Cell Count 9.2 10^3/uL (4.8-10.8)
[2024-05-03 12:15] LABS: Blood Urea Nitrogen 11 mg/dl (9-20); Calcium 9.6 mg/dl (8.4-10.2); Carbon Dioxide 16 mmol/L (22-30); Chloride 99 mmol/L (98-107); Estimated Creatinine Clearance 71 ml/min; Glucose 120 mg/dl (70-99); Potassium 4.4 mmol/L (3.5-5.1); Sodium 136 mmol/L (135-145); eGFR > 60.00
[2024-05-03 12:21] LABS: COVID-19 Antigen Negative (Negative)
[2024-05-03 12:27] LABS: Procalcitonin 0.07 ng/ml (0.0-0.25)
[2024-05-03 12:47] LABS: NT-proBNP 6730 pg/ml
[2024-05-03] MEDS: LASIX 40 MG IV ×2 (13:02→20:21)
[2024-05-03] MEDS: CARDIZEM 20 MG IV (13:02)
[2024-05-03] MEDS: CARDIZEM 125 IV (13:03)
--- NOTE | 2024-05-03 13:42 | HPS.HSE ---
Addendum entered and electronically signed by FOREIGN Torres 05/03/24 19:13:
#Moderate left pleural effusion unclear etiology
-Consult IR for thoracentesis with fluid cytology and analysis
CT PE study:
1. No CTA evidence for an acute pulmonary thromboembolism.
2. Moderate left pleural effusion.
3. 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
4. Hepatic cirrhosis and steatosis.
#Hepatic cirrhosis/steatosis by CT
-Patient was counseled for alcohol cessation
#Known saccular aneurysm arising from the anterior wall of the ascending thoracic aorta with a stable appearance
Addendum entered and electronically signed by Tereso Howard MD 05/03/24 15:37:
63 male history of A-fib that is paroxysmal, PE, HFrEF, pleural effusion, chronic home O2, COPD, hypothyroidism/Graves', alcohol abuse
NAD, lips were blue, SpO2 on assistant curator 87% on high flow nasal cannula
Scleral Anicteric
MMM
JVD
Diminished breath
IRR, S1/S2
Soft, NT, ND, BS+
Warm, Dry
AAO
Acute hypoxemic respiratory failure likely secondary to heart failure exacerbation. At this time we will IV diuresis. Monitor urinary output. Follow K keep greater than 4, magnesium greater than 2. Consult cardiology. Repeat 2D echocardiogram.
Obtain CT PE study.
Has known history of PE on Eliquis. Could have CTEPH however this would create a premorbid chronic hypoxemia rather than acute. Eventually should go for a VQ scan. Does tell me that he takes his Eliquis blood daily. Therefore will obtain CT PE
study
COPD on chronic home o2. Continue breathing treatments. Will consider starting steroids. Will have pulmonary evaluate.
Afib RVR, on dilt drip, bp tolerating, rates in the low 100-110's irregular, eliquis BID, cards consults
Alcohol abuse thiamine, foalte, MSAS, ativan
Full code
Sister Katerina to make medical decisions if incapacitated though he has a son who lives in [place].
Original Note:
Family Physician
-
Family Physician: Liborio Chino
Chief Complaint
-
CROUCH x 3 to 5 days, profound hypoxia
History of Present Illness
63-year-old male came by EMS from his home today due to hypoxia with O2 sats in the 50s. When EMS arrived they placed him immediately on BiPAP with improvement to pulse ox in the 80s he was however still bluish in color. Upon arrival in the ED he
was noted to be in rapid A-fib with RVR started on IV Cardizem drip he was also given a dose of IV Lasix due to component of heart failure and elevated troponin of 3 likely secondary to profound hypoxia prehospital but will monitor. Patient reports
he lives with his brother at home he is on chronic 2 L nasal cannula oxygen for COPD he has not followed with his fur mixer due to not liking her he states. He also uses nasal CPAP with 2 L of oxygen at night he is currently smoking 1 cigarette
a day Since his discharge on 11/07/2023, prior to that 47-year 1 pack a day. He also drinks 3 ounces of debbie every day. He states over the last 3 to 4 days he has noticed dyspnea on exertion when walking up the stairs he has needed to sit and
stop and put his oxygen on. He denies any chest pain, pressure, palpitations, dizziness, lightheadedness, headache, sore throat, abdominal pain, nausea, vomiting, diarrhea, urinary symptoms. He did not take any of his a.m. medications today
The patient has past medical history of A-fib paroxysmal, chronic CHF, active smoker 1 cigarette a day prior 1 pack a day x 47 years decreased 11/07/2023 admission, chronic home oxygen, hypothyroidism, Graves' disease, alcohol abuse
Medical History
Past Medical History
Past Medical History: Reports Other
Additional Past Medical History:
essential HTN,
Hypothyroidism
'Hole in the heart' as a child (repaired)
Congestive heart failure, unspecified HF chronicity, unspecified heart failure
COPD
Atrial fibrillation, unspecified type
Hypothyroidism/Graves' disease
Chronic hypoxic resp insufficiency on chronic 2 L nasal cannula oxygen
Sleep apnea on nasal pillow with 2 L oxygen at night
Pleural effusion
Nicotine dependence, cigarettes
Past Surgical History: Reports Other
Additional Past Surgical History:
'Hole in the heart' as a child (repaired)
Splenectomy 2020 secondary to fall hitting a large rock
Social History
Unable to obtain full social history at this time due to: Acuity
Tobacco: Smoker
Alcohol: Daily
Personal: Single
Living: With Family (Lives with his brother)
Employment: Retired
Family History
Family History: Not pertinent
Allergies / Home Medications
Allergies reflects when Allergies were last updated in [facility] [employer].
Home Medications with original date entered in [facility] [employer]
Allergy/Medication List:
Allergies
Allergy/AdvReac Type Severity Reaction Status Date / Time
No Known Allergies Allergy Verified 05/03/24 11:50
Home Medications
apixaban 5 mg tablet (Eliquis) 5 mg PO BID Blood Clot Prevention/Tx 05/25/23
levothyroxine 200 mcg tablet 200 mcg PO DAILY Thyroid 05/25/23
uyenwucehgbh-uwgczixd-aaeinz tablet 1 tab PO DAILY PRN supplement 06/21/23
albuterol sulfate 90 mcg/actuation aerosol inhaler 2 puff inhalation Q6H PRN shortness of breath or wheezing #6.7 grams 06/28/23
metoprolol succinate 25 mg tablet,extended release 24 hr 25 mg PO BID Heart Disease/Condition 08/10/23
furosemide 80 mg tablet 80 mg PO BID 30 days #60 tabs 08/15/23
furosemide 80 mg tablet 80 mg PO BID@0800,1600 #60 tabs 08/15/23
lisinopril 2.5 mg tablet 2.5 mg PO DAILY 05/03/24
Review of Systems
-
History Source: Patient
A 12 point ROS was completed and negative except as noted: Yes
Constitutional: Denies Fever, Weight Gain, Weight Loss, Fatigue or Chills
EENT: Reports Other (Bluish lips on current high flow nasal cannula oxygen); Denies Sore Throat or Runny Nose
Respiratory: Reports Cough and Trouble Breathing (CROUCH x 3 to 4 days walking up stairs)
Cardiac: Denies Chest Pain, Diaphoresis, Palpitations or Syncope
Abdomen/GI: Denies Abdominal Pain, Nausea, Vomiting, Diarrhea, Constipated, Bloody Stools, Black Stools or Anorexia
: Denies Dysuria, Frequency, Flank Pain, Incontinence, Difficulty Voiding, Urgency, Bleeding or Dark Urine
Musculoskeletal: Denies Joint Pain or Edema
Skin: Denies Itching or Rash
Neurological: Denies Dizzy, Headache or Weakness
Endocrine: Reports No Symptoms
Hematologic/Lymphatic: Reports No Symptoms
Psych: Reports Calm
Physical Exam
Vital Signs
Vital Signs
Temp Pulse Resp BP Pulse Ox
97.8 F 152 18 141/93 93
05/03/24 12:04 05/03/24 13:02 05/03/24 13:00 05/03/24 13:02 05/03/24 13:00
Physical Exam
General: Comfortable and Conversant; No Pain, Fever or Chills
HEENT: NormoCephalic, Anicteric, Whitetail Conjunctivae, No Ptosis and Oxygen (Patient on high flow nasal cannula)
Respiratory: Clear; No Wheezes, Rales or Rhonchi
Cardiac: S1/S2 and Irregular Rhythm (A-fib RVR 132 bpm); No Murmur, Rub, Gallop or Peripheral Edema
Breast: Deferred by me
GI: Soft, Non Tender, Non Distended, Normal Bowel Sounds and No Hepatosplenomegaly
Rectal: Deferred by Provider
Genito-urinary: Deferred by me
Musculoskeletal: No Clubbing, No Cyanosis and No Edema
Skin: Warm and Dry; No Rash or Jaundice
Neuro: AO x 3, No Motor Deficits, Nonfocal/grossly intact, Cranial Nerves Intact and No Sensory Deficits; No Slurred Speech, Facial Droop or Tremors
Psych: Calm
Laboratory Results
-
05/03/24 11:32
05/03/24 11:32
Laboratory Results
Troponin I 3.580 ng/ml H* 05/03/24 11:32
Impression/Plan
-
Impression/plan:
Admit to IMU
#Acute hypoxic respiratory failure secondary to acute on chronic CHF
#Chronic hypoxic resp insufficiency on chronic 2 L nasal cannula oxygen
COVID/influenza negative
Monitor I/O, daily weights
BNP 6730
Patient given Lasix 40 IV milligrams in ER
Continue IV Lasix 40 mg twice daily
-Consult Pulmonary
-Consult [facility]ology
-Check 2D echo
-Check stat CT PE study
CXR: Loculated left pleural effusion with chronic bibasilar airspace disease/scarring
#Nicotine abuse
-Smokes 1 to 2 cigarettes daily, prior 47-year 1 pack a day stopped 11/07/2023
#A-fib with RVR/paroxysmal A-fib Hx
-IV Cardizem bolus plus drip
-Continue oral Eliquis
-Consult [facility]ology
#Elevated Troponin likely secondary to rapid A-fib with RVR and profound hypoxia prehospital but concern for NSTEMI
Troponin 3.580, will trend
-Follow EKG
-Continue metoprolol succinate 25 mg twice daily, Eliquis 5 mg twice daily
EKG: A-fib with RVR heart rate 161 bpm, QTc 454 MS right axis deviation, septal infarct age undetermined, nonspecific T wave abnormality now evident in anterior lateral leads
#Daily alcohol use
-Drinks 3 ounces of debbie daily
-MSAs screen with protocol
IV thiamine, IV folate
#History traumatic splenectomy in 2002 secondary to fall hitting a rock
#Hypothyroidism/Graves' disease
-Check TSH with free T4 reflex
-Continue levothyroxine 200 mcg p.o. daily
DVT prophylaxis
Continue JEEP DRIVER Eliquis
Full code
--- NOTE | 2024-05-03 14:20 | CON.PUL ---
Consultation
Consultation Request
Date/Time Consultation Requested: 05/03/2024
Date/Time Consultation Performed: 05/03/2024
Requesting Provider: Dr. Marcano
Performing Provider: Dr. Jonathan Dutton
Reason for Consultation: Acute hypoxemic respiratory failure
Medical History
-
Chief Complaint: SOB
History of Present Illness:
62-year-old male with past medical history of hypothyroidism, A-fib, tobacco use disorder, CHF,? COPD and prior history of alcohol abuse who presents with shortness of breath. Prior hospitalization for heart failure
He was brought in by EMS on 05/03/2024 with pulse ox in the 50s. Patient was cyanotic. He was in rapid ventricular response atrial fibrillation-require noninvasive mechanical ventilation subsequent to high flow oxygen.
Patient does not follow-up with pulmonary.
Patient chronically is on 2 L nasal cannula, he lives with his brother.
Try to cut down on cigarette smoking.
He drinks 3 ounces of debbie daily.
He does report worsening pulmonary symptoms with shortness of breath for the last 3 to 4 days. Particularly with walking up stairs. Denies increased purulent sputum production, hemoptysis, fevers or chills. Denies nausea or vomiting.
PMHx: Tobacco use disorder, A-fib, COPD/chronic bronchitis, hypothyroidism, CHF with preserved ejection fraction, history of Graves' disease, prior history of alcohol abuse
PSHx: Splenectomy (2002), hole in heart repair as child
Past Medical History
Past Medical History: Other (Above as per HPI)
Past Surgical History: Other (Above as per HPI)
Social History
Tobacco: Smoker (1-2 cigarettes/day for last few years, prior was 0.5PPD x 15-20 years)
Alcohol: Former
Drug: None
Personal: Single
Living: Alone
Family History
Family History: Reviewed & Not Pertinent
Allergies / Home Medications
Allergies
Allergy/AdvReac Type Severity Reaction Status Date / Time
No Known Allergies Allergy Verified 05/03/24 11:50
Home Medications
�Medication �Instructions �Recorded �Confirmed �Last Taken �Type
apixaban 5 mg tablet (Eliquis) 5 mg PO BID Blood Clot 05/25/23 08/10/23 08/10/23 History
Prevention/Tx
levothyroxine 200 mcg tablet 200 mcg PO DAILY Thyroid 05/25/23 08/10/23 08/10/23 History
fzyagkaslnsc-weetstpg-drbexb tablet 1 tab PO DAILY PRN supplement 06/21/23 08/10/23 2 Days Ago History
~06/19/23
albuterol sulfate 90 mcg/actuation 2 puff inhalation Q6H PRN 06/28/23 08/10/23 Unknown Rx
aerosol inhaler shortness of breath or wheezing
#6.7 grams
metoprolol succinate 25 mg 25 mg PO BID Heart 08/10/23 08/10/23 08/10/23 History
tablet,extended release 24 hr Disease/Condition
furosemide 80 mg tablet 80 mg PO BID 30 days #60 tabs 08/15/23 Unknown Rx
furosemide 80 mg tablet 80 mg PO BID@0800,1600 #60 tabs 08/15/23 Unknown Rx
Review of Systems
-
History Source: Patient
All other systems: Negative unless noted
Vitals / Labs / Diagnostic Testing
Vital Signs
Temp Pulse Resp BP Pulse Ox
97.8 F 115 19 115/69 82
05/03/24 12:04 05/03/24 13:30 05/03/24 13:30 05/03/24 13:05 05/03/24 13:30
Lab Data
05/03/24 11:32
05/03/24 11:32
Microbiology
05/03/24 11:32 Nasal Swab Influenza Types A & B (ERROL) - Final
Negative for Influenza A & B, NAAT
Negative results must be combined with clinical observations
and patient history.
Nucleic Acid Amplification test (NAAT)performed on the
[employer] platform.
Diagnostic Testing:
Physical Exam
-
HEENT: Normocephalic
Cardiovascular: Irregular Rhythm
Respiratory: Clear, Non-Labored Respirations and Other ( prolonged expiratory phase)
GI: Soft
Neurology: Awake and AO x 3
Skin: Other (Cyanotic)
General: Comfortable
Assessment
-
63-year-old male with history of severe COPD, tobacco abuse, alcohol abuse, atrial fibrillation, heart failure with preserved ejection fraction came via EMS to the emergency room with pulse ox in the 50s. Patient was found to be cyanotic. In the
emergency room requiring noninvasive mechanical ventilation and then supplemental oxygen. ABG without hypercapnia.
He was also noted to have atrial fibrillation with rapid ventricular response and started on Cardizem and diuresis.
I was consulted from the emergency room to assist in care as the patient has history of underlying severe COPD.
Acute on chronic hypoxemic respiratory failure-suspected heart failure with reduced ejection fraction acute on chronic.
COVID-negative
Influenza negative
Negative procalcitonin
VBG 7.34/34/42 (05/03/2024)
Chest x-ray 05/03/2024: Reviewed, showed small left pleural effusion bibasilar scarring.
Increased proBNP to 6730 suggest acute on chronic heart failure with
Rapid atrial fibrillation
Elevated troponin-cannot rule out acute coronary syndrome.
Initial troponin 3.5
EKG 05/03/2024: Reviewed showed atrial fibrillation with rapid ventricular response. Right axis deviation. Pulmonary disease pattern. Septal infarct age undetermined.
COPD: Does not appear to be on exacerbation.
Conditions present prior admission:
History of left pleural effusion twice status post thoracentesis-transudate.Last thoracentesis 06/22/2023
Tobacco nelrz-45-qtqb-year history mostly stopped on 11/07/2023-ongoing 1 to 2 cigarettes/day.
COPD-chronic bronchitis/lrdxanebk-oyqgyo-smzlttkyebqblkndcm FEV1 41% / 1.[address] chest 06/26/2023: No evidence for lung nodules. Minimal bilateral pleural effusions. Postinflammatory scarring.
Last time seen in the office 10/2023-he was recommended to go on Trelegy - did not follow up.
Chronic hypoxemic respiratory failure-on nighttime oxygen. 2 L nasal cannula
Not following with pulmonary
Not using inhalers
Alcohol abuse
Hypothyroidism
Atrial fibrillation
Heart failure with reduced ejection fraction.
Echocardiogram 05/26/2023: Normal left ventricular wall thickness. Global hypokinesis. Mildly reduced left ventricular ejection fraction 35 to 40%. Mild MR. Mild TR. Estimated pulmonary pressure 43 mmHg. Mildly dilated right atrium. Normal
right ventricle size.
Suspected Obstructive sleep apnea- declined evaluation.
Hypothyroidism/history of Graves' disease.
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
-
Assessment and plan:
Clinical picture suggestive of heart failure with reduced ejection fraction.
It is noted on outpatient records that patient is poor compliant with regimen-during the last visit in our office on 10/2023 patient was severely hypoxemic not being compliant with oxygen at home pulse ox down to 65% and he was sent to the emergency
room for evaluation.
VBG 05/03/2024: Without hypercapnia.
Appears that he has presented this time to the emergency room with similar complaints of shortness of breath and profound hypoxemia.
-
Agree with cardiac management
Heart rate control
Diuresis as able
Echocardiogram-evaluate LVEF as well as RV function.
Agree with obtaining CT angiogram of the chest
Trend troponins
Cardiology has been consulted
-
From the COPD perspective: Patient is not taking any inhalers. Prolonged expiratory phase-chronic.
He does have severe COPD most recent spirometry 07/2023 with an FEV1 of 0.89 L or 32% of predicted. Severe obstruction.
Will restart inhalers Spiriva/Symbicort while in the hospital. He was recommended to go on Trelegy but appears that he is not using any inhalers in the outpatient setting
Total smoking cessation recommended. He has mostly quit smoking now using only 1 to 2 cigarettes/day per his report.
In October 2023 he was recommended to follow-up in 3 months but did not follow through.
-
Suspect obstructive sleep apnea-he declined evaluation in the past
VBG this admission does not suggest hypercapnia
-
Continue to provide Oxy supplementation to maintain pulse ox above 90%. Currently on high flow oxygen-pulse ox 92%.
Cyanosis has improved in discussions with respiratory therapist.
Mental status baseline
No indication for noninvasive mechanical ventilation at this point.
-
Has recurrent left pleural effusion-on this chest x-ray appears very small.
Last thoracentesis last year was more consistent with transudate from heart failure.
-
Most recent CT chest 06/2023: Showed no evidence for pulmonary nodule or masses.
He will be due for a low-dose radiation CAT scan on 06/2024.
-
Follow-up for alcohol withdrawal.
-
Will follow
-
High risk situation.
[2024-05-03 15:05] LABS: TSH Reflex To Free T4 0.06 uIU/ml (0.47-4.68)
--- NOTE | 2024-05-03 15:09 | CON.CAR ---
Addendum entered and electronically signed by Willian Baker MD 05/03/24 17:37:
63-year-old man with persistent/permanent atrial fibrillation and severe COPD on nocturnal oxygen, admitted now with acute on chronic respiratory failure with troponin of 3.58 with proBNP of 6730, atrial fibrillation with rapid ventricular response.
PMH: Persistent/permanent atrial fibrillation, history of repaired congenital heart disease chronic HFrEF, COPD, Graves' disease, hypothyroidism, alcohol abuse, presumed nonischemic cardiomyopathy, with some coronary artery calcification
PSH: Splenectomy
Allergies: None
Medications: Per summary screen, Eliquis, furosemide 80 twice daily, levothyroxine 200 mcg a day, lisinopril 2.5 mg a day, metoprolol succinate 25 p.o. twice daily
FH: Noncontributory
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
ROS: See below
129/81, pulse 115, resp rate 19, afebrile, sats 87-93% on high flow patel appearing, chronically ill-appearing heart rate now 110, blood pressure 123 systolic, was 50% on first presentation, poor dentition, head neck exam unremarkable, diminished
breath sounds with rhonchi left anterior chest, abdomen benign extremities without much edema distal pulses diminished but palpable
White count 9.2, hemoglobin 13.8, venous blood gas 7.3 /42/18, BUN and creatinine are 11 and 1.1, CO2 is 16, proBNP 6730, procalcitonin negative, troponin 3.58
Chest x-ray probable left lung pneumonia, possibly vascular congestion, flattened diaphragms, cardiomegaly
ECG: Atrial fibrillation, low voltage, RVR, right axis nonspecific ST and T wave changes, cannot exclude septal NV
Echo May 2023: Small ventricle, global hypo-, EF 35-40%, mild mitral regurgitation, mildly dilated left atrium, mild TR, pulmonary artery pressure 43 mmHg systolic, mildly dilated right atrium, normal RV, in 2021 the ejection fraction was 50-55%
Impression: See below - 63-year-old man with multifactorial respiratory failure, atrial fibs with rapid ventricular response, acute on chronic HFrEF, severe COPD, and troponin between 3 and 4 likely nonischemic/ACS related myocardial injury related
to A-fib, respiratory failure, hypoxemia
Plan:
He presents with multifactorial respiratory failure, probably both related to COPD and heart failure with reduced EF, though EF currently is unknown.
He looks better on IV diltiazem with heart rate that is now slightly over 100. He is currently on high flow oxygen.
He has received IV Lasix x 1. He has received nebs and dexamethasone. Continue IV furosemide. We can consider spironolactone and SGLT2 antagonist. Spironolactone had reportedly been stopped in the past for hypotension.
Suspect that troponin elevation of 3.7 is nonischemic myocardial injury related to A-fib with rapid ventricular response in the setting of hypoxemia and exacerbation of COPD.
We will recheck an echocardiogram.
We will continue to trend EKG and troponin.
Given his very advanced COPD and other comorbidities, the utility of an ischemic evaluation, cardiac catheterization, etc. may be limited.
As an outpatient he was on metoprolol succinate, unclear that he can tolerate this from the standpoint of COPD. Will reassess and discuss with pulmonary.
Original Note:
Consultation
Consultation Request
Date/Time Consultation Requested: 05/03/2024, 1413
Date/Time Consultation Performed: 05/03/2024, 1500
Requesting Provider: FOREIGN Torres
Performing Provider: FOREIGN Suresh for AYLA Baker
Reason for Consultation: NSTEMI, afib w/ RVR, hypoxic resp failure on high flow
Medical History
-
Chief Complaint: Shortness of breath
History of Present Illness:
63-year-old man with persistent atrial fibrillation, heart failure reduced EF, cardiomyopathy, COPD, Graves' disease, hypothyroidism, daily EtOH, smoker who presents today via EMS due to hypoxia with O2 sats in the 50s. Patient cyanotic when EMS
arrived. He was placed on BiPAP immediately by EMS with improvement in pulse ox to 80s. Upon presentation to ED he was noted to be in A-fib with rapid ventricular response and started on IV Cardizem. Also administered Lasix 40 mg IV. Patient
reports he has felt a harder breathing for the past 1 to 2 days when he goes up steps, otherwise says he does not feel bad.
No chest pain, palpitations, lightheadedness, syncope. Denies recent illness, no fevers or chills.
He is chronically on 2 L nasal cannula for COPD. He uses nasal CPAP at night.
ER evaluation:
Troponin 3.58--> 3.77
proBNP 6730
Hemoglobin 13.8, WBC 9.2, platelet 144
BUN/creatinine 11/1.1, NA 136, K4.4
TSH 0.06
Nasal swab negative for influenza A and B
COVID-negative
Chest x-ray: Small likely loculated left pleural effusion with chronic bibasilar airspace disease/scarring
EKG: A-fib with rapid ventricular response, heart rate 161 bpm
Past medical history:
Persistent atrial fibrillation
Heart failure reduced EF
Cardiomyopathy
COPD on chronic 2 L nasal cannula
Sleep apnea on nasal CPAP
Graves' disease
Hypothyroidism
Alcohol abuse-1 shot of debbie daily
Smoker-1 to 2 cigarettes daily
He was admitted May 2023 and again in June 2023 with atrial fibrillation and rapid ventricular response with acute on chronic HFrEF.. He required left thoracentesis in May and June 2023.
Echo 05/2023 EF 35 to 40%. He was continued on medical therapy with Toprol and started on spironolactone.
He was admitted 08/2023 with septic shock and gram-negative bacteremia due to urinary source. He required pressor support and mid flow oxygen. Improved with IV diuresis and discharged on home oxygen. Spironolactone stopped due to low blood
pressure.
He was last seen in the cardiology office in August 2023. At that time weight was stable and he was tolerating Toprol and lisinopril. Etiology of cardiomyopathy was unclear with plan to reassess LVEF by echo and if still reduced consider ischemic
evaluation. Of note he had mild coronary artery calcification on CT chest and no wall motion abnormalities on TTE.
Past Medical History
Past Medical History: Arrhythmias (Persistent atrial fibrillation), CHF (HFrEF, EF 35-40% by echo 2023, required thoracentesis on left May and June 2023), COPD (FEV1 1.46, 41%) and Other (Graves' disease, now hypothyroid after radioactive iodine,
saccular aneurysm of ascending aorta)
Social History
Tobacco: Smoker (Says '2 or 3))
Alcohol: Daily (Says '2 or 3))
Personal: Single
Living: With Family
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
Family History
Family History: Reviewed & Not Pertinent
Allergies / Home Medications
Allergy/AdvReac Type Severity Reaction Status Date / Time
No Known Allergies Allergy Verified 05/03/24 11:50
�Medication �Instructions �Recorded �Confirmed �Type
apixaban 5 mg tablet (Eliquis) 5 mg PO BID Blood Clot 05/25/23 05/03/24 History
Prevention/Tx
levothyroxine 200 mcg tablet 200 mcg PO DAILY Thyroid 05/25/23 05/03/24 History
metoprolol succinate 25 mg 25 mg PO BID Heart 08/10/23 05/03/24 History
tablet,extended release 24 hr Disease/Condition
furosemide 80 mg tablet 80 mg PO DAILY 05/03/24 05/03/24 History
lisinopril 2.5 mg tablet 2.5 mg PO DAILY 05/03/24 05/03/24 History
Review of Systems
-
History Source: Patient
Constitutional: No Symptoms
Physical Exam
Vital Signs
Temp Pulse Resp BP Pulse Ox
97.8 F 115 19 129/81 93
05/03/24 12:04 05/03/24 13:30 05/03/24 13:30 05/03/24 14:24 05/03/24 14:24
Lab Results
05/03/24 11:32
05/03/24 11:32
Troponin I 3.770 ng/ml H* 05/03/24 14:13
Wqs-B-Bkzsbqpxqql Pept 6730 pg/ml 05/03/24 11:32
GEN: sitting upright, on high flow O2 via NC
HEENT: supple, anicteric, mmm
LUNGS: CTA, no wheezes/rales
CV: irreg, irreg, S1/S2, no murmur
ABD: soft, BS+, NT/ND
EXT: No edema
NEURO: Gross non-focal
SKIN: No rash
Impression / Plan
-
PCP: Dre Chino MD
Primary Front End Driver: Dr. Chavez
Assessment:
Afib with RVR
acute on chronic HFrEF
acute on chronic hypoxemic resp failure
elevated troponin
COPD, on home oxygen
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
Cardiomyopathy, EF 35-40% by echo 05/2023
previous admission 05/2023, 06/2023 for CHF, afib
L pleural effusions s/p thoracentesis 05/2023, 06/2023
Persistent atrial fibrillation
Chronic eliquis therapy
Ascending aortic saccular aneurysm, 2.6 x 2.1 cm
Graves' disease
H/O Hypothyroidism following radiation treatment for Graves' disease
Daily EtOH
Current smoker
Medication noncompliance
ECHO 10/29/2021: EF 50-55%, mild MR, mildly dilated LA, mild TR, pulmonary artery systolic pressure 51 mmHg based on elevated right atrial pressure of 20 mmHg, dilated RA, normal RV, and some views anteroseptal hypokinesis could be present, normal
aortic valve
ECHO 05/26/23: EF 35 to 40% with global hypokinesis, mild MR, PA pressure 43
Plan:
-63-year-old man with persistent atrial fibrillation (on Eliquis and Metoprolol), heart failure reduced EF, cardiomyopathy, COPD, Graves' disease, hypothyroidism, daily EtOH, smoker who presents today via EMS due to hypoxia with O2 sats in the 50s.
Patient cyanotic and placed on BiPAP immediately by EMS with improvement in pulse ox to 80s. Upon presentation to ED he was noted to be in A-fib with rapid ventricular response HRs 160s, and started on IV Cardizem with improvement in HRs. Also
administered Lasix 40 mg IV. Patient reports he has felt a harder breathing for the past 1 to 2 days when he goes up steps, otherwise says he does not feel bad.
proBNP elevated at 6730, COVID, Influenza A and B negative, CXR with small likely loculated pleural effusion. Troponin 3.58-->3.77. Denies chest pain.
Afib-
-rates improving on IV Cardizem - continue overnight
-eventually consider uptitration of outpatient beta vipul if BP tolerates
-continue OAC with Eliquis
-Antiarrhythmic therapy and catheter ablation have previously been discussed in the outpatient setting and patient not interested. Afib has been persistent for several years,at least since 2021, would be more difficult to maintain sinus rhythm given
length of time in afib.
Heart failure reduced EF-
-proBNP 6730
-continue IV diuresis
-Has not had an ischemic workup in past. Heart failure thought to be more likely tachycardia mediated
-Consider ischemic workup, if troponins trend up and/or patient develops chest pain would need left heart cath.. otherwise consider outpt ischemic eval
-Check repeat echo- I ordered
-daily wts, I/O
-On Toprol 12.5 mg bid, Lisinopril 2.5 mg daily, and Lasix 80 mg bid in outpt setting
-Was on spironolactone in past but stopped due to hypotension. Depending on BPs could consider reintroduction.
-also consider SGLT2 inhibitor once condition more stable.
Acute hypoxemic respiratory failure-
-Initially required noninvasive mechanical ventilation and now on high flow oxygen
-Chest x-ray with small left pleural effusion
-COVID and influenza negative
-Checking CT angio of the chest to rule out PE.
Elevated troponin-
-trend to peak
-no chest pain
-repeat 12 lead EKG now that HR better controlled
Data Reviewed
-
EKG: Tracing Personally Visualized and interpreted
Medical Tests (Nuc Med, Echo etc): Image Personally Visualized and interpreted
Labs: Labs Reviewed by me
[2024-05-03 16:06] LABS: Free T4 1.95 ng/dl (0.78-2.19)
--- NOTE | 2024-05-03 18:24 | PTCARENOTE ---
Rec'd patient from ED. Pulled to bed from stretcher. Pulse ox in the 60's on HFNC 60L 100%. NRB placed on top. Pulse ox 84-85%. Desats with minimal exertion. Repositioned high in the bed. HR 80-90's, afib. Cardizem gtt @ 10. Voided 325 cc's in
urinal.
[2024-05-03 19:40] LABS: INR 1.45; PT 17.9 Sec (11.4-14.6)
[2024-05-03 19:41] LABS: APTT 33.1 Sec (23.4-35.0)
[2024-05-03] MEDS: SYMBICORT 160/4.5 MCG INHALER 2 PUFF INH (20:10)
[2024-05-03] MEDS: TOPROL XL 25 MG PO (20:20)
[2024-05-03 20:21] LABS: GGTP 155 U/L (15-73); Glucose 142 mg/dl (70-99); LDH 288 U/L (120-246); Phosphorus 2.5 mg/dl (2.5-4.5); Total Protein 8.3 g/dl (6.3-8.2)
[2024-05-03] MEDS: THIAMINE INJECTION 200 MG IV (20:21)
[2024-05-03 20:27] LABS: B-Hydroxybutyrate 1.25 mmol/L (0.02-0.27)
[2024-05-03 20:32] LABS: Alcohol None Detected
[2024-05-03 22:38] LABS: Urine Albumin 1+ (Neg - Trace); Urine Bilirubin Negative (Negative); Urine Character Clear (Clear); Urine Color Yellow; Urine Glucose Negative (Negative); Urine Ketone Negative (Negative); Urine Leukocyte 1+ (Negative); Urine Nitrite Negative (Negative); Urine Occult Blood Negative (Negative); Urine Urobilinogen Negative (Neg - 1+)
--- NOTE | 2024-05-03 22:40 | PTCARENOTE ---
Pt received start of shift, HR Afib w/ occasional PVCs on telemetry. Cardizem gtt infusing at 10mg/hr. High-flow NC 60L 97% FiO2 w/ NRB mask 15L. Pt's sister at bedside, updated both pt and pt's sister on plan of care.
Pt SpO2 83-86% on 60L 97%FiO2 Hi-flow NC and 15L NRB mask. Spoke with SIX SIGMA PROJECT MANAGER Hephziba at bedside regarding plan of care. 2200 dose 40mg Lasix given early per SIX SIGMA PROJECT MANAGER. Contacted Dr. Manjit Baker in regards to eliquis and anticipated thoracentesis - ordered to
hold.
[2024-05-03 22:46] LABS: Amphetamines Negative (Negative); Barbiturates Negative (Negative); Benzodiazepines Negative (Negative); Buprenorphine Negative (Negative); Cocaine Negative (Negative); Marijuana Negative (Negative); Methadone Negative (Negative); Methamphetamines Negative (Negative); Opiates Negative (Negative); Phencyclidine Negative (Negative); Tricyclic Antidepressants Negative (Negative)
[2024-05-03 22:54] LABS: Urine Red Blood Cell 0-2 /HPF (0-2)
[2024-05-03 22:55] LABS: Urine Bacteria Moderate (Negative)
[2024-05-04] VITALS (58 sets, daily range): BP systolic 73–138; BP diastolic 61–84; BMI 24.1
[2024-05-04] MEDS: CARDIZEM 125 IV (00:24)
[2024-05-04] MEDS: ProAIR HFA INHALER 2 PUFF INH (00:41)
--- NOTE | 2024-05-04 01:05 | PTCARENOTE ---
Pt SpO2 82-85% on max high-flow and 15L NRB. RT at bedside, PRN inhaler. TT VAT HOUSE SUPERVISOR Hephziba - upgrade to ICU, start NIV, ABG to be drawn
--- NOTE | 2024-05-04 01:08 | W.PN.UPDATE ---
Update Note
Progress Note Update
In the beginning of the shift, RN reported patient O2 saturation is 86% max on 60 L 100% [place]low +NRM. Upon reaching the floor, Oxygen saturation noted to be 91-93% on HiFlow NRM 131/79 20-23, 98.0. RN reports patient without any complaints. Advised
IV Lasix to be given early.
Around 0030 RN texted Oxygen saturation 82-85% NRM Hi Flow, 100/61, HR 90, T 97.8. will order stat ABG and transfer patient to ICU, . ICU ENGINEERING PROJECT MANAGER and Glass Polisher aware.
Patient conversant, diminished at bases. rate irregular, denies any chest discomfort. CROUCH, tachypneic 22
[2024-05-04 01:22] LABS: Hematocrit 38.1 % (39.0-52.0)
[2024-05-04] MEDS: ATIVAN 0.5 MG IV (03:01)
[2024-05-04] MEDS: NSS (PRESERVATIVE FREE) 0.25 ML IV (03:02)
--- NOTE | 2024-05-04 03:30 | PTCARENOTE ---
Pt oriented w/ periods of confusion, taking NIV mask off. SpO2 80s. Spoke w/ FURNITURE DETAILER Tomás Walker, one time dose ativan IV ordered
[2024-05-04 04:36] LABS: B.E. 1.1 mmol/L; HCO3 22.2 mmol/L (21-28); O2 Saturation % 79.7 % (94-98); PCO2 26 mmHg (35-48); pH 7.54 (7.35-7.45)
[2024-05-04 04:40] LABS: O2 Therapy 100%
[2024-05-04 04:41] LABS: PO2 49 mmHg (83-108)
[2024-05-04 05:11] LABS: % Immature Granulocytes 0.6 % (0-0.5); % Lymphocytes 4.3 % (20.5-51.1); % Monocytes 8.6 % (1.7-9.3); % Neutrophils 86.5 % (42.2-75.2); Absolute Immature Granulocytes 0.1 10^3/uL (0-0.05); Absolute Lymphocytes 0.4 10^3/uL (1.2-3.4); Absolute Monocytes 0.8 10^3/uL (0.1-0.6); Absolute Neutrophils 7.9 10^3/uL (1.4-6.5); Hematocrit 37.7 % (39.0-52.0); Hemoglobin 13.4 g/dL (13.0-18.0); Mean Corp Hgb Conc. 35.5 g/dL (33.0-37.0); Mean Corpuscular Hgb 34.4 pg (27.0-31.0); Mean Corpuscular Volume 96.9 fL (80.0-94.0); Mean Platelet Volume 11.4 fL (7.4-10.4); Nucleated Red Blood Cells % 14.3 % (-); Platelet Count 148 10^3/uL (130-400); Red Blood Cell Count 3.89 10^6/uL (4.70-6.10); Red Cell Dist. Width 16.4 % (11.5-14.5); White Blood Cell Count 9.1 10^3/uL (4.8-10.8)
--- NOTE | 2024-05-04 05:15 | PTCARENOTE ---
SpO2 low 80s, RT at bedside. New NIV settings 18/10 100% FiO2
[2024-05-04 05:34] LABS: ALT (SGPT) 22 U/L (0-50); AST (SGOT) 84 U/L (17-59); Albumin 3.6 g/dl (3.5-5.0); Alkaline Phosphatase 197 U/L (38-126); Blood Urea Nitrogen 22 mg/dl (9-20); Calcium 8.9 mg/dl (8.4-10.2); Carbon Dioxide 22 mmol/L (22-30); Chloride 100 mmol/L (98-107); Estimated Creatinine Clearance 56 ml/min; Glucose 127 mg/dl (70-99); HDL Cholesterol 70 mg/dl; LDL Cholesterol, Calculated 46 mg/dl; Magnesium 1.6 mg/dl (1.6-2.3); Potassium 4.2 mmol/L (3.5-5.1); Sodium 135 mmol/L (135-145); Total Bilirubin 3.6 mg/dl (0.2-1.3); Total Cholesterol 134 mg/dl (50-199); Triglyceride 94 mg/dl (10-149); Very Low Density Lipoprotein 18 mg/dl (0-30); eGFR 56.48
--- NOTE | 2024-05-04 06:03 | W.PN.UPDATE ---
Update Note
Progress Note Update
Last year (05/31) when admitted for similar picture, PO2 at that time was 52 and 40. Tosser recommendations was not to intubate patient unless in respiratory distress. Clinically patient is in no distress and AAO*3, will continue with NIV.
Settings adjusted. Instructed nurse if any change in clinical picture please notify provider.
[2024-05-04] MEDS: SYNTHROID 200 MCG PO (06:37)
[2024-05-04] MEDS: SYMBICORT 160/4.5 MCG INHALER INH (07:23)
[2024-05-04] MEDS: THIAMINE INJECTION 200 MG IV ×2 (07:28→20:30)
[2024-05-04] MEDS: LASIX 40 MG IV (07:28)
--- NOTE | 2024-05-04 07:56 | PTCARENOTE ---
Rec'd care of patient at 0700. Pulse ox in the high 60's on NIV. RT at bedside. Lung sounds shallow/diminished throughout with scattered rhonchi. Bibasilar crackles. Patient repositioned in bed. 40 IV Lasix administered as ordered. Patient denies
dyspnea. Pulse ox slow to recover. Currently up to 76% after roughly 40 minutes. Waiter/Waitress Captain notified. Cardizem drip infusing at 5mg/hr. Afib with rate in the 60-70's. Cardiology notified. Plan to transition to PO Cardizem. Echo in progress.
--- NOTE | 2024-05-04 08:29 | W.PN.INTV ---
Today's Communication / Plan
Recommendations
Continuous NIV
Will trial high flow nasal cannula to see if he can tolerate this otherwise will need to remain on NIV until he improves
Continue with diuresis with Lasix 40 mg IV BID --> will raise to 60mg if needed
Trend troponin and defer ischemic evaluation to cardiology
Change inhalers to DuoNebs + budesonide
Aspiration precautions
Keep HOB >30-45 �
Stay in bed for now given severe degree of hypoxia
Poor prognosis
Patient now DNI but okay for CPR after discussion with him which was confirmed with his sister (see separate update note)
Continue ICU level of care
Assessment
-
63-year-old male with history of severe COPD, tobacco abuse, alcohol abuse, atrial fibrillation, heart failure with preserved ejection fraction came via EMS to the emergency room with pulse ox in the 50s. Patient was found to be cyanotic. In the
emergency room requiring noninvasive mechanical ventilation and then supplemental oxygen. ABG without hypercapnia.
He was also noted to have atrial fibrillation with rapid ventricular response and started on Cardizem and diuresis.
I was consulted from the emergency room to assist in care as the patient has history of underlying severe COPD.
Acute on chronic hypoxemic respiratory failure-suspected heart failure with reduced ejection fraction acute on chronic.
Acute respiratory alkalosis
Left hemithorax pleural effusion s/p thoracentesis today removing 1200 cc of straw-colored transudative fluid
Acute HFmrEF exacerbation with RV enlargement/RV systolic dysfunction
Rapid atrial fibrillation
Elevated troponin-likely due to demand ischemia with type II OR versus NSTEMI
Conditions present prior admission:
History of left pleural effusion twice status post thoracentesis-transudate.Last thoracentesis 06/22/2023
Tobacco wjfab-68-mwal-year history mostly stopped on 11/07/2023-ongoing 1 to 2 cigarettes/day.
COPD-chronic bronchitis/xnoprgcgc-dnjsgt-hilzrcfkksdnrobtcw FEV1 41% / 1.[address] chest 06/26/2023: No evidence for lung nodules. Minimal bilateral pleural effusions. Postinflammatory scarring.
Last time seen in the office 10/2023-he was recommended to go on Trelegy - did not follow up.
Chronic hypoxemic respiratory failure-on nighttime oxygen. 2 L nasal cannula
Not following with pulmonary
Not using inhalers
Alcohol abuse
Hypothyroidism
Atrial fibrillation
Heart failure with reduced ejection fraction.
Echocardiogram 05/26/2023: Normal left ventricular wall thickness. Global hypokinesis. Mildly reduced left ventricular ejection fraction 35 to 40%. Mild MR. Mild TR. Estimated pulmonary pressure 43 mmHg. Mildly dilated right atrium. Normal
right ventricle size.
Suspected Obstructive sleep apnea- declined evaluation.
Hypothyroidism/history of Graves' disease.
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
-
Assessment and plan:
Clinical picture suggestive of heart failure with reduced ejection fraction.
It is noted on outpatient records that patient is poor compliant with regimen-during the last visit in our office on 10/2023 patient was severely hypoxemic not being compliant with oxygen at home pulse ox down to 65% and he was sent to the emergency
room for evaluation.
VBG 05/03/2024: Without hypercapnia.
Appears that he has presented this time to the emergency room with similar complaints of shortness of breath and profound hypoxemia.
-
Agree with cardiac management
Heart rate control
Diuresis as able
CTA chest on 04/29/2024 was negative for PE and shows a moderate left-sided pleural effusion
Patient underwent thoracentesis today removing 1200 cc of straw-colored transudative pleural fluid; unfortunately this did not help his degree of hypoxia
Transthoracic echocardiogram performed today showed global hypokinesis with mildly reduced LVEF at 40%, with RV systolic function reduced with mild as moderate MR and moderately elevated PASP at 40-45 mmHg
Trend troponins until it peaks
Cardiology has been consulted - recs appreciated; defer ischemic eval to them
-
From the COPD perspective: Patient is not taking any inhalers. Prolonged expiratory phase-chronic.
He does have severe COPD most recent spirometry 07/2023 with an FEV1 of 0.89 L or 32% of predicted. Severe obstruction; interestingly his PFT from 11/07/2023 did not show evidence of COPD
Given his degree of shortness of breath, we will change his Symbicort + Spiriva to DuoNebs + budesonide
Previously he was recommended to go on Trelegy but appears that he is not using any inhalers in the outpatient setting
Total smoking cessation recommended. He has mostly quit smoking now using only 1 to 2 cigarettes/day per his report --> recommend nioctine patch
In October 2023 he was recommended to follow-up in 3 months but did not follow through.
-
Suspect obstructive sleep apnea-he declined evaluation in the past
VBG this admission does not suggest hypercapnia
-
Continue to provide oxygen supplementation to maintain pulse ox above 90%. Currently on NIV @ 100% FiO2 at 18/00ooO8I --> wean down FiO2 as tolerated to goal SpO2 88-95%
Mental status baseline
he is now DNI - see separate update note from Dr. Jordan on 05/04/2024
-
Most recent CT chest 06/2023: Showed no evidence for pulmonary nodule or masses.
He will be due for a low-dose radiation CAT scan on 06/2024.
-
Monitor for alcohol withdrawal.
Continue thiamine + folic acid
MSAS with prn ativan
-
Continue ICU level of care for this critically ill patient
-
Critical care statement: A total of 42 minutes of critical care time was provided for this patient today. This includes management of unstable vital signs, evaluation of the patient at bedside, reviewing the patient's pertinent medical records
including radiographs, microbiology, laboratory evaluations, and discussion with primary team, consultants, pharmacy, nutrition, physical therapy, case management, charge nurse, critical care nursing, and respiratory therapy.
Subjective Dataa
Subjective Data
Date of Service:
Date of Service: May 04, 2024
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
Subjective:
Seen and evaluated this AM. HR 70 and BP 102/67, SpO2 88% on NIV at 18/87cyQ1M at 100% FiO2. He frequently drops his saturations to the mid 70s sometimes lower, although he remains awake, alert and oriented. He is in no acute distress. He denies
chest pain, AUGUSTE, nausea, fevers or chills.
Review of Systems
General: Other (Negative unless mentioned above)
Objective Data
Data Reviewed
Vital Signs / I&O / Oxygen:
Vital Signs
Temp Pulse Resp BP Pulse Ox
97.8 F 72 20 101/67 76
05/04/24 08:41 05/04/24 09:30 05/04/24 09:30 05/04/24 09:30 05/04/24 09:30
Intake and Output
05/03/24 05/04/24 05/05/24
06:59 06:59 06:59
Intake Total 510 / 510
Output Total 800 / 800
Balance -290 / -290
SaO2 [NIV (Non Invasive 70
Ventilation)]
SaO2 76
Nasal Cannula flow liters per 60
minute
Physical Exam
General: Respiratory Distress (negative), Comfortable and Chills (negative)
HEENT: Normocephalic and Anicteric
Cardiovascular: Irregular Rhythm and Peripheral Edema (negative)
Respiratory: Wheeze (negative), Rhonchi (negative), Non-Labored Respirations and Other (Coarse breath sounds heard bilaterally)
GI: Soft, Non Distended, Non Tender and Normal Bowel Sounds
Neurology: AO x 3 and Tremors (negative)
Skin: Warm, Dry, Cyanosis (negative) and Jaundice (negative)
Labs/Micro/Reports
Lab Data
05/04/24 04:52
05/04/24 04:52
Laboratory Results
05/03/24 05/04/24 05/04/24
19:20 00:55 04:29
PT 17.9 H
INR 1.45
APTT 33.1
pH Cancelled 7.54 H
pCO2 Cancelled 26 L
pO2 Cancelled 49 L*
HCO3 Cancelled 22.2
O2 Delivery Level Cancelled 100%
Microbiology
05/03/24 11:32 Nasal Swab Influenza Types A & B (ERROL) - Final
Negative for Influenza A & B, NAAT
Negative results must be combined with clinical observations
and patient history.
Nucleic Acid Amplification test (NAAT)performed on the
[employer] NOW platform.
--- NOTE | 2024-05-04 08:45 | PTCARENOTE ---
left thoracentesis done at bedside by Dr. See, sterile procedure, ielding 1200ml clear yellow pleural fluid. sent specimens as ordered. post CXR entered. Pt's o2 sats remain 70s throughout procedure with no imporovement post. primary RN and
respiratory therapist aware.
[2024-05-04] MEDS: TOPROL XL PO (09:06)
[2024-05-04 09:27] LABS: Body Fluid pH 7.46
--- NOTE | 2024-05-04 09:31 | PTCARENOTE ---
Left thoracentesis completed at bedside by IR. Home Day Care Provider at bedside. ABG drawn and [facility]. [facility]
[2024-05-04 09:33] LABS: B.E. 1.1 mmol/L; HCO3 23.4 mmol/L (21-28); O2 Saturation % 66.8 % (94-98); PCO2 30 mmHg (35-48)
[2024-05-04 09:35] LABS: PO2 42 mmHg (83-108)
[2024-05-04 09:47] LABS: Body Fluid Amylase < 30 U/L; Body Fluid Glucose 111 mg/dl; Body Fluid LDH 134 U/L; Body Fluid Protein 3.7 g/dl; Body Fluid Triglycerides 58 mg/dl
[2024-05-04] MEDS: DUONEB 3 ML INH ×3 (09:51→19:14)
--- NOTE | 2024-05-04 09:55 | W.PN.UPDATE ---
Update Note
Progress Note Update
Pt extremely hypoxic now. On NIV at 100% FiO2 with SpO2 73%. Despite this he is awake and alert and following commands. I called the sister and she says at home he has issues with low oxygen. I asked the patient if he wants a tube in his throat
if it is needed to save his life, and he said no, that that would 'be ugly.' He has agreed to DNI. When I was speaking with his sister I made her aware of his decision, and she agreed. She will call the patient's son and make him aware as well.
He would want CPR if his heart were to stop.
[2024-05-04 10:38] LABS: Body Fluid Mononuclear 95.9 %; Body Fluid Polymorphonuclear 4.1 %; Body Fluid WBC 121 /CUMM
[2024-05-04] MEDS: MAG-TAB SR 84 MG PO (10:38)
[2024-05-04] MEDS: FOLVITE 1 MG PO (10:39)
[2024-05-04] MEDS: CARDIZEM CD 120 MG PO (10:39)
[2024-05-04 10:58] LABS: Body Fluid Second Tech AMA
[2024-05-04 11:28] LABS: Lactic Acid 2.4 mmol/L (0.7-2.0)
--- NOTE | 2024-05-04 12:29 | PTCARENOTE ---
Addendum entered by Lluvia Hernandez RN 05/04/24 12:39:
Bladder scan 112 cc's.
Original Note:
Patient reassessed. Alert and oriented. MSAS 0. Remains in afib on tele. Rate controlled. Pulse ox in the low 80's on NIV 25/12. It Application Development Manager at bedside, plan to trial patient on HFNC. Lung sounds diminished throughout. No void. Bladder scan. No
other changes. Son updated over the phone.
--- NOTE | 2024-05-04 12:38 | W.PN.CARDCBS ---
Today's Communication / Plan
-
Given deep anterior T wave inversions and troponin, stop Eliquis and start heparin and aspirin
Consider cardiac catheterization at the end of the week
Continue IV Lasix
Continue oral Cardizem
Impression / Plan
-
PCP: Dre Chino MD
Primary Bridge Expert: Dr. Chavez
Assessment:
Afib with RVR
acute on chronic HFrEF
acute on chronic hypoxemic resp failure
elevated troponin
COPD, on home oxygen
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
Cardiomyopathy, EF 35-40% by echo 05/2023
previous admission 05/2023, 06/2023 for CHF, afib
L pleural effusions s/p thoracentesis 05/2023, 06/2023
Persistent atrial fibrillation
Chronic eliquis therapy
Ascending aortic saccular aneurysm, 2.6 x 2.1 cm
Graves' disease
H/O Hypothyroidism following radiation treatment for Graves' disease
Daily EtOH
Current smoker
Medication noncompliance
ECHO 10/29/2021: EF 50-55%, mild MR, mildly dilated LA, mild TR, pulmonary artery systolic pressure 51 mmHg based on elevated right atrial pressure of 20 mmHg, dilated RA, normal RV, and some views anteroseptal hypokinesis could be present, normal
aortic valve
ECHO 05/26/23: EF 35 to 40% with global hypokinesis, mild MR, PA pressure 43
Plan:
He remains with severe respiratory failure requiring BiPAP. Defer to hospitalist and air defense artillery senior sergeant as to best management strategy.
Heart rate now adequately controlled in atrial fibrillation on diltiazem. Given severity of pulmonary issues, will hold metoprolol and continue diltiazem despite presumed LV dysfunction and heart failure. If pulmonary status improves we could
switch diltiazem back to long-acting beta-vipul
Still volume overloaded, and creatinine is up to 1.4. Continue IV Lasix, follow creatinine.
Consider SGLT2 antagonist. Can consider spironolactone as well. Restart of CHILANGO at some point, though at present, blood pressure is marginal.
Given dramatic anterior T wave changes, we may need to rethink our strategy regarding his troponin elevation which at this point is best considered as a non-ST segment elevation ND. Will hold Eliquis and start heparin and aspirin. Based on
clinical status we may need to consider cardiac catheterization later in the week. All will depend on his long-term prognosis, which is guarded given his severe pulmonary issues
Progress Note - Bridge Expert
Subjective
Date of Service: May 04, 2024:
Patient on BiPAP, complaining of airleak,
Medications: IV Lasix 40 IV twice daily, thiamine, folate, levothyroxine, metoprolol on hold, apixaban 5 twice daily, diltiazem ER 120 a day, DuoNebs, Pulmicort
100/79, pulse 76, respiratory 23, afebrile, sats 83% weight is 76.2 kg, if accurate actually up to 0.3 kg, chronically ill-appearing, BiPAP, Diminished breath sounds with rhonchi and wheezing throughout, distant heart tones, abdomen benign, not much
edema
Thoracentesis for 1200 mL left earlier today, chest x-ray today vascular congestion, left effusion and small right effusion, intake and output incomplete
Telemetry A-fib controlled ventricular response, hemoglobin 13.4, ABG 7.5, pCO2 30, pO2 42, bicarb 23, BUN and creatinine are 22 and 1.4, creatinine had been 1.1, lactic acid is 2.0, potassium is 4.2, peak troponin 4.5
Echo is pending
EKG Atrial fibrillation deep anterior T wave inversions with prolonged QT, T wave changes are new since the , rate has dropped by 80 bpm
Objective
Labs:
05/04/24 04:52
05/04/24 04:52
Labs
Hgb 13.4 g/dL (13.0-18.0) 05/04/24 04:52
Hct 37.7 % (39.0-52.0) L 05/04/24 04:52
Plt Count 148 10^3/uL (130-400) 05/04/24 04:52
PT 17.9 Sec (11.4-14.6) H 05/03/24 19:20
INR 1.45 05/03/24 19:20
APTT 33.1 Sec (23.4-35.0) 05/03/24 19:20
Sodium 135 mmol/L (135-145) 05/04/24 04:52
Potassium 4.2 mmol/L (3.5-5.1) 05/04/24 04:52
BUN 22 mg/dl (9-20) H 05/04/24 04:52
Creatinine 1.4 mg/dL (0.7-1.3) H 05/04/24 04:52
Glucose 127 mg/dl (70-99) H 05/04/24 04:52
Troponins
05/03/24 05/03/24 05/03/24
11:32 14:13 19:20
Troponin I 3.580 H* 3.770 H* 4.220 H*
05/04/24 05/04/24 05/04/24
00:48 04:52 11:03
Troponin I 4.460 H* 4.570 H* 3.860 H*
Vital Signs and I&O:
Vital Signs
Temp Pulse Resp BP Pulse Ox
36.6 C 76 23 100/79 83
05/04/24 08:41 05/04/24 12:00 05/04/24 12:00 05/04/24 12:00 05/04/24 12:00
Vital Signs
Temp Pulse Resp BP Pulse Ox
36.6 C 76 23 100/79 83
05/04/24 08:41 05/04/24 12:00 05/04/24 12:00 05/04/24 12:00 05/04/24 12:00
Intake & Output
05/02/24 05/03/24 05/04/24 05/05/24
07:59 07:59 07:59 07:59
Intake Total 510 / 510
Output Total 800 / 800
Balance -290 / -290
Physical Exam
Physical Exam
See above
--- NOTE | 2024-05-04 13:48 | PTCARENOTE ---
Patient's pulse ox down to 60% after 1 hour on HFNC + NRB. RT at bedside to place patient back on NIV. Spoke with Lion Tamer, Lasix dose increased to 60mg.
--- NOTE | 2024-05-04 15:53 | CM ---
CM reviewed chart, patient seen bedside, initial assessment completed. Patient on NIV. Patient resides with brother in a two story home, three steps to enter, thirteen steps to bedroom. Patient denies VN or SNF, on home O2. Patient confirmed PCP
[facility], [facility]. CM reviewed with nurse, person of contact is patients sister, not son.
Consult received for substance use counseling, discussed with patient, offered [facility], patient declining at this time. CM will continue to follow for all discharge planning needs.
Plan; home with brother, watch for VN needs, when medically stable.
--- NOTE | 2024-05-04 15:58 | PTCARENOTE ---
Patient reassessed. Sitting in chair position in bed. Alert and oriented. Forgetful occasionally. Afib on tele. Pulse ox high 80-mid 80's on HFNC + NRB. Weaned off NIV to eat. No s/s aspiration. Lung sounds with bibasilar crackles. Urine output
minimal throughout shift. 60 IV Lasix administered as ordered.
[2024-05-04] MEDS: LASIX 60 MG IV (16:05)
--- NOTE | 2024-05-04 16:59 | W.PN.HOSP.TC ---
Today's Communication/Plan
-
Assessment / Plan
Assessment / Plan
NAD, still somewhat cyanotic, on bilevel still in the 80s
Scleral Anicteric
MMM
No JVD
Rhonchorous, left sided diminished
RRR, S1/S2
Soft, NT, ND, BS+
Warm, Dry
AAOx3
Calm
Left-sided pleural effusion consult IR for thoracentesis obtain pleural fluid studies including LDH protein glucose, cytology and gram stain
Acute hypoxemic respiratory failure per ICU does not want intubation. Therefore at this time we will continue going back and forth from high flow to BiPAP. Hopefully with the thoracentesis oxygen saturations will improve. Provide incentive
spirometer. IV Lasix. MDIs.
A-fib RVR, off Cardizem drip on p.o. Cardizem and beta-blockers along with Eliquis rates are improved
Hypothyroid cotninue levothyroxine
Alcohol use disorder continue thiamine and folate, Msas and ativan prn
Anticipated Discharge: > 48 hours
Subjective/Interval History
-
Date of Service: May 04, 2024
Seen and examined. On bilevel support. No new complaints. No acute overnight events. SpO2 remained in 80s.
Objective Data
-
Labs:
Laboratory Results
05/04/24 05/04/24
04:52 09:18
WBC 9.1
Hgb 13.4
Hct 37.7 L
Plt Count 148
HCO3 23.4
Sodium 135
Potassium 4.2
Chloride 100
Carbon Dioxide 22
BUN 22 H
Creatinine 1.4 H
Glucose 127 H
Calcium 8.9
Total Bilirubin 3.6 H
AST 84 H
ALT 22
Alkaline Phosphatase 197 H
Vital Signs:
Vital Signs
Temp Pulse Resp BP Pulse Ox
97.7 F 81 32 99/67 80
05/04/24 15:57 05/04/24 16:05 05/04/24 16:00 05/04/24 16:05 05/04/24 16:00
I&O
05/03/24 05/04/24 05/05/24
06:59 06:59 06:59
Intake Total 510 / 510
Output Total 800 / 800 125 / 125
Balance -290 / -290 -125 / -125
[2024-05-04] MEDS: LOW STRENGTH ASPIRIN 324 MG PO (18:00)
[2024-05-04] MEDS: HEPARIN 2000 UNITS IV (18:17)
[2024-05-04] MEDS: HEPARIN 25000 UNITS/250 ML IV (18:19)
--- NOTE | 2024-05-04 18:34 | PTCARENOTE ---
324mg ASA administered. Heparin bolus given and drip initiated per protocol.
[2024-05-04] MEDS: PULMICORT 0.5 MG INH (19:15)
[2024-05-04] MEDS: ATIVAN 1 MG IV ×2 (20:29→21:16)
[2024-05-04] MEDS: NSS (PRESERVATIVE FREE) 0.5 ML IV ×2 (20:29→21:16)
[2024-05-04] MEDS: PRECEDEX 100 IV (20:43)
--- NOTE | 2024-05-04 21:00 | PTCARENOTE ---
Received patient oriented to self, disoriented to place and time, constantly reminding patient he is in the hospital, safe, and it is April 2024. MSAS 9, patient restless, agitated, combative, uncooperative. Afib 70s-90s, BP stable, palpable
pedal and radial pulses b/l. Trace edema b/l lower extremities. NIV 18/10, rate of 14, saturating 86-95%. Lung sounds diminished, shallow, crackles in the bases. Dry occasional cough. Dyspneic on exertion. Positive bowel sounds, smear of a BM.
Urinal to void, bladder scanned for 82 mls. PIVs patent, WNL. Heparin gtt ongoing per protocol, precedex started to maintain RASS 0 to -2. Hourly rounding and patient safety checks ongoing.
[2024-05-05] VITALS (40 sets, daily range): BP systolic 73–105; BP diastolic 55–80; BMI 23.6
[2024-05-05 00:45] LABS: Hemoglobin 12.8 g/dL (13.0-18.0); Mean Corp Hgb Conc. 35.6 g/dL (33.0-37.0); Mean Corpuscular Hgb 34.9 pg (27.0-31.0); Mean Corpuscular Volume 98.1 fL (80.0-94.0); Mean Platelet Volume 11.5 fL (7.4-10.4); Platelet Count 141 10^3/uL (130-400); Red Blood Cell Count 3.67 10^6/uL (4.70-6.10); Red Cell Dist. Width 16.4 % (11.5-14.5); White Blood Cell Count 15.4 10^3/uL (4.8-10.8)
[2024-05-05 00:51] LABS: APTT 77.4 Sec (23.4-35.0)
--- NOTE | 2024-05-05 01:25 | PTCARENOTE ---
Patient more calm, RASS -2. Titrating precedex gtt to maintain RASS 0 to -2. PTT therapeutic x1, next one at 0730.
[2024-05-05 04:26] LABS: % Basophils 0.1 % (0-2); % Immature Granulocytes 0.5 % (0-0.5); % Lymphocytes 2.7 % (20.5-51.1); % Monocytes 8.5 % (1.7-9.3); % Neutrophils 88.2 % (42.2-75.2); Absolute Immature Granulocytes 0.1 10^3/uL (0-0.05); Absolute Lymphocytes 0.4 10^3/uL (1.2-3.4); Absolute Monocytes 1.3 10^3/uL (0.1-0.6); Absolute Neutrophils 13.6 10^3/uL (1.4-6.5); Hematocrit 37.5 % (39.0-52.0); Hemoglobin 13.3 g/dL (13.0-18.0); Mean Corp Hgb Conc. 35.5 g/dL (33.0-37.0); Mean Corpuscular Hgb 34.5 pg (27.0-31.0); Mean Corpuscular Volume 97.2 fL (80.0-94.0); Mean Platelet Volume 12.4 fL (7.4-10.4); Nucleated Red Blood Cells % 14.2 % (-); Platelet Count 130 10^3/uL (130-400); Red Blood Cell Count 3.86 10^6/uL (4.70-6.10); Red Cell Dist. Width 16.7 % (11.5-14.5); White Blood Cell Count 15.5 10^3/uL (4.8-10.8)
--- NOTE | 2024-05-05 04:27 | PTCARENOTE ---
CHG bath done, sheets changed, labs sent. Otherwise patient assessment unchanged from previous.
[2024-05-05 04:48] LABS: ALT (SGPT) 19 U/L (0-50); Albumin 3.6 g/dl (3.5-5.0); Alkaline Phosphatase 159 U/L (38-126); Blood Urea Nitrogen 46 mg/dl (9-20); Carbon Dioxide 24 mmol/L (22-30); Chloride 98 mmol/L (98-107); Estimated Creatinine Clearance 41 ml/min; Glucose 130 mg/dl (70-99); Phosphorus 3.9 mg/dl (2.5-4.5); Potassium 4.2 mmol/L (3.5-5.1); Sodium 134 mmol/L (135-145); Total Bilirubin 2.6 mg/dl (0.2-1.3); Total Protein 7.6 g/dl (6.3-8.2); eGFR 39.15
[2024-05-05] MEDS: SYNTHROID PO (05:02)
[2024-05-05 05:20] LABS: AST (SGOT) 63 U/L (17-59)
--- NOTE | 2024-05-05 07:00 | PTCARENOTE ---
report received at change of shift from previous RN. pt resting in bed, drowsy, arouses to voice. disoriented to place, time. restless, agitated when providing care. precedex infusing at 0.2 mcg/kg/min. heparin gtt per protocol. Afib on telemetry
heart rate 50-60s. pulses palpable. trace lower extremity edema. pt on NIV 100%, ps 18, peep 10, rate 14. sat in 80s. lung sounds diminished throughout. active bowel sounds. pt unable to take PO at this time due to mental status. bladder scanned for
381- encouraged pt to void if able. pt reoriented, bed alarm on. see worklist for full nursing assessment and interventions.
[2024-05-05 08:01] LABS: APTT 60.1 Sec (23.4-35.0)
[2024-05-05] MEDS: PULMICORT 0.5 MG INH ×2 (08:04→21:34)
[2024-05-05] MEDS: DUONEB 3 ML INH ×4 (08:04→21:33)
--- NOTE | 2024-05-05 08:13 | W.PN.CARDCBS ---
Today's Communication / Plan
-
Continue supportive care and BiPAP.
Will hold Lasix this morning with creatinine at 1.9. Weight is overall improved.
A-fib remains rate controlled. Continue IV heparin. If blood pressure remains marginal can hold diltiazem.
Eventually will need to restart beta-vipul with reduced ejection fraction and cardiomyopathy.
Once mental status improves and respiratory status is better would strongly consider cardiac catheterization.
Continue aspirin.
Impression / Plan
-
PCP: Dre Chino MD
Primary Roller Stainer: Dr. Chavez
Assessment:
Afib with RVR
acute on chronic HFrEF
acute on chronic hypoxemic resp failure
elevated troponin
COPD, on home oxygen
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
Cardiomyopathy, EF 35-40% by echo 05/2023
previous admission 05/2023, 06/2023 for CHF, afib
L pleural effusions s/p thoracentesis 05/2023, 06/2023
Persistent atrial fibrillation
Chronic eliquis therapy
Ascending aortic saccular aneurysm, 2.6 x 2.1 cm
Graves' disease
H/O Hypothyroidism following radiation treatment for Graves' disease
Daily EtOH
Current smoker
Medication noncompliance
ECHO 10/29/2021: EF 50-55%, mild MR, mildly dilated LA, mild TR, pulmonary artery systolic pressure 51 mmHg based on elevated right atrial pressure of 20 mmHg, dilated RA, normal RV, and some views anteroseptal hypokinesis could be present, normal
aortic valve
ECHO 05/26/23: EF 35 to 40% with global hypokinesis, mild MR, PA pressure 43
Plan:
He remains with severe respiratory failure requiring BiPAP. He required significant sedation overnight.
Heart rate now adequately controlled in atrial fibrillation on diltiazem. Given severity of pulmonary issues, will hold metoprolol and continue diltiazem despite presumed LV dysfunction and heart failure. If pulmonary status improves we could
switch diltiazem back to long-acting beta-vipul
Blood pressure is marginal. May need to add Levophed to support blood pressure.
Creatinine has increased to 1.9. Would hold diuretics for today and follow. Weight is overall down.
Consider SGLT2 antagonist. Can consider spironolactone as well. Restart of CHILANGO at some point, though at present, blood pressure is marginal, and creatinine is rising.
Given dramatic anterior T wave changes, we may need to rethink our strategy regarding his troponin elevation which at this point is best considered as a non-ST segment elevation MS. Will hold Eliquis and start heparin and aspirin. Based on
clinical status would consider cardiac catheterization later in the week. All will depend on his long-term prognosis, which is guarded given his severe pulmonary issues
cc time 33 min
Progress Note - Roller Stainer
Subjective
Date of Service: May 05, 2024
Patient required significant sedation overnight and is very groggy. Blood pressure is borderline. A-fib remains rate controlled.
Objective
Labs:
05/05/24 03:56
05/05/24 03:56
Labs
Hgb 13.3 g/dL (13.0-18.0) 05/05/24 03:56
Hct 37.5 % (39.0-52.0) L 05/05/24 03:56
Plt Count 130 10^3/uL (130-400) 05/05/24 03:56
PT 17.9 Sec (11.4-14.6) H 05/03/24 19:20
INR 1.45 05/03/24 19:20
APTT 60.1 Sec (23.4-35.0) H 05/05/24 07:32
Sodium 134 mmol/L (135-145) L 05/05/24 03:56
Potassium 4.2 mmol/L (3.5-5.1) 05/05/24 03:56
BUN 46 mg/dl (9-20) H 05/05/24 03:56
Creatinine 1.9 mg/dL (0.7-1.3) H 05/05/24 03:56
Glucose 130 mg/dl (70-99) H 05/05/24 03:56
Troponins
05/03/24 05/03/24 05/03/24
11:32 14:13 19:20
Troponin I 3.580 H* 3.770 H* 4.220 H*
05/04/24 05/04/24 05/04/24
00:48 04:52 11:03
Troponin I 4.460 H* 4.570 H* 3.860 H*
05/04/24
17:15
Troponin I Cancelled
Vital Signs and I&O:
Vital Signs
Temp Pulse Resp BP Pulse Ox
97 F 52 24 86/61 89
05/05/24 04:25 05/05/24 08:10 05/05/24 08:10 05/05/24 05:00 05/05/24 08:10
Vital Signs
Temp Pulse Resp BP Pulse Ox
97 F 52 24 86/61 89
05/05/24 04:25 05/05/24 08:10 05/05/24 08:10 05/05/24 05:00 05/05/24 08:10
Intake & Output
05/03/24 05/04/24 05/05/24 05/06/24
06:59 06:59 06:59 06:59
Intake Total 510 / 510 59.4 / 59.4
Output Total 800 / 800 125 / 125
Balance -290 / -290 -65.6 / -65.6
Physical Exam
Physical Exam
GEN: No distress, bipap
HEENT: supple, anicteric, mmm
LUNGS: bilat rhonchi
CV: Irreg, S1/S2, 1/6 syst LSB, no gallop
ABD: soft, BS+, NT/ND
EXT: No edema
NEURO: Gross non-focal
SKIN: No rash
[2024-05-05] MEDS: THIAMINE INJECTION 200 MG IV ×2 (08:17→19:56)
[2024-05-05] MEDS: LASIX IV (08:17)
--- NOTE | 2024-05-05 08:19 | W.PN.INTV ---
Today's Communication / Plan
Recommendations
Continuous NIV
Continue Precedex drip
Continue with diuresis with Lasix 60 mg IV BID <--- raised from 40mg IV BID
Defer ischemic evaluation to cardiology
Changed inhalers to DuoNebs + budesonide
Aspiration precautions
Keep HOB >30-45 �
Stay in bed for now given severe degree of hypoxia
Poor prognosis
Patient now DNI but okay for CPR after discussion with him which was confirmed with his sister (see separate update note)
Continue ICU level of care
Assessment
-
63-year-old male with history of severe COPD, tobacco abuse, alcohol abuse, atrial fibrillation, heart failure with preserved ejection fraction came via EMS to the emergency room with pulse ox in the 50s. Patient was found to be cyanotic. In the
emergency room requiring noninvasive mechanical ventilation and then supplemental oxygen. ABG without hypercapnia.
He was also noted to have atrial fibrillation with rapid ventricular response and started on Cardizem and diuresis.
I was consulted from the emergency room to assist in care as the patient has history of underlying severe COPD.
Acute on chronic hypoxemic respiratory failure-suspected heart failure with reduced ejection fraction acute on chronic.
Acute respiratory alkalosis
Left hemithorax pleural effusion s/p thoracentesis on 05/04 removing 1200 cc of straw-colored transudative fluid
Acute HFmrEF exacerbation with RV enlargement/RV systolic dysfunction
Rapid atrial fibrillation
Elevated troponin-likely due to demand ischemia with type II SC versus NSTEMI
Acute agitation now on precedex
Conditions present prior admission:
History of left pleural effusion twice status post thoracentesis-transudate.Last thoracentesis 06/22/2023
Tobacco wudab-00-xfhw-year history mostly stopped on 11/07/2023-ongoing 1 to 2 cigarettes/day.
COPD-chronic bronchitis/lowmohtpk-haegwu-lbboxkzgfpxctthlmb FEV1 41% / 1.[address] chest 06/26/2023: No evidence for lung nodules. Minimal bilateral pleural effusions. Postinflammatory scarring.
Last time seen in the office 10/2023-he was recommended to go on Trelegy - did not follow up.
Chronic hypoxemic respiratory failure-on nighttime oxygen. 2 L nasal cannula
Not following with pulmonary
Not using inhalers
Alcohol abuse
Hypothyroidism
Atrial fibrillation
Heart failure with reduced ejection fraction.
Echocardiogram 05/26/2023: Normal left ventricular wall thickness. Global hypokinesis. Mildly reduced left ventricular ejection fraction 35 to 40%. Mild MR. Mild TR. Estimated pulmonary pressure 43 mmHg. Mildly dilated right atrium. Normal
right ventricle size.
Suspected Obstructive sleep apnea- declined evaluation.
Hypothyroidism/history of Graves' disease.
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
-
Assessment and plan:
Clinical picture suggestive of heart failure with reduced ejection fraction.
It is noted on outpatient records that patient is poor compliant with regimen-during the last visit in our office on 10/2023 patient was severely hypoxemic not being compliant with oxygen at home pulse ox down to 65% and he was sent to the emergency
room for evaluation.
VBG 05/03/2024: Without hypercapnia.
Appears that he has presented this time to the emergency room with similar complaints of shortness of breath and profound hypoxemia.
-
Agree with cardiac management
Heart rate control with goal <110
Diuresis as able, currently diuretics and BP meds on hold due to hypotension
CTA chest on 04/29/2024 was negative for PE and shows a moderate left-sided pleural effusion
Patient underwent thoracentesis today removing 1200 cc of straw-colored transudative pleural fluid; unfortunately this did not help his degree of hypoxia
Transthoracic echocardiogram performed today showed global hypokinesis with mildly reduced LVEF at 40%, with RV systolic function reduced with mild as moderate MR and moderately elevated PASP at 40-45 mmHg
Troponin peaked at 4.57 on 05/04/2024
Cardiology has been consulted - recs appreciated; defer ischemic eval to them
-
From the COPD perspective: Patient is not taking any inhalers. Prolonged expiratory phase-chronic.
He does have severe COPD most recent spirometry 07/2023 with an FEV1 of 0.89 L or 32% of predicted. Severe obstruction; interestingly his PFT from 11/07/2023 did not show evidence of COPD
Given his degree of shortness of breath, we will change his Symbicort + Spiriva to DuoNebs + budesonide
Previously he was recommended to go on Trelegy but appears that he is not using any inhalers in the outpatient setting
Total smoking cessation recommended. He has mostly quit smoking now using only 1 to 2 cigarettes/day per his report --> recommend nioctine patch
In October 2023 he was recommended to follow-up in 3 months but did not follow through.
-
Suspect obstructive sleep apnea-he declined evaluation in the past
VBG this admission does not suggest hypercapnia
-
Continue to provide oxygen supplementation to maintain pulse ox above 90%. Currently on NIV @ 100% FiO2 at [id number] --> wean down FiO2 as tolerated to goal SpO2 88-95%
Mental status baseline
he is now DNI since 05/04- see separate update note from Dr. Jordan on 05/04/2024
-
Most recent CT chest 06/2023: Showed no evidence for pulmonary nodule or masses.
He will be due for a low-dose radiation CAT scan on 06/2024.
-
Monitor for alcohol withdrawal.
Continue thiamine + folic acid
MSAS with prn ativan
Currently on precedex gtt --> unclear if his agitation if hypoxia driven or alcohol withdrawall related
-
I had a conversation today with his sister, Etelvina, and explained his clinical status. She will be coming in tonight and apparently he has prior advance directives stating he would want to be DNR/DNI, and I asked her to bring this in with her
tonight so that we can review this paperwork. She will also discuss his current clinical status with the patient's son. She would like to continue full medical management for now but keep his code status where it is currently at DNI but okay for
CPR.
.
Continue ICU level of care for this critically ill patient
-
Critical care statement: A total of 38 minutes of critical care time was provided for this patient today. This includes management of unstable vital signs, evaluation of the patient at bedside, reviewing the patient's pertinent medical records
including radiographs, microbiology, laboratory evaluations, and discussion with primary team, consultants, pharmacy, nutrition, physical therapy, case management, charge nurse, critical care nursing, and respiratory therapy.
Subjective Dataa
Subjective Data
Date of Service:
Date of Service: May 05, 2024
Chief Complaint: Bus Matron Follow Up
Subjective:
Pt seen this AM and he remains on NIV at 100% on 18/[id number], VTe 640, breathing at: 20. He was agitated overnight despite ativan and started on precedex. He then became hypotensive this AM, precedex stopped but then had to be resumed due to
agitation with kicking and trying to get out bed. HR 54, SpO2 83% and BP: 82/62. Currently on levophed at 2mcg/min.
Review of Systems
General: Other (Unable to obtain given patient acute clinical status/altered mental status)
Objective Data
Data Reviewed
Vital Signs / I&O / Oxygen:
Vital Signs
Temp Pulse Resp BP Pulse Ox
97.5 F 58 16 82/62 89
05/05/24 09:18 05/05/24 11:00 05/05/24 11:00 05/05/24 11:00 05/05/24 11:00
Intake and Output
05/04/24 05/05/24 05/06/24
06:59 06:59 06:59
Intake Total 510 / 510 59.4 / 72.2 103.9 / 103.9
Output Total 800 / 800 125 / 125
Balance -290 / -290 -65.6 / -52.8 103.9 / 103.9
SaO2 [NIV (Non Invasive 83
Ventilation)]
SaO2 89
Nasal Cannula flow liters per 55
minute
Physical Exam
General: Respiratory Distress (negative), Chills (negative) and Sweats (negative)
HEENT: Normocephalic and Anicteric
Cardiovascular: Irregular Rhythm and Peripheral Edema (negative)
Respiratory: Wheeze (negative), Rhonchi (negative), Non-Labored Respirations and Other (Coarse breath sounds heard bilaterally)
GI: Soft, Non Distended, Non Tender and Normal Bowel Sounds
Neurology: AO x 3 and Tremors (negative)
Skin: Warm, Dry, Cyanosis (negative) and Jaundice (negative)
Labs/Micro/Reports
Lab Data
05/05/24 03:56
05/05/24 03:56
Laboratory Results
05/04/24 05/05/24 05/05/24
23:00 00:32 07:32
APTT Cancelled 77.4 H 60.1 H
Microbiology
05/04/24 08:51 Pleural Fluid Body Fluid Culture - Preliminary
No Growth After 18-24 Hours
05/04/24 08:51 Pleural Fluid Gram Stain - Final
05/04/24 08:51 Pleural Fluid Fungal Culture - Preliminary
Culture in progress.
Positive cultures are reported as soon as detected.
Final report to follow in four to five weeks.
05/03/24 11:32 Nasal Swab Influenza Types A & B (ERROL) - Final
Negative for Influenza A & B, NAAT
Negative results must be combined with clinical observations
and patient history.
Nucleic Acid Amplification test (NAAT)performed on the
[employer] platform.
--- NOTE | 2024-05-05 08:30 | PTCARENOTE ---
Pt blood pressure running systolically in the 70s. precedex turned off for brief amount of time to see if blood pressure would improve. pt became very agitated, kicking legs out of bed, unable to redirect. providers notified, order received to start
levophed gtt and precedex gtt turned back on. when at rest pt sat upper 80s, low 90s. when pt restless and agitated sat goes to 60-70s.
--- NOTE | 2024-05-05 08:53 | PN.CDI ---
CDI
- -
CDI:
Physician Documentation Request
Admit Date: 05/03/24 15:11
Dear Doctor Lee,
Please review the following and provide your response in the progress notes.
Clinical Indicators:
Pt admitted with acute on Chronic Hypoxic Respiratory Failure
There is potentially conflicting documentation in the record regarding the type of atrial fibrillation.
Documented per H&P, ' history of A-fib that is paroxysmal-IV Cardizem bolus plus drip Continue oral EliquisConsult [facility] cardiology...'
Documented per Cardiology consult and progress note 05/04, ' Persistent atrial fibrillation Chronic Eliquis therapy...'
Due to potentially conflicting documentation please provide further specificity regarding atrial fibrillation :
Persistent atrial fibrillation - episodes of continuous AF that last more than 7 days and do not self-terminate
Paroxysmal atrial fibrillation - terminates spontaneously or with intervention within 7 days of onset
Other - please specify
Use of terms such as suspected, likely, concern for, or probable (associated with a specific diagnosis that is being evaluated, monitored, or treated as if it exists) are acceptable and can be coded in the inpatient setting, when documented at the
time of discharge.
Thank you,
Selma Christianson RN
CDI Specialist
[place] [facility]
Please use your independent medical judgment in providing your response.
[2024-05-05] MEDS: LEVOPHED 250 IV (08:54)
--- NOTE | 2024-05-05 09:02 | PN.CDI ---
CDI
- -
CDI:
Physician Documentation Request
Admit Date: 05/03/24 15:11
Dear Doctor Lee,
Please review the following and provide your response in the progress notes.
Clinical Indicators:
Pt admitted with acute on Chronic Hypoxic Respiratory Failure/Acute on Chronic combined CHF
Pt care note 05/04 @ 0330, ' Pt oriented w/ periods of confusion, taking NIV mask off. SpO2 80s. Spoke w/ OUTSIDE MACHINIST Tomás Walker, one time dose ativan IV ordered..'
Pt care note 05/04 @ 2100,'patient oriented to self, disoriented to place and time, constantly reminding patient he is in the hospital, safe, and it is April 2024. MSAS 9, patient restless, agitated, combative, uncooperative... precedex started
to maintain RASS 0 to -2. ....Hourly rounding and patient safety checks ongoing.'
Based on the above, could you clarify in the Progress Notes and Discharge Summary which, if any of the following, is the most likely etiology of the confusion/altered mental status.
Metabolic Encephalopathy
Acute confusion only
Other ( please specify)
Use of terms such as suspected, likely, concern for, or probable (associated with a specific diagnosis that is being evaluated, monitored, or treated as if it exists) are acceptable and can be coded in the inpatient setting, when documented at the
time of discharge.
Thank you,
Selma Christianson RN
CDI Specialist
[place] [facility]
Please use your independent medical judgment in providing your response.
[2024-05-05] MEDS: FOLVITE PO (09:35)
[2024-05-05] MEDS: ASPIRIN 300 MG RECTAL (09:46)
[2024-05-05] MEDS: FOLVITE 50.2 MG IV (09:55)
[2024-05-05] MEDS: PRECEDEX 100 IV ×2 (10:51→21:49)
--- NOTE | 2024-05-05 12:00 | PTCARENOTE ---
pt tolerating NIV, sat upper 80-low 90s when at rest. during care pt gets agitated, kicks arms and legs and drops sats to 70s. levophed at 2 mcg/min for MAP>65. no further changes in assessment noted.
--- NOTE | 2024-05-05 13:12 | W.PN.HOSP.TC ---
Today's Communication/Plan
-
Assessment / Plan
Assessment / Plan
NAD, still somewhat cyanotic, on bilevel still in the 80s
Scleral Anicteric
MMM
No JVD
Diminished breath sounds.
IRR, S1/S2
Soft, NT, ND, BS+
Warm, Dry
AAOx3
Calm
Left-sided pleural effusion consult IR for thoracentesis obtain pleural fluid studies including LDH protein glucose, cytology and gram stain
Acute hypoxemic respiratory failure per ICU does not want intubation. Therefore at this time we will continue going back and forth from high flow to BiPAP. Hopefully with the thoracentesis oxygen saturations will improve. Provide incentive
spirometer. IV Lasix. MDIs.
A-fib RVR, off Cardizem drip on p.o. Cardizem. Will need to resume beta-blockade when able to tolerate. Currently on heparin drip. Transition to Eliquis when able to do so
HFrEF with a slightly improved EF of 40%. Per cardiology hold Lasix today. Continue BiPAP as tolerated
ZAHRA secondary to overdiuresis. Hold diuretics. Repeat BMP in AM. Follow renal function. Follow-up urinary output. Avoid nephrotoxins hypotension
Hypothyroid cotninue levothyroxine
Alcohol use disorder continue thiamine and folate, Msas and ativan prn
Anticipated Discharge: > 48 hours
Subjective/Interval History
-
Date of Service: May 05, 2024
Seen and examined. No new complaints. No acute overnight events.
Remains in atrial fibrillation with rates in the 50s. Now on Levophed. BiPAP tidal volumes ranging of 4 4 50-5 20 with a leak of 50-60. SpO2 ranging from 85 to 92%. On heparin drip.
Objective Data
-
Labs:
Laboratory Results
05/05/24 05/05/24 05/05/24
03:56 07:32 15:00
WBC 15.5 H
Hgb 13.3
Hct 37.5 L
Plt Count 130
APTT 60.1 H Pending
Sodium 134 L
Potassium 4.2
Chloride 98
Carbon Dioxide 24
BUN 46 H
Creatinine 1.9 H
Glucose 130 H
Calcium 9.0
Total Bilirubin 2.6 H
AST 63 H
ALT 19
Alkaline Phosphatase 159 H
Vital Signs:
Vital Signs
Temp Pulse Resp BP Pulse Ox
97.6 F 66 16 92/68 90
05/05/24 11:23 05/05/24 11:33 05/05/24 11:33 05/05/24 11:33 05/05/24 11:33
I&O
05/04/24 05/05/24 05/06/24
06:59 06:59 06:59
Intake Total 510 / 510 59.4 / 72.2 103.9 / 103.9
Output Total 800 / 800 125 / 125
Balance -290 / -290 -65.6 / -52.8 103.9 / 103.9
[2024-05-05] MEDS: ATIVAN 1 MG IV ×3 (14:49→20:27)
[2024-05-05] MEDS: NSS (PRESERVATIVE FREE) 0.5 ML IV ×2 (14:50→20:27)
--- NOTE | 2024-05-05 14:51 | CM ---
CM following re: discharge planning.
Discussed in rounds, reviewed pt's chart, met with pt. Per Rounds meeting, pt is on NIV 100%, drowsy, arouses to voice, disoriented to place, time, restless, agitated when providing care, continue supportive care.
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
PT and OT evaluations pending.
D/C plan: uncertain at this time and will de[end on pt's progresses.
CM will follow with discharge plan updates as hospitalization progresses
[2024-05-05 15:25] LABS: APTT 81.3 Sec (23.4-35.0)
--- NOTE | 2024-05-05 16:00 | PTCARENOTE ---
pt remains on precedex currently at 0.2 mcg/kg/hr. pt becomes restless/agitated when aroused but otherwise sleeping and calm at rest. levophed tapered to off at this time. remains afib heart rate 50-60s. attempted to call son to update, no answer.
no further changes in assessment noted.
[2024-05-05] MEDS: HEPARIN 25000 UNITS/250 ML IV (19:56)
--- NOTE | 2024-05-05 20:18 | PTCARENOTE ---
Received patient in bed, disoriented to place and time, arouses to verbal stimuli. Agitated, combative, uncooperative, not redirectable. Ativan given per MSAS. Afib 50s-70s, BP stable, normothermic. Trace edema b/l lower extremities, palpable pulses
b/l. NIV 18/10, 100%, RR 14, saturating 97%. Lung sounds diminished throughout. Positive bowel sounds, abdomen firm. #25 condom cath on putting out yellow urine. PIVs patent, WNL. Heparin and precedex gtt ongoing per protocol. Hourly rounding and
patient safety checks ongoing.
[2024-05-05 21:57] LABS: APTT 118.6 Sec (23.4-35.0)
[2024-05-06] VITALS (42 sets, daily range): BP systolic 86–135; BP diastolic 56–87; BMI 23.4
[2024-05-06] MEDS: NSS (PRESERVATIVE FREE) 0.5 ML IV ×3 (00:16→13:14)
[2024-05-06] MEDS: ATIVAN 1 MG IV ×7 (00:17→22:02)
--- NOTE | 2024-05-06 00:21 | PTCARENOTE ---
Patient assessment unchanged from previous, hourly rounding and patient safety checks ongoing.
[2024-05-06] MEDS: ATIVAN 2 MG IV (03:54)
[2024-05-06] MEDS: NSS (PRESERVATIVE FREE) 1 ML IV (03:54)
--- NOTE | 2024-05-06 04:17 | PTCARENOTE ---
CHG bath done, ativan given per MSAS protocol. Repositioned, gown and sheets changed. Otherwise patient assessment unchanged from previous.
[2024-05-06] MEDS: SYNTHROID PO (05:06)
[2024-05-06 05:50] LABS: APTT 113.8 Sec (23.4-35.0)
[2024-05-06 05:58] LABS: Hematocrit 42.4 % (39.0-52.0); Hemoglobin 14.6 g/dL (13.0-18.0); Mean Corp Hgb Conc. 34.4 g/dL (33.0-37.0); Mean Corpuscular Hgb 34.1 pg (27.0-31.0); Mean Corpuscular Volume 99.1 fL (80.0-94.0); Mean Platelet Volume 12.2 fL (7.4-10.4); Platelet Count 119 10^3/uL (130-400); Red Blood Cell Count 4.28 10^6/uL (4.70-6.10); Red Cell Dist. Width 17.2 % (11.5-14.5); White Blood Cell Count 15.4 10^3/uL (4.8-10.8)
[2024-05-06 06:04] LABS: ALT (SGPT) 20 U/L (0-50); AST (SGOT) 58 U/L (17-59); Albumin 3.4 g/dl (3.5-5.0); Alkaline Phosphatase 153 U/L (38-126); Blood Urea Nitrogen 49 mg/dl (9-20); Calcium 8.9 mg/dl (8.4-10.2); Carbon Dioxide 20 mmol/L (22-30); Chloride 105 mmol/L (98-107); Estimated Creatinine Clearance 49 ml/min; Glucose 89 mg/dl (70-99); Potassium 4.6 mmol/L (3.5-5.1); Sodium 138 mmol/L (135-145); Total Bilirubin 2.2 mg/dl (0.2-1.3); Total Protein 7.4 g/dl (6.3-8.2); eGFR 48.11
[2024-05-06 07:07] LABS: % Basophils 0.1 % (0-2); % Eosinophils 0.1 % (0-6); % Immature Granulocytes 0.6 % (0-0.5); % Neutrophils 93.2 % (42.2-75.2); Absolute Immature Granulocytes 0.1 10^3/uL (0-0.05); Absolute Monocytes 0.9 10^3/uL (0.1-0.6); Absolute Neutrophils 14.4 10^3/uL (1.4-6.5); Nucleated Red Blood Cells % 12.7 % (-)
[2024-05-06] MEDS: PULMICORT 0.5 MG INH ×2 (07:52→19:36)
[2024-05-06] MEDS: DUONEB 3 ML INH ×4 (07:52→19:36)
[2024-05-06] MEDS: THIAMINE INJECTION 200 MG IV (08:26)
--- NOTE | 2024-05-06 08:29 | W.PN.INTV ---
Today's Communication / Plan
Recommendations
Continuous NIV
Continue Precedex drip
Continue with diuresis with IV Lasix
Defer ischemic evaluation to cardiology
Changed inhalers to DuoNebs + budesonide
Aspiration precautions
Keep HOB >30-45 �
Stay in bed for now given severe degree of hypoxia
Poor prognosis
Patient now DNI but okay for CPR after discussion with him which was confirmed with his sister (see separate update note) - this was reinforced with his advanced directives his sister brought in
Continue ICU level of care
Assessment
-
63-year-old male with history of severe COPD, tobacco abuse, alcohol abuse, atrial fibrillation, heart failure with preserved ejection fraction came via EMS to the emergency room with pulse ox in the 50s. Patient was found to be cyanotic. In the
emergency room requiring noninvasive mechanical ventilation and then supplemental oxygen. ABG without hypercapnia.
He was also noted to have atrial fibrillation with rapid ventricular response and started on Cardizem and diuresis.
I was consulted from the emergency room to assist in care as the patient has history of underlying severe COPD.
Acute on chronic hypoxemic respiratory failure-suspected heart failure with reduced ejection fraction acute on chronic.
Acute respiratory alkalosis
Left hemithorax pleural effusion s/p thoracentesis on 05/04 removing 1200 cc of straw-colored transudative fluid
Acute HFmrEF exacerbation with RV enlargement/RV systolic dysfunction
Rapid atrial fibrillation
Elevated troponin-likely due to demand ischemia with type II OK versus NSTEMI
Acute agitation now on precedex
Conditions present prior admission:
History of left pleural effusion twice status post thoracentesis-transudate.Last thoracentesis 06/22/2023
Tobacco jzily-00-cbpo-year history mostly stopped on 11/07/2023-ongoing 1 to 2 cigarettes/day.
COPD-chronic bronchitis/vgzmkelnr-bfhsvr-hnxbhpburchrcptklm FEV1 41% / 1.[address] chest 06/26/2023: No evidence for lung nodules. Minimal bilateral pleural effusions. Postinflammatory scarring.
Last time seen in the office 10/2023-he was recommended to go on Trelegy - did not follow up.
Chronic hypoxemic respiratory failure-on nighttime oxygen. 2 L nasal cannula
Not following with pulmonary
Not using inhalers
Alcohol abuse
Hypothyroidism
Atrial fibrillation
Heart failure with reduced ejection fraction.
Echocardiogram 05/26/2023: Normal left ventricular wall thickness. Global hypokinesis. Mildly reduced left ventricular ejection fraction 35 to 40%. Mild MR. Mild TR. Estimated pulmonary pressure 43 mmHg. Mildly dilated right atrium. Normal
right ventricle size.
Suspected Obstructive sleep apnea- declined evaluation.
Hypothyroidism/history of Graves' disease.
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
-
Assessment and plan:
Clinical picture suggestive of heart failure with reduced ejection fraction.
It is noted on outpatient records that patient is poorly compliant with his medical regimen-during the last visit in our office on 10/2023 patient was severely hypoxemic and not being compliant with oxygen at home - pulse ox was down to 65% and he
was sent to the emergency room for evaluation.
VBG 05/03/2024: Without hypercapnia.
Appears that he has presented this time to the emergency room with similar complaints of shortness of breath and profound hypoxemia.
-
Agree with cardiac management
Heart rate control with goal <110
Diuresis as able ---> hold for hypotension
CTA chest on 04/29/2024 was negative for PE and shows a moderate left-sided pleural effusion
Patient underwent thoracentesis today removing 1200 cc of straw-colored transudative pleural fluid; unfortunately this did not help his degree of hypoxia
Transthoracic echocardiogram performed today showed global hypokinesis with mildly reduced LVEF at 40%, with RV systolic function reduced with mild as moderate MR and moderately elevated PASP at 40-45 mmHg
Troponin peaked at 4.57 on 05/04/2024
Cardiology has been consulted - recs appreciated; defer ischemic eval to them
-
From the COPD perspective: Patient is not taking any inhalers. Prolonged expiratory phase-chronic.
He does have a Hx of severe COPD most recent spirometry 07/2023 with an FEV1 of 0.89 L or 32% of predicted. Severe obstruction; interestingly his PFT from 11/07/2023 did not show evidence of COPD
Given his degree of shortness of breath, we will change his Symbicort + Spiriva to DuoNebs + budesonide
I believe the majority of his symptoms is due to hypoventilation with severe deconditioning with bronchial wall thickening in the lower lobes predominantly (R>L) in setting of ADHF
Previously he was recommended to go on Trelegy but appears that he is not using any inhalers in the outpatient setting
Total smoking cessation recommended. He has mostly quit smoking now using only 1 to 2 cigarettes/day per his report --> recommend nicotine patch
In October 2023 he was recommended to follow-up in 3 months but did not follow through.
-
Suspect obstructive sleep apnea-he declined evaluation in the past
VBG this admission does not suggest hypercapnia
-
Continue to provide oxygen supplementation to maintain pulse ox above 90%. Currently on NIV @ 100% FiO2 at 18/30ugV6D --> wean down FiO2 as tolerated to goal SpO2 88-95%
Mental status baseline
He is now DNI since 05/04- see separate update note from Dr. Jordan on 05/04/2024 --> Code status was also confirmed on his prior advance directives which the sister brought in and I personally reviewed
-
Most recent CT chest 06/2023: Showed no evidence for pulmonary nodule or masses.
He will be due for a low-dose radiation CAT scan on 06/2024 --> can obtain this as an outpatient assuming he survives this hospitalization
-
Patient is suspected to be in a alcohol withdrawal - given that we cannot give any oral meds, start IV phenobarbital at low-dose, holding for sedation while we transition him off of Precedex
Continue thiamine + folic acid
MSAS with prn ativan
Unclear if his agitation if hypoxia driven or alcohol withdrawal related
GOC discussion 05/05/2024: I had a conversation today with his sister, Etelvina, and explained his clinical status. She will be coming in tonight and apparently he has prior advance directives stating he would want to be DNR/DNI, and I asked her to
bring this in with her tonight so that we can review this paperwork. She will also discuss his current clinical status with the patient's son. She would like to continue full medical management for now but keep his code status where it is
currently at DNI but okay for CPR.
I had a melissa discussion with the family today at bedside. I explained that the patient's had a long history of hypoxia and noncompliance. Explained that he is on continuous NIV at this point which is a form of life support. They would like time
to talk about what to do amongst themselves. I did mention hospice and withdrawal of care as an option; in the meantime we will try to lower sedation and see if he wakes up in a calm manner. Goals of care will be an ongoing discussion.
.
Continue ICU level of care for this critically ill patient on continuous noninvasive ventilation.
-
Critical care statement: A total of 41 minutes of critical care time was provided for this patient today. This includes management of unstable vital signs, evaluation of the patient at bedside, reviewing the patient's pertinent medical records
including radiographs, microbiology, laboratory evaluations, and discussion with primary team, consultants, pharmacy, nutrition, physical therapy, case management, charge nurse, critical care nursing, and respiratory therapy.
Subjective Dataa
Subjective Data
Date of Service:
Date of Service: May 06, 2024
Chief Complaint: [place] Press Operator Follow Up
Subjective:
Pt was seen and evaluated this AM. Remains on NIV on 18/10 cmH2O with FiO2 100%, saturating at 94% with HR 78 and BP 99/67. Currently on Precedex 0.3mcg/kg/hr. Patient's sister came to the bedside, Etelvina, and I answered all her questions. The
patient's son also is here and I will speak to him as well.
Review of Systems
General: Unobtainable - Pat Unresp
Objective Data
Data Reviewed
Vital Signs / I&O / Oxygen:
Vital Signs
Temp Pulse Resp BP Pulse Ox
97.3 F 78 22 109/85 95
05/06/24 08:23 05/06/24 10:00 05/06/24 10:00 05/06/24 10:00 05/06/24 10:00
Intake and Output
05/05/24 05/06/24 05/07/24
06:59 06:59 06:59
Intake Total 59.4 / 72.2 9394.2 / 9408.9 58.8 / 58.8
Output Total 125 / 125 400 / 400 300 / 300
Balance -65.6 / -52.8 8994.2 / 9008.9 -241.2 / -241.2
SaO2 [NIV (Non Invasive 94
Ventilation)]
SaO2 95
Nasal Cannula flow liters per 55
minute
Physical Exam
General: Respiratory Distress (negative), Chills (negative) and Sweats (negative)
HEENT: Normocephalic and Anicteric
Cardiovascular: Irregular Rhythm and Peripheral Edema (negative)
Respiratory: Wheeze (negative), Rhonchi (negative), Non-Labored Respirations and Other (Coarse breath sounds heard bilaterally)
GI: Soft, Non Distended, Non Tender and Normal Bowel Sounds
Neurology: Tremors (negative) and Unresponsive
Skin: Warm, Dry, Cyanosis (negative) and Jaundice (negative)
Labs/Micro/Reports
Lab Data
05/06/24 05:12
05/06/24 05:12
Laboratory Results
05/05/24 05/05/24 05/06/24
14:58 21:36 05:12
APTT 81.3 H 118.6 H 113.8 H
Microbiology
05/04/24 08:51 Pleural Fluid Body Fluid Culture - Preliminary
No Growth After 18-24 Hours
05/04/24 08:51 Pleural Fluid Gram Stain - Final
05/04/24 08:51 Pleural Fluid Fungal Culture - Preliminary
Culture in progress.
Positive cultures are reported as soon as detected.
Final report to follow in four to five weeks.
05/03/24 11:32 Nasal Swab Influenza Types A & B (ERROL) - Final
Negative for Influenza A & B, NAAT
Negative results must be combined with clinical observations
and patient history.
Nucleic Acid Amplification test (NAAT)performed on the
[employer] platform.
--- NOTE | 2024-05-06 09:03 | PTCARENOTE ---
Rec'd care of patient at 0700. Patient drowsy. Disoriented to place and time. Precedex drip infusing for RASS 0 to -2. Afib on tele. Rate controlled. Trace edema in b/l LE. Palpable pulses. NIV 18/10 100%. Pulse ox high 80-low 90's. Lung sounds
shallow/diminished throughout. CROUCH. Hypo BS. No BM. CC#25 replaced for urinary incontinence. Precedex and Heparin drips infusing through peripheral INTs. Next PTT due at 1215. Bed alarm on and safe environment maintained.
[2024-05-06] MEDS: FOLVITE PO (09:10)
--- NOTE | 2024-05-06 09:44 | PN.CDI ---
CDI
- -
CDI:
Physician Documentation Request
Admit Date: 05/03/24 15:11
Dear Doctor Lee,
Please review the following and provide your response in the progress notes.
Current documentation includes a diagnosis of hypotension.
Clinical Indicators:
Pt admitted with acute on Chronic Hypoxic Respiratory Failure/Acute on Chronic combined CHF
Progress note 05/05, ' ZAHRA secondary to overdiuresis. Hold diuretics. Repeat BMP in AM. Follow renal function. Follow-up urinary output. Avoid nephrotoxins hypotension...Remains in atrial fibrillation with rates in the 50s. Now on
Levophed.....'
Pt care note 05/05 @ 0830' Pt blood pressure running systolically in the 70s. precedex turned off for brief amount of time to see if blood pressure would improve. pt became very agitated, kicking legs out of bed, unable to redirect. providers
notified, order received to start levophed gtt and precedex gtt turned back on.'
Please clarify which of the following is the most likely etiology of the above symptoms and treatment rendered/Use of Levophed:
Drug induced shock
Cardiogenic shock
Other shock ( please specify)
Hypotension only
Other ( please specify)
Use of terms such as suspected, likely, concern for, or probable (associated with a specific diagnosis that is being evaluated, monitored, or treated as if it exists) are acceptable and can be coded in the inpatient setting, when documented at the
time of discharge.
Thank you,
Selma Christianson RN
CDI Specialist
[place] [facility]
Please use your independent medical judgment in providing your response.
--- NOTE | 2024-05-06 10:40 | W.PN.CARDCBS ---
Today's Communication / Plan
-
Close monitoring of respiratory/hemodynamic status
Suspect alcohol withdrawal, defer to primary and hospitalist
Eliquis changed to IV heparin; when mental status/respiratory status have improved would prefer cardiac catheterization this hospitalization prior to discharge
Continue IV Lasix
Impression / Plan
-
PCP: Dre Chino MD
Primary Insurance Claim Representative: Dr. Chavez
Assessment:
Afib with RVR
acute on chronic HFrEF
acute on chronic hypoxemic resp failure
elevated troponin
COPD, on home oxygen
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
Cardiomyopathy, EF 35-40% by echo 05/2023
previous admission 05/2023, 06/2023 for CHF, afib
L pleural effusions s/p thoracentesis 05/2023, 06/2023
Persistent atrial fibrillation
Chronic eliquis therapy
Ascending aortic saccular aneurysm, 2.6 x 2.1 cm
Graves' disease
H/O Hypothyroidism following radiation treatment for Graves' disease
Daily EtOH
Current smoker
Medication noncompliance
ECHO 10/29/2021: EF 50-55%, mild MR, mildly dilated LA, mild TR, pulmonary artery systolic pressure 51 mmHg based on elevated right atrial pressure of 20 mmHg, dilated RA, normal RV, and some views anteroseptal hypokinesis could be present, normal
aortic valve
ECHO 05/26/23: EF 35 to 40% with global hypokinesis, mild MR, PA pressure 43
Plan:
63-year-old gentleman with history of severe COPD and ongoing tobacco dependence, alcohol abuse, chronic heart failure with reduced ejection fraction felt to be nonischemic, persistent atrial fibrillation on Eliquis therapy, Graves' disease with
hypothyroidism following radiation, medical noncompliance who presents with acute hypoxic respiratory failure consistent with acute on chronic heart failure with reduced ejection fraction in the setting of rapid atrial fibrillation
-He remains with severe respiratory failure requiring BiPAP.
-Mental status remains reduced and he is not responding to questions or following commands; suspect active alcohol withdrawal
-Continue to support respiratory status with BiPAP as per 911 dispatcher
-CTA negative for PE. Ascending thoracic aorta 5 cm unchanged from prior CT 05/25/2023.
-Alcohol withdrawal protocol per primary
Atrial fibrillation persistent with controlled rates
-Will avoid use of beta-vipul given underlying pulmonary status
-Currently on oral Cardizem; may need Dobbhoff tube if mental status does not improve
-Eliquis held; continue IV heparin drip
QT prolongation
-Repeat twelve-lead EKG
-Avoid QT prolonging agents
-Keep mag greater than 2, K greater than 4
Cardiomyopathy felt to be nonischemic with a EF on echocardiogram 05/04/2024 with EF visually estimated 40% with reduced RV systolic function and mild to moderate mitral regurgitation as well as moderate tricuspid regurgitation. Estimated pulmonary
artery pressures mildly elevated 40-45 mmHg with dilated IVC
-proBNP elevated at 6730
-Continue IV diuretics, Lasix 60 mg IV twice daily
-I's and O's, follow basic metabolic profile and weights
-Blood pressures pressure is marginal, briefly on Levophed which is now on standby.
-Eventually optimize goal-directed medical therapy
Abnormal troponin with abnormal EKG concerning for non-ST elevation myocardial infarct
-IV heparin and aspirin
-When mental status/clinical condition improves would favor r/l cardiac catheterization
Ascending aortic aneurysm, 5 cm, stable when compared to May 2023
-Will need outpatient follow-up and eventual consultation as an outpatient with CT surgery
Progress Note - Insurance Claim Representative
Subjective
Date of Service: May 06, 2024
Seen and examined. Chart/telemetry reviewed. Patient not answering questions or following commands.
Objective
Labs:
05/06/24 05:12
05/06/24 05:12
Labs
Hgb 14.6 g/dL (13.0-18.0) 05/06/24 05:12
Hct 42.4 % (39.0-52.0) 05/06/24 05:12
Plt Count 119 10^3/uL (130-400) L 05/06/24 05:12
PT 17.9 Sec (11.4-14.6) H 05/03/24 19:20
INR 1.45 05/03/24 19:20
APTT 113.8 Sec (23.4-35.0) H 05/06/24 05:12
Sodium 138 mmol/L (135-145) 05/06/24 05:12
Potassium 4.6 mmol/L (3.5-5.1) 05/06/24 05:12
BUN 49 mg/dl (9-20) H 05/06/24 05:12
Creatinine 1.6 mg/dL (0.7-1.3) H 05/06/24 05:12
Glucose 89 mg/dl (70-99) 05/06/24 05:12
Troponins
05/03/24 05/03/24 05/03/24
11:32 14:13 19:20
Troponin I 3.580 H* 3.770 H* 4.220 H*
05/04/24 05/04/24 05/04/24
00:48 04:52 11:03
Troponin I 4.460 H* 4.570 H* 3.860 H*
05/04/24
17:15
Troponin I Cancelled
Vital Signs and I&O:
Vital Signs
Temp Pulse Resp BP Pulse Ox
97.3 F 78 22 109/85 95
05/06/24 08:23 05/06/24 10:00 05/06/24 10:00 05/06/24 10:00 05/06/24 10:00
Vital Signs
Temp Pulse Resp BP Pulse Ox
97.3 F 78 22 109/85 95
05/06/24 08:23 05/06/24 10:00 05/06/24 10:00 05/06/24 10:00 05/06/24 10:00
Intake & Output
05/04/24 05/05/24 05/06/24 05/07/24
06:59 06:59 06:59 06:59
Intake Total 510 / 510 59.4 / 72.2 9394.2 / 9408.9 58.8 / 58.8
Output Total 800 / 800 125 / 125 400 / 400 300 / 300
Balance -290 / -290 -65.6 / -52.8 8994.2 / 9008.9 -241.2 / -241.2
Physical Exam
Physical Exam
GEN: On BiPAP appears older than stated age. Positive delirium/change in mental status
LUNGS: Poor effort. Bronchovesicular breath sounds with coarse rhonchi/wheezes bilaterally
CV: Irreg, S1/S2, 1/6 syst LSB
ABD: soft, BS+, NT/ND
EXT: No edema
[2024-05-06] MEDS: PRECEDEX 100 IV (12:08)
[2024-05-06] MEDS: PHENOBARBITAL 65 MG IV ×2 (12:23→21:06)
--- NOTE | 2024-05-06 12:38 | PTCARENOTE ---
No major changes. Patient remains drowsy with intermittent periods of agitation/restlessness. Phenobarb initiated. Afib on tele, rate in the 70-80's. NIV settings unchanged. Pulse ox 97%. Repeat CXR completed. PTT and VBG drawn and sent.
[2024-05-06 12:44] LABS: Venous Blood Gas B.E. 0.7 mmol/L (-4 to +4); Venous Blood Gas pCO2 43 mmHg (35-48); Venous Blood Gas pH 7.39 (7.32-7.43); Venous Blood Gas pO2 59 mmHg (30-50)
[2024-05-06 12:53] LABS: APTT 48.4 Sec (23.4-35.0)
[2024-05-06] MEDS: FOLVITE 50.2 MG IV (13:23)
--- NOTE | 2024-05-06 14:10 | CM ---
CM following re: discharge planning.
Discussed in rounds, reviewed pt's chart, met with pt. Per Rounds meeting, pt is on NIV 100%, drowsy, arouses to voice, disoriented to place, time, restless, agitated when providing care, suspected alcohol withdrawal, continue supportive care.
Pt rents a room in brother's [facility], has home O2 and was independent in all areas PIPEMAN.
PT and OT evaluations pending.
D/C plan: uncertain at this time and will de[end on pt's progresses.
CM will follow with discharge plan updates as hospitalization progresses
[2024-05-06] MEDS: OFIRMEV 100 IV (14:12)
[2024-05-06] MEDS: LASIX 40 MG IV ×2 (14:12→19:36)
--- NOTE | 2024-05-06 16:49 | W.PN.HOSP.TC ---
Addendum entered and electronically signed by Tereso Howard MD 05/06/24 17:37:
Persistent atrial fibrillation
Metabolic Encephalopathy
Drug induced shock
Original Note:
Today's Communication/Plan
-
Assessment / Plan
Assessment / Plan
NAD, still somewhat cyanotic, on bilevel still in the 90's
Scleral Anicteric
MMM
No JVD
Diminished breath sounds.
IRR, S1/S2
Soft, NT, ND, BS+
Warm, Dry
AAOx3
Calm
Left-sided pleural effusion status postthoracentesis, fluid analysis most consistent with transudative likely related to heart failure.
Acute hypoxemic respiratory failure per ICU does not want intubation. Therefore at this time we will continue going back and forth from high flow to BiPAP. Hopefully with the thoracentesis oxygen saturations will improve. Provide incentive
spirometer. IV Lasix. MDIs.
-Continue Precedex and phenobarbital per ICU
A-fib RVR, off Cardizem drip on p.o. Cardizem. Will need to resume beta-blockade when able to tolerate. Currently on heparin drip. Transition to Eliquis when able to do so
HFrEF with a slightly improved EF of 40%. Per cardiology hold Lasix today. Continue BiPAP as tolerated
ZAHRA secondary to overdiuresis. Hold diuretics. Repeat BMP in AM. Follow renal function. Follow-up urinary output. Avoid nephrotoxins hypotension
Hypothyroid cotninue levothyroxine
Alcohol use disorder continue thiamine and folate, Msas and ativan prn
Anticipated Discharge: > 48 hours
Subjective/Interval History
-
Date of Service: May 06, 2024
Seen and examined. On BiPAP. Leak has improved. Tidal volume improved.
Objective Data
-
Labs:
Laboratory Results
05/06/24 05/06/24 05/06/24
05:12 12:33 19:00
WBC 15.4 H
Hgb 14.6
Hct 42.4
Plt Count 119 L
APTT 113.8 H 48.4 H Pending
Sodium 138
Potassium 4.6
Chloride 105
Carbon Dioxide 20 L
BUN 49 H
Creatinine 1.6 H
Glucose 89
Calcium 8.9
Total Bilirubin 2.2 H
AST 58
ALT 20
Alkaline Phosphatase 153 H
Vital Signs:
Vital Signs
Temp Pulse Resp BP Pulse Ox
98.2 F 78 19 93/63 93
05/06/24 16:00 05/06/24 16:00 05/06/24 16:00 05/06/24 16:00 05/06/24 16:00
I&O
05/05/24 05/06/24 05/07/24
06:59 06:59 06:59
Intake Total 59.4 / 72.2 9394.2 / 9408.9 293.6 / 293.6
Output Total 125 / 125 400 / 400 700 / 700
Balance -65.6 / -52.8 8994.2 / 9008.9 -406.4 / -406.4
[2024-05-06] MEDS: PHENOBARBITAL IV (16:58)
--- NOTE | 2024-05-06 16:58 | PTCARENOTE ---
Pet Care Associate at bedside to update patient's sister, brother and son on condition, plan of care, prognosis etc. Patient lethargic. RASS -3. Precedex drip off since 1500. Phenobarb held. No other changes.
--- NOTE | 2024-05-06 18:26 | PTCARENOTE ---
Patient opening eyes. Squeezing hand upon request. Restless. Repositioned for comfort.
[2024-05-06] MEDS: THIAMINE INJECTION 100 MG IV (19:37)
[2024-05-06 19:41] LABS: APTT 60.6 Sec (23.4-35.0)
[2024-05-06] MEDS: HEPARIN 25000 UNITS/250 ML IV (19:56)
--- NOTE | 2024-05-06 20:00 | PTCARENOTE ---
assumed care, pt drowsy and restless, MSAS 8 refer to worklist, during report pt was ripping gown off, son @ bedside able to calm pt down, able to follow commands but hardly opening eyes, denies pain, pupils 3 and sluggish, afib on the monitor,
trace edema in LE, +pulses, B/L scds, lungs diminished, NIV 18/10 110%, SpO2 96, BSx4 hypoactive, CC#25 yellow output, skin dry and intact, 20G RFA, 20G RAC, PTT drawn and Hep adjusted per worklist, son updated @ bedside, otherwise refer to
documentation
[2024-05-06] MEDS: CARDIZEM 10 MG IV (21:57)
[2024-05-07] VITALS (25 sets, daily range): BP systolic 86–131; BP diastolic 50–87; BMI 22.4
[2024-05-07] MEDS: ATIVAN 1 MG IV (00:16)
--- NOTE | 2024-05-07 00:17 | PTCARENOTE ---
systems reviewed, pt remains restless despite multiple doses of Ativan and dex gtt, Cardizem given per MAR, oral hygiene, otherwise refer to documentation.
[2024-05-07 02:29] LABS: Hemoglobin 14.6 g/dL (13.0-18.0); Mean Corp Hgb Conc. 34.8 g/dL (33.0-37.0); Mean Corpuscular Hgb 34.8 pg (27.0-31.0); Mean Corpuscular Volume 100.2 fL (80.0-94.0); Red Blood Cell Count 4.19 10^6/uL (4.70-6.10); White Blood Cell Count 27.5 10^3/uL (4.8-10.8)
[2024-05-07 02:39] LABS: APTT 102.6 Sec (23.4-35.0)
[2024-05-07 02:50] LABS: ALT (SGPT) 21 U/L (0-50); AST (SGOT) 61 U/L (17-59); Albumin 3.5 g/dl (3.5-5.0); Alkaline Phosphatase 148 U/L (38-126); Blood Urea Nitrogen 50 mg/dl (9-20); Calcium 9.2 mg/dl (8.4-10.2); Carbon Dioxide 26 mmol/L (22-30); Chloride 105 mmol/L (98-107); Estimated Creatinine Clearance 44 ml/min; Glucose 76 mg/dl (70-99); Potassium 4.1 mmol/L (3.5-5.1); Sodium 143 mmol/L (135-145); Total Bilirubin 2.5 mg/dl (0.2-1.3); Total Protein 7.3 g/dl (6.3-8.2); eGFR 44.74
--- NOTE | 2024-05-07 03:07 | PTCARENOTE ---
systems reviewed, CHG bath, gtts per worklist, labs sent, otherwise refer to documentation
[2024-05-07 03:41] LABS: Mean Platelet Volume 12.5 fL (7.4-10.4); Platelet Count 98 10^3/uL (130-400)
[2024-05-07 03:42] LABS: Absolute Neutrophils -Man Diff 26.4 10^3/uL (1.4-6.5); Anisocytosis 1+; Band Neutrophils 8 % (0-3); Lymphocytes 2 % (20-51); Monocytes 2 % (2-9); Normal RBC Morphology No; Nucleated Red Blood Cells 7 (-); Platelets Checked Yes; Segmented Neutrophils 88 % (42-75); Total Cells Counted 100
[2024-05-07 03:43] LABS: Toxic Granulation 1+
[2024-05-07 03:44] LABS: Acanthocytes Occasional; Howell Jolly Bodies Occasional; Target Cells 2+; Vacuolated Segs Occasional
--- NOTE | 2024-05-07 04:22 | PTCARENOTE ---
PLT 98 BALLISTIC TECHNICIAN notified
[2024-05-07] MEDS: SYNTHROID PO (05:50)
[2024-05-07] MEDS: PULMICORT 0.5 MG INH ×2 (07:12→19:39)
[2024-05-07] MEDS: DUONEB 3 ML INH ×4 (07:12→19:39)
--- NOTE | 2024-05-07 07:33 | W.PN.INTV ---
Today's Communication / Plan
Recommendations
Check CT head
Continuous NIV
Hold phenobarbital given his degree of sedation
Continue Precedex drip, trying to wean off
Continue with diuresis with IV Lasix - last day today and then will re-assess daily
Defer ischemic evaluation to cardiology
Changed inhalers to DuoNebs + budesonide
Aspiration precautions
Keep HOB >30-45 �
Stay in bed for now given severe degree of hypoxia
Poor prognosis
Patient now DNI but okay for CPR after discussion with him which was confirmed with his sister (see separate update note) - this was reinforced with his advanced directives his sister brought in
Guarded prognosis
Continue ICU level of care
Assessment
-
63-year-old male with history of severe COPD, tobacco abuse, alcohol abuse, atrial fibrillation, heart failure with preserved ejection fraction came via EMS to the emergency room with pulse ox in the 50s. Patient was found to be cyanotic. In the
emergency room requiring noninvasive mechanical ventilation and then supplemental oxygen. ABG without hypercapnia.
He was also noted to have atrial fibrillation with rapid ventricular response and started on Cardizem and diuresis.
I was consulted from the emergency room to assist in care as the patient has history of underlying severe COPD.
Acute on chronic hypoxemic respiratory failure-suspected heart failure with reduced ejection fraction acute on chronic.
Acute respiratory alkalosis
Left hemithorax pleural effusion s/p thoracentesis on 05/04 removing 1200 cc of straw-colored transudative fluid
Acute HFmrEF exacerbation with RV enlargement/RV systolic dysfunction
Rapid atrial fibrillation
Elevated troponin-likely due to demand ischemia with type II VT versus NSTEMI
Acute agitation now on precedex
Worsening leukocytosis
Acute thrombocytopenia (4T score is low probability at 2 points)
Conditions present prior admission:
History of left pleural effusion twice status post thoracentesis-transudate.Last thoracentesis 06/22/2023
Tobacco [id number]-81-[id number]-year history mostly stopped on 11/07/2023-ongoing 1 to 2 cigarettes/day.
COPD-chronic bronchitis/ajhsfovcm-ypuune-zurstovofrjyhhvoje FEV1 41% / 1.[address] chest 06/26/2023: No evidence for lung nodules. Minimal bilateral pleural effusions. Postinflammatory scarring.
Last time seen in the office 10/2023-he was recommended to go on Trelegy - did not follow up.
Chronic hypoxemic respiratory failure-on nighttime oxygen. 2 L nasal cannula
Not following with pulmonary
Not using inhalers
Alcohol abuse
Hypothyroidism
Atrial fibrillation
Heart failure with reduced ejection fraction.
Echocardiogram 05/26/2023: Normal left ventricular wall thickness. Global hypokinesis. Mildly reduced left ventricular ejection fraction 35 to 40%. Mild MR. Mild TR. Estimated pulmonary pressure 43 mmHg. Mildly dilated right atrium. Normal
right ventricle size.
Suspected Obstructive sleep apnea- declined evaluation.
Hypothyroidism/history of Graves' disease.
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
-
Assessment and plan:
Clinical picture suggestive of heart failure with reduced ejection fraction.
It is noted on outpatient records that patient is poorly compliant with his medical regimen-during the last visit in our office on 10/2023 patient was severely hypoxemic and not being compliant with oxygen at home - pulse ox was down to 65% and he
was sent to the emergency room for evaluation.
VBG 05/03/2024: Without hypercapnia.
Appears that he has presented this time to the emergency room with similar complaints of shortness of breath and profound hypoxemia.
-
Agree with cardiac management
Heart rate control with goal <110
Diuresis as able ---> hold for hypotension
CTA chest on 04/29/2024 was negative for PE and shows a moderate left-sided pleural effusion
Patient underwent thoracentesis today removing 1200 cc of straw-colored transudative pleural fluid; unfortunately this did not help his degree of hypoxia
Transthoracic echocardiogram performed today showed global hypokinesis with mildly reduced LVEF at 40%, with RV systolic function reduced with mild as moderate MR and moderately elevated PASP at 40-45 mmHg
Troponin peaked at 4.57 on 05/04/2024
Cardiology has been consulted - recs appreciated; defer ischemic eval to them
-
From the COPD perspective: Patient is not taking any inhalers. Prolonged expiratory phase-chronic.
He does have a Hx of severe COPD most recent spirometry 07/2023 with an FEV1 of 0.89 L or 32% of predicted. Severe obstruction; interestingly his PFT from 11/07/2023 did not show evidence of COPD
Given his degree of shortness of breath, we will change his Symbicort + Spiriva to DuoNebs + budesonide
I believe the majority of his hypoxia is due to hypoventilation with severe deconditioning with bronchial wall thickening in the lower lobes predominantly (R>L) in setting of ADHF
Previously he was recommended to go on Trelegy but appears that he is not using any inhalers in the outpatient setting
Total smoking cessation recommended. He has mostly quit smoking now using only 1 to 2 cigarettes/day per his report --> recommend nicotine patch
In October 2023 he was recommended to follow-up in 3 months but did not follow through.
-
Suspect obstructive sleep apnea-he declined evaluation in the past
VBG this admission does not suggest hypercapnia
-
Continue to provide oxygen supplementation to maintain pulse ox above 90%. Currently on NIV @ 80% FiO2 at [id number] --> wean down FiO2 as tolerated to goal SpO2 88-95%
Mental status baseline
He is now DNI since 05/04- see separate update note from Dr. Jordan on 05/04/2024 --> Code status was also confirmed on his prior advance directives which the sister brought in and I personally reviewed
-
Most recent CT chest 06/2023: Showed no evidence for pulmonary nodule or masses.
He will be due for a low-dose radiation CAT scan on 06/2024 --> can obtain this as an outpatient assuming he survives this hospitalization
-
Patient is suspected to be in a alcohol withdrawal - given that we cannot give any oral meds, started IV phenobarbital at low-dose, holding for sedation while we transition him off of Precedex
Unfortunately continues to be too sedated for us to even give him phenobarbital. Check CT head to assess for CVA
Continue thiamine + folic acid
MSAS with prn ativan
Unclear if his agitation if hypoxia driven or alcohol withdrawal related or some other SPEED BELT SANDER TENDER process (CVA vs NCSE)
GOC discussion 05/05/2024: I had a conversation today with his sister, Etelvina, and explained his clinical status. She will be coming in tonight and apparently he has prior advance directives stating he would want to be DNR/DNI, and I asked her to
bring this in with her tonight so that we can review this paperwork. She will also discuss his current clinical status with the patient's son. She would like to continue full medical management for now but keep his code status where it is
currently at DNI but okay for CPR.
[facility] discussion on 05/06/[address] Jordan: I had a melissa discussion with the family today at bedside. I explained that the patient's had a long history of hypoxia and noncompliance. Explained that he is on continuous NIV at this point which
is a form of life support. They would like time to talk about what to do amongst themselves. I did mention hospice and withdrawal of care as an option; in the meantime we will try to lower sedation and see if he wakes up in a calm manner. Goals
of care will be an ongoing discussion.
.
Continue ICU level of care for this critically ill patient on continuous noninvasive ventilation.
-
Critical care statement: A total of 38 minutes of critical care time was provided for this patient today. This includes management of unstable vital signs, evaluation of the patient at bedside, reviewing the patient's pertinent medical records
including radiographs, microbiology, laboratory evaluations, and discussion with primary team, consultants, pharmacy, nutrition, physical therapy, case management, charge nurse, critical care nursing, and respiratory therapy.
Subjective Dataa
Subjective Data
Date of Service:
Date of Service: May 07, 2024
Chief Complaint: Inventory Control Specialist Follow Up
Subjective:
Pt seen and evaluated this AM. Still on continuous NIV [id number] at 80% FiO2. He is breathing at 30-32 breaths/min with VTe 513 cc and PIP: 21 cmH2O. He is saturating 96% with heart rate 102 and BP 86/64. CPOT is 5-6. Sedated on precedex at
0.4mcg/kg/hr. when Precedex is lowered patient becomes very agitated and is not directable and needs to be re-sedated.
Review of Systems
General: Unobtainable - Pat Unresp and Unobtainable - Sedation
Objective Data
Data Reviewed
Vital Signs / I&O / Oxygen:
Vital Signs
Temp Pulse Resp BP Pulse Ox
97.6 F 92 22 113/79 96
05/07/24 03:11 05/07/24 07:13 05/07/24 07:13 05/07/24 06:00 05/07/24 07:13
Intake and Output
05/06/24 05/07/24 05/08/24
06:59 06:59 06:59
Intake Total 9394.2 / 9408.9 539.8 / 539.8
Output Total 400 / 400 1150 / 1150
Balance 8994.2 / 9008.9 -610.2 / -610.2
SaO2 [NIV (Non Invasive 97
Ventilation)]
SaO2 96
Nasal Cannula flow liters per 55
minute
Physical Exam
General: Respiratory Distress (negative), Chills (negative) and Sweats (negative)
HEENT: Normocephalic and Anicteric
Cardiovascular: Irregular Rhythm and Peripheral Edema (negative)
Respiratory: Wheeze (negative), Rhonchi (negative), Non-Labored Respirations and Other (Coarse breath sounds heard bilaterally)
GI: Soft, Non Distended, Non Tender and Normal Bowel Sounds
Neurology: Tremors (negative), Unresponsive and Other (Pupils 3 mm bilaterally and sluggish)
Skin: Warm, Dry, Cyanosis (negative) and Jaundice (negative)
Labs/Micro/Reports
Lab Data
05/07/24 02:18
05/07/24 02:18
Laboratory Results
05/06/24 05/06/24 05/07/24
12:33 19:20 02:18
APTT 48.4 H 60.6 H 102.6 H
Microbiology
05/04/24 08:51 Pleural Fluid Body Fluid Culture - Preliminary
No Growth After 48 Hours
05/04/24 08:51 Pleural Fluid Gram Stain - Final
05/04/24 08:51 Pleural Fluid Fungal Culture - Preliminary
Culture in progress.
Positive cultures are reported as soon as detected.
Final report to follow in four to five weeks.
[2024-05-07] MEDS: FOLVITE PO (07:47)
[2024-05-07] MEDS: PRECEDEX 100 IV (07:47)
[2024-05-07] MEDS: THIAMINE INJECTION 100 MG IV ×2 (07:49→19:36)
[2024-05-07] MEDS: LASIX 40 MG IV ×2 (08:06→16:30)
--- NOTE | 2024-05-07 09:17 | PTOTSP ---
S/w RN who reports pt continues to not be appropriate to participate in skilled PT activity. Will sign off. Reconsult at a later date if pt becomes more stable and calm to participate in PT activity.
[2024-05-07 09:20] LABS: APTT 83.5 Sec (23.4-35.0)
--- NOTE | 2024-05-07 09:35 | W.PN.CARDCBS ---
Today's Communication / Plan
-
Remains in rate controlled atrial fibrillation
Medical management of presumed NSTEMI with consideration for eventual left heart cath
Continue IV Lasix in an attempt to improve his respiratory status
Impression / Plan
-
PCP: Dre Chino MD
Primary Player Development Manager: Dr. Chavez
Assessment:
Afib with RVR
acute on chronic HFrEF
acute on chronic hypoxemic resp failure
elevated troponin
COPD, on home oxygen
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
Cardiomyopathy, EF 35-40% by echo 05/2023
previous admission 05/2023, 06/2023 for CHF, afib
L pleural effusions s/p thoracentesis 05/2023, 06/2023
Persistent atrial fibrillation
Chronic eliquis therapy
Ascending aortic saccular aneurysm, 2.6 x 2.1 cm
Graves' disease
H/O Hypothyroidism following radiation treatment for Graves' disease
Daily EtOH
Current smoker
Medication noncompliance
ECHO 10/29/2021: EF 50-55%, mild MR, mildly dilated LA, mild TR, pulmonary artery systolic pressure 51 mmHg based on elevated right atrial pressure of 20 mmHg, dilated RA, normal RV, and some views anteroseptal hypokinesis could be present, normal
aortic valve
ECHO 05/26/23: EF 35 to 40% with global hypokinesis, mild MR, PA pressure 43
Plan:
63-year-old gentleman with history of severe COPD and ongoing tobacco dependence, alcohol abuse, chronic heart failure with reduced ejection fraction felt to be nonischemic, persistent atrial fibrillation on Eliquis therapy, Graves' disease with
hypothyroidism following radiation, medical noncompliance who presents with acute hypoxic respiratory failure consistent with acute on chronic heart failure with reduced ejection fraction in the setting of rapid atrial fibrillation
#Atrial fibrillation persistent with controlled rates
-Will avoid use of beta-vipul given underlying pulmonary status
-Currently on oral Cardizem, will use cautiously given reduced LV systolic function
-Eliquis held; continue IV heparin drip
#QT prolongation
-Repeat twelve-lead EKG
-Avoid QT prolonging agents
-Keep mag greater than 2, K greater than 4
#Cardiomyopathy felt to be nonischemic with a EF on echocardiogram 05/04/2024 with EF visually estimated 40% with reduced RV systolic function and mild to moderate mitral regurgitation as well as moderate tricuspid regurgitation. Estimated pulmonary
artery pressures mildly elevated 40-45 mmHg with dilated IVC
-proBNP elevated at 6730
-Continue IV diuretics, Lasix 40 mg IV twice daily
-I's and O's, follow basic metabolic profile and weights
-Blood pressures pressure is marginal, briefly on Levophed which is now on standby.
-Eventually optimize goal-directed medical therapy
#Abnormal troponin with abnormal EKG concerning for non-ST elevation myocardial infarct
-IV heparin and aspirin. Avoiding BB d/t severe COPD. Start statin.
-When mental status/clinical condition improves would favor r/l cardiac catheterization
#Ascending aortic aneurysm, 5 cm, stable when compared to May 2023
-Will need outpatient follow-up and eventual consultation as an outpatient with CT surgery
Progress Note - Player Development Manager
Subjective
Date of Service: May 07, 2024
No acute events. Remains sedated on Precedex in the medical ICU. Requiring noninvasive positive pressure ventilation at this time.
Objective
Labs:
05/07/24 02:18
05/07/24 02:18
Labs
Hgb 14.6 g/dL (13.0-18.0) 05/07/24 02:18
Hct 42.0 % (39.0-52.0) 05/07/24 02:18
Plt Count 98 10^3/uL (130-400) L 05/07/24 02:18
PT 17.9 Sec (11.4-14.6) H 05/03/24 19:20
INR 1.45 05/03/24 19:20
APTT 83.5 Sec (23.4-35.0) H 05/07/24 08:53
Sodium 143 mmol/L (135-145) 05/07/24 02:18
Potassium 4.1 mmol/L (3.5-5.1) 05/07/24 02:18
BUN 50 mg/dl (9-20) H 05/07/24 02:18
Creatinine 1.7 mg/dL (0.7-1.3) H 05/07/24 02:18
Glucose 76 mg/dl (70-99) 05/07/24 02:18
Troponins
05/04/24 05/04/24
11:03 17:15
Troponin I 3.860 H* Cancelled
Vital Signs and I&O:
Vital Signs
Temp Pulse Resp BP Pulse Ox
97.0 F 93 116 96
05/07/24 08:38 05/07/24 09:00 05/07/24 09:00 05/07/24 09:00 05/07/24 08:00
Vital Signs
Temp Pulse Resp BP Pulse Ox
97.0 F 93 11674 96
05/07/24 08:38 05/07/24 09:00 05/07/24 09:00 05/07/24 09:00 05/07/24 08:00
Intake & Output
05/05/24 05/06/24 05/07/24 05/08/24
06:59 06:59 06:59 06:59
Intake Total 59.4 / 72.2 9394.2 / 9408.9 539.8 / 560.4 61.8 / 61.8
Output Total 125 / 125 400 / 400 1150 / 1420 270 / 270
Balance -65.6 / -52.8 8994.2 / 9008.9 -610.2 / -859.6 -208.2 / -208.2
Physical Exam
Physical Exam
Gen: NAD, sedated
HEENT: NC/AT, sclera anicteric, poor dentition
Neck: No JVD
CV: irregularly irregular, NL s1/s2, no M/R/G
Lungs: No increased WOB on NIPPV
Abd: S/ND
Ext: No LE edema
Skin: Warm, dry
Neuro: Non-focal
--- NOTE | 2024-05-07 09:45 | PTCARENOTE ---
Rec'd care of patient at 0700. Patient drowsy with intermittent periods of restlessness/agitation. Does not follow commands. Uncooperative with care. Precedex infusing per protocol. Pupils equal and reactive. Sluggish, +3mm. Afib on tele. Rate
controlled. Trace edema in b/l LE. Palpable pulses. NIV 18/10 90%. Pulse ox 96-97%. CROUCH. Lung sounds shallow/diminished throughout. Hypo BS. Abdomen round/firm. Remains NPO d/t mental status. No BM. CC#25 for urinary incontinence. Patient washed.
Repositioned. Bed alarm on and functioning. Repeat PTT sent; Heparin therapeutic.
[2024-05-07] MEDS: PHENOBARBITAL IV (11:57)
--- NOTE | 2024-05-07 12:34 | PTCARENOTE ---
No major changes in assessment. Patient remains on Precedex drip. Phenobarb dc'd by Asbestos Surveyor. Afib on tele. NIV 25/12; FiO2 down to 80%. Pulse ox 97%. Lung sounds unchanged. +BS. No BM. Rectal suppository. Son at bedside; updated. Plan for head
ct.
[2024-05-07] MEDS: DULCOLAX 10 MG RECTAL (12:39)
[2024-05-07] MEDS: FOLVITE 50.2 MG IV (13:23)
--- NOTE | 2024-05-07 13:39 | W.PN.HOSP.TC ---
Today's Communication/Plan
-
Assessment / Plan
Assessment / Plan
NAD, on precedex, on bilevel still in the 's
Scleral Anicteric
MMM
No JVD
Diminished breath sounds.
IRR, S1/S2
Soft, NT, ND, BS+
Warm, Dry
AAOx3
Calm
Left-sided pleural effusion status postthoracentesis, fluid analysis most consistent with transudative likely related to heart failure.
Acute hypoxemic respiratory failure per ICU does not want intubation. Therefore at this time we will continue going back and forth from high flow to BiPAP. Hopefully with the thoracentesis oxygen saturations will improve. Provide incentive
spirometer. IV Lasix. MDIs.
-Continue Precedex per ICU
A-fib RVR, off Cardizem drip on p.o. Cardizem. Will need to resume beta-blockade when able to tolerate. Currently on heparin drip. Transition to Eliquis when able to do so
HFrEF with a slightly improved EF of 40%. Per cardiology hold Lasix today. Continue BiPAP as tolerated
ZAHRA secondary to overdiuresis. Hold diuretics. Repeat BMP in AM. Follow renal function. Follow-up urinary output. Avoid nephrotoxins hypotension
Hypothyroid cotninue levothyroxine
Alcohol use disorder continue thiamine and folate, Msas and ativan prn
Anticipated Discharge: > 48 hours
Subjective/Interval History
-
Date of Service: May 07, 2024
Seen and examined. No new complaints. No acute overnight events.
Objective Data
-
Labs:
Laboratory Results
05/07/24 05/07/24
02:18 08:53
WBC 27.5 H
Hgb 14.6
Hct 42.0
Plt Count 98 L
APTT 102.6 H 83.5 H
Sodium 143
Potassium 4.1
Chloride 105
Carbon Dioxide 26
BUN 50 H
Creatinine 1.7 H
Glucose 76
Calcium 9.2
Total Bilirubin 2.5 H
AST 61 H
ALT 21
Alkaline Phosphatase 148 H
Vital Signs:
Vital Signs
Temp Pulse Resp BP Pulse Ox
97.8 F 97 18 86/64 94
05/07/24 11:10 05/07/24 13:00 05/07/24 13:00 05/07/24 13:00 05/07/24 13:00
I&O
05/06/24 05/07/24 05/08/24
06:59 06:59 06:59
Intake Total 9394.2 / 9408.9 539.8 / 560.4 194.2 / 194.2
Output Total 400 / 400 1150 / 1420 970 / 970
Balance 8994.2 / 9008.9 -610.2 / -859.6 -775.8 / -775.8
--- NOTE | 2024-05-07 13:44 | CM ---
CM following re: discharge planning.
Reviewed pt's chart, met with pt. Pt's family at bedside.
Per Rounds meeting, pt is on NIV 100%, uncooperative with care, disoriented to place, time, restless, continue supportive care.
Pt rents a room in brother's [facility], has home O2 and was independent in all areas DISASTER DIRECTOR.
PT and OT evaluations pending.
D/C plan: uncertain at this time and will depend on pt's progresses.
CM will follow with discharge plan updates as hospitalization progresses
[2024-05-07 14:05] LABS: Lactic Acid 2.2 mmol/L (0.7-2.0)
[2024-05-07] MEDS: HEPARIN 25000 UNITS/250 ML IV (14:12)
--- NOTE | 2024-05-07 15:22 | PTCARENOTE ---
Head ct complete.
--- NOTE | 2024-05-07 15:54 | PTCARENOTE ---
Neurologist and Wash Test Checker at bedside to discuss head ct findings with family.
--- NOTE | 2024-05-07 16:02 | W.PN.UPDATE ---
Update Note
Progress Note Update
Due to patient's altered mental status, CT head was obtained showing large 4.9 cm acute ischemic stroke in the right parietal lobe with additional right cerebellar 1.4 cm acute ischemic infarct. Also mild diffuse cerebral and cerebellar volume
loss. No ICH seen. Patient continues to move all 4 extremities although remains lethargic and agitated when prompted. Okay to continue heparin drip. Family is considering withdrawing care. They need additional time to discuss amongst
themselves. This will be an ongoing discussion.
--- NOTE | 2024-05-07 16:05 | CON.NEURO ---
Addendum entered and electronically signed by Ruben Causey MD 05/07/24 18:16:
on exam, patient stuporous, mumbles
does not follow commands
localizes and withdraws x4
Original Note:
Neuro Assessment/Plan
Assessment
Head CT imgs rev'd with family at bedside and safety deposit clerk, Right MCA territory 4-5 cm, and a right cerebellar lacune
expect deficits of a little bit of left sided weakness numbness and maybe vision loss in the left upper quadrant. i do not see this stroke as being disabling, and I do not believe that this is the cause of his mental status.
source being afib, weighing the risk of further stroke and hemorrhagic conversion, if we plan to treat aggressively I vote continuing heparin gtt with goal ptt 50-70
and even if there is a localized hemorrhagic conversion it may not be devastating depending on the size. agree rectal aspirin
discussions of withdrawal of care should be based on his heart failure and respiratory failure and not the stroke
Consultation
Order
Date of Consultation: 05/07/24
Requesting Provider: Dre Jordan
Reason for Consult: Stroke
Subjective/Objective
Subjective Data
Date of Service: May 07, 2024
63 male history of A-fib that is paroxysmal, PE, HFrEF, pleural effusion, chronic home O2, COPD, hypothyroidism/Graves', alcohol abuse, admitted for heart failure, respiratory failure. Unable to wean bipap, does not want intubation. Due to poor
mental status, a head CT obtained showing stroke.
Per family, patient poor baseline function, Drank and smoked, did not take care of himself, and prior to admission he had limited mobility and poor quality of life.
Objective Data
Vital Signs
Temp Pulse Resp BP Pulse Ox
36.6 C 103 19 126/87 94
05/07/24 11:10 05/07/24 15:18 05/07/24 15:18 05/07/24 15:17 05/07/24 15:18
Lab Results
05/07/24 02:18
05/07/24 02:18
PT 17.9 Sec (11.4-14.6) H 05/03/24 19:20
INR 1.45 05/03/24 19:20
APTT 83.5 Sec (23.4-35.0) H 05/07/24 08:53
Sodium 143 mmol/L (135-145) 05/07/24 02:18
Potassium 4.1 mmol/L (3.5-5.1) 05/07/24 02:18
BUN 50 mg/dl (9-20) H 05/07/24 02:18
Glucose 76 mg/dl (70-99) 05/07/24 02:18
Calcium 9.2 mg/dl (8.4-10.2) 05/07/24 02:18
Phosphorus 3.9 mg/dl (2.5-4.5) 05/05/24 03:56
Dmc-Y-Kioyugsvqwn Pept 6730 pg/ml 05/03/24 11:32
LDL Cholesterol, Calc 46 mg/dl 05/04/24 04:52
Ur Buprenorphine Negative (Negative) 05/03/24 22:24
Patient Allergies
No Known Allergies Allergy (Verified 05/03/24 11:50)
Medications
-
Active Medications
Generic Name Dose Route Start Last Admin
Trade Name Freq PRN Reason Stop Dose Admin
Acetaminophen 650 mg 05/03/24 18:05
Acetaminophen 325 Mg Tablet PO 05/31/24 18:04
Q4HPRN PRN
mild pain/AUGUSTE/temp> 100.4F
Albuterol 2 puff 05/03/24 18:05 05/04/24 00:41
Albuterol Hfa [90 Mcg/Dose] Inhaler INH 2 puff
R Q6HPRN PRN Administration
shortness of breath or wheezin
Protocol
Albuterol/Ipratropium 3 ml 05/04/24 12:00 05/07/24 15:21
Ipratropium 0.5/Albuterol 3 Mg (3 Ml Ampul) INH 3 ml
R QID GABINO Administration
Protocol
Albuterol/Ipratropium 3 ml 05/04/24 10:29
Ipratropium 0.5/Albuterol 3 Mg (3 Ml Ampul) INH
R Q4HPRN PRN
SOB
Aspirin 81 mg 05/05/24 08:00 05/07/24 07:47
Aspirin 81 Mg Chewable Tablet PO 06/02/24 07:59 Not Given
DAILY GABINO
Aspirin 300 mg 05/08/24 08:00
Aspirin 300 Mg Rectal Suppository RECTAL 06/05/24 07:59
DAILY GABINO
Bisacodyl 10 mg 05/03/24 18:05 05/07/24 12:39
Bisacodyl 10 Mg Rectal Suppository RECTAL 05/31/24 18:04 10 mg
[id number] PRN Administration
constipation
Budesonide 0.5 mg 05/04/24 20:00 05/07/24 07:12
Budesonide (Pulmicort Respules) 0.5 Mg/2 Ml INH 0.5 mg
R BID GABINO Administration
Protocol
Diltiazem HCl 120 mg 05/05/24 08:00 05/07/24 07:47
Diltiazem 120 Mg Extended Release (24 H) Capsule PO 06/02/24 07:59 Not Given
DAILY GABINO
Diltiazem HCl 10 mg 05/04/24 08:16 05/06/24 21:57
Diltiazem 25 Mg/5 Ml Vial IV 06/01/24 08:15 10 mg
Q6HPRN PRN Administration
HR >110
Dexmedetomidine HCl 400 mcg in 100 mls @ 0 mls/hr 05/04/24 20:45 05/07/24 07:47
Precedex IV 100 mls
PER PROTOCOL GABINO Administration
Protocol
Per Protocol
Heparin Sodium 25,000 units in 250 mls @ 0 mls/hr 05/06/24 06:15 05/07/24 14:12
Heparin 67341 Units/250 Ml IV 250 mls
PER PROTOCOL GABINO Administration
Protocol
Per Protocol
Folic Acid 1 mg/ Sodium 50.2 mls @ 200.8 mls/hr 05/07/24 14:00 05/07/24 13:23
Chloride IV 06/04/24 13:59 50.2 mls
DAILY GABINO Administration
Levothyroxine Sodium 200 mcg 05/04/24 06:00 05/07/24 05:50
Levothyroxine 200 Mcg Tablet PO 06/01/24 05:59 Not Given
DAILY@0600 GABINO
Levothyroxine Sodium 160 mcg 05/08/24 18:00
Levothyroxine 100 Mcg (20 Mcg/Ml) Vial IV 06/05/24 17:59
DAILY@1800 GABINO
Protocol
Lorazepam 1 mg 05/03/24 18:05 05/07/24 00:16
Lorazepam 2 Mg/Ml Vial IV 05/31/24 18:04 1 mg
Q1HPRN PRN Administration
MSAS 8-11
Lorazepam 2 mg 05/03/24 18:05 05/06/24 03:54
Lorazepam 2 Mg/Ml Vial IV 05/31/24 18:04 2 mg
Q1HPRN PRN Administration
MSAS > 11
Lorazepam 1 mg 05/04/24 20:39 05/06/24 13:14
Lorazepam 2 Mg/Ml Vial IV 06/01/24 20:38 1 mg
Q2HPRN PRN Administration
MSAS 5-7
Metoprolol Succinate 25 mg 05/03/24 20:00 05/04/24 09:06
Metoprolol 25 Mg Extended Release Tablet PO 05/31/24 19:59 Not Given
BID GABINO
Polyethylene Glycol 17 grams 05/03/24 18:05
Polyethylene Glycol Powder 17 Grams Packet PO 05/31/24 18:04
DAILYPRN PRN
constipation
Senna/Docusate Sodium 1 tablet 05/03/24 18:05
Docusate W/Senna (Bailee-Colace) Tablet PO 05/31/24 18:04
BIDPRN PRN
constipation
Sodium Chloride 0 ml 05/03/24 18:05 05/06/24 13:14
Sodium Chloride 0.9% (Preservative Free) 10 Ml Vial IV 05/31/24 18:04 0.5 ml
PRN PRN Administration
To dilute IV Ativan
Protocol
Sodium Chloride 0 flush 05/03/24 19:00
Sodium Chloride 0.9% (Flush) Syringe IV 05/31/24 18:59
PER PROTOCOL GABINO
Thiamine HCl 100 mg 05/06/24 20:00 05/07/24 07:49
Thiamine (100 Mg/Ml) 2 Ml Vial IV 06/03/24 19:59 100 mg
BID GABINO Administration
Home Medications
�Medication �Instructions �Recorded
apixaban 5 mg tablet (Eliquis) 5 mg PO BID Blood Clot 05/25/23
Prevention/Tx
levothyroxine 200 mcg tablet 200 mcg PO DAILY Thyroid 05/25/23
metoprolol succinate 25 mg 25 mg PO BID Heart 08/10/23
tablet,extended release 24 hr Disease/Condition
furosemide 80 mg tablet 80 mg PO DAILY Fluid 05/03/24
Retention/Swelling
lisinopril 2.5 mg tablet 2.5 mg PO DAILY Blood Pressure 05/03/24
[2024-05-07] MEDS: ASPIRIN 300 MG RECTAL (16:24)
--- NOTE | 2024-05-07 16:43 | PTCARENOTE ---
Family meeting at bedside. Family requesting to change code status to DNR and focus on making patient comfortable. Requesting to wait to officially transition patient to comfort care until tomorrow in order to allow rest of family to see patient.
Psychiatric Specialist notified.
--- NOTE | 2024-05-07 19:20 | PTCARENOTE ---
Received pt via handoff. Pt drowsy and intermittently restless, not able to follow commands and hardly opening eyes,, pupils 3 and sluggish, afib on the monitor, trace edema in LE, +pulses, B/L scds, lungs diminished, NIV 18/10 60%, SpO2 96, BSx4
hypoactive, CC#25 yellow output, skin dry and intact, 20G RFA, 20G RAC, Hep and precedex see worklist, otherwise refer to documentation
[2024-05-07] MEDS: CARDIZEM 10 MG IV (19:35)
[2024-05-07] MEDS: ATIVAN 2 MG IV (21:23)
[2024-05-08] VITALS (20 sets, daily range): BP systolic 93–130; BP diastolic 53–76; BMI 22.3
[2024-05-08] MEDS: ATIVAN 2 MG IV ×3 (00:19→07:54)
--- NOTE | 2024-05-08 00:36 | PTCARENOTE ---
All systems reassessed. No changes in current status.
[2024-05-08] MEDS: CARDIZEM 10 MG IV ×2 (02:25→10:00)
[2024-05-08] MEDS: PRECEDEX 100 IV (02:25)
[2024-05-08 04:08] LABS: Hematocrit 40.1 % (39.0-52.0); Mean Corp Hgb Conc. 34.9 g/dL (33.0-37.0); Mean Corpuscular Hgb 34.4 pg (27.0-31.0); Mean Corpuscular Volume 98.5 fL (80.0-94.0); Mean Platelet Volume 12.4 fL (7.4-10.4); Platelet Count 85 10^3/uL (130-400); Red Blood Cell Count 4.07 10^6/uL (4.70-6.10); Red Cell Dist. Width 17.6 % (11.5-14.5); White Blood Cell Count 30.1 10^3/uL (4.8-10.8)
[2024-05-08 04:09] LABS: APTT 61.6 Sec (23.4-35.0)
[2024-05-08 04:18] LABS: NT-proBNP 5890 pg/ml
[2024-05-08 04:22] LABS: Magnesium 2.2 mg/dl (1.6-2.3); Phosphorus 3.1 mg/dl (2.5-4.5)
--- NOTE | 2024-05-08 05:09 | PTCARENOTE ---
All systems reassessed. Labs drawn and hygiene performed.
[2024-05-08] MEDS: PULMICORT 0.5 MG INH (07:19)
[2024-05-08] MEDS: DUONEB 3 ML INH ×2 (07:19→11:16)
[2024-05-08] MEDS: ASPIRIN 300 MG RECTAL (07:54)
[2024-05-08] MEDS: THIAMINE INJECTION 100 MG IV (07:54)
[2024-05-08] MEDS: FOLVITE 50.2 MG IV (07:55)
--- NOTE | 2024-05-08 08:10 | W.PN.INTV ---
Today's Communication / Plan
Recommendations
CT head yesterday showed 2 strokes - 1 in the cerebellum and 1 in the right parietal lobe
Neurology consulted and recs appreciated
Family is interested in withdrawing care later this afternoon
Continue with medical management for now until family ready to withdraw care
Consult hospice
[employer] services offered but family declined
No changes to medications until family ready to withdraw
Continue ICU level of care for this critically ill patient on continuous noninvasive ventilation; once family is ready to withdraw care then we will transition to comfort care measures and then web consultant/pulmonary service will sign off at that
time. Please call back with any questions or concerns.
Assessment
-
63-year-old male with history of severe COPD, tobacco abuse, alcohol abuse, atrial fibrillation, heart failure with preserved ejection fraction came via EMS to the emergency room with pulse ox in the 50s. Patient was found to be cyanotic. In the
emergency room requiring noninvasive mechanical ventilation and then supplemental oxygen. ABG without hypercapnia.
He was also noted to have atrial fibrillation with rapid ventricular response and started on Cardizem and diuresis.
I was consulted from the emergency room to assist in care as the patient has history of underlying severe COPD.
Acute on chronic hypoxemic respiratory failure-suspected heart failure with reduced ejection fraction acute on chronic.
Acute respiratory alkalosis
Large 4.9 cm acute ischemic transcortical infarct in the right parietal lobe + suspected 1.4 cm acute ischemic infarct in right cerebellum (seen on CT head 04/29/2024)
Left hemithorax pleural effusion s/p thoracentesis on 05/04 removing 1200 cc of straw-colored transudative fluid
Acute HFmrEF exacerbation with RV enlargement/RV systolic dysfunction
Rapid atrial fibrillation
Elevated troponin-likely due to demand ischemia with type II NV versus NSTEMI
Acute agitation now on precedex
Worsening leukocytosis
Acute thrombocytopenia (4T score is low probability at 2 points)
Conditions present prior admission:
History of left pleural effusion twice status post thoracentesis-transudate.Last thoracentesis 06/22/2023
Tobacco rmkad-75-anvn-year history mostly stopped on 11/07/2023-ongoing 1 to 2 cigarettes/day.
COPD-chronic bronchitis/lljbmzien-zlxyzu-iwjswvfaxvibwawvxh FEV1 41% / 1.[address] chest 06/26/2023: No evidence for lung nodules. Minimal bilateral pleural effusions. Postinflammatory scarring.
Last time seen in the office 10/2023-he was recommended to go on Trelegy - did not follow up.
Chronic hypoxemic respiratory failure-on nighttime oxygen. 2 L nasal cannula
Not following with pulmonary
Not using inhalers
Alcohol abuse
Hypothyroidism
Atrial fibrillation
Heart failure with reduced ejection fraction.
Echocardiogram 05/26/2023: Normal left ventricular wall thickness. Global hypokinesis. Mildly reduced left ventricular ejection fraction 35 to 40%. Mild MR. Mild TR. Estimated pulmonary pressure 43 mmHg. Mildly dilated right atrium. Normal
right ventricle size.
Suspected Obstructive sleep apnea- declined evaluation.
Hypothyroidism/history of Graves' disease.
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
-
Assessment and plan:
Spoke to multiple family hours today at bedside. They are interested in withdrawing care later this afternoon when additional family members arrive.
For now continue with NIV and then once the family is ready will transition to comfort care at that time
[employer] services offered however they declined
For now we will make no changes to medications until family ready to withdraw care
Consult hospice as I presume it may take longer than a day for him to pass away given that he has been used to hypoxia prior to arrival
Previously:
Clinical picture suggestive of heart failure with reduced ejection fraction.
It is noted on outpatient records that patient is poorly compliant with his medical regimen-during the last visit in our office on 10/2023 patient was severely hypoxemic and not being compliant with oxygen at home - pulse ox was down to 65% and he
was sent to the emergency room for evaluation.
VBG 05/03/2024: Without hypercapnia.
Appears that he has presented this time to the emergency room with similar complaints of shortness of breath and profound hypoxemia.
-
Agree with cardiac management
Heart rate control with goal <110
Diuresis as able ---> hold for hypotension
CTA chest on 04/29/2024 was negative for PE and shows a moderate left-sided pleural effusion
Patient underwent thoracentesis today removing 1200 cc of straw-colored transudative pleural fluid; unfortunately this did not help his degree of hypoxia
Transthoracic echocardiogram performed today showed global hypokinesis with mildly reduced LVEF at 40%, with RV systolic function reduced with mild as moderate MR and moderately elevated PASP at 40-45 mmHg
Troponin peaked at 4.57 on 05/04/2024
Cardiology has been consulted - recs appreciated; defer ischemic eval to them
-
From the COPD perspective: Patient is not taking any inhalers. Prolonged expiratory phase-chronic.
He does have a Hx of severe COPD most recent spirometry 07/2023 with an FEV1 of 0.89 L or 32% of predicted. Severe obstruction; interestingly his PFT from 11/07/2023 did not show evidence of COPD
Given his degree of shortness of breath, we will change his Symbicort + Spiriva to DuoNebs + budesonide
I believe the majority of his hypoxia is due to hypoventilation with severe deconditioning with bronchial wall thickening in the lower lobes predominantly (R>L) in setting of ADHF
Previously he was recommended to go on Trelegy but appears that he is not using any inhalers in the outpatient setting
Total smoking cessation recommended. He has mostly quit smoking now using only 1 to 2 cigarettes/day per his report --> recommend nicotine patch
In October 2023 he was recommended to follow-up in 3 months but did not follow through.
-
Suspect obstructive sleep apnea-he declined evaluation in the past
VBG this admission does not suggest hypercapnia
-
Continue to provide oxygen supplementation to maintain pulse ox above 90%. Currently on NIV @ 80% FiO2 at 18/80flQ9P --> wean down FiO2 as tolerated to goal SpO2 88-95%
Mental status baseline
He is now DNI since 05/04- see separate update note from Dr. Jordan on 05/04/2024 --> Code status was also confirmed on his prior advance directives which the sister brought in and I personally reviewed
-
Most recent CT chest 06/2023: Showed no evidence for pulmonary nodule or masses.
He will be due for a low-dose radiation CAT scan on 06/2024 --> can obtain this as an outpatient assuming he survives this hospitalization
-
Patient is suspected to be in a alcohol withdrawal - given that we cannot give any oral meds, started IV phenobarbital at low-dose, holding for sedation while we transition him off of Precedex
Unfortunately continues to be too sedated for us to even give him phenobarbital. CT head done last night showed a large ischemic stroke in the right parietal lobe + suspected small stroke in the right cerebellum --> neurology consulted and
recommendations appreciated
Stroke suspected to be cardioembolic
Continue with heparin drip for now and rectal aspirin
Continue thiamine + folic acid
MSAS with prn ativan
Unclear if his agitation if hypoxia driven or alcohol withdrawal related or some other CENTER LEAD CONSULTANT process (CVA vs NCSE)
GO discussion 05/05/2024: I had a conversation today with his sister, Etelvina, and explained his clinical status. She will be coming in [facility] and apparently he has prior advance directives stating he would want to be DNR/DNI, and I asked her to
bring this in with her tonight so that we can review this paperwork. She will also discuss his current clinical status with the patient's son. She would like to continue full medical management for now but keep his code status where it is
currently at DNI but okay for CPR.
GO discussion on 05/06/[address] Jordan: I had a melissa discussion with the family today at bedside. I explained that the patient's had a long history of hypoxia and noncompliance. Explained that he is on continuous NIV at this point which
is a form of life support. They would like time to talk about what to do amongst themselves. I did mention hospice and withdrawal of care as an option; in the meantime we will try to lower sedation and see if he wakes up in a calm manner. Goals
of care will be an ongoing discussion.
.
Continue ICU level of care for this critically ill patient on continuous noninvasive ventilation; once family is ready to withdraw care then we will transition to comfort care measures and then web consultant/pulmonary service will sign off at that
time. Please call back with any questions or concerns.
CT head 05/07/2024:
1. LARGE 4.9 cm ACUTE ISCHEMIC TRANSCORTICAL INFARCT in the inferolateral RIGHT PARIETAL LOBE containing cytotoxic edema.
2. Probable 1.4 cm acute ischemic infarct in the anterior inferior right cerebellar hemisphere containing cytotoxic edema.
3. Mild diffuse cerebral and cerebellar volume loss.
4. No CT evidence for acute intracranial hemorrhage.
5. Mild acute left sphenoid sinusitis.
-
Critical care statement: A total of 41 minutes of critical care time was provided for this patient today. This includes management of unstable vital signs, evaluation of the patient at bedside, reviewing the patient's pertinent medical records
including radiographs, microbiology, laboratory evaluations, and discussion with primary team, consultants, pharmacy, nutrition, physical therapy, case management, charge nurse, critical care nursing, and respiratory therapy.
Subjective Dataa
Subjective Data
Date of Service:
Date of Service: May 08, 2024
Chief Complaint: Set Up [employer] Follow Up
Subjective:
Patient seen and evaluated today at bedside. Remains on NIV at 18/10 at 50% FiO2. VTe is 444 mL and breathing at 35-40 breaths/min. He saturating 96% with heart rate 96 and BP 99/63. He remains minimally responsive. Currently on Precedex
0.25mcg/kg/hr + heparin drip. Multiple family members at bedside including the son (Aden), sister, additional fat member + stepmoEmma guallpa. All questions were answered. They would like to withdraw care later today at around 2�3 PM.
Review of Systems
General: Unobtainable - Pat Unresp
Objective Data
Data Reviewed
Vital Signs / I&O / Oxygen:
Vital Signs
Temp Pulse Resp BP Pulse Ox
99.6 F 123 30 120/76 92
05/08/24 08:15 05/08/24 10:00 05/08/24 10:00 05/08/24 10:00 05/08/24 09:00
Intake and Output
05/07/24 05/08/24 05/09/24
06:59 06:59 06:59
Intake Total 539.8 / 560.4 466.8 / 533.7 126.3 / 126.3
Output Total 1150 / 1420 1840 / 1840
Balance -610.2 / -859.6 -1373.2 / -1306.3 126.3 / 126.3
SaO2 [NIV (Non Invasive 93
Ventilation)]
SaO2 92
Nasal Cannula flow liters per 55
minute
Physical Exam
General: Respiratory Distress (negative), Chills (negative) and Sweats (negative)
HEENT: Normocephalic and Anicteric
Cardiovascular: Irregular Rhythm and Peripheral Edema (negative)
Respiratory: Wheeze (negative), Rhonchi (negative), Non-Labored Respirations, Accessory Resp Muscle Use (mild) and Other (Coarse breath sounds heard bilaterally)
GI: Soft, Non Distended, Non Tender and Normal Bowel Sounds
Neurology: Tremors (negative), Unresponsive and Other (Pupils 3 mm bilaterally and sluggish)
Skin: Warm, Dry, Cyanosis (negative) and Jaundice (negative)
Labs/Micro/Reports
Lab Data
05/08/24 03:44
05/07/24 02:18
Laboratory Results
05/08/24
03:44
APTT 61.6 H
Microbiology
05/04/24 08:51 Pleural Fluid Acid Fast Bacilli Smear - Preliminary
05/04/24 08:51 Pleural Fluid Acid Fast Bacilli Culture - Preliminary
05/04/24 08:51 Pleural Fluid Body Fluid Culture - Final
No Growth After 72 Hours
05/04/24 08:51 Pleural Fluid Gram Stain - Final
05/04/24 08:51 Pleural Fluid Fungal Smear - Final
No yeast or fungal elements seen.
05/04/24 08:51 Pleural Fluid Fungal Culture - Preliminary
Culture in progress.
Positive cultures are reported as soon as detected.
Final report to follow in four to five weeks.
--- NOTE | 2024-05-08 08:37 | W.PN.CARDCBS ---
Today's Communication / Plan
-
Change in mental status as noted
Cardiomyopathy medications as ordered
Will follow with you
Diuresis as able
His current change in mental status as well as per nursing discussions of goals of care will affect what we offer and timing
Impression / Plan
-
PCP: Dre Chino MD
Primary Service Loss Control Consultant: Dr. Chavez
Assessment:
Afib with RVR
acute on chronic HFrEF
acute on chronic hypoxemic resp failure
elevated troponin
COPD, on home oxygen
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
Cardiomyopathy, EF 35-40% by echo 05/2023
previous admission 05/2023, 06/2023 for CHF, afib
L pleural effusions s/p thoracentesis 05/2023, 06/2023
Persistent atrial fibrillation
Chronic eliquis therapy
Ascending aortic saccular aneurysm, 2.6 x 2.1 cm
Graves' disease
H/O Hypothyroidism following radiation treatment for Graves' disease
Daily EtOH
Current smoker
Medication noncompliance
ECHO 10/29/2021: EF 50-55%, mild MR, mildly dilated LA, mild TR, pulmonary artery systolic pressure 51 mmHg based on elevated right atrial pressure of 20 mmHg, dilated RA, normal RV, and some views anteroseptal hypokinesis could be present, normal
aortic valve
ECHO 05/26/23: EF 35 to 40% with global hypokinesis, mild MR, PA pressure 43
Plan:
63-year-old gentleman with history of severe COPD and ongoing tobacco dependence, alcohol abuse, chronic heart failure with reduced ejection fraction felt to be nonischemic, persistent atrial fibrillation on Eliquis therapy, Graves' disease with
hypothyroidism following radiation, medical noncompliance who presents with acute hypoxic respiratory failure consistent with acute on chronic heart failure with reduced ejection fraction in the setting of rapid atrial fibrillation
#Atrial fibrillation persistent with controlled rates
-Will avoid use of beta-vipul given underlying pulmonary status
-Currently on oral Cardizem, will use cautiously given reduced LV systolic function
-Eliquis held; continue IV heparin drip as necessary
# Change in mental status
He has become less responsive neurologically and family per nursing is considering discussion of goals and care and currently is a limited DNR
#Cardiomyopathy felt to be nonischemic with a EF on echocardiogram 05/04/2024 with EF visually estimated 40% with reduced RV systolic function and mild to moderate mitral regurgitation as well as moderate tricuspid regurgitation. Estimated pulmonary
artery pressures mildly elevated 40-45 mmHg with dilated IVC
-proBNP elevated at 6730
-Continue IV diuretics, Lasix 40 mg IV twice daily as able
-I's and O's, follow basic metabolic profile and weights
-Blood pressures pressure is marginal, briefly on Levophed which is now on standby.
-Eventually optimize goal-directed medical therapy
#Abnormal troponin with abnormal EKG concerning for non-ST elevation myocardial infarct
-Will have to follow his neurologic status and goals of care and this will affect whether we pursue ischemic evaluation and timing
#Ascending aortic aneurysm, 5 cm, stable when compared to May 2023
-Will need outpatient follow-up and eventual consultation as an outpatient with CT surgery depending upon neurologic status and goals of care
Progress Note - Service Loss Control Consultant
Subjective
Date of Service: May 08, 2024
Change in mental status as noted
Discussion with nursing regarding family discussing goals of care
Objective
Labs:
05/08/24 03:44
05/07/24 02:18
Labs
Hgb 14.0 g/dL (13.0-18.0) 05/08/24 03:44
Hct 40.1 % (39.0-52.0) 05/08/24 03:44
Plt Count 85 10^3/uL (130-400) L 05/08/24 03:44
PT 17.9 Sec (11.4-14.6) H 05/03/24 19:20
INR 1.45 05/03/24 19:20
APTT 61.6 Sec (23.4-35.0) H 05/08/24 03:44
Sodium 143 mmol/L (135-145) 05/07/24 02:18
Potassium 4.1 mmol/L (3.5-5.1) 05/07/24 02:18
BUN 50 mg/dl (9-20) H 05/07/24 02:18
Creatinine 1.7 mg/dL (0.7-1.3) H 05/07/24 02:18
Glucose 76 mg/dl (70-99) 05/07/24 02:18
Vital Signs and I&O:
Vital Signs
Temp Pulse Resp BP Pulse Ox
99.6 F 121 29 104/53 93
05/08/24 08:15 05/08/24 08:15 05/08/24 08:15 05/08/24 08:15 05/08/24 08:18
Vital Signs
Temp Pulse Resp BP Pulse Ox
99.6 F 121 29 104/53 93
05/08/24 08:15 05/08/24 08:15 05/08/24 08:15 05/08/24 08:15 05/08/24 08:18
Intake & Output
05/06/24 05/07/24 05/08/24 05/09/24
06:59 06:59 06:59 06:59
Intake Total 9394.2 / 9408.9 539.8 / 560.4 466.8 / 533.7 86.7 / 86.7
Output Total 400 / 400 1150 / 1420 1840 / 1840
Balance 8994.2 / 9008.9 -610.2 / -859.6 -1373.2 / -1306.3 86.7 / 86.7
Physical Exam
Physical Exam
����Physical Exam
���������������������General:�He is not responsive
���������������������������Neck:��supple. no meningeal signs. normal posterior pharynx
������������������������
���������������������������Heart:�Cor irregularly irregular, no murmur. equal radial pulses.
��������������������������Lungs: ��no acute respiratory distress. clear bilaterally
����������������������Abdomen:�normal bowel sounds. not tender. no CVAT
��������������������������Neuro:�He is currently not responsive but interacting with his noninvasive ventilation
������������������������������Skin: ��no rash
�����������������������Extremities:��no edema. no calf tenderness. negative homans. good distal pulses
��
�
--- NOTE | 2024-05-08 11:57 | PTCARENOTE ---
Updated assessment, vital signs ongoing and as documented. Hand Buffer team at bedside with family. Family moving toward, comfort measures, DNR/DNI and wish to withdraw care. Follow up plan of cares. Continue ongoing supportive cares and emotional
support. Critical care nursing in and out at bedside. Await further family to arrive. Await case management to follow plan of hospice cares.
--- NOTE | 2024-05-08 13:27 | CM ---
CM consulted for hospice. Per chart, family is interested in withdrawing care later this afternoon. Patient is critically ill and on continuous noninvasive ventilation; once family is ready to withdraw care then will transition to comfort care
measures.
CM spoke w/ pt's son, Aden, regarding hospice. Per Aden, he is wanting pt to be made GIP and doesn't believe he is able to return home w/ hospice. Aden agreeable for referral management liaison to assess as CM is not sure if pt is GIP appropriate or can
d/c home w/ hospice.
CM placed hospice referral via [facility] for review. Liaison, Ashley, made aware via TT
Plan: GIP vs home w/ hospice.
--- NOTE | 2024-05-08 13:41 | PTCARENOTE ---
Patient family at bedside. Provided condolence tray and supportive cares continues. Withdraw of cares and comfort primary concern with family. Patient appears comfortable, still working along with respiratory cares team, presently on NIV but will be
transitioning to N/C follow pain and comfort assessments.
--- NOTE | 2024-05-08 14:14 | HOSPNOTE ---
Met with patients son and sister to discuss hospice care. Reviewed GIP hospice vs home hospice. Patient to be evualated for GIP level of care tomorrow after comfort measures are started.
--- NOTE | 2024-05-08 14:17 | W.PN.HOSP.TC ---
Today's Communication/Plan
-
Withdraw care
Provide dignity and hygiene
Primary diagnosis
-COPD
-Heart failure
-Right-sided MCA 4-5 cm territory CVA
-Right cerebellar 1.9 cm territory infarct
-Acute hypoxemic respiratory failure
Assessment / Plan
Assessment / Plan
NAD, on precedex, on bilevel still in the 's
Scleral Anicteric
MMM
No JVD
Diminished breath sounds.
IRR, S1/S2
Soft, NT, ND, BS+
Warm, Dry
Left-sided pleural effusion status postthoracentesis, fluid analysis most consistent with transudative likely related to heart failure.
Acute hypoxemic respiratory failure per ICU does not want intubation. Therefore at this time we will continue going back and forth from high flow to BiPAP. Hopefully with the thoracentesis oxygen saturations will improve. Provide incentive
spirometer. IV Lasix. MDIs.
-Continue Precedex per ICU
A-fib RVR, off Cardizem drip on p.o. Cardizem. Will need to resume beta-blockade when able to tolerate. Currently on heparin drip. Transition to Eliquis when able to do so
HFrEF with a slightly improved EF of 40%. Per cardiology hold Lasix today. Continue BiPAP as tolerated
ZAHRA secondary to overdiuresis. Hold diuretics. Repeat BMP in AM. Follow renal function. Follow-up urinary output. Avoid nephrotoxins hypotension
Hypothyroid cotninue levothyroxine
Alcohol use disorder continue thiamine and folate, Msas and ativan prn
Anticipated Discharge: Within 24 hours
Subjective/Interval History
-
Date of Service: May 08, 2024
Seen and examined. Remains on Precedex weaning off. Remains on BiPAP not really awakening well enough to have a conversation. Family at bedside planning on withdrawing care later today.
Objective Data
-
Labs:
Laboratory Results
05/08/24 05/08/24
03:44 11:00
WBC 30.1 H
Hgb 14.0
Hct 40.1
Plt Count 85 L
APTT 61.6 H Pending
Vital Signs:
Vital Signs
Temp Pulse Resp BP Pulse Ox
100.3 F 89 22 101/67 92
05/08/24 12:05 05/08/24 13:00 05/08/24 13:00 05/08/24 13:00 05/08/24 12:06
I&O
05/07/24 05/08/24 05/09/24
06:59 06:59 06:59
Intake Total 539.8 / 560.4 466.8 / 533.7 185.5 / 185.5
Output Total 1150 / 1420 1840 / 1840
Balance -610.2 / -859.6 -1373.2 / -1306.3 185.5 / 185.5
--- NOTE | 2024-05-08 14:25 | PTCARENOTE ---
Family offically with draw of cares, comfort measures only, hospice team with family at this time. Supportive cares ongoing.
--- NOTE | 2024-05-08 14:50 | W.PN.UPDATE ---
Update Note
Progress Note Update
Almost all additional family was have arrived. Comfort care orders now placed. Emotional support provided to the family. Primary hospitalist, Dr. Howard, updated. Instructed RN to not give comfort care medications/remove from NIV until all found
members are present and ready to withdraw.
[2024-05-08] MEDS: DILAUDID 1 MG IV (15:03)
[2024-05-08] MEDS: NSS (PRESERVATIVE FREE) 0.25 ML IV (15:04)
[2024-05-08] MEDS: ATIVAN 0.5 MG IV (15:04)
--- NOTE | 2024-05-08 15:18 | RESPNOTE ---
15;15 Patient off NIV with family at bedside
[2024-05-08] MEDS: DILAUDID 0.5 MG IV (16:46)
--- NOTE | 2024-05-08 17:56 | PTCARENOTE ---
Update several times this pm with vp digital marketing social media and crm. Family all discussing patient comfort and breathing patterns. At present assessment, family feels patient is well managed for pain and respiratory status. Discussed vs and assessment. Complete bed bath
skin cares oral cares and massage provided. Family now return to bedside. Will continue with emotional support and comfort measures.
--- NOTE | 2024-05-08 19:34 | PTCARENOTE ---
Received pt via handoff. Pt now on comfort care. Lethargic, not able to follow commands and hardly opening eyes, pupils 3 but unresponsive, afib on the monitor, trace edema in LE, +pulses, lungs diminished, 2L NC, BSx4 hypoactive, CC#25 yellow
output, skin dry and intact. Family at bedside.
--- NOTE | 2024-05-08 23:20 | W.PN.DEATH ---
Pronouncement of
-
Called to see patient to pronounce.
No spontaneous heart tones or respirations noted.
Patient not responsive to verbal stimuli.
Patient is pronounced .
Time of : 23:01
Date of : 05/08/24
Cause of : acute hypoxemic respiratory failure, chronic obstructive pulmonary disease
Family Notified: Yes (son Aden Miranda called at time of and notified)
--- NOTE | 2024-05-09 09:05 | W.DCSUMMARY ---
Discharge Summary
Discharge Data
Date of Admission: 05/03/24
Date of Discharge: 05/09/24
-
Pending Results: No
Hospital Course
63 male history of A-fib that is paroxysmal, PE, HFrEF, pleural effusion, chronic home O2, COPD, hypothyroidism/Graves', alcohol abuse
Started om bipap and alternated with hiflow. unable to maintain spo2. Eventually upgraded to ICU.
Started on sedative and remained on Bipap.
Unable to to follow commands therfore, CTBrain order demonstarting acute cva.
Family decided on withdrawl of care and comfort measures.
[place]: 05/08/2024
Discharge Plan
-
Patient Disposition:
Date/Time
Date/Time: 05/09/24 00:44
Discharge Date and Time
Discharge Date/Time: 05/09/24 00:44
Print Language: HUNGARIAN
== END 2024-05-09 00:44 | disposition expired ==
LOC: ICU 15:11
PROVIDERS: Clinical Nurse Specialist Family Health; Internal Medicine Critical Care Medicine; Nurse Practitioner Gerontology; Nurse Practitioner Primary Care; Radiology Diagnostic Radiology; ADMITTING PHYSICIAN Hospitalist; CONSULT PHYSICIAN Internal Medicine Cardiovascular Disease; CONSULT PHYSICIAN Internal Medicine Critical Care Medicine; CONSULT PHYSICIAN Psychiatry & Neurology Clinical Neurophysiology; EMERGENCY PHYSICIAN Emergency Medicine; FAMILY PHYSICIAN Internal Medicine
PROC: 5A0935A Assistance with Respiratory Ventilation, Less than 24 Consecutive Hours, High Flow/Velocity Cannula (ICD-10-PCS; 2024-05-03)
PROC: 0W9B3ZZ Drainage of Left Pleural Cavity, Percutaneous Approach (ICD-10-PCS; 2024-05-03)
PROC: 5A09357 Assistance with Respiratory Ventilation, Less than 24 Consecutive Hours, Continuous Positive Airway Pressure (ICD-10-PCS; 2024-05-07)
DX: I11.0 Hypertensive heart disease with heart failure (principal); G93.41 Metabolic encephalopathy; I21.4 Non-ST elevation (NSTEMI) myocardial infarction; I50.23 Acute on chronic systolic (congestive) heart failure; J96.21 Acute and chronic respiratory failure with hypoxia; I63.511 Cerebral infarction due to unspecified occlusion or stenosis of right middle cerebral artery; Z51.5 Encounter for palliative care; J44.1 Chronic obstructive pulmonary disease with (acute) exacerbation; J91.8 Pleural effusion in other conditions classified elsewhere; I48.19 Other persistent atrial fibrillation; N17.9 Acute kidney failure, unspecified; F10.139 Alcohol abuse with withdrawal, unspecified; E87.3 Alkalosis; I42.8 Other cardiomyopathies; F17.210 Nicotine dependence, cigarettes, uncomplicated; G47.30 Sleep apnea, unspecified; G47.33 Obstructive sleep apnea (adult) (pediatric); I71.21 Aneurysm of the ascending aorta, without rupture; K74.60 Unspecified cirrhosis of liver; R57.8 Other shock; E89.0 Postprocedural hypothyroidism; I08.1 Rheumatic disorders of both mitral and tricuspid valves; R45.1 Restlessness and agitation; Z11.52 Encounter for screening for COVID-19; Z99.81 Dependence on supplemental oxygen; Z79.899 Other long term (current) drug therapy; Z79.890 Hormone replacement therapy; Z79.01 Long term (current) use of anticoagulants; Z87.74 Personal history of (corrected) congenital malformations of heart and circulatory system; Z86.711 Personal history of pulmonary embolism; Z90.81 Acquired absence of spleen; Z91.148 Patient's other noncompliance with medication regimen for other reason
CPT/HCPCS: 88305; 32555; 36600; 70450; 71045; 71275; 80048; 80053; 80061; 80306; 81003; 81015; 82010; 82077; 82150; 82805; 82945; 82947; 82977; 83605; 83615; 83735; 83880; 83986; 84100; 84145; 84155; 84157; 84439; 84443; 84478; 84484; 85014; 85025; 85027; 85610; 85730; 86022; 87015; 87070; 87102; 87116; 87205; 87206; 87502; 87811; 88112; 89051; 93005; 93306; 94002; 94003; 94640; 94660; 96374; 96375; 99291; Q9967